=== PATIENT | female | born 1960 | race Caucasian/White ===

== ENCOUNTER 2018-04-06 17:56 | Inpatient (IN) | payer OTHER ==
[~2018-04-06] VITALS: Ht 149.9 cm; Wt 43.1 kg
--- NOTE | 2018-04-06 18:21 | ED AMS/SEIZURE/WEAK/DIZZY ---
History of Present Illness General Chief Complaint: General Adult Stated Complaint: LOW WBC Source: patient Exam Limitations: no limitations Vital Signs & Intake/Output Vital Signs & Intake/Output Vital Signs Date Time Temp Pulse Resp B/P B/P Pulse O2 O2 Flow FiO2 Mean Ox Delivery Rate 04/07 0159 98.7 61 12 110/62 04/07 0147 98.5 67 14 118/60 04/07 0003 97.6 67 20 133/82 99 Room Air 04/06 2214 98.5 74 17 114/69 98 Room Air 04/06 2153 98.5 84 17 121/66 100 Room Air 04/06 2055 98.5 75 17 117/56 99 Room Air 04/06 1805 97.0 108 18 122/72 98 Room Air ED Intake and Output 04/07 0000 04/06 1200 Intake Total Output Total Balance Patient 96 lb 15.98 oz Weight Weight Reported by Patient Measurement Method Allergies Coded Allergies: latex (Mild, RASH 04/06/18) erythromycin base (GI UPSET 04/06/18) Triage Note: 57 YO FEMALE SENT TO ER BY DR FOR LOW WBC (0.6). STATES HAD OUTPATIENT BLOOD WORK AND RECICVED A CALL TODAY TO COME TO THE ER. PT C/O WEAKNESS/SHAKEY. Triage Nurses Notes Reviewed? 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 BAPTISTE history also includes hypertension and iron deficiency anemia Patient presents emergency room stating that 6 months ago she began having generalized weakness fatigue diarrhea intermittent bloody stools in which they' re working diagnosis currently is ulcerative colitis patient has had 35 pound weight loss patient this past week has been doing well with her bowel movements however in the past 24 hours she is complaining of loose watery diarrhea production and intermittent cramping abdominal pain earlier today however this has resolved. Patient can tolerate by mouth however has decreased by mouth intake Denies any fever chills but does have chronic weakness and fatigue (Pita JACKSON,Claudio) Reconcile Medications Cyanocobalamin (Vitamin B-12) 1,000 MCG TABLET 1 TAB PO DAILY SUPPLEMENT ( Reported) Diphenoxylate HCl/Atropine (Lomotil 2.5-0.025 MG Tablet) 2.5 MG-0.025 MG TABLET 1 TAB PO TID PRN DIARRHEA (Reported) Hyoscyamine Sulfate (Levsin-Sl) 0.125 MG TAB.SUBL 1 TAB SL TID PRN ABD CRAMPING (Reported) Mercaptopurine 50 MG TABLET 1.5 TAB PO DAILY GI RELATED (Reported) Mesalamine (Apriso) 0.375 GRAM CAP.ER.24H 4 CAP PO DAILY GI (Reported) Metoprolol Succ XL (Toprol XL) 25 MG TAB 1 TAB PO DAILY HEART/BP (Reported) Prednisone 10 MG TABLET 20 MG PO DAILY STEROID (Reported) (Ivan MARTINEZ,Jairo) Past History Travel History Traveled to [place] past 21 day No Medical History Any Pertinent Medical History? 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 No (Claudio Sena) Review of Systems Review of Systems Constitutional: Reports: see HPI. EENTM: Reports: no symptoms. Respiratory: Reports: no symptoms. Cardiovascular: Reports: no symptoms. GI: Reports: see HPI. Genitourinary: Reports: no symptoms. Musculoskeletal: Reports: no symptoms. Skin: Reports: no symptoms. Neurological/Psychological: Reports: no symptoms. Hematologic/Endocrine: Reports: no symptoms. Immunologic/Allergic: Reports: no symptoms. All Other Systems: Reviewed and Negative (Claudio Sena) Physical Exam Physical Exam General Appearance: no apparent distress, thin Head: atraumatic Eyes: Bilateral: normal appearance, PERRL. Ears, Nose, Throat: hearing grossly normal Neck: normal inspection Respiratory: normal breath sounds, no respiratory distress Cardiovascular: tachycardia Gastrointestinal: normal bowel sounds, soft, MILD RUQ PAIN NO REBOUND TENDERNESS Rectal: normal rectal tone, heme negative stool Extremities: normal range of motion Skin: intact, normal color, warm/dry Lymphatic: no anterior cervical cata Core Measures ACS in differential dx? No CVA/TIA Diagnosis No Sepsis Present: No Sepsis Focused Exam Completed? No (Claudio Sena) Progress Differential Diagnosis: anemia, CVA/stroke, dehydration, GI bleed, hypoglycemia, sepsis Plan of Care: Orders Procedure Date/time Status Regular Diet 04/07 B Active BLOOD PRODUCT PICKUP 04/07 0045 Active Vital Signs 04/079 Active Teach/Educate 04/07 29 Active Pain Treatment and Response 04/07 29 Active Nutritional Intake, Monitor 04/07 29 Active Isolation 04/07 29 Active Intake & Output 04/07 29 Active Patient Care Conference 04/07 29 Active Activity/Ambulation 04/[address] in observation 04/07 UNK Active OXYGEN SETUP (GEN) 04/06 2154 Active Saline Lock 04/06 2154 Active Vital Signs 04/06 2154 Active Activity/Ambulation 04/06 2154 Active Code Status 04/06 2154 Active BLOOD PRODUCT PICKUP 04/06 2133 Active EKG 04/06 2112 Active LEUKOCYTE POOR (PACKED CELLS) 04/06 2112 Active Add-on Test (ER Only) 04/06 1947 Active DIRECT BILIRUBIN 04/06 190 Complete PARTIAL THROMBOPLASTIN TIME 04/06 1840 Complete PROTHROMBIN TIME 04/06 1840 Complete COMPREHENSIVE METABOLIC PANEL 04/06 1840 Complete CBC WITHOUT DIFFERENTIAL 04/06 1840 Complete TYPE & SCREEN (NOT X-MATCH) 04/06 1840 Active Intake & Output 04/06 1820 Active Laboratory Tests 04/06/ 1900: Anion Gap 7, Estimated GFR > 60, BUN/Creatinine Ratio 15.0, Glucose 133 H, Calcium 9.2, Total Bilirubin 3.1 H, Direct Bilirubin 0.3, AST 28, ALT 49, Alkaline Phosphatase 62, Total Protein 5.9 L, Albumin 3.7, Globulin 2.2, Albumin/Globulin Ratio 1.7, PT 11.5, INR 1.05, APTT 30, CBC w Diff NO MAN DIFF REQ, RBC 2.43 L, MCV 91.9, MCH 31.8 H, MCHC 34.6, RDW 13.4, MPV 6.3 L, Gran % 53.1, Lymphocytes % 44.1, Monocytes % 0.9 L, Eosinophils % 1.8, Basophils % 0.1 , Absolute Granulocytes 0.5 L, Absolute Lymphocytes 0.4 L, Absolute Monocytes 0 L, Absolute Eosinophils 0, Absolute Basophils 0 Differential diagnoses include lymphoma leukemia cancer IBD Patient upon initial presentation is resting comply bedside denies any pain patient had fecal occult blood test that was negative ultrasound was ordered for mild elevation of bilirubin ultrasound was negative patient has no fever. Discussed patient with hematology who is aware patient's leukopenia Patient is symptomatically anemic, hematology advised patient to hold the 6 -MP Discussed admission with patient and family members were aware and had no questions. Diagnostic Imaging: Viewed by Me: Ultrasound. 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 COMPARISON: None TECHNIQUE: Real-time imaging of the right upper quadrant abdominal viscera. Color Doppler exam used. FINDINGS: PANCREAS: Normal. LIVER: Normal. The liver demonstrates normal size, contour and echogenicity. No focal lesion or intrahepatic biliary duct dilatation. GALLBLADDER: The gallbladder is contracted. Patient was not fasting for this exam. No gallstone seen. No pericholecystic fluid. No gallbladder wall thickening COMMON BILE DUCT: Normal in caliber measuring 0.3 cm in diameter. RIGHT KIDNEY: Normal. No hydronephrosis. No renal calculi or focal parenchymal lesions. The kidney measures 11.2 cm in maximum dimension. FREE FLUID: None. IMPRESSION: Nonfasting ultrasound. Gallbladder is contracted. There is no acute change of the gallbladder. No gallstone. No bile duct dilatation. DICTATED BY: Franklyn Lubin MD DATE/TIME DICTATED:04/06/182046 SWITCHBOARD WIRER:SHADE DATE/TIME TRANSCRIBED:04/06/182046 CONFIDENTIAL, DO NOT COPY WITHOUT APPROPRIATE AUTHORIZATION. <Electronically signed in Other Vendor System> SIGNED BY: Franklyn Lubin MD 04/06/18 [id number] (Pita JACKSON,Claudio) Departure Departure Disposition: STILL A PATIENT Condition: Stable Clinical Impression Primary Impression: Symptomatic anemia Secondary Impressions: Leukopenia Referrals: Domenico Loya MD, V. (PCP/Family) Departure Forms: Customer Survey General Discharge Information Admission Note Spoke With: Sandra Umanzor MD Documentation of Exam: Documentation of any treatments & extenuating circumstances including Concerns Regarding Discharge (functional status, medication knowledge or non-compliance, living conditions, etc.) that warrant an admission rather than observation: [ Patient requires hematology consultation gastroenterology consultation IV blood transfusions repeat labs] (Claudio Sena) PA/GROUND WIRER Co-Sign Statement Statement: ED Attending supervision documentation- x I saw and evaluated the patient. I have also reviewed all the pertinent lab results and diagnostic results. I agree with the findings and the plan of care as documented in the PA's/GROUND WIRER's documentation. Generalized weakness, worsening anemia/pancytopenia secondary to 6-MP [] I have reviewed the ED Record and agree with the PA's/GROUND WIRER's documentation. [] Additions or exceptions (if any) to the PAs/GROUND WIRER's note and plan are summarized below: [] (Ivan MARTINEZ,Jairo) Critical Care Note Critical Care Note Critical Care Time: 30-74 min (Claudio Sena)
[2018-04-06 19:14] LABS: ABSOLUTE BASOPHIL COUNT 0 /CUMM (0.0-0.2); ABSOLUTE EOSINOPHIL COUNT 0 /CUMM (0.0-0.7); ABSOLUTE GRANULOCYTE CT 0.5 /CUMM (1.4-6.5); ABSOLUTE LYMPH COUNT 0.4 /CUMM (1.2-3.4); ABSOLUTE MONOCYTE COUNT 0 /CUMM (0.10-0.60); BASOPHIL % 0.1 % (0.0-2.0); EOSINOPHIL % 1.8 % (0-5); HEMATOCRIT 22.4 % (37-47); MEAN CORPUSCULAR HGB 31.8 PG (27.0-31.0); MEAN CORPUSCULAR HGB CONC 34.6 G/DL (33.0-37.0); MEAN CORPUSCULAR VOLUME 91.9 FL (81.0-99.0); MEAN PLATELET VOLUME 6.3 FL (7.4-10.4); PLATELET COUNT 168 /CUMM (130-400); RBC DISTRIBUTION WIDTH 13.4 % (11.5-14.5); RED BLOOD CELL CT 2.43 /CUMM (4.20-5.40)
[2018-04-06 19:20] LABS: WHITE BLOOD CELL COUNT 0.9 /CUMM (4.8-10.8)
[2018-04-06 19:23] LABS: PT 11.5 SEC (9.4-12.5); PTT 30 SEC (25-37)
[2018-04-06 19:47] LABS: GRANULOCYTE % 53.1 % (42.2-75.2)
--- NOTE | 2018-04-06 21:03 | ULTRASOUND REPORT ---
EXAMINATION: US ABDOMEN LIMITED CLINICAL INFORMATION: Right upper quadrant pain.. COMPARISON: None TECHNIQUE: Real-time imaging of the right upper quadrant abdominal viscera. Color Doppler exam used. FINDINGS: PANCREAS: Normal. LIVER: Normal. The liver demonstrates normal size, contour and echogenicity. No focal lesion or intrahepatic biliary duct dilatation. GALLBLADDER: The gallbladder is contracted. Patient was not fasting for this exam. No gallstone seen. No pericholecystic fluid. No gallbladder wall thickening COMMON BILE DUCT: Normal in caliber measuring 0.3 cm in diameter. RIGHT KIDNEY: Normal. No hydronephrosis. No renal calculi or focal parenchymal lesions. The kidney measures 11.2 cm in maximum dimension. FREE FLUID: None. IMPRESSION: Nonfasting ultrasound. Gallbladder is contracted. There is no acute change of the gallbladder. No gallstone. No bile duct dilatation.
[2018-04-06] MEDS ORDERED: MERCAPTOPURINE50 M1 PO (21:25)
[2018-04-06] MEDS ORDERED: PREDNISONE10 M2 PO (21:26)
[2018-04-06] MEDS ORDERED: TOPROL XL25 M1 PO (21:27)
[2018-04-06] MEDS ORDERED: LEVSIN-SL0.125 MG SL (21:27)
[2018-04-06] MEDS ORDERED: APRISO0.375 G1 PO (21:30)
[2018-04-06] MEDS ORDERED: LOMOTIL 2.5-0.1 EACH PO (21:31)
--- NOTE | 2018-04-06 21:40 | History & Physical ---
General Information and HPI Allergies/Medications Allergies: Coded Allergies: latex (Mild, RASH 04/06/18) erythromycin base (GI UPSET 04/06/18) Home Med list Cyanocobalamin (Vitamin B-12) 1,000 MCG TABLET 1 TAB PO DAILY SUPPLEMENT ( Reported) Diphenoxylate HCl/Atropine (Lomotil 2.5-0.025 MG Tablet) 2.5 MG-0.025 MG TABLET 1 TAB PO TID PRN DIARRHEA (Reported) Hyoscyamine Sulfate (Levsin-Sl) 0.125 MG TAB.SUBL 1 TAB SL TID PRN ABD CRAMPING (Reported) Mercaptopurine 50 MG TABLET 1.5 TAB PO DAILY GI RELATED (Reported) Mesalamine (Apriso) 0.375 GRAM CAP.ER.24H 4 CAP PO DAILY GI (Reported) Metoprolol Succ XL (Toprol XL) 25 MG TAB 1 TAB PO DAILY HEART/BP (Reported) Prednisone 10 MG TABLET 20 MG PO DAILY STEROID (Reported) Past History Travel History Traveled to [place] past 21 day No Medical History Neurological: NONE EENT: NONE Cardiovascular: hypertension Respiratory: NONE Gastrointestinal: ulcerative colitis Hepatic: NONE Renal: NONE Musculoskeletal: NONE Psychiatric: NONE Endocrine: NONE Blood Disorders: NONE Cancer(s): 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
[2018-04-06] MEDS ORDERED: VITAMIN B-121000 MC3 PO (21:48)
[2018-04-07 01:47] VITALS: BP 118/60
[2018-04-07 01:59] VITALS: BP 110/62
[2018-04-07 02:18] VITALS: BP 146/80
--- NOTE | 2018-04-07 03:51 | History & Physical ---
Marli Saavedra MD 04/07/18 0350: General Information and HPI MD Statement: I have seen and personally examined MANINDER WAGONER and documented this H&P. The patient is a 57 year old F who presented with a patient stated chief complaint of abdominal pain, diarrhea, pancytopenia Source of Information: patient, family Exam Limitations: no limitations History of Present Illness: This is a 57-year-old female with a past medical history significant for hypertension, ulcerative colitis, right hip replacement secondary to osteoarthritis, hysterectomy, for complaints of right upper quadrant pain, diarrhea secondary to her ulcerative colitis, and recent pancytopenia found on recent labs. Today, the patient saw her alarm mechanic Dr. Irizarry and after doing her work and finding pancytopenia, he recommended that she come to the ED. The patient was formally diagnosed with ulcerative colitis in November after a colonoscopy. She was inpatient at [facility] in September for mild colitis seen on the scan. The patient states that she had antibiotics for bronchitis several times over the years and after one specific bout, in the fall , is when her problems started with diarrhea. She has been worked up several times for C. difficile which has always been negative. The patient has lost about a total of 30 pounds her diagnosis and can vary to low appetite, experiences diarrhea regularly, sometimes 10-12 times per day. He should states that she has had continuous diarrhea since about 2 PM today. She notes right upper quadrant pain that gets better on defecation. She rates it at the worst an 8 out of 10. The patient notes that the stool is dark brown currently a darker brown than previous. Yesterday the patient's diarrhea was mostly watery. The last time that she noted ean blood in the stool was in October. The patient notes severe tiredness that she attributes to waking up to use the bathroom several times nightly. She states that she's had to quit her job because of near accidents at work. The patient denies any nausea, vomiting, fever, chills, headache, dizziness, cough, dysuria, lower extremity edema. The patient does admit to chest pain a few times over the past last week. The chest pain is not on exertion and not worse with deep breathing. She does not have any cardiac issues except for hypertension. She has a family history of her mother had bypass surgery in her 60s. Dr[address] Irizarry recently increased the patient's dose of 6-mercaptopurine on March 22 from 50 mg to 75 mg in addition to mesalamine and chronic steroids 10 mg daily. The patient was supposed to start 20 mg of prednisone today. The patient states that she is aware that when her prednisone is less then 15, she began to have worsening symptoms. The patient is also on Lomotil and hyoscyamine for cramps when necessary. Of note patient has left arm rash that she attributes to poison donna that she got when pulling weeds out of her garden. She states that the rash is itchy. She also states that when she touched her arm to her leg, her leg broke out in rash as well. Dr. Irizarry has seen the rash and also thinks that it is poison donna. She has been using calamine lotion on the rash. Her [id number] has the same rash currently and was also pulling weeds from the garden. The patient has no family history of abdominal problems. History of cancer in father and sister. The patient smoked for about 15 years ago when she was in college and asked her, 1.5 packs per day, rare alcohol use or drug use. Allergies/Medications Allergies: Coded Allergies: latex (Mild, RASH 04/06/18) erythromycin base (GI UPSET 04/06/18) Home Med list Cyanocobalamin (Vitamin B-12) 1,000 MCG TABLET 1 TAB PO DAILY SUPPLEMENT ( Reported) Diphenoxylate HCl/Atropine (Lomotil 2.5-0.025 MG Tablet) 2.5 MG-0.025 MG TABLET 1 TAB PO TID PRN DIARRHEA (Reported) Hyoscyamine Sulfate (Levsin-Sl) 0.125 MG TAB.SUBL 1 TAB SL TID PRN ABD CRAMPING (Reported) Mercaptopurine 50 MG TABLET 1.5 TAB PO DAILY GI RELATED (Reported) Mesalamine (Apriso) 0.375 GRAM CAP.ER.24H 4 CAP PO DAILY GI (Reported) Metoprolol Succ XL (Toprol XL) 25 MG TAB 1 TAB PO DAILY HEART/BP (Reported) Prednisone 10 MG TABLET 20 MG PO DAILY STEROID (Reported) Compliance With Home Meds: GOOD Past History Travel History Traveled to [place] past 21 day No Medical History Blood Transfusion Hx: No Neurological: NONE EENT: NONE Cardiovascular: hypertension Respiratory: bronchitis Gastrointestinal: ulcerative colitis Hepatic: NONE Renal: NONE Musculoskeletal: osteoarthritis Psychiatric: NONE Endocrine: NONE Blood Disorders: NONE Cancer(s): NONE DIVERSITY MANAGER/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: endometriosis History of MRSA: No History of VRE: No History of CDIFF: No Isolation History: Neutropenic precautions Surgical History Surgical History: non-contributory Past Family/Social History Family History Relations & Conditions if any Family history was reviewed; no changes noted. Psychosocial History Smoking Status: Former Smoker Review of Systems Review of Systems Constitutional: Reports: no symptoms. EENTM: Reports: no symptoms. Cardiovascular: Reports: chest pain. Respiratory: Reports: no symptoms. GI: Reports: abdominal pain, bloating, diarrhea. Genitourinary: Reports: no symptoms. Musculoskeletal: Reports: no symptoms. Skin: Reports: rash. Neurological/Psychological: Reports: no symptoms. Hematologic/Endocrine: Reports: no symptoms. Immunologic/Allergic: Reports: no symptoms. All Other Systems: Reviewed and Negative Exam & Diagnostic Data Last 24 Hrs of Vital Signs/I&O Vital Signs Date Time Temp Pulse Resp B/P B/P Pulse O2 O2 Flow FiO2 Mean Ox Delivery Rate 04/07 0218 98.5 72 20 146/80 100 Room Air 04/07 0159 98.7 61 12 110/62 04/07 0147 98.5 67 14 118/60 04/07 0003 97.6 67 20 133/82 99 Room Air 04/06 2214 98.5 74 17 114/69 98 Room Air 04/06 2153 98.5 84 17 121/66 100 Room Air 04/06 2055 98.5 75 17 117/56 99 Room Air 04/06 1805 97.0 108 18 122/72 98 Room Air Intake & Output 04/07 0800 04/07 0000 04/06 1600 Intake Total 710 Output Total Balance 710 Intake, Blood 350 Product Intake, Oral 360 Number 2 Bowel Movements Patient 95 lb 96 lb 15.98 oz Weight Weight Reported by Patient Measurement Method Physical Exam General Appearance Alert, Oriented X3, Cooperative, No Acute Distress Skin No Breakdown, patient has left arm rash, pruritic, no other skin lesions Skin Temp/Moisture Exam: Warm/Dry Sepsis Skin Exam (color): Normal for Ethnicity HEENT Atraumatic, PERRLA, EOMI, Mucous Membr. moist/pink Neck Supple, No JVD Cardiovascular Regular Rate, Normal S1, Normal S2, No Murmurs Lungs Clear to Auscultation, Normal Air Movement Abdomen Normal Bowel Sounds, Soft, No Hepatospenomegaly, No Masses, epigastric pain on palpation, positive bowel sounds, no masses Neurological Normal Speech Extremities No Clubbing, No Cyanosis, No Edema, Normal Pulses, No Tenderness/ Swelling Vascular Normal Pulses, Pulses Symmetrical Sepsis Peripheral Pulse Location: Radial Last 24 Hrs of Labs/Sumanth: Laboratory Tests 04/06/18 1900: Anion Gap 7, Estimated GFR > 60, BUN/Creatinine Ratio 15.0, Glucose 133 H, Calcium 9.2, Total Bilirubin 3.1 H, Direct Bilirubin 0.3, AST 28, ALT 49, Alkaline Phosphatase 62, Total Protein 5.9 L, Albumin 3.7, Globulin 2.2, Albumin/Globulin Ratio 1.7, PT 11.5, INR 1.05, APTT 30, CBC w Diff NO MAN DIFF REQ, RBC 2.43 L, MCV 91.9, MCH 31.8 H, MCHC 34.6, RDW 13.4, MPV 6.3 L, Gran % 53.1, Lymphocytes % 44.1, Monocytes % 0.9 L, Eosinophils % 1.8, Basophils % 0.1 , Absolute Granulocytes 0.5 L, Absolute Lymphocytes 0.4 L, Absolute Monocytes 0 L, Absolute Eosinophils 0, Absolute Basophils 0 Assessment/Plan Assessment: This is a 57-year-old female with a past medical history significant for hypertension, ulcerative colitis, right hip replacement secondary to osteoarthritis, hysterectomy, for complaints of abd pain, diarrhea secondary to her ulcerative colitis, and recent pancytopenia found on recent labs. Today, the patient saw her alarm mechanic Dr. Irizarry and after doing her work and finding pancytopenia, he recommended that she come to the ED. The patient was formally diagnosed with ulcerative colitis in November after a colonoscopy. Her dose of 6 mercaptopurine was recently increased from 50 mg to 75 mg. The patient is also on prednisone 10 mg which was supposed to be increased to 20 mg daily, hyoscyamine when necessary, mesalamine, Lomotil. He has experienced 30 pound weight loss and continuing diarrhea, recently without blood, exhaustion, and has had to quit her job for her illness. Previous colonoscopy showed ulcerative colitis confined to the rectum mostly. In the ED, vitals 98.5, heart rate 108, respiratory rate 20, blood pressure 122/ 72, 90% O2 sat on room air. Labs showed WBC count of 0.9, absolute neutrophil count of 0.5, hemoglobin 7.7, MCV normal, platelet count 168, total bilirubin of 3.1. CT abdomen and pelvis clear In the ED, the patient received IV Tylenol for pain. Assessment -Afebrile pancytopenia secondary to increase in dose of 6 mercaptopurine: Patient has low counts in all cell lines and elevated bilirubin. Patient may have decreased immunity which is caused her to have noise 90 infection. No other evidence of skin lesions. Patient has a hemoglobin of 7.7. We have started 2 units of blood transfusion. Research literature shows that blood counts should rebound about 20 days after stopping mercaptopurine. -Diarrhea and abdominal pain secondary to ulcerative colitis: Patient is currently on mesalamine, Lomotil, prednisone, hyosciamine -Past medical history of hypertension Plan -Check CBC status post transfusion -Neutropenic precautions, watch for fevers -Stop 6-mercaptopurine -Hematology consult -GI consult DVT prophylaxis with just Alps Regular diet as tolerated Full code As Ranked By This Provider Problem List: 1. Leukopenia Core Measures/Misc (06/27) Acute Coronary Syndrome ACS Diagnosis: No Congestive Heart Failure Congestive Heart Failure Diagnosis No Cerebrovascular Accident CVA/TIA Diagnosis: No VTE (View Protocol) VTE Risk Factors Acute Medical Illness No Mechanical VTE Prophylaxis d/t LowRisk-No Interven Req'd No VTE Pharm Prophylaxis d/t Medical Contraindication Sepsis (View protocol) Sepsis Present: No If YES complete Sepsis Event Note If YES complete Sepsis Event Note AbdirashidSugar will 04/07/18 0422: Core Measures/Misc (06/27) Sepsis (View protocol) If YES complete Sepsis Event Note If YES complete Sepsis Event Note Resident Review Statement Resident Statement: discussed with internet designer, agreed with internet designer Other Findings: Patient is 57-year-old female with past medical history of hypertension, recently diagnosed ulcerative colitis in 11/2017, was sent to [facility] for low blood count. Patient was diagnosed by ulcerative colitis by Dr. Irizarry through coloscopy recently, since then patient has been on mesalamine, 6-mercaptopurine and prednisone. Patient states that although her bloody stools improved 2-3 months ago, her diarrhea was never improved. Therefore recently like 2 weeks ago, her 6-mercaptopurine dose was increased. Patient had appointment to follow with Dr. Irizarry in office today for her diarrhea, and routine blood work was drawn. She was called by Dr. Irizarry to come to ER based on her pancytopenia. Labs and vitals as above Assessment and plan We will monitor the patient on general medicine floor, recheck CBC in morning, stop offending agent 6-mercaptopurine. GI and hematology evaluation in a.m. We'll continue the patient on metoprolol, will follow GI recommendation regarding dosing of prednisone in a.m. Can continue mesalamine at though old dose. Patient also takes hyoscyamine for abdominal cramping, will continue. DVT prophylaxis Alps Patient is full code. Sandra Umanzor 04/07/18 0506: Core Measures/Misc (06/27) Sepsis (View protocol) If YES complete Sepsis Event Note If YES complete Sepsis Event Note Attending MD Review Statement Attending Statement Attending MD Statement: examined this patient, discuss w/resident/PA/ELECTRIC MOTOR ASSEMBLER, agreed w/resident/PA/ELECTRIC MOTOR ASSEMBLER, discussed with family, reviewed EMR data (avail), reviewed images, amended to note Attending Assessment/Plan: CC: Low blood counts PMH: HTN, ulcerative colitis Patient was suggested by her alarm mechanic to go to ER for low blood counts. Patient started to have symptoms with her colitis in September 2017, eventually underwent colonoscopy and was found to have ulcerative colitis. She was started on mesalamine and prednisone but her symptoms persisted. She hasn't intermittent diarrhea, abdominal cramping and had 35 pound weight loss. She used to have bloody diarrhea but last bloody diarrhea was few months back. Because of her persistent symptoms she was started on 6-mercaptopurine outpatient, and was followed up as routine blood work today. Her blood counts were extremely low so she was suggested to go to ER. She has mild rash on her left upper extremity, attributes that to poison donna exposure and few spots on left thigh because of the same. She denies any fever or chills. Complete ROS is otherwise unremarkable. Vitals: Temperature 98.5, pulse 75, RR 17, blood pressure 117/56, saturating 99% on room air. On exam: A O 3, cooperative, no acute distress, neck supple, JVD normal, no lymphadenopathy, mucosa moist, no focal neurological deficit, no dependent edema , small maculopapular rash on left forearm, left thigh, without evidence of cellulitis or discharge or abscess collection. CVS: S1-S2, RRR. RS: Clear to auscultate bilaterally. Abdomen: Soft, NT, ND, bowel sounds present. Right upper quadrant ultrasound: Nonfasting ultrasound. Gallbladder is contracted. There is no acute change of the gallbladder. No gallstone. No bile duct dilatation. Assessment and plan 57 year old female with recently diagnosed ulcerative colitis was sent to ER by alarm mechanic for low blood cultures. Her WBC count was 4.2 on April 01 and dropped to 0.8 today with absolute neutrophil being 500. She also has reduced RBC count and her hemoglobin dropped from 8.9-7.9. She was started on 6- mercaptopurine on March 01 and her dose was recently increased on March 22, for which she was undergoing routine blood work. Complete ROS unremarkable except her colitis symptoms at this point. Patient is being placed in Observation for anemia. Rectal examination done by ER provider mentions heme-negative stool. + Pancytopenia secondary to 2-echkewffqakdql-rxpsvti bone marrow depression + Ulcerative colitis + Hypertension - Place in observation on Gen. medicine - Transfuse 1 unit PRBC as it is ordered from ER, otherwise not indicated - Stop 6-mercaptopurine - Inform gastroenterology about patient being here - Consult hematology - Continue by mouth prednisone, mesalamine for ulcerative colitis - Continue patient's antihypertensives. We had detailed discussion with patient's and patient and explained the plan.
[2018-04-07 06:47] VITALS: BP 110/60
[2018-04-07 08:12] LABS: ABSOLUTE BASOPHIL COUNT 0 /CUMM (0.0-0.2); ABSOLUTE EOSINOPHIL COUNT 0.1 /CUMM (0.0-0.7); ABSOLUTE GRANULOCYTE CT 0.3 /CUMM (1.4-6.5); ABSOLUTE LYMPH COUNT 1.9 /CUMM (1.2-3.4); ABSOLUTE MONOCYTE COUNT 0 /CUMM (0.10-0.60); BASOPHIL % 0.2 % (0.0-2.0); EOSINOPHIL % 3.5 % (0-5); HEMATOCRIT 26.6 % (37-47); MEAN CORPUSCULAR HGB 31.3 PG (27.0-31.0); MEAN CORPUSCULAR HGB CONC 34.7 G/DL (33.0-37.0); MEAN CORPUSCULAR VOLUME 90.3 FL (81.0-99.0); MEAN PLATELET VOLUME 6.5 FL (7.4-10.4); PLATELET COUNT 110 /CUMM (130-400); RBC DISTRIBUTION WIDTH 14.3 % (11.5-14.5); RED BLOOD CELL CT 2.94 /CUMM (4.20-5.40)
[2018-04-07 09:02] LABS: WHITE BLOOD CELL COUNT 2.4 /CUMM (4.8-10.8)
[2018-04-07 09:05] LABS: GRANULOCYTE % 14.7 % (42.2-75.2)
--- NOTE | 2018-04-07 12:39 | PN- Att Addend ---
Attending Addendum Attending Brief Note Patient seen and examined, was complaining of some abdominal cramps and diarrhea but that her usual. Blood count this morning improved both RBC and white blood cell count. Vital Signs Date Time Temp Pulse Resp B/P B/P Pulse O2 O2 Flow FiO2 Mean Ox Delivery Rate 04/07 0647 98.8 68 20 110/60 98 Room Air 04/07 0218 98.5 72 20 146/80 100 Room Air 04/07 0159 98.7 61 12 110/62 04/07 0147 98.5 67 14 118/60 04/07 0003 97.6 67 20 133/82 99 Room Air 04/06 2214 98.5 74 17 114/69 98 Room Air 04/06 2153 98.5 84 17 121/66 100 Room Air 04/06 2055 98.5 75 17 117/56 99 Room Air 04/06 1805 97.0 108 18 122/72 98 Room Air on exam; aox3, nad. cv; s1, s2, rrr resp; clear abd; soft, nt, bs+ ext; no edema Laboratory Tests 04/07 04/06 0640 1900 Chemistry Sodium (137 - 145 mmol/L) 141 139 Potassium (3.5 - 5.1 mmol/L) 3.7 4.1 Chloride (98 - 107 mmol/L) 106 99 Carbon Dioxide (22 - 30 mmol/L) 28 32 H Anion Gap (5 - 16) 7 7 BUN (7 - 17 mg/dL) 8 9 Creatinine (0.5 - 1.0 mg/dL) 0.6 0.6 Estimated GFR (>60 ml/min) > 60 > 60 BUN/Creatinine Ratio (7 - 25 %) 13.3 15.0 Glucose (65 - 99 mg/dL) 133 H Calcium (8.4 - 10.2 mg/dL) 9.2 Total Bilirubin (0.2 - 1.3 mg/dL) 3.1 H Direct Bilirubin (< 0.4 mg/dL) 0.2 0.3 AST (14 - 36 U/L) 28 ALT (9 - 52 U/L) 49 Alkaline Phosphatase (<127 U/L) 62 Total Protein (6.3 - 8.2 g/dL) 5.9 L Albumin (3.5 - 5.0 g/dL) 3.7 Globulin (1.9 - 4.2 gm/dL) 2.2 Albumin/Globulin Ratio (1.1 - 2.2 %) 1.7 Vitamin B12 (239 - 931 pg/mL) > 1000 H Folate (2.76 - 20.0 ng/mL) 9.7 Coagulation PT (9.4 - 12.5 SEC) 11.5 INR (0.90 - 1.19) 1.05 APTT (25 - 37 SEC) 30 Hematology CBC w Diff MAN DIFF ORDERED NO MAN DIFF REQ WBC (4.8 - 10.8 /CUMM) 2.4 L 0.9 *L RBC (4.20 - 5.40 /CUMM) 2.94 L 2.43 L Hgb (12.0 - 16.0 G/DL) 9.2 L 7.7 L Hct (37 - 47 %) 26.6 L 22.4 L MCV (81.0 - 99.0 FL) 90.3 91.9 MCH (27.0 - 31.0 PG) 31.3 H 31.8 H MCHC (33.0 - 37.0 G/DL) 34.7 34.6 RDW (11.5 - 14.5 %) 14.3 13.4 Plt Count (130 - 400 /CUMM) 110 L 168 MPV (7.4 - 10.4 FL) 6.5 L 6.3 L Gran % (42.2 - 75.2 %) 14.7 L 53.1 Lymphocytes % (20.5 - 51.1 %) 81.4 H 44.1 Monocytes % (1.7 - 9.3 %) 0.2 L 0.9 L Eosinophils % (0 - 5 %) 3.5 1.8 Basophils % (0.0 - 2.0 %) 0.2 0.1 Absolute Granulocytes (1.4 - 6.5 /CUMM) 0.3 L 0.5 L Segmented Neutrophils (42.2 - 75.2 %) 9 L Band Neutrophils (0.0 - 5.0 %) 2 Absolute Lymphocytes (1.2 - 3.4 /CUMM) 1.9 0.4 L Lymphocytes (20.5 - 51.1 %) 84 H Monocytes (1.7 - 9.3 %) 1 L Absolute Monocytes (0.10 - 0.60 /CUMM) 0 L 0 L Eosinophils (0 - 5.0 %) 3 Absolute Eosinophils (0.0 - 0.7 /CUMM) 0.1 0 Basophils (0.0 - 2.0 %) 1 Absolute Basophils (0.0 - 0.2 /CUMM) 0 0 Platelet Estimate (ADEQUATE) DECREASED Poikilocytosis 1+ Anisocytosis 1+ A/P; 57 y/o F with pmh sig for hypertension, recent diagnosis of ulcerative colitis on 6 MP, right hip replacement secondary to osteoarthritis, hysterectomy , admitted with pancytopenia. Patient had acute blood loss anemia and received RBC transfusion. H&H and upright blood cell count has improved. Still thrombocytopenic. This was all likely secondary to 6-MP. Discussed with Dr. Irizarry. 6-MP has been stopped and will continue to hold. Continue steroids. Counts improved. patient can be discharged home today with outpatient GI and possible heme follow. Will defer that decesion to GI if counts do not continue to improve.
--- NOTE | 2018-04-07 12:48 | Patient Discharge Instructions ---
Discharge Instructions General Discharge Information You were seen/treated for: Pancytopenia Watch for these problems: Please return to the ER in case of any Fever, chills, diarrhea, or blood in stools. Special Instructions: Please follow up with your PCP and Interactive Web Developer within a week after discharge. Follow up blood work with Dr. Irizarry. Diet Continue normal diet: Yes Activity Full Activity/No Limits: Yes Acute Coronary Syndrome Inclusion Criteria At DC or during hospital stay patient has or had the following: ACS DIAGNOSIS No Discharge Core Measures Meds if any: Prescribed or Continued at Discharge Meds if any: NOT Prescribed or Continued at Discharge Congestive Heart Failure Inclusion Criteria At DC or during hospital stay patient has or had the following: CHF DIAGNOSIS No Discharge Core Measures Meds if any: Prescribed or Continued at Discharge Meds if any: NOT Prescribed or Continued at Discharge Cerebrovascular accident Inclusion Criteria At DC or during hospital stay patient has or had the following: CVA/TIA Diagnosis No Discharge Core Measures Meds if any: Prescribed or Continued at Discharge Meds if any: NOT Prescribed or Continued at Discharge Venous thromboembolism Inclusion Criteria VTE Diagnosis No VTE Type NONE VTE Confirmed by (Test) NONE Discharge Core Measures - Per Current guidelines, there needs to be overlap - treatment for the first 5 days of Warfarin therapy. - If discharged on Warfarin prior to 5 days of - overlap therapy, the patient will need to be - assessed for post discharge needs including - *Post discharge parental anticoagulation - *Warfarin and/or parental anticoagulation education - *Follow up date to check INR post discharge At least 5 days overlap therapy as Inpatient No Meds if any: Prescribed or Continued at Discharge Note: Overlap Therapy is Warfarin and Anticoagulant Meds if any: NOT Prescribed or Continued at Discharge
[2018-04-07 13:35] VITALS: BP 110/60
--- NOTE | 2018-04-07 16:45 | Discharge Summary ---
Hospital Course Allergies: Coded Allergies: latex (Mild, RASH 04/06/18) erythromycin base (GI UPSET 04/06/18) Discharge Instructions Medications at Discharge Discharge Medications: Stop taking the following medications: Mercaptopurine (Mercaptopurine) 50 MG TABLET ORAL DAILY Qty = 45 Continue taking these medications: Prednisone (Prednisone) 10 MG TABLET 20 Milligram ORAL DAILY Qty = 90 Comments: Last Taken:04/07/18 Time:0845 Metoprolol Succ XL (Toprol XL) 25 MG TAB 1 Tablet ORAL DAILY Comments: NOT TAKEN IN HOSPITAL Hyoscyamine Sulfate (Levsin-Sl) 0.125 MG TAB.SUBL 1 Tablet SUBLINGUAL THREE TIMES DAILY as needed for ABD CRAMPING Qty = 45 Comments: Last Taken:04/07/18 Time:1300 Mesalamine (Apriso) 0.375 GRAM CAP.ER.24H 4 Capsule ORAL DAILY Qty = 120 Comments: Last Taken:04/07/18 Time:0845 Diphenoxylate HCl/Atropine (Lomotil 2.5-0.025 MG Tablet) 2.5 MG-0.025 MG TABLET 1 Tablet ORAL THREE TIMES DAILY as needed for DIARRHEA Qty = 60 Comments: NOT GIVEN IN HOSPITAL Cyanocobalamin (Vitamin B-12) 1,000 MCG TABLET 1 Tablet ORAL DAILY Comments: NOT GIVEN IN HOSPITAL
== END 2018-04-07 14:41 | DRG 809 ==
LOC: ERH 17:56 → 2NA 21:54 → ERHI 21:54 → ENRESERV 22:50 → 2NA 04-07 00:22
PROVIDERS: Internal Medicine; Physician Assistant
PROC: 30233N1 Transfusion of Nonautologous Red Blood Cells into Peripheral Vein, Percutaneous Approach (ICD-10-PCS; principal; 2018-04-06)
DX: D61.811 Other drug-induced pancytopenia (principal); K51.90 Ulcerative colitis, unspecified, without complications; T45.1X5A Adverse effect of antineoplastic and immunosuppressive drugs, initial encounter; I10 Essential (primary) hypertension; Z96.641 Presence of right artificial hip joint; Z88.1 Allergy status to other antibiotic agents; Z91.040 Latex allergy status; Z79.52 Long term (current) use of systemic steroids; Z90.710 Acquired absence of both cervix and uterus
CPT/HCPCS: ERO; 36592; 82436; 86920; 93005; 93010; 96374; 99291; J0131; J7512; P9016

== ENCOUNTER 2018-06-14 08:54 | Inpatient (IN) | payer OTHER ==
[~2018-06-14] VITALS: Ht 149.9 cm; Wt 40.9 kg
[~2018-06-14 08:54] MED LIST: APRISO0.375 G1 PO; LEVSIN-SL0.125 MG SL; LOMOTIL 2.5-0.1 EACH PO; MERCAPTOPURINE50 M1 PO; PREDNISONE10 M2 PO; TOPROL XL25 M1 PO; VITAMIN B-121000 MC3 PO
[2018-06-14 09:55] LABS: ABSOLUTE BASOPHIL COUNT 0 /CUMM (0.0-0.2); ABSOLUTE EOSINOPHIL COUNT 0 /CUMM (0.0-0.7); ABSOLUTE LYMPH COUNT 0.5 /CUMM (1.2-3.4); ABSOLUTE MONOCYTE COUNT 1.1 /CUMM (0.10-0.60); BASOPHIL % 0.1 % (0.0-2.0); EOSINOPHIL % 0.1 % (0-5); HEMATOCRIT 35.7 % (37-47); MEAN CORPUSCULAR HGB CONC 34.9 G/DL (33.0-37.0); MEAN CORPUSCULAR VOLUME 97.3 FL (81.0-99.0); MEAN PLATELET VOLUME 7.3 FL (7.4-10.4); PLATELET COUNT 171 /CUMM (130-400); RBC DISTRIBUTION WIDTH 13.7 % (11.5-14.5); RED BLOOD CELL CT 3.67 /CUMM (4.20-5.40)
[2018-06-14 10:30] LABS: WHITE BLOOD CELL COUNT 4.6 /CUMM (4.8-10.8)
[2018-06-14 10:31] LABS: GRANULOCYTE % 66.2 % (42.2-75.2)
--- NOTE | 2018-06-14 10:37 | Proc Note Colonoscopy ---
Colonoscopy Procedure Medical History: unchanged (see jesús ov note 06/09/18) Mental Status: alert/oriented Heart/Lung Eval Prior to Sedation: within normal limits Candidate for Sedation? Yes Date of Last Colonoscopy: 12/03/17 Procedure Date: 06/14/18 Procedure Type: flexible sigmoidoscopy with biopsies Self Propelled Dredge Operator: Sandro Irizarry MD ASA Classification: III Indications: Pt diagnosed with ulcerative proctosigmoiditis in 11/28 that has failed to achieve a clinical remission with high dose 5-ASA medications, prednisone and humira. A flexible sigmoidosocopy is now being done to rule out CMV and assess for a mucosal response to humira. Instrument (Colonoscope): single channel Meds Received: MAC Patient's Tolerance: good Complications: none Extent Reached: splenic flexure Prep: good Procedure: The risks of a flexible sigmoidoscopy was explained to the patient including, but not limited to, the risks of perforation, bleeding and/or a missed lesion and then written informed consent was obtained. After getting written informed consent the patient was placed in the left lateral decubitus position with pulse oximetry, cardiac monitoring, and supplemental oxygen was given. IV sedation was given until the desired effect was achieved. A rectal exam was performed which was normal. A high definition variable stiffness Olympus colonoscope was then inserted into the anus and advanced to the splenic flexure at 60 cm from the anus with little difficulty. Retroflexed views were not obtained due to the friability of the mucosa, but photodocumentation was obtained. Close inspection of the colonic mucosa was performed on insertion and withdrawal of the colonoscope with a withdrawal time that was adequate in length to closely inspect all folds and connolly of the colon. Findings: Starting in the rectum and extending to the splenic flexure at 60 cm from the anus the colonic mucosa was diffusely friable with a cobblestone appearance and some superficial ulcerations, but there were no deep ulcers appreciated. There was no normal colonic mucosa appreciated to the splenic flexure. There were no masses or polyps appreciated. Random biopsies were obtained from the colon at 60 cm, 50 cm, in the rectosigmoid colon at 20-30 cm, and from the rectum with cold biopsy forceps and were sent to pathology for further evaluation. Impression: 1. Moderately active ulcerative colitis to the splenic flexure post biopsies. Recommendations: 1. Considering the persistent disease in spite of recently being loaded with Humira the patient will be admitted to the medical service for high-dose IV steroids (hydrocortisone 100mg IV q8hrs or solumederol equivalent as per pharmacy). 2. Would start IV broad spectrum Abx secondary to a fever post procedure which I suspect is from bacterial translocation. 2. If she responsds to high-dose IV steroids will then give consideration to changing the Humira to Remicade, Entyvio, or Xeljanz hopefully as an outpatient. 3. Follow up pathology results and requests will be made to expedite the pathololgy to rule out CMV colitis. 4. Would recommend continuing high dose mesalamine at 1600mg po tid and rowasa enemas at night for now. 5. Low residue diet as tolerated. 6. If she remains refractory to medical management will then ultimately give consideration for surgical intervention. CC: Shalini MARTINEZ,Domenico Roy
--- NOTE | 2018-06-14 11:52 | History & Physical ---
Rudy MARTINEZJack 06/14/18 1152: General Information and HPI History of Present Illness: 57-year-old woman with past medical history of hypertension and ulcerative colitis seen seen for evaluation post colonoscopy for concern of a ulcerative colitis flare. Patient reports that she was diagnosed with ulcerative colitis proximally 2 years ago and has used Humira and prednisone an attempt to treated during this time. She was taking oral prednisone for approximately one year and was taken off approximately 1 week ago. Over the past month she has had crampy abdominal pain and has been passing bright red blood per rectum over the past week. Patient reportedly became febrile to 102.3 and tachycardic during the procedure with borderline low blood pressures. In the GI suite the patient received intravenous fluid bolus, intravenous Rocephin/Flagyl. Postprocedure patient states that she feels weak out abdominal pain. Review systems She otherwise denies any fever, chills, vision changes, lightheadedness, chest pain, palpitations, shortness breath, cough, nausea, vomiting. Objective Vitals-temperature 99.2, HR 81, RR 18, BP 100/60, SPO2 97% on room air Physical exam -Gen.: Well-developed, thin LH woman in no acute distress -HEENT: NCAT, PERRL, EOMI, anicteric sclera, moist mucous membranes -Neck: Supple, no JVD, trachea midline -Cardio: Normal S1/S2 without any murmurs/gallops/rubs; tachycardic -Pulmonary: Clear to auscultation bilaterally -Abdomen: Soft, mild lower abdominal tenderness without guarding or rigidity, nondistended, bowel sounds intact -Neuro: Awake and alert, cranial nerves II through XII grossly intact -Extremities: Pulses, no edema Diagnostic -CBC: WBC 4.6/bands 21, hemoglobin 12.5, hematocrit 35.7, platelet 171 -BMP: Sodium 129, potassium 4.5, chloride 92, CO2 27, BUN 6, creatinine 0.9, anion gap 10, glucose 113 -Miscellaneous: Lactic acid pending -Urinalysis: Pending Assessment 57-year-old woman with a significant history of ulcerative colitis previously on Humira/prednisone seen postprocedure for evaluation of an acute ulcerative colitis flare. Presently patient admits to lower abdominal pain. Vital signs are significant for a temperature of 102.3 and tachycardia to the 110's. Physical examination demonstrates a pleasant middle-aged woman in no acute distress. Labs are significant for WBC/bands 4.6/21. Colonoscopy demonstrated a diffusely friable: With cobblestone appearance and some superficial ulcerations. Clinically patient appears to have an acute ulcerative colitis flare. She will be admitted to the general medicine floor for intravenous antibiotics/fluids, mesalamine, and GI consultation. Problem list -Acute ulcerative colitis flare -Previous immunosuppression/steroid dependence -Sepsis -BRBPR -History of ulcerative colitis -Hypertension -Anxiety Plan -Admit to general medicine -Ceftriaxone 1 g IV daily -Metronidazole 500 mg IV every 8 hours -Hydrocortisone 100 mg IV every 8 hours -Mesalamine 1500 g by mouth every 8 hours -Mesalamine enema every daily at bedtime -Alprazolam 0.25 mg by mouth 3 times a day when necessary for anxiety -Consult with GI for UC flare -Check lactic acid 2 -Obtain blood cultures 2 -Obtain urinalysis and urine culture -Pain control with acetaminophen -Low fiber diet -DVT prophylaxis with subcutaneous heparin -Full code Allergies/Medications Allergies: Coded Allergies: latex (Mild, RASH 04/29/18) erythromycin base (GI UPSET 04/29/18) Home Med list Cyanocobalamin (Vitamin B-12) 1,000 MCG TABLET 1 TAB PO DAILY SUPPLEMENT ( Reported) Diphenoxylate HCl/Atropine (Lomotil 2.5-0.025 MG Tablet) 2.5 MG-0.025 MG TABLET 1 TAB PO TID PRN DIARRHEA (Reported) Hyoscyamine Sulfate (Levsin-Sl) 0.125 MG TAB.SUBL 1 TAB SL TID PRN ABD CRAMPING (Reported) Mesalamine (Apriso) 0.375 GRAM CAP.ER.24H 4 CAP PO DAILY GI (Reported) Metoprolol Succ XL (Toprol XL) 25 MG TAB 1 TAB PO DAILY HEART/BP (Reported) Past History Medical History Neurological: NONE EENT: NONE Cardiovascular: hypertension Respiratory: bronchitis Gastrointestinal: ulcerative colitis Hepatic: NONE Renal: NONE Musculoskeletal: osteoarthritis Psychiatric: NONE Endocrine: NONE Blood Disorders: NONE Cancer(s): 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 Exam & Diagnostic Data Last 24 Hrs of Vital Signs/I&O Vital Signs Date Time Temp Pulse Resp B/P B/P Pulse O2 O2 Flow FiO2 Mean Ox Delivery Rate 06/14 1527 99.2 81 18 100/60 97 Room Air Intake & Output 06/14 1600 06/14 0800 06/14 0000 Intake Total Output Total 350 Balance -350 Output, Urine 350 Patient 38.102 kg Weight Assessment/Plan As Ranked By This Provider Problem List: 1. Ulcerative colitis Core Measures/Misc (06/27) Acute Coronary Syndrome ACS Diagnosis: No Congestive Heart Failure Congestive Heart Failure Diagnosis No Cerebrovascular Accident CVA/TIA Diagnosis: No VTE (View Protocol) VTE Risk Factors Age>40 No Mechanical VTE Prophylaxis d/t N/A MechProphylax Ordered No VTE Pharm Prophylaxis d/t NA PharmProphylax ordered Sepsis (View protocol) Sepsis Present: Yes If YES complete Sepsis Event Note If YES complete Sepsis Event Note José Miguel Ribeiro MD 06/14/18 2307: Core Measures/Misc (06/27) Sepsis (View protocol) If YES complete Sepsis Event Note If YES complete Sepsis Event Note Attending MD Review Statement Attending Statement Attending MD Statement: examined this patient, discuss w/resident/PA/COPY CENTER OPERATOR, agreed w/resident/PA/COPY CENTER OPERATOR, discussed with family, reviewed EMR data (avail), discussed with nursing, reviewed images, amended to note Attending Assessment/Plan: The patient is a 57 yo female with h/o HTN and ulcerative colitis who was directly admitted to general medicine from the GI unit after undergoing a colonoscopy and having fever 102.3, tachycardia and decreased BP. In the GI suite she received IV antibiotics (Ceftriaxone/Flagyl) and IV hydration with Dr. Irizarry. Plan was to admit for further treatment for sepsis with IV antibiotics/ fluids and also IV steroids for UC flare. She has been on Humira and not clear if this treatment has been effective. She had been passing blood per rectum. Biopsies were done during the colonoscopy. The patient had been treated with Mesalamine (Lialda switched to Apriso) and Canasa suppositories. She had a history of pancytopenia due to 6-MP. In the GI suite BP was 138 sys and upon arrival on floor BP was 90 sys. Fluids being given as per sepsis protocol. Physical Exam: VS: T 102.3-99.2, BP 85/55- 102/50, P 81-67, R 18, PO 98% RA HEENT: eyes- PERRLA, EOMI yessica- dry Neck: no bruits/JVD Chest: clear Cor: RRR nl S1, S2 w/o murm Abd: BS+, soft, mild diffuse tenderness w/o guarding/rebound Ext: no edema Neuro: alert & oriented x 3, non-focal Labs/Tests- as above, lactate normal Impression/Plan: #Ulcerative Colitis Flare- as per Dr. Irizarry. Blood per rectum and abdominal cramps. Plan: Admit to general medicine. IV Hydrocortisone Mesalamine po and VT GI follow-up/consult (Dr. Hamilton) GI considering alternative biologic other than Humira (may consider Remicade). #Fever/Sepsis- lactate was delayed, however normal. Does have fever, leukocytosis and tachycardia (in GI suite), hypotension. Fever after colonoscopy - no evidence of perforation. ? micro leak, ? transient post procedure bacteremia, + diffuse abdominal tenderness. Plan: Agree with gonzalez culture. IV antibiotics (Ceftriaxone/Flagyl). Fluids as per sepsis protocol. #Hyponatremia- mild 129. ? secondary to volume depletion. Plan: Follow closely after NS boluses. #HTN- BP low at present. Normally on Metoprolol. Plan: Hold Metoprolol while hypotensive. #Volume Depletion- appears dehydrated. Plan: Volume repletion as per sepsis protocol. #Anxiety- does have Xanax at home, however has not taken yet. She is requesting something for anxiety while on steroids. Plan: Agree with Xanax. 0.25 mg tid prn.
[2018-06-14 15:27] VITALS: BP 100/60
--- NOTE | 2018-06-14 15:59 | Cons- Gastroenterology ---
General Information and HPI Consulting Request Date of Consult: 06/14/18 Requested By: José Miguel Ribeiro MD Reason for Consult: I was called by the hospitalist service to assess a flare of UC in a patient admitted from the GI suite. The patient is being seen in GI coverage for Dr. Irizarry. Source of Information: patient, family (pt's son, Vick), old records Exam Limitations: no limitations History of Present Illness: 57 y/o female, HTN, non-DM, R THR for DJD, GILBERT-unilat oophrectomy (endometriosis ), low vit D, ex-25 pk yr smoker (D/C 1997), followed by Dr. Irizarry for UC. The patient's ulcerative colitis was formally diagnosed within the past year, as 2016: CT at [facility] in [place], [place] showed colitis. The patient had diarrhea with rectal bleeding then. Subsequent 12/03/17: *Colonoscopy with biopsies to the terminal ileum per Dr. 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 There were no granulomas. There was no evidence of dysplasia or CA. Biopsies of the right colon and terminal ileum then were unremarkable. There was mild pandiverticulosis coli, and small internal hemorrhoids. The patient had since been treated with Mesalamine (Lialda switched to Apriso 1.5g daily), along with topical Canasa suppositories. Additionally, she was on a variety of antispasmodics (Bentyl changed to Levsin), & Lomotil prn. Ultimately, she was rxd Prednisone, while her 6MP levels were building up. Her dose of 6-MP was increased to 75 mg daily. She was admitted to [facility] 04/06/18 for pancytopenia secondary to 6-MP, which was subsequently stopped. She did require 2u PRBC then. 02/07/18: C. diff- neg; + fecal calprotectin 719.6. 02/07/18: C. diff toxin B PCR- neg. 02/21/18: QuantiFERON-TB- neg. 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 CRP 0.6, ESR 16, Hep Bs Ag- neg, Hep Bs Ab- neg. 04/08/18: nl fecal calprotectin 100.1 08/28/18: C. diff toxin A & B- neg Humira was rxd 05/13/18 and the patient was loaded. She last saw Dr. Irizarry in the office 06/09/18. Her UC symptoms flared after Prednisone was tapered. She had been off Prednisone for approximately 1 week prior to her 06/14/18: flex sig. She was maintained on Humira & Apriso 1.5g daily. Plans were to repeat a flex sig to check disease activity and rule out CMV. Additionally, if she flared, consideration would be made to switch her Humira to another biologic in the same class, such as Remicade, vs. switching to a completely different class of biologic agents, such as Entyvio. Another option was Xeljanz. 06/14/18: *Flex sig to 60 cm with bxs per Dr. Irizarry- diffuse friability with cobblestone appearance and superficial erosions, without deep ulcerations, in a continuous, circumferential fashion. No normal colonic mucosa was appreciated to the splenic flexure. (*Moderately active UC to the splenic flexure). * Biopsies were obtained and special stains were requested, to rule out CMV. A decision was made by Dr. Irizarry to admit the patient to the medical service for IV steroids, post flex sig. The patient reportedly spiked a fever to 102.3, post flex sig, probably representing bacterial translocation. She also looked a little dehydrated. In any event, IV steroids (currently IV SoluCortef 100 mg Q8h), and broad-spectrum IV antibiotics (Ceftriaxone 1g daily/Flagyl 500 mg Q8h) were advised, along with high dose Mesalamine po & Rowasa enemas. The patient was cultured. The hospitalist service was called, and the patient was directly admitted to General Medicine. *The pt's next dose of Humira was due Wed06/17/18. The patient stated her diarrhea was too numerous to count, and by history was secretory in nature. Her stools were mixed with bright red blood. She had diffuse abdominal cramping, and perhaps, somemild tenesmus. She denied any rashes or arthralgias. She denied any upper GI symptoms, and specifically denied any nausea, vomiting, reflux, odynophagia, dysphagia, or early satiety. Her appetite was fair. She noted low-grade fevers at home, with some mild chills. She denied any jaundice, dark urine, light stools, or pruritus. She had mild dysuria, without any frequency or gross hematuria. There was no pneumaturia, or feces in the urine. She had no symptoms of URI. She thought she might have had some oral thrush, with a "dry" tongue. She claimed that since she was diagnosed with UC, she had lost 46 pounds, since Xmas of 09/2017. There was no FHx of IBD or colon CA. The patient's father 80- liver CA , but she denied any history of him having cirrhosis. He did have RA. She claimed her father's tumor originated in the liver. Aside from the remote smoking, she denied any EtOH or illicit drug use. She denied using any NSAIDs or recent antibiotics. She denied any point source, recent travel, or raw food ingestion. 06/09/18: alb 3.4, glob 2.9, TBil 1.6 (w/o fracs), alk phos 41, AST 16, ALT 18. 06/14/18: *Flow cytometry- pending. 06/14/18: 900- Admission labs- WBC 4.6 (42S/21B/18L/19M), H/H 12.5/35.7. MCV 97.3, RDW 13.7, PLT 171, glu 113, BUN/Cr 6/0.9, GFR > 60, Na 129, K 4.5, HCO3 27 , AG 10, Ca 9.0 06/14/18: 1450- lactate 1.2. 06/14/18: U/A- clear, yellow, < 1.005, 7.0, 10-15 WBC, tr ket, pos nitrite, neg esterase 06/14/18: BC x 2; UC- pending. Allergies/Medications Allergies: Coded Allergies: latex (Mild, RASH 04/29/18) erythromycin base (GI UPSET 04/29/18) Home Med List: Cyanocobalamin (Vitamin B-12) 1,000 MCG TABLET 1 TAB PO DAILY SUPPLEMENT ( Reported) Diphenoxylate HCl/Atropine (Lomotil 2.5-0.025 MG Tablet) 2.5 MG-0.025 MG TABLET 1 TAB PO TID PRN DIARRHEA (Reported) Hyoscyamine Sulfate (Levsin-Sl) 0.125 MG TAB.SUBL 1 TAB SL TID PRN ABD CRAMPING (Reported) Mesalamine (Apriso) 0.375 GRAM CAP.ER.24H 4 CAP PO DAILY GI (Reported) Metoprolol Succ XL (Toprol XL) 25 MG TAB 1 TAB PO DAILY HEART/BP (Reported) Current Medications: Current Medications Sig/Jayde Start time Last Medication Dose Route Stop Time Status Admin Acetaminophen 650 MG Q6P PRN 06/14 1200 AC PO Acetaminophen 1,000 MG ONCE 06/14 0000 NR PO 06/14 2359 Alprazolam 0.25 MG TID PRN 06/14 1345 AC 06/14 PO 06/21 1344 1518 Ceftriaxone Sodium 1,000 MG DAILY 06/15 0900 AC IV Ceftriaxone Sodium 1,000 MG ONCE 06/14 0000 NR IV 06/14 2359 Chlorhexidine 1 GM .STK-MED ONE 06/14 1049 DC Gluconate TOP 06/14 1050 Heparin Sodium 5,000 UNIT Q8 06/14 1400 AC (Porcine) SC Hydrocortisone 100 MG Q8 06/14 1400 AC 06/14 Sodium Succinate IV 1518 Mesalamine 4 GM AT BEDTIME 06/14 2100 AC DC Mesalamine 1,500 MG TID 06/14 1400 DC PO Mesalamine 1,600 MG TID 06/14 1400 AC 06/14 PO 1521 Metronidazole 500 MG IQ8 06/14 1600 AC 06/14 N/A 1 UNIT IV 1643 Metronidazole 500 MG ONCE 06/14 0000 NR Sodium Chloride 100 ML IV 06/14 2359 Sodium Chloride 1,000 ML BOLUS ONE 06/14 1745 AC IV 06/14 1844 Sodium Chloride 1,000 ML BOLUS ONE 06/14 1230 DC 06/14 IV 06/14 1329 1305 Sodium Chloride See Dose ONCE ONE 06/14 1215 CAN Insts (1) IV 06/14 1216 Dose Instructions: (1)Sodium Chloride: FOR USE IN SEPSIS PROTOCOL INFUSE TOTAL AMOUNT OVER 2.5 HOURS Past History Travel History Traveled to [place] past 21 day No Medical History Blood Transfusion Hx: Yes (2u in 03/2018) Neurological: NONE EENT: NONE Cardiovascular: hypertension Respiratory: bronchitis Gastrointestinal: ulcerative colitis Hepatic: NONE Renal: NONE Musculoskeletal: degen joint disease, osteoarthritis Psychiatric: NONE Endocrine: vitamin D deficiency Blood Disorders: resolved pancyopenia, post 6MP Cancer(s): NONE PASTRY CHEF/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: NONE (GILBERT-unilat oophrectomy), endometriosis Surgical History Surgical History: hysterectomy (GILBERT-unilat ooph for endomet), T&A Family History Relations & Conditions If Any: MOTHER (post CABG x 5). , Age 79; Cause: ASHD (arteriosclerotic heart disease). FATHER ("Primary" Liver Ca (*no hx cirrhosis); +RA). , Age 80; Cause: Liver cancer. Psychosocial History Where Do You Live? Home Who Do You Live With? spouse (Philip) Services at Home: None Primary Language: Micronesian Smoking Status: Former Smoker ETOH Use: denies use Illicit Drug Use: denies illicit drug use Living Will? no Power of Die Cleaner/HCP? no Other Social History: to Philip. 2 sons- [employer]. Ex-25 pk yr cigarette smoker, D/C 1997. No EtOH. No illicit drugs. 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 Functional Ability ADLs Independent: dressing, eating, toileting, bathing. Ambulation: independent IADLs Independent: shopping, housework, finances, food prep, telephone, transportation , medication admin. 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 Review of Systems Constitutional: Reports: chills, fever, malaise, weakness, unexplained weight loss. Denies: diaphoresis. EENTM: Denies: blurred vision, double vision, visual changes, eye pain, eye drainage, eye tearing, icterus, ear discharge, ear pain, ear redness, hearing changes, nasal congestion, epistaxis, nasal pain, throat pain, throat swelling, mouth pain, tooth pain. Cardiovascular: Denies: chest pain, edema, orthopena, palpitations, peripheral edema, syncope. Respiratory: Denies: cough, hemoptysis, orthopnea, short of breath, sputum production, stridor, wheezing. GI: Reports: abdominal pain (cramps), diarrhea, bloody stool. Denies: bloating, constipation, distention, bowel incontinence, melena, nausea, changes in stool, vomiting, steatorrhea. Genitourinary: Reports: dysuria. Denies: discharge, frequency, hematuria, hesitation, nocturia , pain, urgency. Musculoskeletal: Denies: back pain, gout, joint pain, joint swelling, muscle pain, muscle stiffness, neck pain. Skin: Denies: cysts, change in skin color, change in hair/nails, dryness, erythema, jaundice, lesions, lymphangitis, lumps, moles, rash. Neurological/Psychological: Denies: anxiety, ataxia, cognitive dysfunction, confusion, depressed, dementia, emotional problems, headache, numbness, paresthesia, pre-existing deficit, petit mal seizures, tingling, tremors, tonic-clonic seizures, unable to move lower ext , unable to move upper ext, weakness. Hematologic/Endocrine: Denies: bruising, bleeding, polyuria, polydipsia. Immunologic/Allergic: Denies: splenectomy, HIV/AIDS, lymphadenopathy. All Other Systems: Reviewed and Negative Exam & Diagnostic Data Vital Signs and I&O Vital Signs Date Time Temp Pulse Resp B/P B/P Pulse O2 O2 Flow FiO2 Mean Ox Delivery Rate 06/14 1527 99.2 81 18 100/60 97 Room Air Intake & Output 06/14 1600 06/14 0400 06/13 1600 06/13 0400 06/12 1600 06/12 0400 Intake Total Output Total 350 Balance -350 Output, Urine 350 Patient 84 lb 0.01 oz Weight Physical Exam: Well-developed, slightly malnourished thin female, dehydrated, in no apparent distress. Non-toxic appearing. Sclera anicteric. Conjunctiva pink. Oropharynx clear. Dry mucus membranes. No definite oral thrush. No aphthous ulcers. No stridor. There is no adenopathy, thyromegaly, or JVD. No peripheral stigmata of chronic liver disease on exam. No CVA tenderness. No spine tenderness. Breast & pelvic exams: API. Lungs: clear to A&P. No wheezing, rales, or rhonchi. Heart exam: regular rate rhythm, S1 and S2, without any murmur. Abdominal exam: normal bowel sounds, soft belly, minimal B/L lower quadrant tenderness, without guarding or rebound. No mass. No organomegaly. No fluid shift. No pulsatile mass. No epigastric bruit. Clinically, without megacolon. Digital rectal exam: deferred, as just done by Dr. Irizarry, at the 06/14/18: flex sig. Extremities without C, C, or E. No acute arthropathy. No rash. No palpable cords.No palmar eryrthema. No Dupuytren's contractures. Distal pulses 2+ bilaterally. DTRs 2+ bilaterally. Alert and oriented x 3. Motor 5/5 B/L. No tremor. No asterixis. Results Pertinent Lab Results: Laboratory Tests 06/14 06/14 06/14 1815 1500 1450 Chemistry Lactic Acid (0.7 - 2.1 mmol/L) Pending Cancelled 1.2 06/14 06/14 1440 UNK Miscellaneous Flow Cytometry Specimen Pending Urines Urine Color (YEL,AMB,STR) YEL Urine Clarity (CLEAR) CLEAR Urine pH (5.0 - 8.0) 7.0 Ur Specific Gilby (1.001 - 1.035) <= 1.005 Urine Protein (NEG,<30 MG/DL) NEG Urine Ketones (NEG) TRACE H Urine Nitrite (NEG) POS H Urine Bilirubin (NEG) NEG Urine Urobilinogen (0.1 - 1.0 EU/dl) 0.2 Ur Leukocyte Esterase (NEG) MOD H Ur Microscopic SEDIMENT EXAMINED Urine RBC (0 - 5 /HPF) RARE Urine WBC (0 - 2 /HPF) 10-15 H Ur Epithelial Cells (NONE,FEW) RARE Urine Bacteria (NEG/NONE) FEW H Urine Mucus (FEW,NONE) RARE Urine Hemoglobin (NEG) TRACE-INTACT Urine Glucose (N MG/DL) NEG 06/14 09 Chemistry Sodium (137 - 145 mmol/L) 129 L Potassium (3.5 - 5.1 mmol/L) 4.5 Chloride (98 - 107 mmol/L) 92 L Carbon Dioxide (22 - 30 mmol/L) 27 Anion Gap (5 - 16) 10 BUN (7 - 17 mg/dL) 6 L Creatinine (0.5 - 1.0 mg/dL) 0.9 Estimated GFR (>60 ml/min) > 60 BUN/Creatinine Ratio (7 - 25 %) 6.7 L Glucose (65 - 99 mg/dL) 113 H Calcium (8.4 - 10.2 mg/dL) 9.0 Hematology CBC w Diff MAN DIFF ORDERED WBC (4.8 - 10.8 /CUMM) 4.6 L RBC (4.20 - 5.40 /CUMM) 3.67 L Hgb (12.0 - 16.0 G/DL) 12.5 Hct (37 - 47 %) 35.7 L MCV (81.0 - 99.0 FL) 97.3 MCH (27.0 - 31.0 PG) 34.0 H MCHC (33.0 - 37.0 G/DL) 34.9 RDW (11.5 - 14.5 %) 13.7 Plt Count (130 - 400 /CUMM) 171 MPV (7.4 - 10.4 FL) 7.3 L Gran % (42.2 - 75.2 %) 66.2 Lymphocytes % (20.5 - 51.1 %) 10.3 L Monocytes % (1.7 - 9.3 %) 23.3 H Eosinophils % (0 - 5 %) 0.1 Basophils % (0.0 - 2.0 %) 0.1 Absolute Granulocytes (1.4 - 6.5 /CUMM) 3.0 Segmented Neutrophils (42.2 - 75.2 %) 42 L Band Neutrophils (0.0 - 5.0 %) 21 H Absolute Lymphocytes (1.2 - 3.4 /CUMM) 0.5 L Lymphocytes (20.5 - 51.1 %) 18 L Monocytes (1.7 - 9.3 %) 19 H Absolute Monocytes (0.10 - 0.60 /CUMM) 1.1 H Absolute Eosinophils (0.0 - 0.7 /CUMM) 0 Absolute Basophils (0.0 - 0.2 /CUMM) 0 Platelet Estimate (ADEQUATE) VERIFIED BY SMEAR Normocytic RBCs VERIFIED Normochromic RBCs VERIFIED Miscellaneous Flow Cytometry Specimen Cancelled Imaging/Other Studies: 06/14/18: *Flex sig to 60 cm with bxs per Dr. Irizarry- diffuse friability with cobblestone appearance and superficial erosions, without deep ulcerations, in a continuous, circumferential fashion. No normal colonic mucosa was appreciated to the splenic flexure. (*Moderately active UC to the splenic flexure). * Biopsies were obtained and special stains were requested, to rule out CMV. Assessment/Plan Assessment/Recommendations: 57 y/o female, HTN, non-DM, R THR for DJD, GILBERT-unilat oophrectomy (endometriosis ), low vit D, ex-25 pk yr smoker (D/C 1997), followed by Dr. Irizarry for UC. The patient's ulcerative colitis was formally diagnosed within the past year, as 2016: CT at [facility] in [place], [place] showed colitis. The patient had diarrhea with rectal bleeding then. Subsequent 12/03/17: *Colonoscopy with biopsies to the terminal ileum per Dr. 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 There were no granulomas. There was no evidence of dysplasia or CA. Biopsies of the right colon and terminal ileum then were unremarkable. There was mild pandiverticulosis coli, and small internal hemorrhoids. The patient had since been treated with Mesalamine (Lialda switched to Apriso 1.5g daily), along with topical Canasa suppositories. Additionally, she was on a variety of antispasmodics (Bentyl changed to Levsin), & Lomotil prn. Ultimately, she was rxd Prednisone, while her 6MP levels were building up. Her dose of 6-MP was increased to 75 mg daily. She was admitted to [facility] 04/06/18 for pancytopenia secondary to 6-MP, which was subsequently stopped. She did require 2u PRBC then. 02/07/18: C. diff- neg; + fecal calprotectin 719.6. 02/07/18: C. diff toxin B PCR- neg. 02/21/18: QuantiFERON-TB- neg. 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 CRP 0.6, ESR 16, Hep Bs Ag- neg, Hep Bs Ab- neg. 04/08/18: nl fecal calprotectin 100.1 06/07/18: C. diff toxin A & B- neg Humira was rxd 05/13/18 and the patient was loaded. She last saw Dr. Irizarry in the office 06/09/18. Her UC symptoms flared after Prednisone was tapered. She had been off Prednisone for approximately 1 week prior to her 06/14/18: flex sig. She was maintained on Humira & Apriso 1.5g daily. Plans were to repeat a flex sig to check disease activity and rule out CMV. Additionally, if she flared, consideration would be made to switch her Humira to another biologic in the same class, such as Remicade, vs. switching to a completely different class of biologic agents, such as Entyvio. Another option was Xeljanz. 06/14/18: *Flex sig to 60 cm with bxs per Dr. Irizarry- diffuse friability with cobblestone appearance and superficial erosions, without deep ulcerations, in a continuous, circumferential fashion. No normal colonic mucosa was appreciated to the splenic flexure. (*Moderately active UC to the splenic flexure). Biopsies were obtained and special stains were requested, to rule out CMV. A decision was made by Dr. Irizarry to admit the patient to the medical service for IV steroids, post flex sig. The patient reportedly spiked a fever to 102.3, post flex sig, probably representing bacterial translocation. She also looked a little dehydrated. In any event, IV steroids (currently IV SoluCortef 100 mg Q8h), and broad-spectrum IV antibiotics (Ceftriaxone 1g daily/Flagyl 500 mg Q8h) were advised, along with high dose Mesalamine po & Rowasa enemas. The patient was cultured. The hospitalist service was called, and the patient was directly admitted to General Medicine. *The pt's next dose of Humira was due Wed06/17/18. The patient stated her diarrhea was too numerous to count, and by history was secretory in nature. Her stools were mixed with bright red blood. She had diffuse abdominal cramping, and perhaps, somemild tenesmus. She denied any rashes or arthralgias. She denied any upper GI symptoms, and specifically denied any nausea, vomiting, reflux, odynophagia, dysphagia, or early satiety. Her appetite was fair. She noted low-grade fevers at home, with some mild chills. She denied any jaundice, dark urine, light stools, or pruritus. She had mild dysuria, without any frequency or gross hematuria. There was no pneumaturia, or feces in the urine. She had no symptoms of URI. She thought she might have had some oral thrush, with a "dry" tongue. She claimed that since she was diagnosed with UC, she had lost 46 pounds, since Xmas of 09/2017. There was no FHx of IBD or colon CA. The patient's father 80- liver CA , but she denied any history of him having cirrhosis. He did have RA. She claimed her father's tumor originated in the liver. Aside from the remote smoking, she denied any EtOH or illicit drug use. She denied using any NSAIDs or recent antibiotics. She denied any point source, recent travel, or raw food ingestion. 06/09/18: alb 3.4, glob 2.9, TBil 1.6 (w/o fracs), alk phos 41, AST 16, ALT 18. 06/14/18: *Flow cytometry- pending. 06/14/18: 900- Admission labs- WBC 4.6 (42S/21B/18L/19M), H/H 12.5/35.7. MCV 97.3, RDW 13.7, PLT 171, glu 113, BUN/Cr 6/0.9, GFR > 60, Na 129, K 4.5, HCO3 27 , AG 10, Ca 9.0 06/14/18: 1450- lactate 1.2 06/14/18: U/A- clear, yellow, < 1.005, 7.0, 10-15 WBC, tr ket, pos nitrite, neg esterase 06/14/18: BC x 2; UC- pending. The patient was admitted directly from the GI Suite 06/14/18, post flex sig to 60 cm with bxs, with flare of UC, and progression to at least left-sided colitis. She had been on high-dose Mesalamine as an outpatient. She was intolerant of 6-MP, as she was a heterozygous/low metabolizer, by levels. She had been tapered off Prednisone 1 week [employer]. She had been started on Humira 1 month prior, and had been loaded. She did not have clinical benefit from Humira. Her fever was probably from transient bacterial translocation, after biopsies were done at flex sig. Having stated that, she did have pyuria and some dysuria. She was dehydrated, and mildly hypo-Na+. 06/07/18: C. diff- neg. Doubt infectious colitis, rule out CMV. *Uncertain if too soon to have developed antibodies against Humira. A/P- 57 F flare UC, diarrhea, BRBPR, abd pain, wt loss, fever, pyuria, dehydration, hypoNa+ SUGGEST- *IV SoluCortef 100 mg Q8h. *IV Ceftriaxone 1g daily. *IV Flagyl 500 mg Q8h. * Check ESR & CRP. *Mesalamine 1600 mg po TID. *Rowasa enemas 4g pr Qhs. *IV NS bolus, f/b IV NS @ 150 cc/hr. Follow-up CBC, lytes, GFR, LFTs, prealbumin. Clears po as tolerated, with goals for eventual low residue po. *BOOST 1 can po TID. *Recheck stool C. difficile, & stool for C&S, Shiga toxin. *Check fecal calprotectin. *Panculture. *Follow-up BC/UC. Tylenol prn. No NSAIDs. Serial abdominal exams on steroids. Advise Accu -Cheks while on steroids, as per medical team.*Await 06/14/18: flow cytometry regarding intermittent cytopenias, most likely from 6MP. DVT prophylaxis with sc heparin 5Ku Q8h (IBD is hypercoaguable state). Mobilize pt as tolerated. *Await 06/14/18: flex sig with bx pathology results, as well as CMV stains. Consider checking random Humira/Adalimumab drug levels (would be almost a trough level, as her next dose of Humira would have been Wednesday06/17/18), as well as Humira (Adalimumab) Ab = *[facility] Unless sepsis is excluded, I would hold off on biologic agents, anyway for now. If the patient continues to improve on the above regimen, she can follow up with Dr. Irizarry as an outpt to consider switching Humira to another "in class" biologic (i.e.- Remicade) vs. switching to another biologic class ( i.e.- Entyvio vs. the newly released Xeljanz). If the patient's condition worsens, we may have to get the patient's insurance company and/or [place] to approve inpatient Remicade infusion. If the patient continues to not respond to medical therapy, another consideration for her UC could be colectomy. The above was discussed with the patient and her son, Vick, at the bedside at the time of GI consultation, as per pt request. The case was also discussed with Dr. Ribeiro, of the hospitalist service. Further GI recommendations to follow, depending on clinical course. Problem List: 1. Ulcerative colitis 2. Diarrhea 3. Rectal bleeding 4. Abdominal pain 5. Weight loss 6. Fever 7. Pyuria 8. Dehydration 9. Hyponatremia Copies To: Quintin MARTINEZ,José Miguel; Sandro Irizarry MD; Shalini MARTINEZ,Domenico Ramsey. Consult Acknowledgment - Thank you for your consult request.
--- NOTE | 2018-06-14 16:06 | Sepsis Event Note ---
Sepsis Event Note Severe Sepsis Severe Sepsis Present: No Septic Shock Septic Shock Present: No Event Note Event Note: Patient met sepsis criteria with elevated temperature, tachycardia, and bandemia for which intravenous fluids, broad-spectrum antibiotics, blood cultures, and lactic acid 2 were ordered. Sepsis Focused Exam Sepsis Cardiac Exam: Tachycardia Sepsis Resp Exam: CTA Sepsis Cap Refill Exam: <2 Sec Sepsis Peripheral Pulse Exam: Normal Sepsis Peripheral Pulse Location: Radial Sepsis Skin Exam (color): Normal for Ethnicity Skin Temp/Moisture Exam: Warm/Dry
[2018-06-14 17:00] VITALS: BP 85/55
[2018-06-14 20:15] VITALS: BP 90/58
[2018-06-14 23:03] VITALS: BP 102/50
--- NOTE | 2018-06-14 23:28 | Admission Certification ---
Admission Certification Certification Statement - As attending physician, I certify that at the time of - admission, based on clinical presentation, severity of - symptoms, need for further diagnostic testing and - therapeutic interventions, and risk of adverse outcomes - without in-hospital treatment, in my clinical assessment, - this patient requires an acute hospital stay for a minimum - of two nights or longer. I have also considered psychsocial - factors such as support system, advanced age, financial - issues, cognitive issues, and failed out-patient treatments, - past re-admission history, safety of patient, and lack of - compliance as applicable. Specific rationale supporting this admission is: The patient presents post colonsocopy with T 102.6, leucocytosis, hypotension- c /w early sepsis along with ulcerative colitis flare. Needs admission for gonzalez culture, IV fluids (sepsis protocol), IV antibiotics (Ceftriaxone/Flagyl), Close monitor BP/VS. GI consult.
--- NOTE | 2018-06-15 06:40 | PN- Housestaff ---
Dc Cardozo 06/15/18 0640: Subjective Follow-up For: UC flare Subjective: Pt seen and examined this AM. She is afebrile. She reports feeling the same pain as yesterday in her abdomen, though did not note diarrhea. An episode of bloody stool was reported by the nurse in the morning. She was breathing comfortably on room air, family at bedside. AAOx3. Review of Systems Constitutional: Reports: see HPI. Objective Last 24 Hrs of Vital Signs/I&O Vital Signs Date Time Temp Pulse Resp B/P B/P Pulse O2 O2 Flow FiO2 Mean Ox Delivery Rate 06/15 1410 97.9 64 20 100/62 98 Room Air 06/15 0652 97.6 58 20 90/58 100 Room Air 06/15 0000 97 Room Air 06/14 2303 98.0 67 18 102/50 98 Room Air 06/14 2015 90/58 06/14 1700 98.6 64 85/55 Intake & Output 06/15 1600 06/15 0800 06/15 0000 Intake Total 980 600 360 Output Total 2 Balance 980 598 360 Intake, IV 500 Intake, Oral 480 600 360 Number 2 3 Bowel Movements Output, Stool 2 Patient 84 lb 84 lb Weight Physical Exam General Appearance: Alert, Oriented X3, Cooperative, Thin HEENT: Atraumatic Cardiovascular: Regular Rate, Normal S1, Normal S2, No Murmurs Lungs: Clear to Auscultation Abdomen: Normal Bowel Sounds, Soft, Diffuse tenderness on palpation across all abdominal quadrants Extremities: No Cyanosis, No Edema Current Medications: Current Medications Sig/Jayde Start time Last Medication Dose Route Stop Time Status Admin Acetaminophen 650 MG Q6P PRN 06/14 1200 AC 06/15 PO 0603 Acetaminophen 1,000 MG ONCE 06/14 0000 DC PO 06/14 2359 Alprazolam 0.25 MG TID PRN 06/14 1345 AC 06/15 PO 06/21 1344 1319 Ceftriaxone Sodium 1,000 MG DAILY 06/15 0900 AC 06/15 IV 0845 Ceftriaxone Sodium 1,000 MG ONCE 06/14 0000 DC IV 06/14 2359 Heparin Sodium 5,000 UNIT Q8 06/14 1400 DC (Porcine) SC Hydrocortisone 100 MG Q8 06/14 1400 AC 06/15 Sodium Succinate IV 1319 Lidocaine/Diphenhydr/ 5 ML TID 06/15 1400 CAN Alum/Mg/Simeth PO Mesalamine 4 GM AT BEDTIME 06/14 2100 AC IN Mesalamine 1,600 MG TID 06/14 1400 AC 06/15 PO 1319 Metronidazole 500 MG IQ8 06/14 1600 AC 06/15 N/A 1 UNIT IV 0845 Metronidazole 500 MG ONCE 06/14 0000 DC Sodium Chloride 100 ML IV 06/14 2359 Non-Formulary 0 SEE ADMIN CRITERIA 06/15 1015 CAN Medication ANY Nystatin 5 ML 4 TIMES/DAY 06/15 1040 AC 06/15 PO 1319 Patient Medication 1 ED ONE ONE 06/14 2000 DC Teaching ED 06/14 2001 Potassium Chloride 20 MEQ Q8H 06/15 09 AC 06/15 Dextrose/Sodium 1,000 ML IV 1021 Chloride Sodium Chloride 1,000 ML BOLUS ONE 06/14 1745 DC 06/14 IV 06/14 1844 1830 Last 24 Hrs of Lab/Sumanth Results Last 24 Hrs of Labs/Mics: Laboratory Tests 06/15/18 0655: Anion Gap 5, Estimated GFR > 60, BUN/Creatinine Ratio 10.0, CBC w Diff NO MAN DIFF REQ, RBC 2.83 L, MCV 97.3, MCH 34.5 H, MCHC 35.5, RDW 14.0, MPV 7.4, Gran % 74.1, Lymphocytes % 15.0 L, Monocytes % 10.4 H, Eosinophils % 0, Basophils % 0.5, Absolute Granulocytes 2.4, Absolute Lymphocytes 0.5 L, Absolute Monocytes 0.3, Absolute Eosinophils 0, Absolute Basophils 0 06/14/18 1815: Lactic Acid 0.8 Assessment/Plan Assessment: Ms. Aguirre is a 57 y/o F with with PMH of HTN and ulcerative colitis who is seen post colonoscopy for concern of a ulcerative colitis flare. During her colonoscopy, patient reportedly spiked a 102.3 fever, tachycardic with borderline hypotension. She received IVF bolus and ceftriaxone. She was currently on Humira and prednisone which was discontinued one week ago. She does endorse crampy abdominal pain for about one month and has been passing bright red blood per rectum over the past week. She was admitted to the general medicine floor for further management of: BP remains hovering around low 100s-90s SBP, 50-60s DBP. She is however afebrile , in NSR. Previous febrile episode likely 2/2 bacterial translocation causing transient bacteremia. She has gotten 2L of NS and was started on D5NS @ 125 mL/ h. Not on anticoagulation due to her continued bleeding. Normal lactic acid. Not trending anymore. Monitor VSS #PROBLEM LIST #UC Flare #H/o HTN #UC Flare * Following GI's recommendation * Patient is currently receiving IV hydrocortisone 100 mg q8 * On Rowasa + Pentasa * Currently on IV Metronidazole and ceftriaxone empirically. * GI to follow. #H/o HTN Home dose of metoprolol has been held due to her hypotensive episodes. FULL CODE Low fiber diet DVT PPX - mechanical, ambulation Problem List: 1. Ulcerative colitis 2. Abdominal pain Pain Ratin Pain Location: Diffusely across abdomen Pain Goal: Remain pain free Pain Plan: as indicated Tomorrow's Labs & Rationales: cbc José Miguel Ribeiro MD 06/15/18 1335: Attending MD Review Statement Attending Statement Attending MD Statement: examined this patient, discuss w/resident/PA/SKIRT TRIMMER, agreed w/resident/PA/SKIRT TRIMMER, discussed with family, reviewed EMR data (avail), discussed with nursing, discussed with case mgmt, amended to note Attending Assessment/Plan: The patient was seen and discussed with house staff, nursing, family, and case management. The patient's GI symptoms are improving. H/H decreased significantly c/w acute blood loss anemia as well as some dilution due to IV hydration. Remains afebrile. Will continue IV antibiotics today. Appreciate GI follow-up. As per Dr. Hamilton they are considering alternative biological agent (? Xeljanz ). Dr. Hamilton's note mentioned if not improved consider TPN/surgery. As patient appears to be responding to steroids will follow. Await final blood cultures. Follow up CBC.
[2018-06-15 06:52] VITALS: BP 90/58
[2018-06-15 08:46] LABS: ABSOLUTE BASOPHIL COUNT 0 /CUMM (0.0-0.2); ABSOLUTE EOSINOPHIL COUNT 0 /CUMM (0.0-0.7); ABSOLUTE LYMPH COUNT 0.5 /CUMM (1.2-3.4); ABSOLUTE MONOCYTE COUNT 0.3 /CUMM (0.10-0.60); MEAN PLATELET VOLUME 7.4 FL (7.4-10.4)
[2018-06-15 09:00] LABS: ABSOLUTE GRANULOCYTE CT 2.4 /CUMM (1.4-6.5); BASOPHIL % 0.5 % (0.0-2.0); EOSINOPHIL % 0 % (0-5); GRANULOCYTE % 74.1 % (42.2-75.2); MEAN CORPUSCULAR HGB 34.5 PG (27.0-31.0); MEAN CORPUSCULAR HGB CONC 35.5 G/DL (33.0-37.0); MEAN CORPUSCULAR VOLUME 97.3 FL (81.0-99.0); PLATELET COUNT 123 /CUMM (130-400); RED BLOOD CELL CT 2.83 /CUMM (4.20-5.40); WHITE BLOOD CELL COUNT 3.2 /CUMM (4.8-10.8)
[2018-06-15 09:04] LABS: HEMATOCRIT 27.5 % (37-47)
[2018-06-15 14:10] VITALS: BP 100/62
--- NOTE | 2018-06-15 19:23 | PN- Gastroenterology ---
Assessment/Plan GI Assessment/Recommendations: 57 y/o female, HTN, non-DM, R THR for DJD, GILBERT-unilat oophrectomy (endometriosis ), low vit D, ex-25 pk yr smoker (D/C 1997), followed by Dr. Irizarry for UC. The patient's ulcerative colitis was formally diagnosed within the past year, as 2016: CT at [facility] in [place], CT showed colitis. The patient had diarrhea with rectal bleeding then. Subsequent 12/03/17: *Colonoscopy with biopsies to the terminal ileum per Dr. 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 There were no granulomas. There was no evidence of dysplasia or CA. Biopsies of the right colon and terminal ileum then were unremarkable. There was mild pandiverticulosis coli, and small internal hemorrhoids. The patient had since been treated with Mesalamine (Lialda switched to Apriso 1.5g daily), along with topical Canasa suppositories. Additionally, she was on a variety of antispasmodics (Bentyl changed to Levsin), & Lomotil prn. Ultimately, she was rxd Prednisone, while her 6MP levels were building up. Her dose of 6-MP was increased to 75 mg daily. She was admitted to [facility] 04/06/18 for pancytopenia secondary to 6-MP, which was subsequently stopped. She did require 2u PRBC then. 02/07/18: C. diff- neg; + fecal calprotectin 719.6. 02/07/18: C. diff toxin B PCR- neg. 02/21/18: QuantiFERON-TB- neg. 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 CRP 0.6, ESR 16, Hep Bs Ag- neg, Hep Bs Ab- neg. 04/08/18: nl fecal calprotectin 100.1 06/07/18: C. diff toxin A & B- neg Humira was rxd 05/13/18 and the patient was loaded. She last saw Dr. Irizarry in the office 06/09/18. Her UC symptoms flared after Prednisone was tapered. She had been off Prednisone for approximately 1 week prior to her 06/14/18: flex sig. She was maintained on Humira & Apriso 1.5g daily. Plans were to repeat a flex sig to check disease activity and rule out CMV. Additionally, if she flared, consideration would be made to switch her Humira to another biologic in the same class, such as Remicade, vs. switching to a completely different class of biologic agents, such as Entyvio. Another option was Xeljanz. 06/14/18: *Flex sig to 60 cm with bxs per Dr. Irizarry- diffuse friability with cobblestone appearance and superficial erosions, without deep ulcerations, in a continuous, circumferential fashion. No normal colonic mucosa was appreciated to the splenic flexure. (*Moderately active UC to the splenic flexure). Biopsies were obtained and special stains were requested, to rule out CMV. A decision was made by Dr. Irizarry to admit the patient to the medical service for IV steroids, post flex sig. The patient reportedly spiked a fever to 102.3, post flex sig, probably representing bacterial translocation. She also looked a little dehydrated. In any event, IV steroids (currently IV SoluCortef 100 mg Q8h), and broad-spectrum IV antibiotics (Ceftriaxone 1g daily/Flagyl 500 mg Q8h) were advised, along with high dose Mesalamine po & Rowasa enemas. The patient was cultured. The hospitalist service was called, and the patient was directly admitted to General Medicine. *The pt's next dose of Humira was due Wed06/17/18. The patient stated her diarrhea was too numerous to count, and by history was secretory in nature. Her stools were mixed with bright red blood. She had diffuse abdominal cramping, and perhaps, somemild tenesmus. She denied any rashes or arthralgias. She denied any upper GI symptoms, and specifically denied any nausea, vomiting, reflux, odynophagia, dysphagia, or early satiety. Her appetite was fair. She noted low-grade fevers at home, with some mild chills. She denied any jaundice, dark urine, light stools, or pruritus. She had mild dysuria, without any frequency or gross hematuria. There was no pneumaturia, or feces in the urine. She had no symptoms of URI. She thought she might have had some oral thrush, with a "dry" tongue. She claimed that since she was diagnosed with UC, she had lost 46 pounds, since Xmas of 09/2017. There was no FHx of IBD or colon CA. The patient's father 80- liver CA , but she denied any history of him having cirrhosis. He did have RA. She claimed her father's tumor originated in the liver. Aside from the remote smoking, she denied any EtOH or illicit drug use. She denied using any NSAIDs or recent antibiotics. She denied any point source, recent travel, or raw food ingestion. 06/09/18: alb 3.4, glob 2.9, TBil 1.6 (w/o fracs), alk phos 41, AST 16, ALT 18. 06/14/18: *Flow cytometry- pending. 06/14/18: 900- Admission labs- WBC 4.6 (42S/21B/18L/19M), H/H 12.5/35.7. MCV 97.3, RDW 13.7, PLT 171, glu 113, BUN/Cr 6/0.9, GFR > 60, Na 129, K 4.5, HCO3 27 , AG 10, Ca 9.0 06/14/18: 1450- lactate 1.2 06/14/18: U/A- clear, yellow, < 1.005, 7.0, 10-15 WBC, tr ket, pos nitrite, neg esterase 06/14/18: BC x 2; UC- pending. The patient was admitted directly from the GI Suite 06/14/18, post flex sig to 60 cm with bxs, with flare of UC, and progression to at least left-sided colitis. She had been on high-dose Mesalamine as an outpatient. She was intolerant of 6-MP, as she was a heterozygous/low metabolizer, by levels. She had been tapered off Prednisone 1 week [employer]. She had been started on Humira 1 month prior, and had been loaded. She did not have clinical benefit from Humira. Her fever was probably from transient bacterial translocation, after biopsies were done at flex sig. Having stated that, she did have pyuria and some dysuria. She was dehydrated, and mildly hypo-Na+. 06/07/18: C. diff- neg. Doubt infectious colitis, rule out CMV. *Uncertain if too soon to have developed antibodies against Humira. 06/15/18: WBC 3.2, H/H 9.8/27.5, nl MCV, nl RDW, PLT 123, BUN/Cr 5/0.5, GFR > 60 , Na 136, K 4.1, HCO3 23, AG 5. 06/14/18: BC x 2- ? never sent! 06/14/18: UC- neg x 1 day. *stool workup not sent! *As of 06/15/18, the pt had low normal BP (currently 100/62), & was otherwise hemodynamically stable, & afebrile, with O2 sat RA 98%. *BC x 2 never sent on admission-> now afebrile. Adm urine culture- neg. *Her pancytopenia returned (* off 6MP). 06/14/18: Flex sig bxs/CMV stains- pending. *The pt remained on IV Ceftriaxone/Flagyl/SoluCortef 100 mg Q8h, Rowasa enemas 4g Qhs, with IV: ( finished NS bolus). Nystatin was rxd for oral thrush. She denied any odynophagia. *She started a low residue diet. Her diarrhea was perhaps slightly better on IV steroids, still with occasionally bloody stools, as expected, from mucosal shedding. There were some abdominal cramps. She had fatigue. She no longer had fever or chills. A/P- 57 F flare UC, diarrhea, BRBPR, abd pain, wt loss, fever, pyuria, dehydration, hypoNa+ SUGGEST- *IV SoluCortef 100 mg Q8h. *IV Ceftriaxone 1g daily. *IV Flagyl 500 mg Q8h. * Check ESR & CRP. *Mesalamine 1600 mg po TID. *Rowasa enemas 4g pr Qhs. *IV NS bolus, f/b D5NS with KCl 20 meq/L @ 125cc/hr. *Follow-up CBC, lytes, GFR, LFTs, prealbumin. *Pt advanced to low residue po. BOOST 1 can po TID. Recheck stool C. difficile, & stool for C&S, Shiga toxin. *Check fecal calprotectin. *Panculture. *Follow-up BC/UC ( ? BC never sent). Tylenol prn. No NSAIDs. Serial abdominal exams on steroids. *Add Bentyl 20 mg po TID. Advise Accu-Cheks while on steroids, as per medical team.*Await 06/14/18: flow cytometry regarding intermittent cytopenias, most likely from 6MP. Consider hematology consult re: pancytopenia. *Check HIV, SHERIN , SPEP/IPEP. DVT prophylaxis with sc heparin 5Ku Q8h (IBD is hypercoaguable state). Mobilize pt as tolerated. *Await 06/14/18: flex sig with bx pathology results, as well as CMV stains. Consider checking random Humira/Adalimumab drug levels (would be almost a trough level, as her next dose of Humira would have been Wednesday06/17/18), as well as Humira (Adalimumab) Ab = *JONO ADA (send out to [employer]). Unless sepsis is excluded, I would hold off on biologic agents, anyway for now. *The point of the IV steroids is to help induce remission, not to maintain remission- If the patient continues to improve on the above regimen, she can follow up with Dr. Irizarry as an outpt to consider switching Humira to another "in class" biologic (i.e.- Remicade) vs. switching to another biologic class (i.e.- Entyvio vs. the newly released Xeljanz: I spoke with Dr. Irizarry, & the office is in the process of trying to get approval for outpt Xeljanz). If the patient's condition worsens, we may have to get the patient's insurance company and/or [place] to approve inpatient IV Remicade infusion. *If the patient continues to not respond to medical therapy, another consideration for her UC could be colectomy. *Again, should check prealbumin to asess nutritional status- TPN is an option, but would prefer not to have indwelling PICC/central line if biologics are to be resumed. The above was discussed with the patient and her son, Vick, at the bedside at the time of GI consultation, as per pt request. I also spoke with the pt's sister, Venessa, at the bedside, on 06/15/18, as per pt request. The case was also previously discussed with Dr. Ribeiro, of the hospitalist service. I spoke with the pt's RN, who will convey the above to the medical house staff. Further GI recommendations to follow, depending on clinical course. Problem List: 1. Ulcerative colitis 2. Diarrhea 3. Rectal bleeding 4. Abdominal pain 5. Weight loss 6. Fever 7. Pyuria 8. Dehydration 9. Hyponatremia Subjective Subjective: 06/15/18: WBC 3.2, H/H 9.8/27.5, nl MCV, nl RDW, PLT 123, BUN/Cr 5/0.5, GFR > 60 , Na 136, K 4.1, HCO3 23, AG 5. 06/14/18: BC x 2- ? never sent! 06/14/18: UC- neg x 1 day. *stool workup not sent! *As of 06/15/18, the pt had low normal BP (currently 100/62), & was otherwise hemodynamically stable, & afebrile, with O2 sat RA 98%. *BC x 2 never sent on admission-> now afebrile. Adm urine culture- neg. *Her pancytopenia returned (* off 6MP). 06/14/18: Flex sig bxs/CMV stains- pending. *The pt remained on IV Ceftriaxone/Flagyl/SoluCortef 100 mg Q8h, Rowasa enemas 4g Qhs, with IV: D5NS with KCl 20 meq/L @ 125cc/hr (finished NS bolus). Nystatin was rxd for oral thrush. She denied any odynophagia. *She started a low residue diet. Her diarrhea was perhaps slightly better on IV steroids, still with occasionally bloody stools, as expected, from mucosal shedding. There were some abdominal cramps. She had fatigue. She no longer had fever or chills. Review of Systems: Full 14 point ROS otherwise noncontributory, and as above. Review of Systems Constitutional: Reports: malaise, weakness, unexplained weight loss. Denies: fevers, chills, diaphoresis. EENTM: Denies: blurred vision, double vision, visual changes, eye pain, eye drainage, eye tearing, icterus, ear discharge, ear pain, ear redness, hearing changes, nasal congestion, epistaxis, nasal pain, throat pain, throat swelling, mouth pain, tooth pain. Cardiovascular: Denies: chest pain, edema, orthopena, palpitations, peripheral edema, syncope. Respiratory: Denies: cough, hemoptysis, orthopnea, short of breath, sputum production, stridor, wheezing. GI: Reports: abdominal pain (cramps), diarrhea, bloody stool. Denies: bloating, constipation, distention, bowel incontinence, melena, nausea, changes in stool, vomiting, steatorrhea. Genitourinary: Reports: dysuria. Denies: discharge, frequency, hematuria, hesitation, nocturia, pain, urgency. Musculoskeletal: Denies: back pain, gout, joint pain, joint swelling, muscle pain, muscle stiffness, neck pain. Skin: Denies: cysts, change in skin color, change in hair/nails, dryness, erythema, jaundice, lesions, lymphangitis, lumps, moles, rash. Neurological/Psychological: Denies: anxiety, ataxia, cognitive dysfunction, confusion, depressed, dementia, emotional problems, headache, numbness, paresthesia, pre-existing deficit, petit mal seizures, tingling, tremors, tonic-clonic seizures, unable to move lower ext , unable to move upper ext, weakness. Hematologic/Endocrine: Denies: bruising, bleeding, polyuria, polydipsia. Immunologic/Allergic: Denies: splenectomy, HIV/AIDS, lymphadenopathy. All Other Systems: Reviewed and Negative Objective Vital Signs and I&Os Vital Signs Date Time Temp Pulse Resp B/P B/P Pulse O2 O2 Flow FiO2 Mean Ox Delivery Rate 06/15 1410 97.9 64 20 100/62 98 Room Air 06/15 0652 97.6 58 20 90 100 Room Air 06/15 0000 97 Room Air 06/14 2303 98.0 67 18 102/50 98 Room Air 06/1458 Intake & Output 06/15 1600 06/15 0400 06/14 1600 06/14 0400 06/13 1600 06/13 0400 Intake Total 1580 360 Output Total 2 350 Balance 1578 360 -350 Intake, IV 500 Intake, Oral 1080 360 Number 2 3 Bowel Movements Output, Stool 2 Output, Urine 350 Patient 84 lb 84 lb Weight Physical Exam: Well-developed, slightly malnourished thin female, dehydrated, fatigued, in no apparent distress. Non-toxic appearing. Sclera anicteric. Conjunctiva pink. Oropharynx clear. Dry mucus membranes. ? Scant oral thrush. No aphthous ulcers. No stridor. There is no adenopathy, thyromegaly, or JVD. No peripheral stigmata of chronic liver disease on exam. No CVA tenderness. No spine tenderness. Breast & pelvic exams: API. Lungs: clear to A&P. No wheezing, rales, or rhonchi. Heart exam: regular rate rhythm, S1 and S2, without any murmur. Abdominal exam: normal bowel sounds, soft belly, minimal B/L lower quadrant tenderness, without guarding or rebound. No mass. No organomegaly. No fluid shift. No pulsatile mass. No epigastric bruit. Clinically, without megacolon. Digital rectal exam: deferred, as just done by Dr. Irizarry, at the 06/14/18: flex sig. Extremities without C, C, or E. No acute arthropathy. No rash. No palpable cords. No palmar eryrthema. No Dupuytren's contractures. Distal pulses 2+ bilaterally. DTRs 2+ bilaterally. Alert and oriented x 3. Motor 5/5 B/L. No tremor. No asterixis. Current Medications: Current Medications Sig/Jayde Start time Last Medication Dose Route Stop Time Status Admin Acetaminophen 650 MG Q6P PRN 06/14 1200 AC 06/15 PO 1848 Acetaminophen 1,000 MG ONCE 06/14 0000 DC PO 06/14 2359 Alprazolam 0.25 MG TID PRN 06/14 1345 AC 06/15 PO 06/21 1344 1319 Ceftriaxone Sodium 1,000 MG DAILY 06/15 0900 AC 06/15 IV 0845 Ceftriaxone Sodium 1,000 MG ONCE 06/14 0000 DC IV 06/14 2359 Heparin Sodium 5,000 UNIT Q8 06/14 1400 DC (Porcine) SC Hydrocortisone 100 MG Q8 06/14 1400 AC 06/15 Sodium Succinate IV 1319 Lidocaine/Diphenhydr/ 5 ML TID 06/15 1400 CAN Alum/Mg/Simeth PO Mesalamine 4 GM AT BEDTIME 06/14 2100 AC KS Mesalamine 1,600 MG TID 06/14 1400 AC 06/15 PO 1319 Metronidazole 500 MG IQ8 06/14 1600 AC 06/15 N/A 1 UNIT IV 1644 Metronidazole 500 MG ONCE 06/14 0000 DC Sodium Chloride 100 ML IV 06/14 2359 Non-Formulary 0 SEE ADMIN CRITERIA 06/15 1015 CAN Medication ANY Nystatin 5 ML 4 TIMES/DAY 06/15 1040 AC 06/15 PO 1319 Potassium Chloride 20 MEQ Q8H 06/15 0902 AC 06/15 Dextrose/Sodium 1,000 ML IV 1021 Chloride Results Pertinent Lab Results: Laboratory Tests 06/15 06/14 06/14 0655 1815 1500 Chemistry Sodium (137 - 145 mmol/L) 136 L Potassium (3.5 - 5.1 mmol/L) 4.1 Chloride (98 - 107 mmol/L) 108 H Carbon Dioxide (22 - 30 mmol/L) 23 Anion Gap (5 - 16) 5 BUN (7 - 17 mg/dL) 5 L Creatinine (0.5 - 1.0 mg/dL) 0.5 Estimated GFR (>60 ml/min) > 60 BUN/Creatinine Ratio (7 - 25 %) 10.0 Lactic Acid (0.7 - 2.1 mmol/L) 0.8 Cancelled Hematology CBC w Diff NO MAN DIFF REQ WBC (4.8 - 10.8 /CUMM) 3.2 L RBC (4.20 - 5.40 /CUMM) 2.83 L Hgb (12.0 - 16.0 G/DL) 9.8 L Hct (37 - 47 %) 27.5 L MCV (81.0 - 99.0 FL) 97.3 MCH (27.0 - 31.0 PG) 34.5 H MCHC (33.0 - 37.0 G/DL) 35.5 RDW (11.5 - 14.5 %) 14.0 Plt Count (130 - 400 /CUMM) 123 L MPV (7.4 - 10.4 FL) 7.4 Gran % (42.2 - 75.2 %) 74.1 Lymphocytes % (20.5 - 51.1 %) 15.0 L Monocytes % (1.7 - 9.3 %) 10.4 H Eosinophils % (0 - 5 %) 0 Basophils % (0.0 - 2.0 %) 0.5 Absolute Granulocytes (1.4 - 6.5 /CUMM) 2.4 Absolute Lymphocytes (1.2 - 3.4 /CUMM) 0.5 L Absolute Monocytes (0.10 - 0.60 /CUMM) 0.3 Absolute Eosinophils (0.0 - 0.7 /CUMM) 0 Absolute Basophils (0.0 - 0.2 /CUMM) 0 06/14 06/14 06/14 1450 1440 UNK Chemistry Lactic Acid (0.7 - 2.1 mmol/L) 1.2 Miscellaneous Flow Cytometry Specimen Pending Urines Urine Color (YEL,AMB,STR) YEL Urine Clarity (CLEAR) CLEAR Urine pH (5.0 - 8.0) 7.0 Ur Specific Calhoun (1.001 - 1.035) <= 1.005 Urine Protein (NEG,<30 MG/DL) NEG Urine Ketones (NEG) TRACE H Urine Nitrite (NEG) POS H Urine Bilirubin (NEG) NEG Urine Urobilinogen (0.1 - 1.0 EU/dl) 0.2 Ur Leukocyte Esterase (NEG) MOD H Ur Microscopic SEDIMENT EXAMINED Urine RBC (0 - 5 /HPF) RARE Urine WBC (0 - 2 /HPF) 10-15 H Ur Epithelial Cells (NONE,FEW) RARE Urine Bacteria (NEG/NONE) FEW H Urine Mucus (FEW,NONE) RARE Urine Hemoglobin (NEG) TRACE-INTACT Urine Glucose (N MG/DL) NEG 06/14 0901 Chemistry Sodium (137 - 145 mmol/L) 129 L Potassium (3.5 - 5.1 mmol/L) 4.5 Chloride (98 - 107 mmol/L) 92 L Carbon Dioxide (22 - 30 mmol/L) 27 Anion Gap (5 - 16) 10 BUN (7 - 17 mg/dL) 6 L Creatinine (0.5 - 1.0 mg/dL) 0.9 Estimated GFR (>60 ml/min) > 60 BUN/Creatinine Ratio (7 - 25 %) 6.7 L Glucose (65 - 99 mg/dL) 113 H Calcium (8.4 - 10.2 mg/dL) 9.0 Hematology CBC w Diff MAN DIFF ORDERED WBC (4.8 - 10.8 /CUMM) 4.6 L RBC (4.20 - 5.40 /CUMM) 3.67 L Hgb (12.0 - 16.0 G/DL) 12.5 Hct (37 - 47 %) 35.7 L MCV (81.0 - 99.0 FL) 97.3 MCH (27.0 - 31.0 PG) 34.0 H MCHC (33.0 - 37.0 G/DL) 34.9 RDW (11.5 - 14.5 %) 13.7 Plt Count (130 - 400 /CUMM) 171 MPV (7.4 - 10.4 FL) 7.3 L Gran % (42.2 - 75.2 %) 66.2 Lymphocytes % (20.5 - 51.1 %) 10.3 L Monocytes % (1.7 - 9.3 %) 23.3 H Eosinophils % (0 - 5 %) 0.1 Basophils % (0.0 - 2.0 %) 0.1 Absolute Granulocytes (1.4 - 6.5 /CUMM) 3.0 Segmented Neutrophils (42.2 - 75.2 %) 42 L Band Neutrophils (0.0 - 5.0 %) 21 H Absolute Lymphocytes (1.2 - 3.4 /CUMM) 0.5 L Lymphocytes (20.5 - 51.1 %) 18 L Monocytes (1.7 - 9.3 %) 19 H Absolute Monocytes (0.10 - 0.60 /CUMM) 1.1 H Absolute Eosinophils (0.0 - 0.7 /CUMM) 0 Absolute Basophils (0.0 - 0.2 /CUMM) 0 Platelet Estimate (ADEQUATE) VERIFIED BY SMEAR Normocytic RBCs VERIFIED Normochromic RBCs VERIFIED Miscellaneous Flow Cytometry Specimen Cancelled Imaging/Other Studies: 06/14/18: *Flex sig to 60 cm with bxs per Dr. Irizarry- diffuse friability with cobblestone appearance and superficial erosions, without deep ulcerations, in a continuous, circumferential fashion. No normal colonic mucosa was appreciated to the splenic flexure. (*Moderately active UC to the splenic flexure). * Biopsies were obtained and special stains were requested, to rule out CMV.
[2018-06-15 22:33] VITALS: BP 108/60
[2018-06-16 06:10] VITALS: BP 108/68
--- NOTE | 2018-06-16 07:19 | PN- Housestaff ---
Subjective Follow-up For: UC flare Subjective: Patient seen and examined in the AM. There has been improvement on her abdominal pain. Noted 3 episodes of loose stools overnight. She is afebrile. No leukocytosis. BP range in the low 100s/60s. On iv hydrocortisone 100 mg q8. Rest of the labs are unremarkable. Starting to tolerate PO better. Review of Systems Constitutional: Reports: see HPI. Objective Last 24 Hrs of Vital Signs/I&O Vital Signs Date Time Temp Pulse Resp B/P B/P Pulse O2 O2 Flow FiO2 Mean Ox Delivery Rate 06/16 0610 97.6 68 20 108/68 98 06/16 0000 Room Air 06/15 2233 97.6 66 20 108/60 99 Room Air 06/15 1410 97.9 64 20 100/62 98 Room Air Intake & Output 06/16 0800 06/16 0000 06/15 1600 Intake Total 980 980 Output Total 100 Balance 880 980 Intake, IV 500 500 Intake, Oral 480 480 Number 2 Bowel Movements Output, Stool 100 Patient 86 lb Weight Physical Exam General Appearance: Alert, Oriented X3, Cooperative, No Acute Distress Lungs: Clear to Auscultation Abdomen: Normal Bowel Sounds, Soft, Diffuse tenderness across the abdomen, more prominent on the R side Neurological: Normal Speech Current Medications: Current Medications Sig/Jayde Start time Last Medication Dose Route Stop Time Status Admin Acetaminophen 650 MG Q6P PRN 06/14 1200 AC 06/16 PO 0300 Alprazolam 0.25 MG TID PRN 06/14 1345 AC 06/15 PO 06/21 1344 1319 Ceftriaxone Sodium 1,000 MG DAILY 06/15 0900 AC 06/16 IV 0836 Dicyclomine HCl 20 MG TID PRN 06/15 2130 AC 06/16 PO 1216 Hydrocortisone 100 MG Q8 06/14 1400 AC 06/16 Sodium Succinate IV 1419 Mesalamine 4 GM AT BEDTIME 06/14 2100 AC MS Mesalamine 1,600 MG TID 06/14 1400 AC 06/16 PO 1419 Metronidazole 500 MG IQ8 06/14 1600 AC 06/16 N/A 1 UNIT IV 0836 Nystatin 5 ML 4 TIMES/DAY 06/15 1040 AC 06/16 PO 1215 Potassium Chloride 20 MEQ Q8H 06/15 0902 AC 06/16 Dextrose/Sodium 1,000 ML IV 0645 Chloride Last 24 Hrs of Lab/Sumanth Results Last 24 Hrs of Labs/Mics: Laboratory Tests 06/16/18 0800: Anion Gap 4 L, Estimated GFR > 60, BUN/Creatinine Ratio 6.0 L, Total Bilirubin 0.1 L, Direct Bilirubin 0.1, AST 18, ALT 27, Alkaline Phosphatase 79, C- Reactive Prot, Quant 4.9 H, C-React Prot High Sens > 15.0 H, Total Protein 5.0 L, Albumin 2.4 L, Prealbumin 10.2 L, CBC w Diff NO MAN DIFF REQ, RBC 2.82 L, MCV 96.8, MCH 34.3 H, MCHC 35.5, RDW 13.9, MPV 7.2 L, Gran % 80.1 H, Lymphocytes % 10.1 L, Monocytes % 9.7 H, Eosinophils % 0, Basophils % 0.1, Absolute Granulocytes 4.7, Absolute Lymphocytes 0.6 L, Absolute Monocytes 0.6, Absolute Eosinophils 0, Absolute Basophils 0 06/16/18 07: Total Bilirubin Cancelled, Direct Bilirubin Cancelled, AST Cancelled, ALT Cancelled, Alkaline Phosphatase Cancelled, C-React Prot High Sens Cancelled, Total Protein Cancelled, Albumin Cancelled, Prealbumin Cancelled Microbiology 06/16 728 BLOOD: Blood Culture - ORD 06/16 728 BLOOD: Blood Culture - ORD 06/16 711 STOOL: Clostridium difficile Toxin A & B - ORD 06/16 711 STOOL: Stool Culture - ORD Assessment/Plan Assessment: Ms. Aguirre is a 57 y/o F with with PMH of HTN and ulcerative colitis who is seen post colonoscopy for concern of a ulcerative colitis flare. During her colonoscopy, patient reportedly spiked a 102.3 fever, tachycardic with borderline hypotension. She received IVF bolus and ceftriaxone. She was currently on Humira and prednisone which was discontinued one week ago. She does endorse crampy abdominal pain for about one month and has been passing bright red blood per rectum over the past week. She was admitted to the general medicine floor for further management of: BP remains around low 100s SBP, 60s DBP. Remains afebrile afebrile, not tachycardic. Previous febrile episode likely 2/2 bacterial translocation causing transient bacteremia. She has gotten 2L of NS and was started on D5NS @ 125 mL/ h. Not on anticoagulation due to her continued bleeding. Normal lactic acid. Not trending anymore. Monitor VSS. BC not received and were reordered. #PROBLEM LIST #UC Flare #H/o HTN #UC Flare Following GI's recommendation Patient is currently receiving IV hydrocortisone 100 mg q8 On Rowasa + Pentasa Currently on IV Metronidazole and ceftriaxone empirically. GI to follow. Ordered ESR, CRP, LFTs, BC and prealbumin as per GI's recommendation. Patient improving clinically. #H/o HTN Home dose of metoprolol has been held due to her hypotensive episodes. FULL CODE Low fiber diet DVT PPX - mechanical, ambulation Problem List: 1. Ulcerative colitis Pain Ratin Pain Location: diffuse abdomen Pain Goal: Pain 4 or less Pain Plan: as indicated Tomorrow's Labs & Rationales: cbc
--- NOTE | 2018-06-16 07:38 | PN- Student ---
Subjective Subjective: Patient was seen and examined this am. She was afebrile and normotensive. She reports feeling abdominal pain only with bowel movements and rates the pain as 5 /10, previously 7/10. Pt reports diarrhea. She was breathing comfortably on room air. Nursing reports 4 bloody bowel movements over night. ROS: Constitutional: AOX3, denies fever and fatigue reports night sweats, reports good appetite Cardiovascular: denies chest pain, shortness of breath Respiratory: denies cough, wheezing Abdominal: reports abdominal pain with bowel movements, bloody diarrhea Genitourinary: denies dysuria, change in frequency, hesitancy MSK: denies joint pain, skin rash Objective Objective: Vital Signs Date Time Temp Pulse Resp B/P B/P Pulse O2 O2 Flow FiO2 Mean Ox Delivery Rate 06/16 0610 97.6 68 20 108/68 98 06/16 0000 Room Air 06/15 2233 97.6 66 20 108/60 99 Room Air 06/15 1410 97.9 64 20 100/62 98 Room Air Intake & Output 06/16 0800 06/16 0000 06/15 1600 Intake Total 980 980 Output Total 100 Balance 880 980 Intake, IV 500 500 Intake, Oral 480 480 Number 2 Bowel Movements Output, Stool 100 Patient 86 lb Weight Current Medications Sig/Jayde Start time Last Medication Dose Stop Time Status Admin Acetaminophen 650 MG Q6P PRN 06/14 1200 AC 06/16 (Tylenol) 0300 Alprazolam 0.25 MG TID PRN 06/14 1345 AC 06/15 (Xanax) 06/21 1344 1319 Ceftriaxone Sodium 1,000 MG DAILY 06/15 0900 AC 06/15 (Rocephin) 0845 Dicyclomine HCl 20 MG TID PRN 06/15 2130 AC 06/15 (Bentyl) 2129 Hydrocortisone 100 MG Q8 06/14 1400 AC 06/16 Sodium Succinate 0646 (Solucortef) Lidocaine/Diphenhydr/ 5 ML TID 06/15 1400 CAN Alum/Mg/Simeth (BLM) Mesalamine 4 GM AT BEDTIME 06/14 2100 AC (Rowasa Rectal Suspension) Mesalamine 1,600 MG TID 06/14 1400 AC 06/15 (Delzicol) 2116 Metronidazole 500 MG IQ8 06/14 1600 AC 06/16 (Flagyl) 0009 N/A 1 UNIT (No Carrier) Non-Formulary 0 SEE ADMIN CRITERIA 06/15 1015 CAN Medication (NON FORMULARY) Nystatin 5 ML 4 TIMES/DAY 06/15 1040 AC 06/15 (Mycostatin Susp) 211 Potassium Chloride 20 MEQ Q8H 06/15 09 AC 06/16 (KCl 20MEQ in D5W NS 0645 1000ML) Dextrose/Sodium 1,000 ML Chloride (D5-Normal Saline) Results Results: Laboratory Tests 06/15/18 0655: Anion Gap 5, Estimated GFR > 60, BUN/Creatinine Ratio 10.0, CBC w Diff NO MAN DIFF REQ, RBC 2.83 L, MCV 97.3, MCH 34.5 H, MCHC 35.5, RDW 14.0, MPV 7.4, Gran % 74.1, Lymphocytes % 15.0 L, Monocytes % 10.4 H, Eosinophils % 0, Basophils % 0.5, Absolute Granulocytes 2.4, Absolute Lymphocytes 0.5 L, Absolute Monocytes 0.3, Absolute Eosinophils 0, Absolute Basophils 0 06/14/18 1815: Lactic Acid 0.8 06/14/18 1500: Lactic Acid Cancelled 06/14/18 1450: Lactic Acid 1.2 06/14/18 1440: Urine Color YEL, Urine Clarity CLEAR, Urine pH 7.0, Ur Specific [place] <= 1.005 , Urine Protein NEG, Urine Ketones TRACE H, Urine Nitrite POS H, Urine Bilirubin NEG, Urine Urobilinogen 0.2, Ur Leukocyte Esterase MOD H, Ur Microscopic SEDIMENT EXAMINED, Urine RBC RARE, Urine WBC 10-15 H, Ur Epithelial Cells RARE, Urine Bacteria FEW H, Urine Mucus RARE, Urine Hemoglobin TRACE- INTACT, Urine Glucose NEG 06/14/18 1000: Flow Cytometry Specimen 06/14/18 09: Anion Gap 10, Estimated GFR > 60, BUN/Creatinine Ratio 6.7 L, Glucose 113 H, Calcium 9.0, CBC w Diff MAN DIFF ORDERED, RBC 3.67 L, MCV 97.3, MCH 34.0 H, MCHC 34.9, RDW 13.7, MPV 7.3 L, Gran % 66.2, Lymphocytes % 10.3 L, Monocytes % 23.3 H, Eosinophils % 0.1, Basophils % 0.1, Absolute Granulocytes 3.0, Segmented Neutrophils 42 L, Band Neutrophils 21 H, Absolute Lymphocytes 0.5 L , Lymphocytes 18 L, Monocytes 19 H, Absolute Monocytes 1.1 H, Absolute Eosinophils 0, Absolute Basophils 0, Platelet Estimate VERIFIED BY SMEAR, Normocytic RBCs VERIFIED, Normochromic RBCs VERIFIED, Flow Cytometry Specimen Cancelled Microbiology 06/16 728 BLOOD: Blood Culture - ORD 06/16 728 BLOOD: Blood Culture - ORD 06/16 711 STOOL: Clostridium difficile Toxin A & B - ORD 06/16 711 STOOL: Stool Culture - ORD 06/14 1440 URINE ROUT: Urine Culture - RES 06/14 120 BLOOD: Blood Culture - CAN Cancelled: SPECIMEN NOT RECEIVED IN LABORATORY 06/14 1202 BLOOD: Blood Culture - CAN Cancelled: SPECIMEN NOT RECEIVED IN LABORATORY PHYSICAL EXAM Last 24hrs of Vital Signs Vital Signs Date Time Temp Pulse Resp B/P B/P Pulse O2 O2 Flow FiO2 Mean Ox Delivery Rate 06/16 610 97.6 68 20 108/68 98 06/16 0000 Room Air 06/15 2233 97.6 66 20 108/60 99 Room Air 06/15 1410 97.9 64 20 100/62 98 Room Air Physical Exam General Appearance Alert, Oriented X3, Cooperative, No Acute Distress Skin No Rashes HEENT Atraumatic Cardiovascular Regular Rate, Normal S1, Normal S2, No Murmurs Lungs Clear to Auscultation Abdomen Normal Bowel Sounds, Soft, No Tenderness Extremities No Edema Vascular Normal Pulses Assessment/Plan Assessment: Ms. Aguirre is a 57yo F with PMH of HTN and ulcerative colitis, who is seen post sigmoidoscopy. During sigmoidoscopy, patient was reported to have a fever of 102.3, tachycardic, with borderline hypotension. Her BP continues to be in the low 100s SBP, and 60s DBP. She remains afebrile. Previous febrile episode was likely due to bacterial translocation causing transient bacteremia. She previously received 2L of NS and is currently on D5NS @ 125mL/h. Pt is not on anticoagulation due to continued bleeding. Monitor vitals. #Problem list #UC flare #H/O HTN #UC flare - following GI recommendations - Patient is currently receiving IV hydrocortisone 100mg q8 - On mesalamine - currently on IV metronidazole and ceftriaxone empirically - GI to follow #H/O HTN Home dose of metoprolol has been held due to hypotensive episodes Plan: #UC flare - Continue on medications - GI to follow up - monitor vitals #abdominal pain - continue to monitor
[2018-06-16 08:44] LABS: ABSOLUTE BASOPHIL COUNT 0 /CUMM (0.0-0.2); ABSOLUTE EOSINOPHIL COUNT 0 /CUMM (0.0-0.7); ABSOLUTE LYMPH COUNT 0.6 /CUMM (1.2-3.4); BASOPHIL % 0.1 % (0.0-2.0); EOSINOPHIL % 0 % (0-5); MEAN PLATELET VOLUME 7.2 FL (7.4-10.4)
[2018-06-16 08:50] LABS: ABSOLUTE GRANULOCYTE CT 4.7 /CUMM (1.4-6.5); ABSOLUTE MONOCYTE COUNT 0.6 /CUMM (0.10-0.60); GRANULOCYTE % 80.1 % (42.2-75.2); HEMATOCRIT 27.3 % (37-47); MEAN CORPUSCULAR HGB 34.3 PG (27.0-31.0); MEAN CORPUSCULAR HGB CONC 35.5 G/DL (33.0-37.0); MEAN CORPUSCULAR VOLUME 96.8 FL (81.0-99.0); PLATELET COUNT 133 /CUMM (130-400); RBC DISTRIBUTION WIDTH 13.9 % (11.5-14.5); RED BLOOD CELL CT 2.82 /CUMM (4.20-5.40)
[2018-06-16 08:52] LABS: WHITE BLOOD CELL COUNT 5.9 /CUMM (4.8-10.8)
[2018-06-16 16:01] VITALS: BP 112/66
--- NOTE | 2018-06-16 21:24 | PN- Gastroenterology ---
Assessment/Plan GI Assessment/Recommendations: 57 y/o female, HTN, non-DM, R THR for DJD, GILBERT-unilat oophrectomy (endometriosis ), low vit D, ex-25 pk yr smoker (D/C 1997), followed by Dr. Irizarry for UC. The patient's ulcerative colitis was formally diagnosed within the past year, as 2016: CT at [facility] in [place], CT showed colitis. The patient had diarrhea with rectal bleeding then. Subsequent 12/03/17: *Colonoscopy with biopsies to the terminal ileum per Dr. 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 There were no granulomas. There was no evidence of dysplasia or CA. Biopsies of the right colon and terminal ileum then were unremarkable. There was mild pandiverticulosis coli, and small internal hemorrhoids. The patient had since been treated with Mesalamine (Lialda switched to Apriso 1.5g daily), along with topical Canasa suppositories. Additionally, she was on a variety of antispasmodics (Bentyl changed to Levsin), & Lomotil prn. Ultimately, she was rxd Prednisone, while her 6MP levels were building up. Her dose of 6-MP was increased to 75 mg daily. She was admitted to [facility] 04/06/18 for pancytopenia secondary to 6-MP, which was subsequently stopped. She did require 2u PRBC then. 02/07/18: C. diff- neg; + fecal calprotectin 719.6. 02/07/18: C. diff toxin B PCR- neg. 02/21/18: QuantiFERON-TB- neg. 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 CRP 0.6, ESR 16, Hep Bs Ag- neg, Hep Bs Ab- neg. 04/08/18: nl fecal calprotectin 100.1 06/07/18: C. diff toxin A & B- neg Humira was rxd 05/13/18 and the patient was loaded. She last saw Dr. Irizarry in the office 06/09/18. Her UC symptoms flared after Prednisone was tapered. She had been off Prednisone for approximately 1 week prior to her 06/14/18: flex sig. She was maintained on Humira & Apriso 1.5g daily. Plans were to repeat a flex sig to check disease activity and rule out CMV. Additionally, if she flared, consideration would be made to switch her Humira to another biologic in the same class, such as Remicade, vs. switching to a completely different class of biologic agents, such as Entyvio. Another option was Xeljanz. 06/14/18: *Flex sig to 60 cm with bxs per Dr. Irizarry- diffuse friability with cobblestone appearance and superficial erosions, without deep ulcerations, in a continuous, circumferential fashion. No normal colonic mucosa was appreciated to the splenic flexure. (*Moderately active UC to the splenic flexure). Biopsies were obtained and special stains were requested, to rule out CMV. A decision was made by Dr. Irizarry to admit the patient to the medical service for IV steroids, post flex sig. The patient reportedly spiked a fever to 102.3, post flex sig, probably representing bacterial translocation. She also looked a little dehydrated. In any event, IV steroids (currently IV SoluCortef 100 mg Q8h), and broad-spectrum IV antibiotics (Ceftriaxone 1g daily/Flagyl 500 mg Q8h) were advised, along with high dose Mesalamine po & Rowasa enemas. The patient was cultured. The hospitalist service was called, and the patient was directly admitted to General Medicine. *The pt's next dose of Humira was due Wed06/17/18. The patient stated her diarrhea was too numerous to count, and by history was secretory in nature. Her stools were mixed with bright red blood. She had diffuse abdominal cramping, and perhaps, somemild tenesmus. She denied any rashes or arthralgias. She denied any upper GI symptoms, and specifically denied any nausea, vomiting, reflux, odynophagia, dysphagia, or early satiety. Her appetite was fair. She noted low-grade fevers at home, with some mild chills. She denied any jaundice, dark urine, light stools, or pruritus. She had mild dysuria, without any frequency or gross hematuria. There was no pneumaturia, or feces in the urine. She had no symptoms of URI. She thought she might have had some oral thrush, with a "dry" tongue. She claimed that since she was diagnosed with UC, she had lost 46 pounds, since Xmas of 09/2017. There was no FHx of IBD or colon CA. The patient's father 80- liver CA , but she denied any history of him having cirrhosis. He did have RA. She claimed her father's tumor originated in the liver. Aside from the remote smoking, she denied any EtOH or illicit drug use. She denied using any NSAIDs or recent antibiotics. She denied any point source, recent travel, or raw food ingestion. 06/09/18: alb 3.4, glob 2.9, TBil 1.6 (w/o fracs), alk phos 41, AST 16, ALT 18. 06/14/18: *Flow cytometry- pending. 06/14/18: 900- Admission labs- WBC 4.6 (42S/21B/18L/19M), H/H 12.5/35.7. MCV 97.3, RDW 13.7, PLT 171, glu 113, BUN/Cr 6/0.9, GFR > 60, Na 129, K 4.5, HCO3 27 , AG 10, Ca 9.0 06/14/18: 1450- lactate 1.2 06/14/18: U/A- clear, yellow, < 1.005, 7.0, 10-15 WBC, tr ket, pos nitrite, neg esterase 06/14/18: BC x 2; UC- pending. The patient was admitted directly from the GI Suite 06/14/18, post flex sig to 60 cm with bxs, with flare of UC, and progression to at least left-sided colitis. She had been on high-dose Mesalamine as an outpatient. She was intolerant of 6-MP, as she was a heterozygous/low metabolizer, by levels. She had been tapered off Prednisone 1 week [employer]. She had been started on Humira 1 month prior, and had been loaded. She did not have clinical benefit from Humira. Her fever was probably from transient bacterial translocation, after biopsies were done at flex sig. Having stated that, she did have pyuria and some dysuria. She was dehydrated, and mildly hypo-Na+. 06/07/18: C. diff- neg. Doubt infectious colitis, rule out CMV. *Uncertain if too soon to have developed antibodies against Humira. 06/15/18: WBC 3.2, H/H 9.8/27.5, nl MCV, nl RDW, PLT 123, BUN/Cr 5/0.5, GFR > 60 , Na 136, K 4.1, HCO3 23, AG 5. 06/14/18: BC x 2- ? never sent! 06/14/18: UC- neg x 1 day. *stool workup not sent! *As of 06/15/18, the pt had low normal BP (currently 100/62), & was otherwise hemodynamically stable, & afebrile, with O2 sat RA 98%. *BC x 2 never sent on admission-> now afebrile. Adm urine culture- neg. *Her pancytopenia returned (* off 6MP). 06/14/18: Flex sig bxs/CMV stains- pending. *The pt remained on IV Ceftriaxone/Flagyl/SoluCortef 100 mg Q8h, Rowasa enemas 4g Qhs, with IV: ( finished NS bolus). Nystatin was rxd for oral thrush. She denied any odynophagia. *She started a low residue diet. Her diarrhea was perhaps slightly better on IV steroids, still with occasionally bloody stools, as expected, from mucosal shedding. There were some abdominal cramps. She had fatigue. She no longer had fever or chills. 06/14/18: *Flow cytometry- negative 06/16/18: WBC 5.9, H/H 9.7/27.3, nl MCV, nl RDW, PLT 133, BUN/Cr 3/0.5, GFR > 60 , Na 138, K 4.1, HCO3 21,AG 4, *PAB 10.2, alb 2.4, glob 2.6, TBil 0.1, DBil 0.1, alk phos 79, AST 18, ALT 27 06/16/18: ESR 50, CRP 4.9 *As of 06/16/18, the pt was slowly improving. Her frequency of diarrhea was less , as was her urgency. Her abdominal cramps persisted, but weren't as bad. She still had some rectal bleeding. She was tolerating a low residue diet. She was no longer hypotensive & remained afebrile, with O2 sat RA 100%. A/P- 57 F flare UC, diarrhea, BRBPR, abd pain, wt loss, fever, pyuria, dehydration, hypoNa+, malnutrition. SUGGEST- *IV SoluCortef 100 mg Q8h (hopefully, mild steroid taper after Humira given 04/27). *IV Ceftriaxone 1g daily. *IV Flagyl 500 mg Q8h. *Mesalamine 1600 mg po TID. *Rowasa enemas 4g pr Qhs. *IV NS bolus, f/b D5NS with KCl 20 meq/L @ 125cc/ hr. *Follow-up CBC, lytes, GFR, LFTs, (*low prealbumin). *Pt advanced to low residue po. BOOST 1 can po TID. Recheck stool C. difficile, & stool for C&S, Shiga toxin. *Check fecal calprotectin. *Panculture. *Follow-up BC/UC (? BC never sent). Tylenol prn. No NSAIDs. Serial abdominal exams on steroids. * Bentyl 20 mg po TID. Advise Accu-Cheks while on steroids, as per medical team. Consider hematology consult re: pancytopenia (06/14/18: *flow cytometry- negative). *Check HIV, SHERIN, SPEP/IPEP (*previous cytopenias were felt to be from 6MP, but recurred off this). DVT prophylaxis with sc heparin 5Ku Q8h (IBD is hypercoaguable state). Mobilize pt as tolerated. *Await 06/14/18: flex sig with bx pathology results, as well as CMV stains. Consider checking random Humira/ Adalimumab drug levels (would be almost a trough level, as her next dose of Humira is due Wednesday06/17/18), as well as Humira (Adalimumab) Ab = *JONO ADA ( send out to [facility]). As sepsis was excluded, per my discussion with Dr. Irizarry, the pt is to take her own dose of Humira, due 06/17/18. *The point of the IV steroids is to help induce remission, not to maintain remission- If the patient continues to improve on the above regimen, she can follow up with Dr. Irizarry as an outpt to consider either continuing Humira, or switching it another "in class" biologic (i.e.- Remicade) vs. switching to another biologic class ( i.e.- Entyvio vs. the newly released Xeljanz): If the patient's condition worsens, we may have to get the patient's insurance company and/or [place] to approve inpatient IV Remicade infusion. *If the patient continues to not respond to medical therapy, another consideration for her UC could be colectomy. *TPN is an option, but would prefer not to have indwelling PICC/central line if biologics are to be resumed. The above was discussed with the patient and her son, Vick, at the bedside at the time of GI consultation, as per pt request. I also spoke with the pt's sister, Venessa, at the bedside, on 06/15/18, as per pt request. The case was also previously discussed with Dr. Ribeiro, of the hospitalist service. *I again spoke with the pt's RN, who will convey the above to the medical house staff. Further GI recommendations to follow, depending on clinical course. *Dr. Fisher will assume the inpt weekly GI coverage this p.m. Problem List: 1. Ulcerative colitis 2. Diarrhea 3. Rectal bleeding 4. Abdominal pain 5. Weight loss 6. Fever 7. Pyuria 8. Dehydration 9. Hyponatremia 10. Malnutrition Subjective Subjective: 06/14/18: *Flow cytometry- negative 06/16/18: WBC 5.9, H/H 9.7/27.3, nl MCV, nl RDW, PLT 133, BUN/Cr 3/0.5, GFR > 60 , Na 138, K 4.1, HCO3 21,AG 4, *PAB 10.2, alb 2.4, glob 2.6, TBil 0.1, DBil 0.1, alk phos 79, AST 18, ALT 27 06/16/18: ESR 50, CRP 4.9 *As of 06/16/18, the pt was slowly improving. Her frequency of diarrhea was less , as was her urgency. Her abdominal cramps persisted, but weren't as bad. She still had some rectal bleeding. She was tolerating a low residue diet. She was no longer hypotensive & remained afebrile, with O2 sat RA 100%. Review of Systems: Full 14 point ROS otherwise noncontributory, and as above. Review of Systems Constitutional: Reports: malaise, weakness, unexplained weight loss. Denies: fevers, chills, diaphoresis. EENTM: Denies: blurred vision, double vision, visual changes, eye pain, eye drainage, eye tearing, icterus, ear discharge, ear pain, ear redness, hearing changes, nasal congestion, epistaxis, nasal pain, throat pain, throat swelling, mouth pain, tooth pain. Cardiovascular: Denies: chest pain, edema, orthopena, palpitations, peripheral edema, syncope. Respiratory: Denies: cough, hemoptysis, orthopnea, short of breath, sputum production, stridor, wheezing. GI: Reports: abdominal pain (cramps)- slightly better, diarrhea- slightly better, bloody stool. Denies: bloating, constipation, distention, bowel incontinence, melena, nausea, changes in stool, vomiting, steatorrhea. Genitourinary: Reports: dysuria. Denies: discharge, frequency, hematuria, hesitation, nocturia, pain, urgency. Musculoskeletal: Denies: back pain, gout, joint pain, joint swelling, muscle pain, muscle stiffness, neck pain. Skin: Denies: cysts, change in skin color, change in hair/nails, dryness, erythema, jaundice, lesions, lymphangitis, lumps, moles, rash. Neurological/Psychological: Denies: anxiety, ataxia, cognitive dysfunction, confusion, depressed, dementia, emotional problems, headache, numbness, paresthesia, pre-existing deficit, petit mal seizures, tingling, tremors, tonic-clonic seizures, unable to move lower ext , unable to move upper ext, weakness. Hematologic/Endocrine: Denies: bruising, bleeding, polyuria, polydipsia. Immunologic/Allergic: Denies: splenectomy, HIV/AIDS, lymphadenopathy. All Other Systems: Reviewed and Negative Objective Vital Signs and I&Os Vital Signs Date Time Temp Pulse Resp B/P B/P Pulse O2 O2 Flow FiO2 Mean Ox Delivery Rate 06/16 1601 98.1 73 18 112/66 100 06/16 0610 97.6 68 20 108/68 98 06/16 0000 Room Air 06/15 2233 97.6 66 20 108/60 99 Room Air Intake & Output 06/16 1600 06/16 0400 06/15 1600 06/15 0400 06/14 1600 06/14 0400 Intake Total 3160 980 1580 360 Output Total 304 100 2 350 Balance 2856 880 1578 360 -350 Intake, IV 2200 500 500 Intake, Oral 581 231 9769 360 Number 2 2 3 Bowel Movements Output, Stool 4 100 2 Output, Urine 300 350 Patient 84 lb 84 lb 84 lb Weight Physical Exam: Well-developed, slightly malnourished, thin female, dehydrated, less fatigued, in no apparent distress. Non-toxic appearing. Sclera anicteric. Conjunctiva pink. Oropharynx clear. Dry mucus membranes. ? Scant oral thrush. No aphthous ulcers. No stridor. There is no adenopathy, thyromegaly, or JVD. No peripheral stigmata of chronic liver disease on exam. No CVA tenderness. No spine tenderness. Breast & pelvic exams: API. Lungs: clear to A&P. No wheezing, rales, or rhonchi. Heart exam: regular rate rhythm, S1 and S2, without any murmur. Abdominal exam: normal bowel sounds, soft belly, scant B/L lower quadrant tenderness, without guarding or rebound. No mass. No organomegaly. No fluid shift. No pulsatile mass. No epigastric bruit. Clinically, without megacolon. Digital rectal exam: deferred, as just done by Dr. Irizarry, at the 06/14/18: flex sig. Extremities without C, C, or E. No acute arthropathy. No rash. No palpable cords. No palmar eryrthema. No Dupuytren's contractures. Distal pulses 2+ bilaterally. DTRs 2+ bilaterally. Alert and oriented x 3. Motor 5/5 B/L. No tremor. No asterixis. Current Medications: Current Medications Sig/Jayde Start time Last Medication Dose Route Stop Time Status Admin Acetaminophen 650 MG Q6P PRN 06/14 1200 AC 06/16 PO 0300 Alprazolam 0.25 MG TID PRN 06/14 1345 AC 06/16 PO 06/21 1344 1644 Ceftriaxone Sodium 1,000 MG DAILY 06/15 09 AC 06/16 IV 0836 Dicyclomine HCl 20 MG TID PRN 06/15 2130 AC 06/16 PO 2136 Hydrocortisone 100 MG Q8 06/14 1400 AC 06/16 Sodium Succinate IV 2134 Mesalamine 4 GM AT BEDTIME 06/14 2100 AC DE Mesalamine 1,600 MG TID 06/14 1400 AC 06/16 PO 2135 Metronidazole 500 MG IQ8 06/14 1600 AC 06/16 N/A 1 UNIT IV 1633 Nystatin 5 ML 4 TIMES/DAY 06/15 1040 AC 06/16 PO 2134 Potassium Chloride 20 MEQ Q8H 06/15 0902 AC 06/16 Dextrose/Sodium 1,000 ML IV 1634 Chloride Results Pertinent Lab Results: Laboratory Tests 06/16 06/16 06/16 1630 0800 0711 Chemistry Sodium (137 - 145 mmol/L) 138 Potassium (3.5 - 5.1 mmol/L) 4.1 Chloride (98 - 107 mmol/L) 114 H Carbon Dioxide (22 - 30 mmol/L) 21 L Anion Gap (5 - 16) 4 L BUN (7 - 17 mg/dL) 3 L Creatinine (0.5 - 1.0 mg/dL) 0.5 Estimated GFR (>60 ml/min) > 60 BUN/Creatinine Ratio (7 - 25 %) 6.0 L Total Bilirubin (0.2 - 1.3 mg/dL) 0.1 L Cancelled Direct Bilirubin (< 0.4 mg/dL) 0.1 Cancelled AST (14 - 36 U/L) 18 Cancelled ALT (9 - 52 U/L) 27 Cancelled Alkaline Phosphatase (<127 U/L) 79 Cancelled C-Reactive Prot, Quant (<1.0 mg/dL) 4.9 H C-React Prot High Sens (1.0 - 3.0 mg/L) > 15.0 H Cancelled Total Protein (6.3 - 8.2 g/dL) 5.0 L Cancelled Albumin (3.5 - 5.0 g/dL) 2.4 L Cancelled Prealbumin (17.6 - 36.0 mg/dL) 10.2 L Cancelled Hematology CBC w Diff NO MAN DIFF REQ WBC (4.8 - 10.8 /CUMM) 5.9 RBC (4.20 - 5.40 /CUMM) 2.82 L Hgb (12.0 - 16.0 G/DL) 9.7 L Hct (37 - 47 %) 27.3 L MCV (81.0 - 99.0 FL) 96.8 MCH (27.0 - 31.0 PG) 34.3 H MCHC (33.0 - 37.0 G/DL) 35.5 RDW (11.5 - 14.5 %) 13.9 Plt Count (130 - 400 /CUMM) 133 MPV (7.4 - 10.4 FL) 7.2 L Gran % (42.2 - 75.2 %) 80.1 H Lymphocytes % (20.5 - 51.1 %) 10.1 L Monocytes % (1.7 - 9.3 %) 9.7 H Eosinophils % (0 - 5 %) 0 Basophils % (0.0 - 2.0 %) 0.1 Absolute Granulocytes (1.4 - 6.5 /CUMM) 4.7 Absolute Lymphocytes (1.2 - 3.4 /CUMM) 0.6 L Absolute Monocytes (0.10 - 0.60 /CUMM) 0.6 Absolute Eosinophils (0.0 - 0.7 /CUMM) 0 Absolute Basophils (0.0 - 0.2 /CUMM) 0 ESR Westergren (0 - 20 MM) 50 H 05 09/04 09/04 0655 1815 1500 Chemistry Sodium (137 - 145 mmol/L) 136 L Potassium (3.5 - 5.1 mmol/L) 4.1 Chloride (98 - 107 mmol/L) 108 H Carbon Dioxide (22 - 30 mmol/L) 23 Anion Gap (5 - 16) 5 BUN (7 - 17 mg/dL) 5 L Creatinine (0.5 - 1.0 mg/dL) 0.5 Estimated GFR (>60 ml/min) > 60 BUN/Creatinine Ratio (7 - 25 %) 10.0 Lactic Acid (0.7 - 2.1 mmol/L) 0.8 Cancelled Hematology CBC w Diff NO MAN DIFF REQ WBC (4.8 - 10.8 /CUMM) 3.2 L RBC (4.20 - 5.40 /CUMM) 2.83 L Hgb (12.0 - 16.0 G/DL) 9.8 L Hct (37 - 47 %) 27.5 L MCV (81.0 - 99.0 FL) 97.3 MCH (27.0 - 31.0 PG) 34.5 H MCHC (33.0 - 37.0 G/DL) 35.5 RDW (11.5 - 14.5 %) 14.0 Plt Count (130 - 400 /CUMM) 123 L MPV (7.4 - 10.4 FL) 7.4 Gran % (42.2 - 75.2 %) 74.1 Lymphocytes % (20.5 - 51.1 %) 15.0 L Monocytes % (1.7 - 9.3 %) 10.4 H Eosinophils % (0 - 5 %) 0 Basophils % (0.0 - 2.0 %) 0.5 Absolute Granulocytes (1.4 - 6.5 /CUMM) 2.4 Absolute Lymphocytes (1.2 - 3.4 /CUMM) 0.5 L Absolute Monocytes (0.10 - 0.60 /CUMM) 0.3 Absolute Eosinophils (0.0 - 0.7 /CUMM) 0 Absolute Basophils (0.0 - 0.2 /CUMM) 0 06/14 06/14 06/14 1450 1440 UNK Chemistry Lactic Acid (0.7 - 2.1 mmol/L) 1.2 Miscellaneous Flow Cytometry Specimen Urines Urine Color (YEL,AMB,STR) YEL Urine Clarity (CLEAR) CLEAR Urine pH (5.0 - 8.0) 7.0 Ur Specific [place] (1.001 - 1.035) <= 1.005 Urine Protein (NEG,<30 MG/DL) NEG Urine Ketones (NEG) TRACE H Urine Nitrite (NEG) POS H Urine Bilirubin (NEG) NEG Urine Urobilinogen (0.1 - 1.0 EU/dl) 0.2 Ur Leukocyte Esterase (NEG) MOD H Ur Microscopic SEDIMENT EXAMINED Urine RBC (0 - 5 /HPF) RARE Urine WBC (0 - 2 /HPF) 10-15 H Ur Epithelial Cells (NONE,FEW) RARE Urine Bacteria (NEG/NONE) FEW H Urine Mucus (FEW,NONE) RARE Urine Hemoglobin (NEG) TRACE-INTACT Urine Glucose (N MG/DL) NEG 06/14 0901 Chemistry Sodium (137 - 145 mmol/L) 129 L Potassium (3.5 - 5.1 mmol/L) 4.5 Chloride (98 - 107 mmol/L) 92 L Carbon Dioxide (22 - 30 mmol/L) 27 Anion Gap (5 - 16) 10 BUN (7 - 17 mg/dL) 6 L Creatinine (0.5 - 1.0 mg/dL) 0.9 Estimated GFR (>60 ml/min) > 60 BUN/Creatinine Ratio (7 - 25 %) 6.7 L Glucose (65 - 99 mg/dL) 113 H Calcium (8.4 - 10.2 mg/dL) 9.0 Hematology CBC w Diff MAN DIFF ORDERED WBC (4.8 - 10.8 /CUMM) 4.6 L RBC (4.20 - 5.40 /CUMM) 3.67 L Hgb (12.0 - 16.0 G/DL) 12.5 Hct (37 - 47 %) 35.7 L MCV (81.0 - 99.0 FL) 97.3 MCH (27.0 - 31.0 PG) 34.0 H MCHC (33.0 - 37.0 G/DL) 34.9 RDW (11.5 - 14.5 %) 13.7 Plt Count (130 - 400 /CUMM) 171 MPV (7.4 - 10.4 FL) 7.3 L Gran % (42.2 - 75.2 %) 66.2 Lymphocytes % (20.5 - 51.1 %) 10.3 L Monocytes % (1.7 - 9.3 %) 23.3 H Eosinophils % (0 - 5 %) 0.1 Basophils % (0.0 - 2.0 %) 0.1 Absolute Granulocytes (1.4 - 6.5 /CUMM) 3.0 Segmented Neutrophils (42.2 - 75.2 %) 42 L Band Neutrophils (0.0 - 5.0 %) 21 H Absolute Lymphocytes (1.2 - 3.4 /CUMM) 0.5 L Lymphocytes (20.5 - 51.1 %) 18 L Monocytes (1.7 - 9.3 %) 19 H Absolute Monocytes (0.10 - 0.60 /CUMM) 1.1 H Absolute Eosinophils (0.0 - 0.7 /CUMM) 0 Absolute Basophils (0.0 - 0.2 /CUMM) 0 Platelet Estimate (ADEQUATE) VERIFIED BY SMEAR Normocytic RBCs VERIFIED Normochromic RBCs VERIFIED Miscellaneous Flow Cytometry Specimen Cancelled Imaging/Other Studies: 06/14/18: *Flex sig to 60 cm with bxs per Dr. Irizarry- diffuse friability with cobblestone appearance and superficial erosions, without deep ulcerations, in a continuous, circumferential fashion. No normal colonic mucosa was appreciated to the splenic flexure. (*Moderately active UC to the splenic flexure). * Biopsies were obtained and special stains were requested, to rule out CMV.
[2018-06-16 22:02] VITALS: BP 112/62
[2018-06-17 06:29] VITALS: BP 100/60
--- NOTE | 2018-06-17 07:12 | PN- Housestaff ---
See Addendum Dc Cardozo 06/17/18 0712: Subjective Follow-up For: UC flare Subjective: Patient seen and examined in the AM. Bloody stools, diarrhea and abdominal cramping continues, though improved subjectively as per patient. She did have two BM overnight, one in the AM. She remains afebrile with stable VS. On room air. Review of Systems Constitutional: Reports: see HPI. Objective Last 24 Hrs of Vital Signs/I&O Vital Signs Date Time Temp Pulse Resp B/P B/P Pulse O2 O2 Flow FiO2 Mean Ox Delivery Rate 06/17 629 97.5 76 20 100/60 92 Room Air 06/16 2202 97.7 74 18 112/62 99 Room Air 06/16 1601 98.1 73 18 112/66 100 Intake & Output 06/17 1600 06/17 0800 06/17 0000 Intake Total 1100 1500 Output Total 200 Balance 900 1500 Intake, IV 1100 1000 Intake, Oral 500 Number 1 1 Bowel Movements Output, Urine 200 Patient 90 lb 4.01 oz 91 lb 4 oz Weight Weight Bed scale Measurement Method Physical Exam General Appearance: Alert, Oriented X3, Cooperative, No Acute Distress, Thin Lungs: Clear to Auscultation Abdomen: Normal Bowel Sounds, Soft, Diffuse slight tenderness to palpation across all abdominal quadrants. Neurological: Normal Speech Extremities: No Edema Current Medications: Current Medications Sig/Jayde Start time Last Medication Dose Route Stop Time Status Admin Acetaminophen 650 MG Q6P PRN 06/14 1200 AC 06/16 PO 0300 Alprazolam 0.25 MG TID PRN 06/14 1345 AC 06/16 PO 06/21 1344 1644 Ceftriaxone Sodium 1,000 MG DAILY 06/15 0900 AC 06/17 IV 0835 Dicyclomine HCl 20 MG TID PRN 06/15 2130 AC 06/17 PO 0453 Hydrocortisone 100 MG Q8 06/14 1400 AC 06/17 Sodium Succinate IV 0536 Mesalamine 4 GM AT BEDTIME 06/14 2100 AC SD Mesalamine 1,600 MG TID 06/14 1400 AC 06/17 PO 0835 Metronidazole 500 MG IQ8 06/14 1600 AC 06/17 N/A 1 UNIT IV 0836 Nystatin 5 ML 4 TIMES/DAY 06/15 1040 AC 06/17 PO 0836 Potassium Chloride 20 MEQ Q8H 06/15 0902 AC 06/17 Dextrose/Sodium 1,000 ML IV 0215 Chloride Last 24 Hrs of Lab/Sumanth Results Last 24 Hrs of Labs/Mics: Laboratory Tests 06/17/18 0750: Anion Gap 5, Estimated GFR > 60, BUN/Creatinine Ratio 6.0 L, CBC w Diff NO MAN DIFF REQ, RBC 2.88 L, MCV 98.6, MCH 33.9 H, MCHC 34.4, RDW 13.5, MPV 7.1 L, Gran % 80.2 H, Lymphocytes % 10.4 L, Monocytes % 9.4 H, Eosinophils % 0, Basophils % 0, Absolute Granulocytes 5.4, Absolute Lymphocytes 0.7 L, Absolute Monocytes 0.6, Absolute Eosinophils 0, Absolute Basophils 0 06/16/18 1630: ESR Westergren 50 H Microbiology 06/17 0200 STOOL: Clostridium difficile Toxin A & B - RECD 06/17 0200 STOOL: Stool Culture - RECD 06/16 1640 BLOOD: Blood Culture - WKST 06/16 1630 BLOOD: Blood Culture - WKST Assessment/Plan Assessment: Ms. Aguirre is a 57 y/o F with with PMH of HTN and ulcerative colitis who is seen post colonoscopy for concern of a ulcerative colitis flare. During her colonoscopy, patient reportedly spiked a 102.3 fever, tachycardic with borderline hypotension. She received IVF bolus and ceftriaxone. She was currently on Humira and prednisone which was discontinued one week ago. She does endorse crampy abdominal pain for about one month and has been passing bright red blood per rectum over the past week. She was admitted to the general medicine floor for further management of: BP remains hovering around low 100s-90s SBP, 50-60s DBP. She remains afebrile. Previous febrile episode likely 2/2 bacterial translocation causing transient bacteremia, noted no growth on BC. She has gotten 2L of NS and was started on D5NS @ 125 mL/h. Not on anticoagulation due to her continued bleeding. Normal lactic acid. Not trending anymore. Monitor VSS. #PROBLEM LIST #UC Flare #H/o HTN #UC Flare Following GI's recommendation Patient is currently receiving IV hydrocortisone 100 mg q8 No growth on blood cultures so far. On Rowasa + Pentasa Currently on IV Metronidazole and ceftriaxone empirically. Will administer her Humira dose today as per GI's recommendation. Should patient continue to improve, may be switched to PO antibiotics and PO steroids tomorrow. #H/o HTN Home dose of metoprolol has been held due to her hypotensive episodes. FULL CODE Low fiber diet DVT PPX - mechanical, ambulation Problem List: 1. Ulcerative colitis Pain Ratin Pain Location: abdomen Pain Goal: Pain 4 or less Pain Plan: As indicated Tomorrow's Labs & Rationales: n/a José Miguel Ribeiro MD 06/17/181941: Attending MD Review Statement Attending Statement Attending MD Statement: examined this patient, discuss w/resident/PA/CARTON LINER, agreed w/resident/PA/CARTON LINER, discussed with family, reviewed EMR data (avail), discussed with nursing, discussed with case mgmt, amended to note Attending Assessment/Plan: The patient was seen and discussed with house staff. GI input appreciated. Will continue IV antibiotics and IV steroids today. The patient is taking her home dose of Humira today. As per GI, if doing well tomorrow will consider discontinue IV antibiotics (the patient presented with sepsis) and change to PO antibiotics and steroids. Plan is for slow taper of steroids as per GI.
--- NOTE | 2018-06-17 08:28 | PN- Student ---
Subjective Subjective: Patient was seen and examined this AM. She was afebrile and normotensive. She reports abdominal cramping only with bowel movements and rates the cramping as 7 /10, which is slightly improved from her usual. She was breathing comfortably on room air. Nursing reports 2 bloody bowel movements. ROS: Constitutional: AOx3, denies fever, fatigue, night sweats, reports good appetite HEENT: reports dry mouth, using nystatin mouth rinse Cardiovascular: denies chest pain Respiratory: denies cough, wheezing Abdominal: reports abdominal cramping with bowel movements, frequent and bloody diarrhea, tenesmus Genitourinary: denies dysuria, hesitancy, urgency; reports increased frequency Objective Objective: Current Medications Sig/Jayde Start time Last Medication Dose Stop Time Status Admin Acetaminophen 650 MG Q6P PRN 06/14 1200 AC 06/16 (Tylenol) 0300 Alprazolam 0.25 MG TID PRN 06/14 1345 AC 06/16 (Xanax) 06/21 1344 1644 Ceftriaxone Sodium 1,000 MG DAILY 06/15 0900 AC 06/16 (Rocephin) 0836 Dicyclomine HCl 20 MG TID PRN 06/15 2130 AC 06/17 (Bentyl) 0453 Hydrocortisone 100 MG Q8 06/14 1400 AC 06/17 Sodium Succinate 0536 (Solucortef) Mesalamine 4 GM AT BEDTIME 06/14 2100 AC (Rowasa Rectal Suspension) Mesalamine 1,600 MG TID 06/14 1400 AC 06/16 (Delzicol) 2135 Metronidazole 500 MG IQ8 06/14 1600 AC 06/17 (Flagyl) 0217 N/A 1 UNIT (No Carrier) Nystatin 5 ML 4 TIMES/DAY 06/15 1040 AC 06/16 (Mycostatin Susp) 2134 Potassium Chloride 20 MEQ Q8H 06/15 0902 AC 06/17 (KCl 20MEQ in D5W NS 0215 1000ML) Dextrose/Sodium 1,000 ML Chloride (D5-Normal Saline) Intake & Output 06/17 1600 06/17 0800 06/17 0000 Intake Total 1100 1500 Output Total 200 Balance 900 1500 Intake, IV 1100 1000 Intake, Oral 500 Number 1 1 Bowel Movements Output, Urine 200 Patient 91 lb 4 oz Weight Weight Bed scale Measurement Method Results Results: Laboratory Tests 06/17/18 0750: Sodium Pending, Potassium Pending, Chloride Pending, Carbon Dioxide Pending, Anion Gap Pending, BUN Pending, Creatinine Pending, BUN/Creatinine Ratio Pending , CBC w Diff Pending, WBC Pending, RBC Pending, Hgb Pending, Hct Pending, MCV Pending, MCH Pending, MCHC Pending, RDW Pending, Plt Count Pending, MPV Pending 06/16/18 1630: ESR Westergren 50 H 06/16/18 0800: Anion Gap 4 L, Estimated GFR > 60, BUN/Creatinine Ratio 6.0 L, Total Bilirubin 0.1 L, Direct Bilirubin 0.1, AST 18, ALT 27, Alkaline Phosphatase 79, C- Reactive Prot, Quant 4.9 H, C-React Prot High Sens > 15.0 H, Total Protein 5.0 L, Albumin 2.4 L, Prealbumin 10.2 L, CBC w Diff NO MAN DIFF REQ, RBC 2.82 L, MCV 96.8, MCH 34.3 H, MCHC 35.5, RDW 13.9, MPV 7.2 L, Gran % 80.1 H, Lymphocytes % 10.1 L, Monocytes % 9.7 H, Eosinophils % 0, Basophils % 0.1, Absolute Granulocytes 4.7, Absolute Lymphocytes 0.6 L, Absolute Monocytes 0.6, Absolute Eosinophils 0, Absolute Basophils 0 06/16/18 0711: Total Bilirubin Cancelled, Direct Bilirubin Cancelled, AST Cancelled, ALT Cancelled, Alkaline Phosphatase Cancelled, C-React Prot High Sens Cancelled, Total Protein Cancelled, Albumin Cancelled, Prealbumin Cancelled 06/15/18 0655: Anion Gap 5, Estimated GFR > 60, BUN/Creatinine Ratio 10.0, CBC w Diff NO MAN DIFF REQ, RBC 2.83 L, MCV 97.3, MCH 34.5 H, MCHC 35.5, RDW 14.0, MPV 7.4, Gran % 74.1, Lymphocytes % 15.0 L, Monocytes % 10.4 H, Eosinophils % 0, Basophils % 0.5, Absolute Granulocytes 2.4, Absolute Lymphocytes 0.5 L, Absolute Monocytes 0.3, Absolute Eosinophils 0, Absolute Basophils 0 06/14/18 1815: Lactic Acid 0.8 06/14/18 1500: Lactic Acid Cancelled 06/14/18 1450: Lactic Acid 1.2 06/14/18 1440: Urine Color YEL, Urine Clarity CLEAR, Urine pH 7.0, Ur Specific [place] <= 1.005 , Urine Protein NEG, Urine Ketones TRACE H, Urine Nitrite POS H, Urine Bilirubin NEG, Urine Urobilinogen 0.2, Ur Leukocyte Esterase MOD H, Ur Microscopic SEDIMENT EXAMINED, Urine RBC RARE, Urine WBC 10-15 H, Ur Epithelial Cells RARE, Urine Bacteria FEW H, Urine Mucus RARE, Urine Hemoglobin TRACE- INTACT, Urine Glucose NEG 06/14/18 1000: Flow Cytometry Specimen 06/14/18 0901: Anion Gap 10, Estimated GFR > 60, BUN/Creatinine Ratio 6.7 L, Glucose 113 H, Calcium 9.0, CBC w Diff MAN DIFF ORDERED, RBC 3.67 L, MCV 97.3, MCH 34.0 H, MCHC 34.9, RDW 13.7, MPV 7.3 L, Gran % 66.2, Lymphocytes % 10.3 L, Monocytes % 23.3 H, Eosinophils % 0.1, Basophils % 0.1, Absolute Granulocytes 3.0, Segmented Neutrophils 42 L, Band Neutrophils 21 H, Absolute Lymphocytes 0.5 L , Lymphocytes 18 L, Monocytes 19 H, Absolute Monocytes 1.1 H, Absolute Eosinophils 0, Absolute Basophils 0, Platelet Estimate VERIFIED BY SMEAR, Normocytic RBCs VERIFIED, Normochromic RBCs VERIFIED, Flow Cytometry Specimen Cancelled Microbiology 06/17 0200 STOOL: Clostridium difficile Toxin A & B - RECD 06/17 0200 STOOL: Stool Culture - RECD 06/16 1640 BLOOD: Blood Culture - WKST 06/16 1630 BLOOD: Blood Culture - WKST 06/14 1440 URINE ROUT: Urine Culture - COMP 06/14 120 BLOOD: Blood Culture - CAN Cancelled: SPECIMEN NOT RECEIVED IN LABORATORY 06/14 1202 BLOOD: Blood Culture - CAN Cancelled: SPECIMEN NOT RECEIVED IN LABORATORY PHYSICAL EXAM Last 24hrs of Vital Signs Vital Signs Date Time Temp Pulse Resp B/P B/P Pulse O2 O2 Flow FiO2 Mean Ox Delivery Rate 06/17 06 97.5 76 20 100/60 92 Room Air 06/16 2202 97.7 74 18 112/62 99 Room Air 06/16 1601 98.1 73 18 112/66 100 Physical Exam General Appearance Alert, Oriented X3, Cooperative, No Acute Distress Skin No Rashes HEENT Atraumatic Cardiovascular Regular Rate, Normal S1, Normal S2, No Murmurs Lungs Clear to Auscultation, Normal Air Movement Abdomen Normal Bowel Sounds, Soft Neurological Normal Speech Extremities No Clubbing, No Cyanosis, No Edema, Normal Pulses, No Tenderness/ Swelling Assessment/Plan Assessment: Ms. Aguirre is a 57yo F with PMH of HTN and ulcerative colitis, who is seen post sigmoidoscopy. During sigmoidoscopy, patient was reported to have a fever of 102.3, tachycardic, with borderline hypotension. Her BP continues to be in the low 100s SBP, and 60s DBP. She remains afebrile. Previous febrile episode was likely due to bacterial translocation causing transient bacteremia. She previously received 2L of NS and is currently on D5NS @ 125mL/h. Pt is not on anticoagulation due to continued bleeding. Monitor vitals. Patient is due for her dose of Humira today 06/17/2018. #Problem list #UC flare #H/O HTN #UC flare - following GI recommendations - Patient is currently receiving IV hydrocortisone 100mg q8 - On mesalamine - currently on IV metronidazole and ceftriaxone empirically - GI to continue to follow #H/O HTN Home dose of metoprolol has been held due to hypotensive episodes Plan: #UC flare - Continue on medications - GI to continue to follow up - monitor vitals
[2018-06-17 08:42] LABS: ABSOLUTE BASOPHIL COUNT 0 /CUMM (0.0-0.2); ABSOLUTE EOSINOPHIL COUNT 0 /CUMM (0.0-0.7); ABSOLUTE GRANULOCYTE CT 5.4 /CUMM (1.4-6.5); ABSOLUTE LYMPH COUNT 0.7 /CUMM (1.2-3.4); ABSOLUTE MONOCYTE COUNT 0.6 /CUMM (0.10-0.60); BASOPHIL % 0 % (0.0-2.0); EOSINOPHIL % 0 % (0-5); GRANULOCYTE % 80.2 % (42.2-75.2); HEMATOCRIT 28.4 % (37-47); MEAN CORPUSCULAR HGB 33.9 PG (27.0-31.0); MEAN CORPUSCULAR HGB CONC 34.4 G/DL (33.0-37.0); MEAN CORPUSCULAR VOLUME 98.6 FL (81.0-99.0); MEAN PLATELET VOLUME 7.1 FL (7.4-10.4); PLATELET COUNT 138 /CUMM (130-400); RBC DISTRIBUTION WIDTH 13.5 % (11.5-14.5); RED BLOOD CELL CT 2.88 /CUMM (4.20-5.40); WHITE BLOOD CELL COUNT 6.7 /CUMM (4.8-10.8)
--- NOTE | 2018-06-17 12:50 | PN- Gastroenterology ---
Assessment/Plan GI Assessment/Recommendations: ASSESSMENT: 1. Ulcerative Colitis, Pancolitis 2. Use of High-Risk Medications: Humira. Is completing induction dose, today would be the third of three. 3. Abdominal Pain RECOMMENDATIONS: 1. Patient to take Humira today 2. We will continue IV steroids 3. We will continue IV antibiotics 4. Tomorrow if patient continues to do well we will consider changing IV antibiotics as well as IV steroids to oral. 5. I have discussed at length with the patient and with her son plans regarding further therapy of ulcerative colitis. I have discussed with them that Dr. Irizarry is already looking into possible approval for use of Xeljanz. I have explained to them however that since she has not completed her induction dose and since she appears to be doing better now, that she has the leeway to continue this therapy with options to increase dosing, decrease intervals should she have a response after induction. We have also discussed accelerated induction with Remicade should she have a partial, but incomplete response to Humira. I have also discussed with them that steroid taper will be slow which will hopefully help with transition to a biologic agent. All questions were answered. 35 minutes were spent at the bedside. Subjective Subjective: Patient is doing much better than on admission. Patient has had 1 or 2 bowel movements daily although they are still not formed. She has seen some gross blood but very little. She has had awakening at night due to tenesmus. She has had abdominal cramping which is interfered with p.o. intake, however, taking dicyclomine has helped tremendously and allow her to eat a full meal without difficulty. She has had no further fever or shaking chills. Her son is at the bedside. Review of Systems Constitutional: Denies: chills, diaphoresis, fever, malaise. Cardiovascular: Denies: chest pain, palpitations. Respiratory: Denies: cough, short of breath. Gastrointestinal: Reports: see HPI. Neurological/Psychological: Denies: anxiety, depressed. Objective Vital Signs and I&Os Vital Signs Date Time Temp Pulse Resp B/P B/P Pulse O2 O2 Flow FiO2 Mean Ox Delivery Rate 06/17 629 97.5 76 20 100/60 92 Room Air 06/16 2202 97.7 74 18 112/62 99 Room Air 06/16 1601 98.1 73 18 112/66 100 Intake & Output 06/17 1600 06/17 0400 06/16 1600 06/16 0400 06/15 1600 06/15 0400 Intake Total 1100 1500 3160 980 1580 360 Output Total 200 304 100 2 Balance 1100 1300 2856 880 1578 360 Intake, IV 1100 1000 2200 500 500 Intake, Oral 500 237 212 0213 360 Number 2 2 2 3 Bowel Movements Output, Stool 4 100 2 Output, Urine 200 300 Patient 90 lb 4.01 oz 84 lb 84 lb 84 lb Weight Weight Bed scale Measurement Method Physical Exam General Appearance: no apparent distress, comfortable Head: normal appearance Respiratory: normal breath sounds, lungs clear Cardiovascular: regular rate/rhythm, Normal S1 and S2, without Rub, Murmur or gallop Abdomen: normal bowel sounds, soft, non-tender, no organomegaly, No rebound or guarding Extremities: normal inspection, no edema Neurologic/Psychiatric: awake, alert, oriented x 3, normal mood/affect Current Medications: Current Medications Sig/Jayde Start time Last Medication Dose Route Stop Time Status Admin Acetaminophen 650 MG Q6P PRN 06/14 1200 AC 06/16 PO 0300 Alprazolam 0.25 MG TID PRN 06/14 1345 AC 06/16 PO 06/21 1344 1644 Ceftriaxone Sodium 1,000 MG DAILY 06/15 0900 AC 06/17 IV 0835 Dicyclomine HCl 20 MG TID PRN 06/15 2130 AC 06/17 PO 1214 Hydrocortisone 100 MG Q8 06/14 1400 AC 06/17 Sodium Succinate IV 0536 Mesalamine 4 GM AT BEDTIME 06/14 2100 AC ID Mesalamine 1,600 MG TID 06/14 1400 AC 06/17 PO 0835 Metronidazole 500 MG IQ8 06/14 1600 AC 06/17 N/A 1 UNIT IV 0836 Non-Formulary 0 SEE ADMIN CRITERIA 06/17 1200 UNVr Medication ANY Nystatin 5 ML 4 TIMES/DAY 06/15 1040 AC 06/17 PO 0836 Potassium Chloride 20 MEQ Q8H 06/15 0902 AC 06/17 Dextrose/Sodium 1,000 ML IV 0215 Chloride Results Pertinent Lab Results: Laboratory Tests 06/17 06/16 0750 1630 Chemistry Sodium (137 - 145 mmol/L) 141 Potassium (3.5 - 5.1 mmol/L) 3.5 Chloride (98 - 107 mmol/L) 112 H Carbon Dioxide (22 - 30 mmol/L) 24 Anion Gap (5 - 16) 5 BUN (7 - 17 mg/dL) 3 L Creatinine (0.5 - 1.0 mg/dL) 0.5 Estimated GFR (>60 ml/min) > 60 BUN/Creatinine Ratio (7 - 25 %) 6.0 L Hematology CBC w Diff NO MAN DIFF REQ WBC (4.8 - 10.8 /CUMM) 6.7 RBC (4.20 - 5.40 /CUMM) 2.88 L Hgb (12.0 - 16.0 G/DL) 9.8 L Hct (37 - 47 %) 28.4 L MCV (81.0 - 99.0 FL) 98.6 MCH (27.0 - 31.0 PG) 33.9 H MCHC (33.0 - 37.0 G/DL) 34.4 RDW (11.5 - 14.5 %) 13.5 Plt Count (130 - 400 /CUMM) 138 MPV (7.4 - 10.4 FL) 7.1 L Gran % (42.2 - 75.2 %) 80.2 H Lymphocytes % (20.5 - 51.1 %) 10.4 L Monocytes % (1.7 - 9.3 %) 9.4 H Eosinophils % (0 - 5 %) 0 Basophils % (0.0 - 2.0 %) 0 Absolute Granulocytes (1.4 - 6.5 /CUMM) 5.4 Absolute Lymphocytes (1.2 - 3.4 /CUMM) 0.7 L Absolute Monocytes (0.10 - 0.60 /CUMM) 0.6 Absolute Eosinophils (0.0 - 0.7 /CUMM) 0 Absolute Basophils (0.0 - 0.2 /CUMM) 0 ESR Westergren (0 - 20 MM) 50 H 09/06 09/06 0800 0711 Chemistry Sodium (137 - 145 mmol/L) 138 Potassium (3.5 - 5.1 mmol/L) 4.1 Chloride (98 - 107 mmol/L) 114 H Carbon Dioxide (22 - 30 mmol/L) 21 L Anion Gap (5 - 16) 4 L BUN (7 - 17 mg/dL) 3 L Creatinine (0.5 - 1.0 mg/dL) 0.5 Estimated GFR (>60 ml/min) > 60 BUN/Creatinine Ratio (7 - 25 %) 6.0 L Total Bilirubin (0.2 - 1.3 mg/dL) 0.1 L Cancelled Direct Bilirubin (< 0.4 mg/dL) 0.1 Cancelled AST (14 - 36 U/L) 18 Cancelled ALT (9 - 52 U/L) 27 Cancelled Alkaline Phosphatase (<127 U/L) 79 Cancelled C-Reactive Prot, Quant (<1.0 mg/dL) 4.9 H C-React Prot High Sens (1.0 - 3.0 mg/L) > 15.0 H Cancelled Total Protein (6.3 - 8.2 g/dL) 5.0 L Cancelled Albumin (3.5 - 5.0 g/dL) 2.4 L Cancelled Prealbumin (17.6 - 36.0 mg/dL) 10.2 L Cancelled Hematology CBC w Diff NO MAN DIFF REQ WBC (4.8 - 10.8 /CUMM) 5.9 RBC (4.20 - 5.40 /CUMM) 2.82 L Hgb (12.0 - 16.0 G/DL) 9.7 L Hct (37 - 47 %) 27.3 L MCV (81.0 - 99.0 FL) 96.8 MCH (27.0 - 31.0 PG) 34.3 H MCHC (33.0 - 37.0 G/DL) 35.5 RDW (11.5 - 14.5 %) 13.9 Plt Count (130 - 400 /CUMM) 133 MPV (7.4 - 10.4 FL) 7.2 L Gran % (42.2 - 75.2 %) 80.1 H Lymphocytes % (20.5 - 51.1 %) 10.1 L Monocytes % (1.7 - 9.3 %) 9.7 H Eosinophils % (0 - 5 %) 0 Basophils % (0.0 - 2.0 %) 0.1 Absolute Granulocytes (1.4 - 6.5 /CUMM) 4.7 Absolute Lymphocytes (1.2 - 3.4 /CUMM) 0.6 L Absolute Monocytes (0.10 - 0.60 /CUMM) 0.6 Absolute Eosinophils (0.0 - 0.7 /CUMM) 0 Absolute Basophils (0.0 - 0.2 /CUMM) 0 06/15 06/14 06/14 0655 1815 1500 Chemistry Sodium (137 - 145 mmol/L) 136 L Potassium (3.5 - 5.1 mmol/L) 4.1 Chloride (98 - 107 mmol/L) 108 H Carbon Dioxide (22 - 30 mmol/L) 23 Anion Gap (5 - 16) 5 BUN (7 - 17 mg/dL) 5 L Creatinine (0.5 - 1.0 mg/dL) 0.5 Estimated GFR (>60 ml/min) > 60 BUN/Creatinine Ratio (7 - 25 %) 10.0 Lactic Acid (0.7 - 2.1 mmol/L) 0.8 Cancelled Hematology CBC w Diff NO MAN DIFF REQ WBC (4.8 - 10.8 /CUMM) 3.2 L RBC (4.20 - 5.40 /CUMM) 2.83 L Hgb (12.0 - 16.0 G/DL) 9.8 L Hct (37 - 47 %) 27.5 L MCV (81.0 - 99.0 FL) 97.3 MCH (27.0 - 31.0 PG) 34.5 H MCHC (33.0 - 37.0 G/DL) 35.5 RDW (11.5 - 14.5 %) 14.0 Plt Count (130 - 400 /CUMM) 123 L MPV (7.4 - 10.4 FL) 7.4 Gran % (42.2 - 75.2 %) 74.1 Lymphocytes % (20.5 - 51.1 %) 15.0 L Monocytes % (1.7 - 9.3 %) 10.4 H Eosinophils % (0 - 5 %) 0 Basophils % (0.0 - 2.0 %) 0.5 Absolute Granulocytes (1.4 - 6.5 /CUMM) 2.4 Absolute Lymphocytes (1.2 - 3.4 /CUMM) 0.5 L Absolute Monocytes (0.10 - 0.60 /CUMM) 0.3 Absolute Eosinophils (0.0 - 0.7 /CUMM) 0 Absolute Basophils (0.0 - 0.2 /CUMM) 0 06/14 06/14 1450 1440 Chemistry Lactic Acid (0.7 - 2.1 mmol/L) 1.2 Urines Urine Color (YEL,AMB,STR) YEL Urine Clarity (CLEAR) CLEAR Urine pH (5.0 - 8.0) 7.0 Ur Specific [place] (1.001 - 1.035) <= 1.005 Urine Protein (NEG,<30 MG/DL) NEG Urine Ketones (NEG) TRACE H Urine Nitrite (NEG) POS H Urine Bilirubin (NEG) NEG Urine Urobilinogen (0.1 - 1.0 EU/dl) 0.2 Ur Leukocyte Esterase (NEG) MOD H Ur Microscopic SEDIMENT EXAMINED Urine RBC (0 - 5 /HPF) RARE Urine WBC (0 - 2 /HPF) 10-15 H Ur Epithelial Cells (NONE,FEW) RARE Urine Bacteria (NEG/NONE) FEW H Urine Mucus (FEW,NONE) RARE Urine Hemoglobin (NEG) TRACE-INTACT Urine Glucose (N MG/DL) NEG
[2018-06-17 14:36] VITALS: BP 124/68
--- NOTE | 2018-06-17 15:15 | Patient Discharge Instructions ---
Discharge Instructions General Discharge Information You were seen/treated for: Ulcerative Colitis Flare You had these procedures: Sigmoidoscopy Special Instructions: Please follow up with your PCP within 1 week regarding this hospital admission. 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 Acute Coronary Syndrome Inclusion Criteria At DC or during hospital stay patient has or had the following: ACS DIAGNOSIS No Discharge Core Measures Meds if any: Prescribed or Continued at Discharge Meds if any: NOT Prescribed or Continued at Discharge Congestive Heart Failure Inclusion Criteria At DC or during hospital stay patient has or had the following: CHF DIAGNOSIS No Discharge Core Measures Meds if any: Prescribed or Continued at Discharge Meds if any: NOT Prescribed or Continued at Discharge Cerebrovascular accident Inclusion Criteria At DC or during hospital stay patient has or had the following: CVA/TIA Diagnosis No Discharge Core Measures Meds if any: Prescribed or Continued at Discharge Meds if any: NOT Prescribed or Continued at Discharge Venous thromboembolism Inclusion Criteria VTE Diagnosis No VTE Type NONE VTE Confirmed by (Test) NONE Discharge Core Measures - Per Current guidelines, there needs to be overlap - treatment for the first 5 days of Warfarin therapy. - If discharged on Warfarin prior to 5 days of - overlap therapy, the patient will need to be - assessed for post discharge needs including - *Post discharge parental anticoagulation - *Warfarin and/or parental anticoagulation education - *Follow up date to check INR post discharge At least 5 days overlap therapy as Inpatient No Meds if any: Prescribed or Continued at Discharge Note: Overlap Therapy is Warfarin and Anticoagulant Meds if any: NOT Prescribed or Continued at Discharge
[2018-06-17 22:11] VITALS: BP 110/70
[2018-06-18 06:55] VITALS: BP 136/68
--- NOTE | 2018-06-18 08:36 | PN- Housestaff ---
AnujBecky 06/18/18 0836: Subjective Follow-up For: UC flare Subjective: Patient seen and examined in the AM. Bloody stools, diarrhea and abdominal cramping continues, though improved subjectively as per patient. She did have two BM overnight, one in the AM. She remains afebrile with stable VS. On room air. Review of Systems Constitutional: Reports: see HPI. Objective Last 24 Hrs of Vital Signs/I&O Vital Signs Date Time Temp Pulse Resp B/P B/P Pulse O2 O2 Flow FiO2 Mean Ox Delivery Rate 06/18 0655 98.1 62 20 136/68 99 06/17 2211 97.9 64 20 110/70 99 06/17 1436 97.9 63 20 124/68 99 Room Air Intake & Output 06/18 1600 06/18 0800 06/18 0000 Intake Total 1300 Output Total Balance 1300 Intake, IV 1000 Intake, Oral 300 Number 1 Bowel Movements Physical Exam General Appearance: Alert, Oriented X3, Cooperative, No Acute Distress Cardiovascular: Regular Rate, Normal S1 Lungs: Clear to Auscultation, Normal Air Movement Abdomen: Normal Bowel Sounds, Soft, No Tenderness Neurological: Normal Gait, Normal Speech Extremities: No Clubbing, No Cyanosis, No Edema, Normal Pulses Current Medications: Current Medications Sig/Jayde Start time Last Medication Dose Route Stop Time Status Admin Acetaminophen 650 MG Q6P PRN 06/14 1200 AC 06/17 PO 2143 Adalimumab 40 MG ONCE ONE 06/17 1400 DC 06/17 SC 06/17 1401 1443 Alprazolam 0.25 MG TID PRN 06/14 1345 AC 06/16 PO 06/21 1344 1644 Ceftriaxone Sodium 1,000 MG DAILY 06/15 09 AC 06/18 IV 0853 Dicyclomine HCl 20 MG TID PRN 06/15 2130 AC 06/18 PO 0734 Hydrocortisone 100 MG Q8 06/14 1400 AC 06/18 Sodium Succinate IV 0634 Mesalamine 4 GM AT BEDTIME 06/14 2100 AC 06/17 [place] 2013 Mesalamine 1,600 MG TID 06/14 1400 AC 06/18 PO 0853 Metronidazole 500 MG IQ8 06/14 1600 AC 06/18 N/A 1 UNIT IV 0734 Nystatin 5 ML 4 TIMES/DAY 06/15 1040 AC 06/18 PO 0853 Potassium Chloride 20 MEQ Q8H 06/15 0902 AC 06/18 Dextrose/Sodium 1,000 ML IV 0853 Chloride Assessment/Plan Assessment: Ms. Aguirre is a 57 y/o F with with PMH of HTN and ulcerative colitis who is seen post colonoscopy for concern of a ulcerative colitis flare. During her colonoscopy, patient reportedly spiked a 102.3 fever, tachycardic with borderline hypotension. She received IVF bolus and ceftriaxone. She was currently on Humira and prednisone which was discontinued one week ago. She does endorse crampy abdominal pain for about one month and has been passing bright red blood per rectum over the past week. She was admitted to the general medicine floor for further management of: BP remains hovering around low 100s-90s SBP, 50-60s DBP. She remains afebrile. Previous febrile episode likely 2/2 bacterial translocation causing transient bacteremia, noted no growth on BC. She has gotten 2L of NS and was started on D5NS @ 125 mL/h. Not on anticoagulation due to her continued bleeding. Normal lactic acid. Not trending anymore. Monitor VSS. #PROBLEM LIST #UC Flare #H/o HTN #UC Flare Following GI's recommendation Patient is currently receiving IV hydrocortisone 100 mg q8, pending GI recommendation for tapering after Humira on 06/17. No growth on blood cultures so far. On Rowasa + Pentasa Currently on IV Metronidazole and ceftriaxone empirically. Will continue, and may change to PO per GI Humira given 06/17 as per GI's recommendation. Should patient continue to improve, may be switched to PO antibiotics and PO steroids today per GI #H/o HTN Home dose of metoprolol has been held due to her hypotensive episodes. FULL CODE Low fiber diet DVT PPX - mechanical, ambulation Problem List: 1. Malnutrition Pain Ratin Pain Location: NA Pain Goal: Remain pain free Pain Plan: see AP Tomorrow's Labs & Rationales: Robin Hurd 06/18/18 1530: Attending MD Review Statement Attending Statement Attending MD Statement: examined this patient, discuss w/resident/PA/STATISTICAL METHODS TEACHER, agreed w/resident/PA/STATISTICAL METHODS TEACHER, reviewed EMR data (avail), discussed with nursing Attending Assessment/Plan: 57 y/o F with with PMH of HTN and ulcerative colitis who is seen post colonoscopy for concern of a ulcerative colitis flare. During her colonoscopy, patient reportedly spiked a 102.3 fever, tachycardic with borderline hypotension. She received IVF bolus and ceftriaxone. She was currently on Humira and prednisone which was discontinued one week ago. UC flare- pt currently on iv hydrocortisone 100 q8h. Also on iv ceftriaxone and flagy. her diarrhea is better now and stools are more formed and on bloody. will d/w GI to see if we can switch her to po steroids starting tomorrow or taper steroids. d/w pt and pts family at bedside the care plan.
[2018-06-18 14:42] VITALS: BP 128/72
--- NOTE | 2018-06-18 16:57 | PN- Gastroenterology ---
Assessment/Plan GI Assessment/Recommendations: ASSESSMENT: 1. Ulcerative Colitis, Pancolitis -- on IV steroids, cipro and Flagyl and IV hydrocortisone. 2. Use of High-Risk Medications: Humira. Is completing induction dose, today would be the third of three. 3. Abdominal Pain -- marked improvement, responding well to dicyclomine 4. Chronic Blood Loss Anemia -- H/H stable. No further gross or overt GI blood loss. RECOMMENDATIONS: 1. Patient to transition to oral steroids and oral antibiotics tomorrow morning 2. I spent 35 minutes at the bedside with the patient and then with the patient 's discussing a treatment plan. If patient is able to continue to tolerate p.o. and tolerate transition to oral antibiotics and oral steroids can be discharged home with close follow-up with Dr. Irizarry. I will discuss patient' s progress with Dr. Irizarry. She will remain on Humira for now and may do better with shortening of the maintenance interval from Q2 weeks to every week or may benefit from increasing dose. 3. All ?s were answered. Subjective Subjective: Patient is tolerating diet. Has had fewer bowel movements but still are loose. Has had small formed stools in the morning but afterwards has had diarrheal stools. Is not seeing blood admixed with her stools. Continues to have cramping associated with meals but is having good relief with dicyclomine. She is still on IV steroids. Objective Vital Signs and I&Os Vital Signs Date Time Temp Pulse Resp B/P B/P Pulse O2 O2 Flow FiO2 Mean Ox Delivery Rate 06/18 1442 98.7 72 18 128/72 98 06/18 0655 98.1 62 20 136/68 99 06/17 2211 97.9 64 20 110/70 99 Intake & Output 06/18 1600 08 0400 06/17 1600 06/17 0400 06/16 1600 06/16 0400 Intake Total 1850 1300 2500 1500 3160 980 Output Total 350 200 304 100 Balance 1500 1300 2500 1300 2856 880 Intake, IV 1500 1000 2100 1000 2200 500 Intake, Oral 350 300 400 500 960 480 Number 1 1 2 2 2 Bowel Movements Output, Stool 4 100 Output, Urine 350 200 300 Patient 90 lb 4.01 oz 84 lb Weight Weight Bed scale Measurement Method Physical Exam General Appearance: well developed/nourished, no apparent distress, comfortable Neck: supple, full range of motion Respiratory: normal breath sounds, no respiratory distress, lungs clear Cardiovascular: regular rate/rhythm, Normal S1 and S2 without rub, murmur or gallop Abdomen: normal bowel sounds, soft, non-tender, There is no tympany, there is no rebound or guarding. Extremities: pedal edema Neurologic/Psychiatric: awake, alert, oriented x 3, normal mood/affect Skin: intact, normal color, warm/dry Current Medications: Current Medications Sig/Jayde Start time Last Medication Dose Route Stop Time Status Admin Acetaminophen 650 MG Q6P PRN 06/14 1200 AC 06/17 PO 2143 Alprazolam 0.25 MG TID PRN 06/14 1345 AC 06/16 PO 06/21 1344 1644 Ceftriaxone Sodium 1,000 MG DAILY 06/15 09 AC 06/18 IV 0853 Dicyclomine HCl 20 MG TID PRN 06/15 2130 AC 06/18 PO 0734 Hydrocortisone 100 MG Q8 06/14 1400 AC 06/18 Sodium Succinate IV 1358 Mesalamine 4 GM AT BEDTIME 06/14 2100 AC 06/17 [place] 2013 Mesalamine 1,600 MG TID 06/14 1400 AC 06/18 PO 1357 Metronidazole 500 MG IQ8 06/14 1600 AC 06/18 N/A 1 UNIT IV 0734 Nystatin 5 ML 4 TIMES/DAY 06/15 1040 AC 06/18 PO 1358 Potassium Chloride 20 MEQ Q8H 06/15 0902 DC 06/18 Dextrose/Sodium 1,000 ML IV 0853 Chloride Results Pertinent Lab Results: Laboratory Tests 06/17 06/16 0750 1630 Chemistry Sodium (137 - 145 mmol/L) 141 Potassium (3.5 - 5.1 mmol/L) 3.5 Chloride (98 - 107 mmol/L) 112 H Carbon Dioxide (22 - 30 mmol/L) 24 Anion Gap (5 - 16) 5 BUN (7 - 17 mg/dL) 3 L Creatinine (0.5 - 1.0 mg/dL) 0.5 Estimated GFR (>60 ml/min) > 60 BUN/Creatinine Ratio (7 - 25 %) 6.0 L Hematology CBC w Diff NO MAN DIFF REQ WBC (4.8 - 10.8 /CUMM) 6.7 RBC (4.20 - 5.40 /CUMM) 2.88 L Hgb (12.0 - 16.0 G/DL) 9.8 L Hct (37 - 47 %) 28.4 L MCV (81.0 - 99.0 FL) 98.6 MCH (27.0 - 31.0 PG) 33.9 H MCHC (33.0 - 37.0 G/DL) 34.4 RDW (11.5 - 14.5 %) 13.5 Plt Count (130 - 400 /CUMM) 138 MPV (7.4 - 10.4 FL) 7.1 L Gran % (42.2 - 75.2 %) 80.2 H Lymphocytes % (20.5 - 51.1 %) 10.4 L Monocytes % (1.7 - 9.3 %) 9.4 H Eosinophils % (0 - 5 %) 0 Basophils % (0.0 - 2.0 %) 0 Absolute Granulocytes (1.4 - 6.5 /CUMM) 5.4 Absolute Lymphocytes (1.2 - 3.4 /CUMM) 0.7 L Absolute Monocytes (0.10 - 0.60 /CUMM) 0.6 Absolute Eosinophils (0.0 - 0.7 /CUMM) 0 Absolute Basophils (0.0 - 0.2 /CUMM) 0 ESR Westergren (0 - 20 MM) 50 H 09/06 09/06 0800 0711 Chemistry Sodium (137 - 145 mmol/L) 138 Potassium (3.5 - 5.1 mmol/L) 4.1 Chloride (98 - 107 mmol/L) 114 H Carbon Dioxide (22 - 30 mmol/L) 21 L Anion Gap (5 - 16) 4 L BUN (7 - 17 mg/dL) 3 L Creatinine (0.5 - 1.0 mg/dL) 0.5 Estimated GFR (>60 ml/min) > 60 BUN/Creatinine Ratio (7 - 25 %) 6.0 L Total Bilirubin (0.2 - 1.3 mg/dL) 0.1 L Cancelled Direct Bilirubin (< 0.4 mg/dL) 0.1 Cancelled AST (14 - 36 U/L) 18 Cancelled ALT (9 - 52 U/L) 27 Cancelled Alkaline Phosphatase (<127 U/L) 79 Cancelled C-Reactive Prot, Quant (<1.0 mg/dL) 4.9 H C-React Prot High Sens (1.0 - 3.0 mg/L) > 15.0 H Cancelled Total Protein (6.3 - 8.2 g/dL) 5.0 L Cancelled Albumin (3.5 - 5.0 g/dL) 2.4 L Cancelled Prealbumin (17.6 - 36.0 mg/dL) 10.2 L Cancelled Hematology CBC w Diff NO MAN DIFF REQ WBC (4.8 - 10.8 /CUMM) 5.9 RBC (4.20 - 5.40 /CUMM) 2.82 L Hgb (12.0 - 16.0 G/DL) 9.7 L Hct (37 - 47 %) 27.3 L MCV (81.0 - 99.0 FL) 96.8 MCH (27.0 - 31.0 PG) 34.3 H MCHC (33.0 - 37.0 G/DL) 35.5 RDW (11.5 - 14.5 %) 13.9 Plt Count (130 - 400 /CUMM) 133 MPV (7.4 - 10.4 FL) 7.2 L Gran % (42.2 - 75.2 %) 80.1 H Lymphocytes % (20.5 - 51.1 %) 10.1 L Monocytes % (1.7 - 9.3 %) 9.7 H Eosinophils % (0 - 5 %) 0 Basophils % (0.0 - 2.0 %) 0.1 Absolute Granulocytes (1.4 - 6.5 /CUMM) 4.7 Absolute Lymphocytes (1.2 - 3.4 /CUMM) 0.6 L Absolute Monocytes (0.10 - 0.60 /CUMM) 0.6 Absolute Eosinophils (0.0 - 0.7 /CUMM) 0 Absolute Basophils (0.0 - 0.2 /CUMM) 0
[2018-06-18 22:20] VITALS: BP 124/70
[2018-06-19 06:36] VITALS: BP 130/68
--- NOTE | 2018-06-19 08:17 | PN- Housestaff ---
Qamar Claudio 06/19/18 0816: Subjective Follow-up For: UC flare Subjective: Pt seen and examiend at bedside this AM. Denied significant bloody stools/ diarrhea but continues to have abdominal cramping. Two bowel movements overnight. Remains afebrile with stable VS. On room air. Concerned about her mesalamine oral and suppository at home as she feels the oral mesalamine shows up in her stool and not actually doing its job. Will follow recommendations from GI. Review of Systems Constitutional: Denies: see HPI. Objective Last 24 Hrs of Vital Signs/I&O Vital Signs Date Time Temp Pulse Resp B/P B/P Pulse O2 O2 Flow FiO2 Mean Ox Delivery Rate 06/19 0636 97.6 63 20 130/68 99 06/18 2220 97.8 52 18 124/70 98 06/18 1442 98.7 72 18 128/72 98 Intake & Output 06/19 1600 06/19 0800 06/19 0000 Intake Total 250 100 Output Total 300 Balance -300 250 100 Intake, IV 150 Intake, Oral 100 100 Number 1 2 Bowel Movements Output, Urine 300 Physical Exam General Appearance: Alert, Oriented X3, Cooperative, Mild Distress Skin: No Breakdown, No Significant Lesion HEENT: EOMI, Mucous Membr. moist/pink Cardiovascular: Normal S1, Normal S2 Lungs: Clear to Auscultation, Normal Air Movement Abdomen: Soft, diffuse tenderness to palpation Extremities: No Edema Vascular: Normal Pulses Current Medications: Current Medications Sig/Jayde Start time Last Medication Dose Route Stop Time Status Admin Acetaminophen 650 MG Q6P PRN 06/14 1200 AC 06/17 PO 2143 Alprazolam 0.25 MG TID PRN 06/14 1345 AC 06/16 PO 06/21 1344 1644 Ceftriaxone Sodium 1,000 MG DAILY 06/19 1113 AC 06/19 IV 1115 Ceftriaxone Sodium 1,000 MG DAILY 06/15 0900 DC 06/18 IV 0853 Dicyclomine HCl 20 MG TID PRN 06/15 2130 AC 06/19 PO 0524 Hydrocortisone 100 MG Q8 06/14 1400 AC 06/19 Sodium Succinate IV 0514 Mesalamine 4 GM AT BEDTIME 06/14 2100 AC 06/18 [place] 2006 Mesalamine 1,600 MG TID 06/14 1400 AC 06/19 PO 0854 Metronidazole 500 MG IQ8 06/14 1600 AC 06/19 N/A 1 UNIT IV 1116 Nystatin 5 ML 4 TIMES/DAY 06/15 1040 DC 06/19 PO 0855 Last 24 Hrs of Lab/Sumanth Results Last 24 Hrs of Labs/Mics: Laboratory Tests 06/19/18 0843: CBC w Diff NO MAN DIFF REQ, RBC 3.30 L, MCV 98.6, MCH 34.3 H, MCHC 34.8, RDW 13.6, MPV 7.0 L, Gran % 84.1 H, Lymphocytes % 11.1 L, Monocytes % 4.8, Eosinophils % 0, Basophils % 0, Absolute Granulocytes 7.5 H, Absolute Lymphocytes 1.0 L, Absolute Monocytes 0.4, Absolute Eosinophils 0, Absolute Basophils 0 Assessment/Plan Assessment: Ms. Aguirre is a 57 y/o F with with PMH of HTN and ulcerative colitis who is seen post colonoscopy for concern of a ulcerative colitis flare. During her colonoscopy, patient reportedly spiked a 102.3 fever, tachycardic with borderline hypotension. She received IVF bolus and ceftriaxone. She was currently on Humira and prednisone which was discontinued one week ago. She does endorse crampy abdominal pain for about one month and has been passing bright red blood per rectum over the past week. She was admitted to the general medicine floor for further management of: 06/19: Pending change of IV steroids and antibiotics to PO. Concerned about her mesalamine at home. Will follow GI recommendations appropriately. PROBLEM LIST 1. UC Flare 2. H/o HTN UC Flare * Following GI's recommendation * Patient is currently receiving IV hydrocortisone 100 mg q8, pending GI recommendation for tapering after Humira on 06/17. No growth on blood cultures so far. * On Rowasa + Pentasa * Currently on IV Metronidazole and ceftriaxone empirically. Will continue, and may change to PO per GI * Humira given 06/17 as per GI's recommendation. * Should patient continue to improve, may be switched to PO antibiotics and PO steroids today per GI H/o HTN * Home dose of metoprolol has been held due to her hypotensive episodes. FULL CODE Low fiber diet DVT PPX - mechanical, ambulation Problem List: 1. Ulcerative colitis 2. Abdominal pain Pain Ratin Pain Location: diffuse abdomen Pain Goal: Pain 4 or less Pain Plan: as per pain pathway Tomorrow's Labs & Rationales: cbc Sepulveda,Kanwardeep 06/19/18 1457: Attending MD Review Statement Attending Statement Attending MD Statement: examined this patient, discuss w/resident/PA/COMMERCIAL LOAN REVIEWER, agreed w/resident/PA/COMMERCIAL LOAN REVIEWER, reviewed EMR data (avail), discussed with nursing Attending Assessment/Plan: 57 y/o F with with PMH of HTN and ulcerative colitis who is seen post colonoscopy for concern of a ulcerative colitis flare. During her colonoscopy, patient reportedly spiked a 102.3 fever, tachycardic with borderline hypotension. She received IVF bolus and ceftriaxone. She was currently on Humira and prednisone which was discontinued one week ago. UC flare- pt currently on iv hydrocortisone 100 q8h. Also on iv ceftriaxone and flagy. her diarrhea is same as yesterday and though her stools are formed at the beginning but mostly watery afterwards. will d/w GI to get further plan.
[2018-06-19 09:36] LABS: ABSOLUTE BASOPHIL COUNT 0 /CUMM (0.0-0.2); ABSOLUTE EOSINOPHIL COUNT 0 /CUMM (0.0-0.7); ABSOLUTE GRANULOCYTE CT 7.5 /CUMM (1.4-6.5); ABSOLUTE MONOCYTE COUNT 0.4 /CUMM (0.10-0.60); BASOPHIL % 0 % (0.0-2.0); EOSINOPHIL % 0 % (0-5); HEMATOCRIT 32.6 % (37-47); MEAN CORPUSCULAR HGB 34.3 PG (27.0-31.0); MEAN CORPUSCULAR HGB CONC 34.8 G/DL (33.0-37.0); MEAN CORPUSCULAR VOLUME 98.6 FL (81.0-99.0); PLATELET COUNT 162 /CUMM (130-400); RBC DISTRIBUTION WIDTH 13.6 % (11.5-14.5); WHITE BLOOD CELL COUNT 8.9 /CUMM (4.8-10.8)
[2018-06-19 10:10] LABS: GRANULOCYTE % 84.1 % (42.2-75.2)
[2018-06-19 13:55] VITALS: BP 122/60
--- NOTE | 2018-06-19 19:03 | PN- Gastroenterology ---
Assessment/Plan GI Assessment/Recommendations: Assessment/Recommendations: ASSESSMENT: 1. Ulcerative Colitis, Pancolitis -- on IV steroids, cipro and Flagyl and IV hydrocortisone. 2. Use of High-Risk Medications: Humira. Is completing induction dose, today would be the third of three. 3. Abdominal Pain -- marked improvement, responding well to dicyclomine 4. Chronic Blood Loss Anemia -- H/H stable. No further gross or overt GI blood loss. RECOMMENDATIONS: 1. Patient to remain on IV steroids and transition to oral antibiotics tomorrow morning 2. I spent 35 minutes at the bedside with the patient and with the patient's discussing a treatment plan. 3. Patient was unable to tell me how many stools she was having daily. Number recorded in the chart. I have asked patient to keep track of frequency and stool volume. I will also asked nursing to do the same. 4. Given that patient is telling me that she is still having abdominal discomfort as well as voluminous stools with urgency as well as the fact that she was unable to tolerate mesalamine enemas I will start her on Canasa suppositories twice daily which should help with some of the tenesmus that she has been experiencing. She should have Canasa suppositories 1000 mg twice daily. If available she may also benefit from budesonide rectal foam (2 mg OH BID). I will also speak with Dr. Irizarry regarding the possibility if she is still admitted to the hospital of giving her an additional dose of Humira on Wednesday. 3. All ?s were answered. Subjective Subjective: Patient has had continuing abdominal pain. She reports that she was awakened in the middle of the night for bowel habit. She is having small formed stools but she is also having diarrhea. Patient is unable to quantitate how many stools she is having daily. She has not seen any blood in her stools. She is eager to advance her diet. She is tired of the low residue diet that she is eating. Objective Vital Signs and I&Os Vital Signs Date Time Temp Pulse Resp B/P B/P Pulse O2 O2 Flow FiO2 Mean Ox Delivery Rate 06/19 1355 97.6 63 20 122/60 99 Room Air 06/19 0636 97.6 63 20 130/68 99 06/18 2220 97.8 52 18 124/70 98 Intake & Output 06/19 1600 06/19 0400 09/08 1600 06/18 0400 06/17 1600 06/17 0400 Intake Total 8106 933 3487 1300 2500 1500 Output Total 300 350 200 Balance 232 865 4414 1300 2500 1300 Intake, IV 150 1500 1000 2100 1000 Intake, Oral 900 100 350 300 400 500 Number 3 1 1 2 2 Bowel Movements Output, Urine 300 350 200 Patient 90 lb 4.01 oz Weight Weight Bed scale Measurement Method Physical Exam General Appearance: well developed/nourished, no apparent distress, comfortable Respiratory: normal breath sounds, lungs clear Cardiovascular: regular rate/rhythm, Normal S1 and S2 without rub, murmur or gallop Abdomen: normal bowel sounds, soft, non-tender, no organomegaly Extremities: pedal edema Neurologic/Psychiatric: awake, alert, oriented x 3, normal mood/affect Skin: intact, warm/dry, pallor Current Medications: Current Medications Sig/Jayde Start time Last Medication Dose Route Stop Time Status Admin Acetaminophen 650 MG Q6P PRN 06/14 1200 AC 06/17 PO 2143 Alprazolam 0.25 MG TID PRN 06/14 1345 AC 06/16 PO 06/21 1344 1644 Ceftriaxone Sodium 1,000 MG DAILY 06/19 1113 AC 06/19 IV 1115 Ceftriaxone Sodium 1,000 MG DAILY 06/15 0900 DC 06/18 IV 0853 Dicyclomine HCl 20 MG TID PRN 06/15 2130 AC 06/19 PO 0524 Hydrocortisone 100 MG Q8 06/14 1400 AC 06/19 Sodium Succinate IV 1507 Mesalamine 4 GM AT BEDTIME 06/14 2100 AC 06/18 [place] 2006 Mesalamine 1,600 MG TID 06/14 1400 AC 06/19 PO 1507 Metronidazole 500 MG Q8H 06/19 1900 AC N/A 1 UNIT IV Metronidazole 500 MG IQ8 06/14 1600 DC 06/19 N/A 1 UNIT IV 1116 Nystatin 5 ML 4 TIMES/DAY 06/15 1040 DC 06/19 PO 0855 Results Pertinent Lab Results: Laboratory Tests 06/19 06/17 0843 0750 Chemistry Sodium (137 - 145 mmol/L) 141 Potassium (3.5 - 5.1 mmol/L) 3.5 Chloride (98 - 107 mmol/L) 112 H Carbon Dioxide (22 - 30 mmol/L) 24 Anion Gap (5 - 16) 5 BUN (7 - 17 mg/dL) 3 L Creatinine (0.5 - 1.0 mg/dL) 0.5 Estimated GFR (>60 ml/min) > 60 BUN/Creatinine Ratio (7 - 25 %) 6.0 L Hematology CBC w Diff NO MAN DIFF REQ NO MAN DIFF REQ WBC (4.8 - 10.8 /CUMM) 8.9 6.7 RBC (4.20 - 5.40 /CUMM) 3.30 L 2.88 L Hgb (12.0 - 16.0 G/DL) 11.3 L 9.8 L Hct (37 - 47 %) 32.6 L 28.4 L MCV (81.0 - 99.0 FL) 98.6 98.6 MCH (27.0 - 31.0 PG) 34.3 H 33.9 H MCHC (33.0 - 37.0 G/DL) 34.8 34.4 RDW (11.5 - 14.5 %) 13.6 13.5 Plt Count (130 - 400 /CUMM) 162 138 MPV (7.4 - 10.4 FL) 7.0 L 7.1 L Gran % (42.2 - 75.2 %) 84.1 H 80.2 H Lymphocytes % (20.5 - 51.1 %) 11.1 L 10.4 L Monocytes % (1.7 - 9.3 %) 4.8 9.4 H Eosinophils % (0 - 5 %) 0 0 Basophils % (0.0 - 2.0 %) 0 0 Absolute Granulocytes (1.4 - 6.5 /CUMM) 7.5 H 5.4 Absolute Lymphocytes (1.2 - 3.4 /CUMM) 1.0 L 0.7 L Absolute Monocytes (0.10 - 0.60 /CUMM) 0.4 0.6 Absolute Eosinophils (0.0 - 0.7 /CUMM) 0 0 Absolute Basophils (0.0 - 0.2 /CUMM) 0 0
[2018-06-19 22:05] VITALS: BP 148/70
--- NOTE | 2018-06-20 06:54 | PN- Housestaff ---
Dc Cardozo 06/20/18 0654: Subjective Follow-up For: UC flare Subjective: Patient seen and examined this AM. She was breathing comfortably on room air. She is currently logging her BMs which are still heme positive though not grossly bloody. 3 BMs overnight. She continues to have abdominal cramp related to the BMs, with slight diffuse tenderness. Review of Systems Constitutional: Reports: see HPI. Objective Last 24 Hrs of Vital Signs/I&O Vital Signs Date Time Temp Pulse Resp B/P B/P Pulse O2 O2 Flow FiO2 Mean Ox Delivery Rate 06/20 719 97.9 50 20 140/60 96 06/19 2205 97.8 52 20 148/70 98 Room Air Intake & Output 06/20 1600 06/20 0800 06/20 0000 Intake Total 220 220 Output Total 1 Balance 220 219 Intake, IV 20 20 Intake, Oral 200 200 Number 1 2 Bowel Movements Output, Stool 1 Physical Exam General Appearance: Alert, Oriented X3, Cooperative, No Acute Distress Skin: No Rashes, No Breakdown, No Significant Lesion HEENT: Atraumatic, PERRLA Neck: Supple Cardiovascular: Regular Rate, Normal S1, Normal S2 Lungs: Clear to Auscultation Abdomen: Normal Bowel Sounds, Soft, Slight tenderness on palpation particularly on the right lower quadrant Neurological: Normal Speech Extremities: No Clubbing, No Edema Current Medications: Current Medications Sig/Jayde Start time Last Medication Dose Route Stop Time Status Admin Acetaminophen 650 MG Q6P PRN 06/14 1200 AC 06/17 PO 2143 Alprazolam 0.25 MG TID PRN 06/14 1345 AC 06/16 PO 06/21 1344 1644 Ceftriaxone Sodium 1,000 MG DAILY 06/19 1113 AC 06/20 IV 0804 Dicyclomine HCl 20 MG TID PRN 06/15 2130 AC 06/20 PO 1357 Hydrocortisone 100 MG Q8 06/14 1400 AC 06/20 Sodium Succinate IV 1357 Mesalamine 1,000 MG BID 06/20 0100 AC 06/20 TN 0813 Mesalamine 4 GM AT BEDTIME 06/14 2100 DC 06/18 TN 2006 Mesalamine 1,600 MG TID 06/14 1400 DC 06/19 PO 2157 Metronidazole 500 MG Q8 06/20 0600 AC 06/20 PO 135 Metronidazole 500 MG ONCE ONE 06/20 0500 DC 06/20 PO 06/20 0501 0549 Metronidazole 500 MG Q8H 06/19 1900 DC 06/19 N/A 1 UNIT IV 1900 Metronidazole 500 MG IQ8 06/14 1600 DC 06/19 N/A 1 UNIT IV 1116 Non-Formulary 0 SEE ADMIN CRITERIA 06/20 0115 CAN Medication ANY Last 24 Hrs of Lab/Sumanth Results Last 24 Hrs of Labs/Mics: Laboratory Tests 06/20/18 0720: CBC w Diff NO MAN DIFF REQ, RBC 3.21 L, MCV 97.5, MCH 34.6 H, MCHC 35.5, RDW 13.7, MPV 6.9 L, Gran % 79.8 H, Lymphocytes % 12.9 L, Monocytes % 7.2, Eosinophils % 0, Basophils % 0.1, Absolute Granulocytes 6.2, Absolute Lymphocytes 1.0 L, Absolute Monocytes 0.6, Absolute Eosinophils 0, Absolute Basophils 0 Assessment/Plan Assessment: Ms. Aguirre is a 57 y/o F with with PMH of HTN and ulcerative colitis who is seen post colonoscopy for concern of a ulcerative colitis flare. During her colonoscopy, patient reportedly spiked a 102.3 fever, tachycardic with borderline hypotension. She received IVF bolus and ceftriaxone. She was on Humira and prednisone which was discontinued one week ago. She does endors crampy abdominal pain for about one month and has been passing bright red blood per rectum over the past week. She was admitted to the general medicine floor for further management of: PROBLEM LIST 1. UC Flare 2. H/o HTN PLAN * Following GI's recommendation * Patient is currently receiving IV hydrocortisone 100 mg q8; will continue pending GI recommendations. No growth on blood cultures so far. * On mesalamine suppositories * On Rowasa + Pentasa * IV Metronidazole and ceftriaxone empirically transitioned to PO. * Dose of Humira given 06/17 as per GI's recommendation. H/o HTN * Home dose of metoprolol has been held due to her hypotensive episodes. FULL CODE Low fiber diet DVT PPX - mechanical, ambulation Problem List: 1. Ulcerative colitis Pain Ratin Pain Location: Diffuse in the abdomen, more predominant on the R Pain Goal: Pain 4 or less Pain Plan: as indicated Tomorrow's Labs & Rationales: n/a José Miguel Ribeiro MD 06/20/182050: Attending MD Review Statement Attending Statement Attending MD Statement: examined this patient, discuss w/resident/PA/TRUCK JUMPER, agreed w/resident/PA/TRUCK JUMPER, reviewed EMR data (avail), discussed with nursing, discussed with case mgmt, amended to note Attending Assessment/Plan: The patient was seen and discussed with house staff, nursing, and case management. GI input appreciated. Will transition to po antibiotics today and continue IV Solucortef per GI. Dr. Irizarry to follow-up tomorrow. Still having loss BM's (3 over night, 3 this morning) that are heme +ve (not bloody).
[2018-06-20 07:19] VITALS: BP 140/60
[2018-06-20 08:19] LABS: ABSOLUTE BASOPHIL COUNT 0 /CUMM (0.0-0.2); ABSOLUTE EOSINOPHIL COUNT 0 /CUMM (0.0-0.7); ABSOLUTE GRANULOCYTE CT 6.2 /CUMM (1.4-6.5); ABSOLUTE MONOCYTE COUNT 0.6 /CUMM (0.10-0.60); BASOPHIL % 0.1 % (0.0-2.0); EOSINOPHIL % 0 % (0-5); GRANULOCYTE % 79.8 % (42.2-75.2); HEMATOCRIT 31.3 % (37-47); MEAN CORPUSCULAR HGB 34.6 PG (27.0-31.0); MEAN CORPUSCULAR HGB CONC 35.5 G/DL (33.0-37.0); MEAN CORPUSCULAR VOLUME 97.5 FL (81.0-99.0); MEAN PLATELET VOLUME 6.9 FL (7.4-10.4); PLATELET COUNT 161 /CUMM (130-400); RBC DISTRIBUTION WIDTH 13.7 % (11.5-14.5); RED BLOOD CELL CT 3.21 /CUMM (4.20-5.40); WHITE BLOOD CELL COUNT 7.8 /CUMM (4.8-10.8)
--- NOTE | 2018-06-20 08:29 | PN- Student ---
Subjective Subjective: Patient was seen and examined this am. Patient was afebrile and hypertensive ( 140/60). She continues to report abdominal cramping (04/19) with bowel movements and tenesmus. She is breathing comfortably on room air. She is on a low fiber diet and is expressing concern about the foods she can eat. She reports 3 non- bloody loose stools today. ROS: Constitutional: AOx3, denies fever, fatigue, night sweats HEENT: reports continued dry mouth Cardiovascular: denies chest pain, shortness of breath Respiratory: denies cough, wheezing Abdominal: reports abdominal cramping with bowel movements, frequent diarrhea and urgency, tenesmus Genitourinary: reports increased frequency due to increased fluid consumption Objective Objective: Current Medications Sig/Jayde Start time Last Medication Dose Stop Time Status Admin Acetaminophen 650 MG Q6P PRN 06/14 1200 AC 06/17 (Tylenol) 2143 Alprazolam 0.25 MG TID PRN 06/14 1345 AC 06/16 (Xanax) 06/21 1344 1644 Ceftriaxone Sodium 1,000 MG DAILY 06/19 1113 AC 06/20 (Rocephin) 0804 Dicyclomine HCl 20 MG TID PRN 06/15 2130 AC 06/20 (Bentyl) 0652 Hydrocortisone 100 MG Q8 06/14 1400 AC 06/20 Sodium Succinate 0550 (Solucortef) Mesalamine 1,000 MG BID 06/20 0100 AC 06/20 (Canasa 1000 MG SUP) 0813 Mesalamine 1,600 MG TID 06/14 1400 AC 06/19 (Delzicol) 2157 Metronidazole 500 MG Q8 06/20 0600 AC (Flagyl) Non-Formulary 0 SEE ADMIN CRITERIA 06/20 0115 CAN Medication (NON FORMULARY) Results Results: Laboratory Tests 06/20/18 0720: CBC w Diff Pending, WBC Pending, RBC Pending, Hgb Pending, Hct Pending, MCV Pending, MCH Pending, MCHC Pending, RDW Pending, Plt Count Pending, MPV Pending 06/19/18 0843: CBC w Diff NO MAN DIFF REQ, RBC 3.30 L, MCV 98.6, MCH 34.3 H, MCHC 34.8, RDW 13.6, MPV 7.0 L, Gran % 84.1 H, Lymphocytes % 11.1 L, Monocytes % 4.8, Eosinophils % 0, Basophils % 0, Absolute Granulocytes 7.5 H, Absolute Lymphocytes 1.0 L, Absolute Monocytes 0.4, Absolute Eosinophils 0, Absolute Basophils 0 PHYSICAL EXAM Last 24hrs of Vital Signs Vital Signs Date Time Temp Pulse Resp B/P B/P Pulse O2 O2 Flow FiO2 Mean Ox Delivery Rate 06/20 0719 97.9 50 20 140/60 96 06/19 2205 97.8 52 20 148/70 98 Room Air 06/19 1355 97.6 63 20 122/60 99 Room Air Physical Exam General Appearance Alert, Oriented X3, Cooperative, No Acute Distress Skin No Rashes HEENT Atraumatic Cardiovascular Regular Rate, Normal S1, Normal S2, No Murmurs Lungs Clear to Auscultation, Normal Air Movement Abdomen Normal Bowel Sounds, Soft, tenderness to palpation in RUQ and in umbilical region Extremities No Clubbing, No Cyanosis, Normal Pulses, 1+ pitting edema in both feet Assessment/Plan Assessment: Ms. Aguirre is a 57yo F with PMH of HTN and ulcerative colitis, who is seen post sigmoidoscopy. During sigmoidoscopy, patient was reported to have a fever of 102.3, tachycardic, with borderline hypotension. Her last two blood pressure readings were SBP 140s, DBP 60-70 . She remains afebrile. Previous febrile episode was likely due to bacterial translocation causing transient bacteremia. She previously received 2L of NS and D5NS @ 125mL/h. Pt is not on anticoagulation due to continued bleeding. Monitor vitals. #Problem list #UC flare #H/O HTN #UC flare - following GI recommendations - Patient is currently receiving IV hydrocortisone 100mg q8 - On mesalamine - currently on IV metronidazole and ceftriaxone empirically - GI to follow #H/O HTN Home dose of metoprolol has been held due to hypotensive episodes Plan: #UC flare - Continue on medications - GI to follow up - monitor vitals - ? oral vs IV antibiotics
--- NOTE | 2018-06-20 13:33 | PN- Gastroenterology ---
Assessment/Plan GI Assessment/Recommendations: ASSESSMENT: 1. Ulcerative Colitis, Pancolitis -- on IV steroids, cipro and Flagyl and IV hydrocortisone. 2. Use of High-Risk Medications: Humira. Has completed induction dose, and had first of her maintenance doses. 3. Abdominal Pain -- marked improvement, responding well to dicyclomine 4. Chronic Blood Loss Anemia -- H/H stable. No further gross or overt GI blood loss. 5. Diarrhea -- is having fewer stools. RECOMMENDATIONS: 1. Patient to remain on IV steroids. Patient is on oral metronidazole. Would d/c ceftriaxone and change to cipro 500 mg PO BID. 2. Dr. Irizarry will be covering tomorrow 4. If patient does not make continued progress, she may also benefit from budesonide rectal foam (2 mg MS BID). I will also speak with Dr. Irizarry regarding the possibility, if she is still admitted to the hospital, of giving her an additional dose of Humira on Wednesday. Will also have to consider alternatives to Humira such as Xeljanz, possible bridging with cyclosporine or even colectomy, however, at this point, I believe (and patient has expressed the same belief) that the patient is doing better than on admission. 3. All ?s were answered. Subjective Subjective: Patient is having less abdominal pain. Had 4 bowel movements yesterday and 3 overnight. Has had no stool out today as of this morning. Has not seen any blood. He has had no further fever or shaking chills. Overall she feels that she has made some progress. Objective Vital Signs and I&Os Vital Signs Date Time Temp Pulse Resp B/P B/P Pulse O2 O2 Flow FiO2 Mean Ox Delivery Rate 06/20 0719 97.9 50 20 140/60 96 06/19 2205 97.8 52 20 148/70 98 Room Air 06/19 1355 97.6 63 20 122/60 99 Room Air Intake & Output 06/20 1600 06/20 0400 06/19 0400 06/18 0400 Intake Total 234 328 6552 100 1850 1300 Output Total 1 300 350 Balance 220 219 173 497 6326 1300 Intake, IV 20 20 150 1500 1000 Intake, Oral 200 200 900 100 350 300 Number 3 3 1 1 Bowel Movements Output, Stool 1 Output, Urine 300 350 Physical Exam General Appearance: alert, awake, comfortable Head: normal appearance Respiratory: normal breath sounds, chest non-tender, no respiratory distress, lungs clear Cardiovascular: regular rate/rhythm, Normal S1 and S2 without rub, murmur or gallop Abdomen: normal bowel sounds, soft, non-tender, no organomegaly Extremities: pedal edema Neurologic/Psychiatric: alert, oriented x 3, normal mood/affect Skin: intact, normal color, warm/dry Current Medications: Current Medications Sig/Jayde Start time Last Medication Dose Route Stop Time Status Admin Acetaminophen 650 MG Q6P PRN 06/14 1200 AC 06/17 PO 2143 Alprazolam 0.25 MG TID PRN 06/14 1345 AC 06/16 PO 06/21 1344 1644 Ceftriaxone Sodium 1,000 MG DAILY 06/19 1113 AC 06/20 IV 0804 Dicyclomine HCl 20 MG TID PRN 06/15 2130 AC 06/20 PO 0652 Hydrocortisone 100 MG Q8 06/14 1400 AC 06/20 Sodium Succinate IV 0550 Mesalamine 1,000 MG BID 06/20 0100 AC 06/20 MS 0813 Mesalamine 4 GM AT BEDTIME 06/14 2100 DC 06/18 MS 2006 Mesalamine 1,600 MG TID 06/14 1400 DC 06/19 PO 2157 Metronidazole 500 MG Q8 06/20 0600 AC PO Metronidazole 500 MG ONCE ONE 06/20 0500 DC 06/20 PO 06/20 0501 0549 Metronidazole 500 MG Q8H 06/19 1900 DC 06/19 N/A 1 UNIT IV 1900 Metronidazole 500 MG IQ8 06/14 1600 DC 06/19 N/A 1 UNIT IV 1116 Non-Formulary 0 SEE ADMIN CRITERIA 06/20 0115 CAN Medication ANY Results Pertinent Lab Results: Laboratory Tests 06/20 06/19 0720 0843 Hematology CBC w Diff NO MAN DIFF REQ NO MAN DIFF REQ WBC (4.8 - 10.8 /CUMM) 7.8 8.9 RBC (4.20 - 5.40 /CUMM) 3.21 L 3.30 L Hgb (12.0 - 16.0 G/DL) 11.1 L 11.3 L Hct (37 - 47 %) 31.3 L 32.6 L MCV (81.0 - 99.0 FL) 97.5 98.6 MCH (27.0 - 31.0 PG) 34.6 H 34.3 H MCHC (33.0 - 37.0 G/DL) 35.5 34.8 RDW (11.5 - 14.5 %) 13.7 13.6 Plt Count (130 - 400 /CUMM) 161 162 MPV (7.4 - 10.4 FL) 6.9 L 7.0 L Gran % (42.2 - 75.2 %) 79.8 H 84.1 H Lymphocytes % (20.5 - 51.1 %) 12.9 L 11.1 L Monocytes % (1.7 - 9.3 %) 7.2 4.8 Eosinophils % (0 - 5 %) 0 0 Basophils % (0.0 - 2.0 %) 0.1 0 Absolute Granulocytes (1.4 - 6.5 /CUMM) 6.2 7.5 H Absolute Lymphocytes (1.2 - 3.4 /CUMM) 1.0 L 1.0 L Absolute Monocytes (0.10 - 0.60 /CUMM) 0.6 0.4 Absolute Eosinophils (0.0 - 0.7 /CUMM) 0 0 Absolute Basophils (0.0 - 0.2 /CUMM) 0 0
[2018-06-20 14:56] VITALS: BP 160/70
[2018-06-20 20:20] VITALS: BP 120/60
[2018-06-21 06:08] VITALS: BP 144/62
--- NOTE | 2018-06-21 06:37 | PN- Housestaff ---
Baron Keys 06/21/18 0637: Subjective Follow-up For: UC flare Subjective: Patient was seen and examined today. she was lying in the bed. she said that she continued to have loose bowel movement and cramps if she forgets to take her medications. Patient is also very confused and feels forgetful. she had 9-10 episodes of diarrhea yesterday. And one episode this morning some episodes had blood in it. When talked about discharge plans the patient said that ,she has a two-story building and has difficulty going up and down the stairs while using bathroom. Possibility of physical therapy was discussed with the patient. Review of Systems Constitutional: Reports: see HPI. Objective Last 24 Hrs of Vital Signs/I&O Vital Signs Date Time Temp Pulse Resp B/P B/P Pulse O2 O2 Flow FiO2 Mean Ox Delivery Rate 06/21 06 98.0 60 20 144/62 99 Room Air 06/20 2020 97.9 55 20 120/60 98 06/20 1600 Room Air 06/20 1456 98.2 109 21 160/70 98 Room Air Intake & Output 06/21 1600 06/21 0800 06/21 0000 Intake Total 250 200 Output Total Balance 250 200 Intake, IV 10 Intake, Oral 240 200 Number 3 Bowel Movements Physical Exam General Appearance: Alert, Oriented X3, Cooperative, No Acute Distress HEENT: Atraumatic, PERRLA Cardiovascular: Regular Rate, No Murmurs Lungs: Clear to Auscultation, Normal Air Movement Abdomen: Normal Bowel Sounds, Soft, No Tenderness, No Hepatospenomegaly, No Masses, tenderness more in the epigastric area compared to diffuse abdominal pain Extremities: No Clubbing, No Cyanosis, No Edema, Normal Pulses, No Tenderness/ Swelling Current Medications: Current Medications Sig/Jayde Start time Last Medication Dose Route Stop Time Status Admin Acetaminophen 1,000 MG ONCE ONE 06/20 1430 DC 06/20 N/A 1 UNIT IV 06/20 1444 1423 Acetaminophen 0 .STK-MED ONE 06/20 1425 DC IV Acetaminophen 650 MG Q6P PRN 06/14 1200 AC 06/20 PO 1902 Alprazolam 0.25 MG TID PRN 06/14 1345 DC 06/20 PO 06/21 1344 1425 Ceftriaxone Sodium 1,000 MG DAILY 06/19 1113 DC 06/21 IV 0822 Ciprofloxacin 500 MG BID 06/22 0900 AC PO 06/25 0859 Dicyclomine HCl 20 MG TID PRN 06/15 2130 AC 06/21 PO 1339 Hydrocortisone 100 MG Q8 06/14 1400 AC 06/21 Sodium Succinate IV 1339 Mesalamine 1,000 MG BID 06/20 0100 AC 06/21 MD 0822 Metronidazole 500 MG Q8 06/20 0600 AC 06/21 PO 1339 Assessment/Plan Assessment: Ms. Aguirre is a 57 y/o F with with PMH of HTN and ulcerative colitis who is seen post colonoscopy for concern of a ulcerative colitis flare. During her colonoscopy, patient reportedly spiked a 102.3 fever, tachycardic with borderline hypotension. She received IVF bolus and ceftriaxone. She was on Humira and prednisone which was discontinued one week ago. She does endors crampy abdominal pain for about one month and has been passing bright red blood per rectum over the past week. She was admitted to the general medicine floor for further management of: PROBLEM LIST- 1. UC Flare 2. HTN Plan - GI recommendations- she should be transitioned to oral prednisone 60 mg in the next 24-48 hours, H&H is stable and has completed induction dose of Humira, Dr Irizarry plans on increasing the frequency of humira to weekly dosing or at least give her one extra dose at the end of this week. - restart oral mesalamine 1600 mg po tid and rowasa enemas or canasa suppositories as patient tolerates. Will start on Cipro and Flagyl tomorrow We will convert hydrocortisone to per oral tomorrow Continue Bentyl before meals Articles about ulcerative colitis provided to the patient Try to discuss care of plan with the On mesalamine suppositories Home dose of metoprolol has been held due to her hypotensive episodes. FULL CODE Low fiber diet DVT PPX - mechanical, ambulation Problem List: 1. Dehydration 2. Ulcerative colitis Pain Ratin Pain Location: none Pain Goal: Remain pain free Pain Plan: none Tomorrow's Labs & Rationales: cbc, bep Quintin MARTINEZ,José Miguel 06/21/18 1703: Attending Review Statement Attending Statement Attending Statement: examined this patient, discuss w/resident/PA/ABATTOIR MANAGER, agreed w/resident/PA/ABATTOIR MANAGER, reviewed EMR data (avail), discussed with nursing, discussed with case mgmt, amended to note Attending Assessment/Plan: The patient was seen and discussed with house staff, nursing, and case management. GI input appreciated. Will d/c po Abx (Cipro/Flagyl) as per GI. Will change to po prednisone tomorrow and observe over 24 hours. May use Imodium as per GI.
--- NOTE | 2018-06-21 08:24 | PN- Student ---
Vivi Oates 06/21/18 0806: Subjective Subjective: Patient was seen and examined this AM. She was afebrile and BP was elevated this AM (144/62). She continues to report abdominal cramping only with bowel movements and has some tenderness to palpation, rated as 5/10. She was breathing comfortably on room air. She reports 9 bowel movements, not grossly bloody. Thinks that worsening of episodes from yesterday may be due to "spicy" pasta sauce. Nursing reports one guaiac negative stool yesterday afternoon and one guaiac positive stool this morning. Patient denies having any bowel movements since the middle of the night, reports good sleep. States that having anti- cramping medication prior to eating helps with feelings of urgency. ROS: Constitutional: alert, cooperative, denies fever, fatigue, night sweats, reports good appetite HEENT: reports dry mouth Cardiovascular: denies chest pain, shortness of breath Respiratory: denies cough, wheezing Abdominal: reports abdominal cramping with bowel movements, frequent diarrhea, tenesmus Objective Objective: Current Medications Sig/Jayde Start time Last Medication Dose Stop Time Status Admin Acetaminophen 650 MG Q6P PRN 06/14 1200 AC 06/20 (Tylenol) 1902 Alprazolam 0.25 MG TID PRN 06/14 1345 AC 06/20 (Xanax) 06/21 1344 1425 Ceftriaxone Sodium 1,000 MG DAILY 06/19 1113 AC 06/20 (Rocephin) 0804 Dicyclomine HCl 20 MG TID PRN 06/15 2130 AC 06/21 (Bentyl) 0757 Hydrocortisone 100 MG Q8 06/14 1400 AC 06/21 Sodium Succinate 0559 (Solucortef) Mesalamine 1,000 MG BID 06/20 0100 AC 06/20 (Canasa 1000 MG SUP) 2118 Metronidazole 500 MG Q8 06/20 0600 AC 06/21 (Flagyl) 0559 Results Results: Laboratory Tests 06/20/18 0720: CBC w Diff NO MAN DIFF REQ, RBC 3.21 L, MCV 97.5, MCH 34.6 H, MCHC 35.5, RDW 13.7, MPV 6.9 L, Gran % 79.8 H, Lymphocytes % 12.9 L, Monocytes % 7.2, Eosinophils % 0, Basophils % 0.1, Absolute Granulocytes 6.2, Absolute Lymphocytes 1.0 L, Absolute Monocytes 0.6, Absolute Eosinophils 0, Absolute Basophils 0 06/19/18 0843: CBC w Diff NO MAN DIFF REQ, RBC 3.30 L, MCV 98.6, MCH 34.3 H, MCHC 34.8, RDW 13.6, MPV 7.0 L, Gran % 84.1 H, Lymphocytes % 11.1 L, Monocytes % 4.8, Eosinophils % 0, Basophils % 0, Absolute Granulocytes 7.5 H, Absolute Lymphocytes 1.0 L, Absolute Monocytes 0.4, Absolute Eosinophils 0, Absolute Basophils 0 PHYSICAL EXAM Last 24hrs of Vital Signs Vital Signs Date Time Temp Pulse Resp B/P B/P Pulse O2 O2 Flow FiO2 Mean Ox Delivery Rate 06/21 0608 98.0 60 20 144/62 99 Room Air 06/20 2020 97.9 55 20 120/60 98 06/20 1600 Room Air 06/20 1456 98.2 109 21 160/70 98 Room Air Physical Exam General Appearance Alert, Cooperative HEENT Atraumatic Cardiovascular Regular Rate, Normal S1, Normal S2, No Murmurs Lungs Clear to Auscultation, Normal Air Movement Abdomen Normal Bowel Sounds, Soft, tenderness to palpation at epigastric region Extremities No Clubbing, No Cyanosis, slight edema on right foot and ankle Vascular Normal Pulses Assessment/Plan Assessment: Ms. Aguirre is a 57yo F with PMH of HTN and ulcerative colitis, who is seen post sigmoidoscopy. During sigmoidoscopy, patient was reported to have a fever of 102.3, tachycardic, with borderline hypotension. Her blood pressure readings since yesterday were SBP 120-140s, DBP 60-70 . She remains afebrile. Previous febrile episode was likely due to bacterial translocation causing transient bacteremia. She previously received 2L of NS and D5NS @ 125mL/h. Pt is not on anticoagulation due to continued bleeding. Monitor vitals. #Problem list #UC flare #H/O HTN #UC flare - following GI recommendations - Patient is currently receiving IV hydrocortisone 100mg q8 - On mesalamine, PO and FL - currently on oral metronidazole, IV ceftriaxone - GI to follow #H/O HTN Home dose of metoprolol has been held due to hypotensive episodes Plan: #UC flare - Continue on medications - GI to follow up - GI recommended remaining on IV steroids, continue oral metronidazole, and discontinue ceftriaxone and swtich to cipro 500mg PO BID - monitor vitals
--- NOTE | 2018-06-21 14:12 | PN- Gastroenterology ---
Assessment/Plan GI Assessment/Recommendations: Assessment: Ms. Aguirre is a 57 year old female with ulcerative colitis admitted for failure of outpatient management one week ago after a flex sig showed worsening disease who has had a symptomatic improvement on IV hydrocortisone and continued treatment with humira, albeit she still does have some diarrhea, rectal bleeding and abdominal cramping. As she has been on IV steroids for about a week now and is improving I feel that she should be transitioned to oral prednisone in the next 24-48 hours. Will likely also recommend increasing the frequency of humira to weekly dosing or at least give her one extra dose at the end of this week. Recommendations: 1. Continue IV hydrocortisone through today and would start 60 mg of oral prednisone in the am. 2. Continue dicyclomine as needed. 3. Advance to low residue diet as tolerated 4. Would observe off of antibiotics 5. Ok to use imodium as needed. 6. Will likely given next dose of humira early (ie. at end of week, hopefully as an outpatient). 7. Would restart oral mesalamine 1600 mg po tid and rowasa enemas or canasa suppositories as patient tolerates. Dr. Fisher will resume his GI care again in the am, but if she continues to do well and doesn't have any setbacks with changing to oral medications can hopefully d/c in 1-2 days. Problem List: 1. Diarrhea 2. Rectal bleeding 3. Ulcerative colitis Subjective Subjective: Pt feeling better, but notes a decent amount of diarrhea yesterday with scant amount of blood. So far today has been better with only passing some harder stool, 'pellets'. Abd pain continues to be well controlled with dicyclomine as needed. no vomiting, no fevers. Review of Systems Constitutional: Denies: chills, diaphoresis, fever. Cardiovascular: Denies: chest pain, peripheral edema. Respiratory: Denies: short of breath. Gastrointestinal: Reports: see HPI. Musculoskeletal: Denies: joint pain. Skin: Denies: rash. Objective Vital Signs and I&Os Vital Signs Date Time Temp Pulse Resp B/P B/P Pulse O2 O2 Flow FiO2 Mean Ox Delivery Rate 06/21 0608 98.0 60 20 144/62 99 Room Air 06/20 2020 97.9 55 20 120/60 98 06/20 1600 Room Air 09/10 1456 98.2 109 21 160/70 98 Room Air Intake & Output 06/21 1600 06/21 0400 06/20 1600 06/20 0400 06/19 1600 06/19 0400 Intake Total 250 200 462 696 2117 100 Output Total 1 300 Balance 250 200 620 219 750 100 Intake, IV 10 20 20 150 Intake, Oral 240 200 540 200 900 100 Intake, Other 60 Number 3 7 3 Bowel Movements Output, Stool 1 Output, Urine 300 Physical Exam General Appearance: no apparent distress, comfortable Head: atraumatic, normal appearance Respiratory: normal breath sounds, chest non-tender, no respiratory distress Cardiovascular: regular rate/rhythm Abdomen: normal bowel sounds, soft, non-tender, no organomegaly Back: normal inspection Extremities: normal inspection, no edema Skin: intact, normal color Current Medications: Current Medications Sig/Jayde Start time Last Medication Dose Route Stop Time Status Admin Acetaminophen 1,000 MG ONCE ONE 06/20 1430 DC 06/20 N/A 1 UNIT IV 06/20 1444 1423 Acetaminophen 0 .STK-MED ONE 06/20 1425 DC IV Acetaminophen 650 MG Q6P PRN 06/14 1200 AC 06/20 PO 1902 Alprazolam 0.25 MG TID PRN 06/14 1345 DC 06/20 PO 06/21 1344 1425 Ceftriaxone Sodium 1,000 MG DAILY 06/19 1113 DC 06/21 IV 0822 Ciprofloxacin 500 MG BID 06/22 09 AC PO 06/25 0859 Dicyclomine HCl 20 MG TID PRN 06/15 2130 AC 06/21 PO 1339 Hydrocortisone 100 MG Q8 06/14 1400 AC 06/21 Sodium Succinate IV 1339 Mesalamine 1,000 MG BID 06/20 0100 AC 06/21 [place] 0822 Metronidazole 500 MG Q8 06/20 0600 AC 06/21 PO 1339 Results Pertinent Lab Results: Laboratory Tests 06/20 06/19 0720 0843 Hematology CBC w Diff NO MAN DIFF REQ NO MAN DIFF REQ WBC (4.8 - 10.8 /CUMM) 7.8 8.9 RBC (4.20 - 5.40 /CUMM) 3.21 L 3.30 L Hgb (12.0 - 16.0 G/DL) 11.1 L 11.3 L Hct (37 - 47 %) 31.3 L 32.6 L MCV (81.0 - 99.0 FL) 97.5 98.6 MCH (27.0 - 31.0 PG) 34.6 H 34.3 H MCHC (33.0 - 37.0 G/DL) 35.5 34.8 RDW (11.5 - 14.5 %) 13.7 13.6 Plt Count (130 - 400 /CUMM) 161 162 MPV (7.4 - 10.4 FL) 6.9 L 7.0 L Gran % (42.2 - 75.2 %) 79.8 H 84.1 H Lymphocytes % (20.5 - 51.1 %) 12.9 L 11.1 L Monocytes % (1.7 - 9.3 %) 7.2 4.8 Eosinophils % (0 - 5 %) 0 0 Basophils % (0.0 - 2.0 %) 0.1 0 Absolute Granulocytes (1.4 - 6.5 /CUMM) 6.2 7.5 H Absolute Lymphocytes (1.2 - 3.4 /CUMM) 1.0 L 1.0 L Absolute Monocytes (0.10 - 0.60 /CUMM) 0.6 0.4 Absolute Eosinophils (0.0 - 0.7 /CUMM) 0 0 Absolute Basophils (0.0 - 0.2 /CUMM) 0 0
[2018-06-21 14:34] VITALS: BP 110/65
[2018-06-21 22:15] VITALS: BP 140/68
[2018-06-22 06:39] VITALS: BP 142/78
--- NOTE | 2018-06-22 07:16 | PN- Housestaff ---
See Addendum Baron Keys 06/22/18 0715: Subjective Follow-up For: ulcerative colitis Subjective: Patient was examined today and said she was doing well. Reduced episodes of diarrhoea and no blood in BM. Review of Systems Constitutional: Reports: see HPI. Objective Last 24 Hrs of Vital Signs/I&O Vital Signs Date Time Temp Pulse Resp B/P B/P Pulse O2 O2 Flow FiO2 Mean Ox Delivery Rate 06/22 1438 98.7 76 18 115/70 99 Room Air 06/22 0639 98.7 61 20 142/78 98 06/21 2215 98.0 65 20 140/68 100 Room Air Intake & Output 06/22 1600 06/22 0800 06/22 0000 Intake Total 340 240 360 Output Total Balance 340 240 360 Intake, Oral 340 240 360 Number 4 1 2 Bowel Movements Physical Exam General Appearance: Alert, Oriented X3, Cooperative, No Acute Distress Cardiovascular: Regular Rate, No Murmurs Lungs: Clear to Auscultation, Normal Air Movement Abdomen: Normal Bowel Sounds, Soft, No Tenderness, No Hepatospenomegaly, No Masses Neurological: Normal Speech, Strength at 5/5 X4 Ext, Normal Tone, Sensation Intact Extremities: No Clubbing, No Cyanosis, No Edema, Normal Pulses, No Tenderness/ Swelling Current Medications: Current Medications Sig/Jayde Start time Last Medication Dose Route Stop Time Status Admin Acetaminophen 650 MG Q6P PRN 06/14 1200 AC 06/22 PO 0826 Alprazolam 0.25 MG TID PRN 06/14 1345 DC 06/20 PO 06/21 1344 1425 Ciprofloxacin 500 MG BID 06/22 09 DC 06/22 PO 06/25 0859 0828 Dicyclomine HCl 20 MG TID PRN 06/15 2130 AC 06/22 PO 0535 Hydrocortisone 100 MG Q8 06/14 1400 DC 06/22 Sodium Succinate IV 06/22 900 0537 Loperamide HCl 2 MG BID PRN 06/21 1630 AC 06/21 PO 1642 Loperamide HCl 2 MG ONE PRN 06/21 1600 DC PO Mesalamine 1,600 MG TID 06/21 2100 AC 06/22 PO 0828 Mesalamine 1,000 MG BID 06/20 0100 AC 06/22 [place] 0828 Metronidazole 500 MG Q8 06/20 0600 DC 06/22 PO 0536 Patient Medication 1 ED ONE ONE 06/22 1115 DC Teaching ED 06/22 1116 Prednisone 60 MG ONCE ONE 06/22 0900 DC 06/22 PO 06/22 0901 0829 Assessment/Plan Assessment: Ms. Aguirre is a 57 y/o F with with PMH of HTN and ulcerative colitis who is seen post colonoscopy for concern of a ulcerative colitis flare. During her colonoscopy, patient reportedly spiked a 102.3 fever, tachycardic with borderline hypotension. She received IVF bolus and ceftriaxone. She was on Humira and prednisone which was discontinued one week ago. She does endors crampy abdominal pain for about one month and has been passing bright red blood per rectum over the past week. She was admitted to the general medicine floor for further management of: PROBLEM LIST- 1. UC Flare 2. HTN Plan - -GI recommendations- transitioned to oral prednisone 60 mg which patient did not tolerate well and c/o weird taste, hence changed to prednisolone during discharge. decreased episode of diarrhoea. -H&H is stable and has completed induction dose of Humira, Dr Irizarry plans on increasing the frequency of humira to weekly dosing or at least give her one extra dose at the end of this week. - restart oral mesalamine 1600 mg po tid and rowasa enemas or canasa suppositories as patient tolerates. - stop antibiotics and observe -Continue Bentyl before meals -Articles about ulcerative colitis provided to the patient -Try to discuss care of plan with the -Patient may be discharged on Mesalamine as mentioned above and prednisone. f/u with GI on discharge recommendations FULL CODE Low fiber diet DVT PPX - mechanical, ambulation Problem List: 1. Ulcerative colitis Pain Ratin Pain Location: none Pain Goal: Remain pain free Pain Plan: none Tomorrow's Labs & Rationales: none José Miguel Ribeiro MD 06/22/182032: Attending MD Review Statement Attending Statement Attending MD Statement: examined this patient, discuss w/resident/PA/CRAFT CENTER DIRECTOR, agreed w/resident/PA/[employer]FT C[employer] DIRECTOR, reviewed EMR data (avail), discussed with nursing, discussed with case mgmt, amended to note Attending Assessment/Plan: The patient was seen and discussed with house staff, nursing, and case management. GI input appreciated. The patient felt well and requested going home later in day. OK to discharge to home on po Prednisone. Follow-up with Dr. Irizarry in the office.
[2018-06-22] MEDS ORDERED: CANASA1000 M1 PR ×3 (11:30→15:46)
[2018-06-22] MEDS ORDERED: DELZICOL400 M1 PO (11:30)
[2018-06-22] MEDS ORDERED: [UNRECOGNIZED DRUG - OTHER] PO ×3 (11:30→15:46)
[2018-06-22 14:38] VITALS: BP 115/70
--- NOTE | 2018-06-22 15:47 | PN- Gastroenterology ---
Assessment/Plan GI Assessment/Recommendations: Assessment: Ms. Aguirre is a 57 year old female with ulcerative colitis admitted for failure of outpatient management one week ago after a flex sig showed worsening disease. Ms. Aguirre only had 2 bowel movements yesterday. She is tolerating her diet and has had no blood in her stool and has had almost no abdominal pain. Recommendations: 1. Started on 60 mg of oral prednisone today 2. Continue dicyclomine as needed. 3. Advance to low residue diet as tolerated 4. Off of antibiotics 5. Imodium on an as needed. 6. Will likely given next dose of humira early (ie. at end of week, hopefully as an outpatient). 7. Patient to restart oral mesalamine 1600 mg po tid and rowasa enemas as a retention enema qhs. Patient will also take canasa suppositories in am as patient tolerates. 8. If patient continues to do well and be discharged to home tomorrow. I have spoken with the patient and with her and have discussed the treatment plan including follow-up with Dr. Irizarry next week. Our office has already reached out to . Mrs. Aguirre regarding a follow-up appointment. They have 5 doses of Humira and do not need a refill at this time. Subjective Subjective: Patient only had two bowel movements yesterday. No nausea, vomiting or abdominal pain. No fever or shaking chills. No blood in stool. Is eager to go home. Objective Vital Signs and I&Os Vital Signs Date Time Temp Pulse Resp B/P B/P Pulse O2 O2 Flow FiO2 Mean Ox Delivery Rate 06/22 1438 98.7 76 18 115/70 99 Room Air 06/22 0639 98.7 61 20 142/78 98 06/21 2215 98.0 65 20 140/68 100 Room Air 06/21 1600 Room Air Intake & Output 06/22 1600 06/22 0400 06/21 0400 06/20 0400 Intake Total 120 480 610 200 620 220 Output Total 1 Balance 120 480 610 200 620 219 Intake, IV 10 20 20 Intake, Oral 120 480 600 200 540 200 Intake, Other 60 Number 2 2 5 7 Bowel Movements Output, Stool 1 Physical Exam General Appearance: no apparent distress, awake, comfortable Respiratory: lungs clear Cardiovascular: regular rate/rhythm, Normal S1 and S2 without rub, murmur or gallop Abdomen: normal bowel sounds, soft, non-tender, no organomegaly Neurologic/Psychiatric: alert, oriented x 3, normal gait, normal mood/affect Current Medications: Current Medications Sig/Jayde Start time Last Medication Dose Route Stop Time Status Admin Acetaminophen 650 MG Q6P PRN 06/14 1200 AC 06/22 PO 0826 Ciprofloxacin 500 MG BID 06/22 09 DC 06/22 PO 06/25 0859 0828 Dicyclomine HCl 20 MG TID PRN 06/15 2130 AC 06/22 PO 1425 Hydrocortisone 100 MG Q8 06/14 1400 DC 06/22 Sodium Succinate IV 06/22 900 0537 Loperamide HCl 2 MG BID PRN 06/21 1630 AC 06/21 PO 1642 Loperamide HCl 2 MG ONE PRN 06/21 1600 DC PO Mesalamine 1,600 MG TID 06/21 2100 AC 06/22 PO 1425 Mesalamine 1,000 MG BID 06/20 0100 AC 06/22 [place] 0828 Metronidazole 500 MG Q8 06/20 0600 DC 06/22 PO 0536 Patient Medication 1 ED ONE ONE 06/22 1115 DC Teaching ED 06/22 1116 Prednisone 60 MG ONCE ONE 06/22 900 DC 06/22 PO 06/22 0901 0829 Results Pertinent Lab Results: Laboratory Tests 06/20 720 Hematology CBC w Diff NO MAN DIFF REQ WBC (4.8 - 10.8 /CUMM) 7.8 RBC (4.20 - 5.40 /CUMM) 3.21 L Hgb (12.0 - 16.0 G/DL) 11.1 L Hct (37 - 47 %) 31.3 L MCV (81.0 - 99.0 FL) 97.5 MCH (27.0 - 31.0 PG) 34.6 H MCHC (33.0 - 37.0 G/DL) 35.5 RDW (11.5 - 14.5 %) 13.7 Plt Count (130 - 400 /CUMM) 161 MPV (7.4 - 10.4 FL) 6.9 L Gran % (42.2 - 75.2 %) 79.8 H Lymphocytes % (20.5 - 51.1 %) 12.9 L Monocytes % (1.7 - 9.3 %) 7.2 Eosinophils % (0 - 5 %) 0 Basophils % (0.0 - 2.0 %) 0.1 Absolute Granulocytes (1.4 - 6.5 /CUMM) 6.2 Absolute Lymphocytes (1.2 - 3.4 /CUMM) 1.0 L Absolute Monocytes (0.10 - 0.60 /CUMM) 0.6 Absolute Eosinophils (0.0 - 0.7 /CUMM) 0 Absolute Basophils (0.0 - 0.2 /CUMM) 0
--- NOTE | 2018-06-22 18:04 | Discharge Summary ---
Visit Information Visit Dates Admission Date: 06/14/18 Discharge Date: 06/22/18 Hospital Course Course Attending Physician: José Miguel Ribeiro MD Primary Care Physician: Shalini MARTINEZ,Domenico Roy Hospital Course: Ms. Aguirre is a 57 y/o F with with PMH of HTN and ulcerative colitis who is seen post colonoscopy for concern of a ulcerative colitis flare. During her colonoscopy, patient reportedly spiked a 102.3 fever, tachycardic with borderline hypotension. She received IVF bolus and ceftriaxone. She was on Humira and prednisone which was discontinued one week ago. She does endors crampy abdominal pain for about one month and has been passing bright red blood per rectum over the past week. She was admitted to the general medicine floor for further management of: PROBLEM LIST- 1. UC Flare 2. HTN Plan - -GI recommendations- Patient has been started on oral prednisone 60 mg which patient did not tolerate well and c/o weird taste, hence changed to prednisolone during discharge. decreased episode of diarrhoea. -H&H is stable and has completed induction dose of Humira, Dr Irizarry plans on increasing the frequency of humira to weekly dosing or at least give her one extra dose at the end of this week. - restart oral mesalamine 1600 mg po tid and rowasa enemas or canasa suppositories as patient tolerates. - Patiebnt was on ceftrixone and flagyl then stop antibiotics during discharge and observe -Continue Bentyl before meals -Articles about ulcerative colitis provided to the patient -Try to discuss care of plan with the , The specifically wants to talk with Dr. Irizarry. -Patient may be discharged on Mesalamine as mentioned above and prednisone. f/u with GI on discharge recommendations FULL CODE Low fiber diet DVT PPX - mechanical, ambulation Allergies: Coded Allergies: erythromycin base (GI UPSET 04/29/18) Disposition Summary Disposition Principal Diagnosis: Ulcerative colitis Additional Diagnosis: none Discharge Disposition: hospice - home Discharge Instructions General Discharge Information Code Status: Full Code Patient's Diet: low fibre Patient's Activity: as tolerated Follow-Up Instructions/Appts: Follow up with [facility] within 1 week of discharge for further management of ulcerative colitis Medications at Discharge Discharge Medications: Continue taking these medications: Metoprolol Succ XL (Toprol XL) 25 MG TAB 1 Tablet ORAL DAILY Comments: NOT TAKEN IN HOSPITAL Hyoscyamine Sulfate (Levsin-Sl) 0.125 MG TAB.SUBL 1 Tablet SUBLINGUAL THREE TIMES DAILY as needed for ABD CRAMPING Qty = 45 Comments: NOT GIVEN IN HOSPITAL Mesalamine (Apriso) 0.375 GRAM CAP.ER.24H 4 Capsule ORAL DAILY Qty = 120 Comments: Last Taken: 06/22/18 Time: 9 AM Diphenoxylate HCl/Atropine (Lomotil 2.5-0.025 MG Tablet) 2.5 MG-0.025 MG TABLET 1 Tablet ORAL THREE TIMES DAILY as needed for DIARRHEA Qty = 60 Comments: NOT GIVEN IN HOSPITAL Cyanocobalamin (Vitamin B-12) 1,000 MCG TABLET 1 Tablet ORAL DAILY Comments: NOT GIVEN IN HOSPITAL Start taking the following new medications: Mesalamine (Canasa) 1,000 MG SUPP.RECT 1 Suppository RECTALLY TWICE DAILY Qty = 60 No Refills Instructions: . Comments: LAST TAKEN: 06/22/19 9 AM Prednisolone Sod Phosphate (Veripred 20) 20 MG/5 ML (4 MG/ML) SOLUTION 15 Milliliters ORAL DAILY Qty = 2 No Refills Instructions: . Copies To: Natalia MARTINEZ,[place]; Juan C MARTINEZ,Jason Loya MD,Domenico Roy Attending MD Review Statement Documenting Attending: José Miguel Ribeiro MD Other Findings: Agree with the above summary of care and plan of care. The patient was originally admitted with: #Sepsis- of GI origin (s/p procedure- sigmoidoscopy)- ? transient. Treated with IV antibiotics and transitioned to po antibiotics. #Ulcerative Colitis- Flare- treated with IV steroids and steroid suppositories. #Rectal Bleeding- secondary to ulcerative colitis. Outpatient follow-up will be with Dr. Irizarry. Will consider alternative biologic if Humira is not working. Will check antibodies as outpatient.
== END 2018-06-22 17:25 | DRG 386 ==
LOC: LAB 08:54 → GIS 08:54 → 2NA 11:49
PROVIDERS: Internal Medicine; Internal Medicine Interventional Cardiology; Physical Medicine & Rehabilitation Pain Medicine; Student in an Organized Health Care Education/Training Program
PROC: 0DBN8ZX Excision of Sigmoid Colon, Via Natural or Artificial Opening Endoscopic, Diagnostic (ICD-10-PCS; principal; 2018-06-14)
PROC: 0DBE8ZX Excision of Large Intestine, Via Natural or Artificial Opening Endoscopic, Diagnostic (ICD-10-PCS; principal; 2018-06-14)
PROC: 0DBP8ZX Excision of Rectum, Via Natural or Artificial Opening Endoscopic, Diagnostic (ICD-10-PCS; principal; 2018-06-14)
DX: K51.90 Ulcerative colitis, unspecified, without complications (principal); E87.1 Hypo-osmolality and hyponatremia; N39.0 Urinary tract infection, site not specified; E46 Unspecified protein-calorie malnutrition; I10 Essential (primary) hypertension; F41.9 Anxiety disorder, unspecified; Z88.1 Allergy status to other antibiotic agents; Z91.040 Latex allergy status; Z96.641 Presence of right artificial hip joint; Z87.891 Personal history of nicotine dependence; Z79.899 Other long term (current) drug therapy; E55.9 Vitamin D deficiency, unspecified; Z90.710 Acquired absence of both cervix and uterus; Z90.79 Acquired absence of other genital organ(s); Z90.722 Acquired absence of ovaries, bilateral; E86.0 Dehydration; D50.0 Iron deficiency anemia secondary to blood loss (chronic)
CPT/HCPCS: 2NAP; 36415; 36592; 81001; 82436; 87015; 87040; 87045; 87086; 87899; 87899-59; 88184; 97161-GP; J0131; J0696; J1644; J1720; J7042; S5012

== ENCOUNTER 2018-06-28 14:52 | Inpatient (IN) | payer OTHER ==
[~2018-06-28] VITALS: Ht 149.9 cm; Wt 36.9 kg
[~2018-06-28 14:52] MED LIST changes: +CANASA1000 M1 PR; +DELZICOL400 M1 PO; +[UNRECOGNIZED DRUG - OTHER] PO
[2018-06-28 15:43] LABS: ABSOLUTE BASOPHIL COUNT 0 /CUMM (0.0-0.2); ABSOLUTE EOSINOPHIL COUNT 0 /CUMM (0.0-0.7); ABSOLUTE GRANULOCYTE CT 10.4 /CUMM (1.4-6.5); ABSOLUTE MONOCYTE COUNT 1.4 /CUMM (0.10-0.60); BASOPHIL % 0.1 % (0.0-2.0); EOSINOPHIL % 0.1 % (0-5); GRANULOCYTE % 75.1 % (42.2-75.2); HEMATOCRIT 36.9 % (37-47); MEAN CORPUSCULAR HGB 34.4 PG (27.0-31.0); MEAN CORPUSCULAR VOLUME 98.2 FL (81.0-99.0); MEAN PLATELET VOLUME 6.4 FL (7.4-10.4); PLATELET COUNT 235 /CUMM (130-400); RBC DISTRIBUTION WIDTH 14.9 % (11.5-14.5); RED BLOOD CELL CT 3.75 /CUMM (4.20-5.40); WHITE BLOOD CELL COUNT 13.8 /CUMM (4.8-10.8)
--- NOTE | 2018-06-28 18:41 | ED GI/GU/ABDOMINAL COMPLAINT ---
History of Present Illness General Chief Complaint: Nausea, Vomiting, Diarrhea Stated Complaint: NVD Source: patient, family Exam Limitations: poor historian Vital Signs & Intake/Output Vital Signs & Intake/Output Vital Signs Date Time Temp Pulse Resp B/P B/P Pulse O2 O2 Flow FiO2 Mean Ox Delivery Rate 06/28 2307 98.0 74 16 116/68 96 Room Air 06/28 2012 98.9 86 18 112/70 97 06/28 1826 98.7 75 16 118/68 99 Room Air 06/28 1517 97.3 89 15 121/77 98 Room Air Room Air ED Intake and Output 06/29 0000 06/28 1200 Intake Total 0 Output Total Balance 0 Intake, Oral 0 Patient 79 lb 15.99 oz Weight Weight Reported by Patient Measurement Method Allergies Coded Allergies: erythromycin base (GI UPSET 06/28/18) Reconcile Medications Cyanocobalamin (Vitamin B-12) 1,000 MCG TABLET 1 TAB PO DAILY SUPPLEMENT ( Reported) Diphenoxylate HCl/Atropine (Lomotil 2.5-0.025 MG Tablet) 2.5 MG-0.025 MG TABLET 1 TAB PO TID PRN DIARRHEA (Reported) Hyoscyamine Sulfate (Levsin-Sl) 0.125 MG TAB.SUBL 1 TAB SL TID PRN ABD CRAMPING (Reported) Mesalamine (Apriso) 0.375 GRAM CAP.ER.24H 4 CAP PO DAILY GI (Reported) Mesalamine (Canasa) 1,000 MG SUPP.RECT 1 SUP AR BID ulcerative colitis . Metoprolol Succ XL (Toprol XL) 25 MG TAB 1 TAB PO DAILY HEART/BP (Reported) Prednisolone Sod Phosphate 15 MG/5 ML (5 ML) SOLUTION 20 ML PO DAILY UC Prednisolone Sod Phosphate (Veripred 20) 20 MG/5 ML (4 MG/ML) SOLUTION 15 ML PO DAILY UC . Triage Note: PT TO ED FOR C/C OF GENERALIZED WEAKNESS, DIARRHEA WITH HX OF ULCERATIVE COLITIS. RECENTLY ADMITTED AND DISCHARGED FROM THIS FACILITY ON WEDNESDAY. AFEBRILE IN TRIAGE. Triage Nurses Notes Reviewed? yes ? N Is pt currently ? No HPI: Patient presents for evaluation of tailbone pain, poor pedal intake, multiple episodes of watery diarrhea, cramping abdominal pain, substernal chest pain and shortness of breath. Symptoms have been present for about 2 days. Patient was recently admitted to [facility] with a case of ulcerative colitis but hasn 't seemed to have recovered. Past History Travel History Traveled to [place] past 21 day No Medical History Any Pertinent Medical History? 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 , Age 79; Cause: ASHD (arteriosclerotic heart disease). FATHER ("Primary" Liver Ca (*no hx cirrhosis); +RA). , Age 80; Cause: Liver cancer. Hx Contributory? No Review of Systems Review of Systems Constitutional: Reports: no symptoms. EENTM: Reports: no symptoms. Respiratory: Reports: no symptoms. Cardiovascular: Reports: no symptoms. GI: Reports: see HPI. Genitourinary: Reports: no symptoms. Musculoskeletal: Reports: no symptoms. Skin: Reports: no symptoms. Neurological/Psychological: Reports: no symptoms. Hematologic/Endocrine: Reports: no symptoms. Immunologic/Allergic: Reports: no symptoms. All Other Systems: Reviewed and Negative Physical Exam Physical Exam Gastrointestinal: see below Comments: Gen.: Well-nourished, well-developed, no acute respiratory distress. Thin. Head: Normocephalic, atraumatic. Eyes: Normal inspection bilaterally Ears: Normal inspection bilaterally Nose: Normal inspection Throat/mouth : Tacky mucosa Neck: Supple, full range of motion, no goiter Heart: Regular rate and rhythm, no murmurs rubs or gallops Lungs: Clear to auscultation bilaterally with normal air entry Chest: Nontender Back: Normal range of motion Abdomen: Soft, nontender, nondistended, normal bowel sounds Extremities: Normal range of motion grossly, equal radial pulses, no cyanosis clubbing or edema Neurologic: Cranial nerves grossly intact, speech is clear Skin: warm and dry Psychiatric: Calm, cooperative, no apparent delusions or hallucinations Core Measures ACS in differential dx? No Sepsis Present: No Sepsis Focused Exam Completed? No Progress Differential Diagnosis: ULCERATIVE COLITIS, INFECTIOUS COLITIS, IRRITABLE BOWEL SYNDROME, GASTROENTERITIS, MEDICATION SIDE EFFECT Plan of Care: Orders Procedure Date/time Status Clear Liquid Diet 06/29 B Active Misc Message 06/29 19 Active ED Holding Orders 06/29 19 Active Admit to inpatient 06/29 19 Active Vital Signs 06/29 19 Active Code Status 06/29 19 Active EKG 06/28 1520 Active TROPONIN LEVEL 06/28 1518 Complete MAGNESIUM 06/28 1518 Complete LIPASE 06/28 1518 Complete LACTIC ACID 06/28 151 Complete COMPREHENSIVE METABOLIC PANEL 06/28 151 Complete CBC WITHOUT DIFFERENTIAL 06/28 151 Complete Current Medications Sig/Jayde Start time Last Medication Dose Stop Time Status Admin Dextrose/Sodium 1,000 ML Q6H 06/29 0030 UNVr Chloride (D5-Normal Saline) Laboratory Tests 06/28/18 1818: Lactic Acid Cancelled 06/28/18 1534: Anion Gap 7, Estimated GFR > 60, BUN/Creatinine Ratio 28.0 H, Glucose 88, Lactic Acid 0.8, Calcium 8.9, Magnesium 2.0, Total Bilirubin 0.9, AST 17, ALT 30 , Alkaline Phosphatase 68, Troponin I < 0.01, Total Protein 6.1 L, Albumin 3.6, Globulin 2.5, Albumin/Globulin Ratio 1.4, Lipase 555 H, CBC w Diff MAN DIFF ORDERED, RBC 3.75 L, MCV 98.2, MCH 34.4 H, MCHC 35.0, RDW 14.9 H, MPV 6.4 L, Gran % 75.1, Lymphocytes % 14.7 L, Monocytes % 10.0 H, Eosinophils % 0.1, Basophils % 0.1, Absolute Granulocytes 10.4 H, Segmented Neutrophils 70, Band Neutrophils 3, Absolute Lymphocytes 2.0, Lymphocytes 16 L, Monocytes 11 H, Absolute Monocytes 1.4 H, Absolute Eosinophils 0, Absolute Basophils 0, Platelet Estimate ADEQUATE, Anisocytosis 1+ 06/28/18 1520: Troponin I Cancelled Diagnostic Imaging: Discussed w/RAD: CT Scan. Radiology Impression: PATIENT: NANIE WAGONER PRESENT AGE: 57 PATIENT ACCOUNT NO: [id number] : 60 LOCATION: [facility] ORDERING PHYSICIAN: Misha Olivera MD SERVICE DATE: 06/28/18 EXAM TYPE: CAT - CT ABD & PELVIS W ORAL & IV CO EXAMINATION: CT ABDOMEN AND PELVIS WITH CONTRAST CLINICAL INFORMATION: Diffuse abdominal pain, history of ulcerative colitis COMPARISON: None TECHNIQUE: Multidetector volumetric imaging was performed of the abdomen and pelvis following IV administration of 95 mL of Optiray 320 intravenous contrast. Oral contrast was also administered. Sagittal and coronal reformatted images were obtained on the technologist's workstation. DLP: 217.34 mGy-cm FINDINGS: LUNG BASES: The visualized lung bases are unremarkable. LIVER, GALLBLADDER, AND BILIARY TREE: The liver is normal in size, shape, and attenuation. No focal hepatic lesion or biliary ductal dilatation is present. The gallbladder is unremarkable with no evidence of radiopaque gallstones, gallbladder wall thickening, or obvious pericholecystic inflammatory changes. PANCREAS: Unremarkable. SPLEEN: Unremarkable. ADRENAL GLANDS: Unremarkable. KIDNEYS AND URETERS: The kidneys are normal in size, shape, and attenuation. There are regions of cortical scarring in the left kidney. There is a small focal region of cortical hypoattenuation lower pole of the right kidney (coronal image 39) of uncertain clinical significance. No hydronephrosis, hydroureter, or calculi seen. No perinephric stranding. BLADDER: Unremarkable. GASTROINTESTINAL TRACT: There is wall thickening and hyperenhancement of essentially the entire colon and rectum, consistent with colitis. No evidence of bowel obstruction. The appendix appears nondilated. Small bowel appears unremarkable. No free fluid or free air is seen. ABDOMINAL WALL: No significant hernia is appreciated. LYMPH NODES: Normal. VASCULAR: Scattered atherosclerotic calcifications are present. PELVIC VISCERA: Patient appears to status post hysterectomy. Assessment of the pelvis is partially limited due to streak artifact from right hip arthroplasty hardware. OSSEOUS STRUCTURES: There is intervertebral disc space narrowing in the lower lumbar spine. Patient is status post right total hip arthroplasty. IMPRESSION: 1. Inflammatory change of essentially the entire colon and rectum, in keeping with history of ulcerative colitis. No evidence of bowel obstruction. No free air identified. 2. Focal region of cortical hypoattenuation in the lower pole of the right kidney, of uncertain clinical significance. In the proper clinical setting, this could be seen in pyelonephritis. Underlying mass is considered less likely with this appearance though difficult to entirely exclude. Follow-up with renal protocol CT in 3-6 months may be helpful for reevaluation. DICTATED BY: Ed Espinoza MD DATE/TIME DICTATED:06/28/182315 PARK INTERPRETIVE RANGER:SHADE DATE/TIME TRANSCRIBED:06/28/182315 CONFIDENTIAL, DO NOT COPY WITHOUT APPROPRIATE AUTHORIZATION. <Electronically signed in Other Vendor System> SIGNED BY: Ed Espinoza MD 06/28/182328 Initial ED EKG: NSR, rate (74), LVH (possible) Prior EKG: unchanged Comments: 06/28/2018 11:54:31 PM I have updated Annie and her on test results including the kidney lesions seen in the need for follow-up imaging. She is currently taking Lomotil, Canasa, Bentyl, Humira and prednisone. I offered to increase the patient's dose of prednisone and recommended that she take the maximum dose of Lomotil. However she feels that she cannot go home at this time. She feels too weak. Departure Departure Disposition: HOME OR SELF CARE Condition: Stable Clinical Impression Primary Impression: Ulcerative colitis Qualifiers: Ulcerative colitis location: ulcerative pancolitis Digestive disease complication type: without complication Qualified Code: K51.00 - Ulcerative (chronic) pancolitis without complications Referrals: Shalini MARTINEZ,Domenico Roy (PCP/Family) Additional Instructions: Increase your prednisolone to 20 mL daily. Continue your other medications. Contact Dr. Irizarry's group tomorrow and arrange for follow-up appointment this week. Return if any concerns or sudden worsening. Please note that there might be incidental findings in your evaluation that are unrelated to the current emergency department visit. Please notify your primary care doctor about this emergency department visit in order to obtain and review all of the testing performed so that these incidental findings can be monitored as needed. If you had an x-ray performed, please understand that some fractures or other findings may not be seen on the initial set of x-rays. If your symptoms persist you might need a repeat set of x-rays to check for such a fracture. If you had a laceration evaluated, please understand that foreign bodies such as glass or wood may not be visible to the naked eye or on plain x-rays. If the wound becomes red, swollen, increasingly more painful or if there is any drainage from the wound, please have it reevaluated by a physician for the possibility of a retained foreign body. If you're unable to follow up as outlined in the discharge instructions please return to the emergency department. Thank you for choosing the [facility] Emergency Department for your care. It was a pleasure to serve you today. Misha Olivera M.D. [facility] Departure Forms: Customer Survey General Discharge Information Prescriptions: Current Visit Scripts Prednisolone Sod Phosphate 20 ML PO DAILY #100 ML Admission Note Spoke With: Ruben Blanc MD Documentation of Exam: Documentation of any treatments & extenuating circumstances including Concerns Regarding Discharge (functional status, medication knowledge or non-compliance, living conditions, etc.) that warrant an admission rather than observation: Patient is experiencing an exacerbation of ulcerative colitis resulting in cramping abdominal pain generalized weakness and multiple episodes of watery diarrhea. The patient's states that she hasn't had a formed bowel movement in 10 months. She has virtually no appetite and has been unable to keep up with her fluid intake. She has lost weight over the past few weeks. The patient is failing outpatient management with multiple symptomatic medications along with the disease modifying medication Humira. I feel this patient requires hospitalization for IV fluids, GI consultation and review of her current medications. Her medical management should be optimized. Given the severity of this patient's symptoms I feel she will require a multiple day hospitalization.
--- NOTE | 2018-06-28 23:29 | CT SCAN REPORT ---
EXAMINATION: CT ABDOMEN AND PELVIS WITH CONTRAST CLINICAL INFORMATION: Diffuse abdominal pain, history of ulcerative colitis COMPARISON: None TECHNIQUE: Multidetector volumetric imaging was performed of the abdomen and pelvis following IV administration of 95 mL of Optiray 320 intravenous contrast. Oral contrast was also administered. Sagittal and coronal reformatted images were obtained on the technologist's workstation. DLP: 217.34 mGy-cm FINDINGS: LUNG BASES: The visualized lung bases are unremarkable. LIVER, GALLBLADDER, AND BILIARY TREE: The liver is normal in size, shape, and attenuation. No focal hepatic lesion or biliary ductal dilatation is present. The gallbladder is unremarkable with no evidence of radiopaque gallstones, gallbladder wall thickening, or obvious pericholecystic inflammatory changes. PANCREAS: Unremarkable. SPLEEN: Unremarkable. ADRENAL GLANDS: Unremarkable. KIDNEYS AND URETERS: The kidneys are normal in size, shape, and attenuation. There are regions of cortical scarring in the left kidney. There is a small focal region of cortical hypoattenuation lower pole of the right kidney (coronal image 39) of uncertain clinical significance. No hydronephrosis, hydroureter, or calculi seen. No perinephric stranding. BLADDER: Unremarkable. GASTROINTESTINAL TRACT: There is wall thickening and hyperenhancement of essentially the entire colon and rectum, consistent with colitis. No evidence of bowel obstruction. The appendix appears nondilated. Small bowel appears unremarkable. No free fluid or free air is seen. ABDOMINAL WALL: No significant hernia is appreciated. LYMPH NODES: Normal. VASCULAR: Scattered atherosclerotic calcifications are present. PELVIC VISCERA: Patient appears to status post hysterectomy. Assessment of the pelvis is partially limited due to streak artifact from right hip arthroplasty hardware. OSSEOUS STRUCTURES: There is intervertebral disc space narrowing in the lower lumbar spine. Patient is status post right total hip arthroplasty. IMPRESSION: 1. Inflammatory change of essentially the entire colon and rectum, in keeping with history of ulcerative colitis. No evidence of bowel obstruction. No free air identified. 2. Focal region of cortical hypoattenuation in the lower pole of the right kidney, of uncertain clinical significance. In the proper clinical setting, this could be seen in pyelonephritis. Underlying mass is considered less likely with this appearance though difficult to entirely exclude. Follow-up with renal protocol CT in 3-6 months may be helpful for reevaluation.
[2018-06-29] MEDS ORDERED: PREDNISOLO15 MG/5 M3 PO (00:09)
--- NOTE | 2018-06-29 01:31 | History & Physical ---
Dwain Whyte 06/29/18 0130: General Information and HPI MD Statement: I have seen and personally examined MANINDER WAGONER and documented this H&P. The patient is a 57 year old F who presented with a patient stated chief complaint of [abdominal cramping & watery diarrhea]. Source of Information: patient, family Exam Limitations: no limitations History of Present Illness: 57 year old female recently seen last week at [facility] for ulcerative colitis discharged home on presents with 2 days of worsening watery diarrhea, and abdominal cramping pain. Patient was discharged on June 22, has not followed up with GI (Dr. Irizarry) or PMD since then but felt better all the way through Wednesday until Wednesday when the patient's diarrhea returned as before. Today the patient had 12 bowel movements since arriving in the emergency department. Reports loss of appetite, only managed to eat and ensure shake this morning. She also reports blood in bowel movement this afternoon. She denies nausea or vomiting, but endorses fever, chills, diaphoresis and abdominal bloating with cramps and pain as well as lightheadedness. Patient lives at home with her , independent with ADLs. Patient is a former smoker, smoking one half packs a day for about 10 years over 20 years ago. She denies alcohol use or illicit drug use. 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 , Age 79; Cause: ASHD (arteriosclerotic heart disease). FATHER ("Primary" Liver Ca (*no hx cirrhosis); +RA). , Age 80; Cause: Liver cancer. Psychosocial History Who Do You Live With? spouse (Philip) Services at Home: None Primary Language: South Sudanese Living Will? no Power of Manhole Stripper/HCP? no Functional Ability ADLs Independent: dressing, eating, toileting, bathing. Ambulation: independent IADLs Independent: shopping, housework, finances, food prep, telephone, transportation , medication admin. Review of Systems Review of Systems Constitutional: Reports: chills, diaphoresis, fever. EENTM: Denies: throat pain. Cardiovascular: Denies: chest pain, orthopena. Respiratory: Denies: cough, short of breath. GI: Reports: abdominal pain, bloating, diarrhea, bloody stool. Denies: distention, nausea, vomiting. Neurological/Psychological: Denies: headache. Exam & Diagnostic Data Last 24 Hrs of Vital Signs/I&O Vital Signs Date Time Temp Pulse Resp B/P B/P Pulse O2 O2 Flow FiO2 Mean Ox Delivery Rate 06/287 98.0 74 16 116/68 96 Room Air 06/28 2012 98.9 86 18 112/70 97 06/28 1826 98.7 75 16 118/68 99 Room Air 06/28 1517 97.3 89 15 121/77 98 Room Air Room Air Intake & Output 06/29 0800 06/29 0000 06/28 1600 Intake Total 0 Output Total Balance 0 Intake, Oral 0 Patient 36.287 kg Weight Weight Reported by Patient Measurement Method Physical Exam General Appearance Alert, Oriented X3, Cooperative, No Acute Distress HEENT Atraumatic, PERRLA, EOMI, Mucous Membr. moist/pink Cardiovascular Regular Rate, Normal S1, Normal S2 Lungs Clear to Auscultation, Normal Air Movement Abdomen Normal Bowel Sounds, Tenderness to palpation in LUQ, Pulsatile abdominal aorta Neurological Normal Speech, Strength at 5/5 X4 Ext, Normal Tone Extremities No Clubbing, No Cyanosis, No Edema Last 24 Hrs of Labs/[place]: Laboratory Tests 06/29/18 0251: Stool Lactoferrin Pending 06/28/18 1818: Lactic Acid Cancelled 06/28/18 1534: Anion Gap 7, Estimated GFR > 60, BUN/Creatinine Ratio 28.0 H, Glucose 88, Lactic Acid 0.8, Calcium 8.9, Magnesium 2.0, Total Bilirubin 0.9, AST 17, ALT 30 , Alkaline Phosphatase 68, Troponin I < 0.01, C-Reactive Prot, Quant 0.5, Total Protein 6.1 L, Albumin 3.6, Globulin 2.5, Albumin/Globulin Ratio 1.4, Lipase 555 H, CBC w Diff MAN DIFF ORDERED, RBC 3.75 L, MCV 98.2, MCH 34.4 H, MCHC 35.0, RDW 14.9 H, MPV 6.4 L, Gran % 75.1, Lymphocytes % 14.7 L, Monocytes % 10.0 H, Eosinophils % 0.1, Basophils % 0.1, Absolute Granulocytes 10.4 H, Segmented Neutrophils 70, Band Neutrophils 3, Absolute Lymphocytes 2.0, Lymphocytes 16 L, Monocytes 11 H, Absolute Monocytes 1.4 H, Absolute Eosinophils 0, Absolute Basophils 0, Platelet Estimate ADEQUATE, Anisocytosis 1+ 06/28/18 1520: Troponin I Cancelled Microbiology 06/29 251 STOOL: Yersinia Culture - RECD 06/29 251 STOOL: Clostridium difficile Toxin A & B - RECD 06/29 251 STOOL: Stool Culture - RECD 06/29 141 STOOL: Cryptosporidium Antigen - COLB 06/29 141 STOOL: Giardia Antigen (SUMANTH) - COLB Assessment/Plan Assessment: 87-year-old female with past history of ulcerative colitis, recently seen last week at [facility], presents 2 days of worsening watery diarrhea and abdominal cramping pain. Problems: 1. Ulcerative colitis 2. Elevated lipase 3. Hyponatremia Plan: Full code As Ranked By This Provider Problem List: 1. Ulcerative colitis Qualifiers Ulcerative colitis location: ulcerative pancolitis Digestive disease complication type: without complication Qualified Code: K51.00 - Ulcerative ( chronic) pancolitis without complications 2. Diarrhea 3. Abdominal pain Core Measures/Misc (06/27) Acute Coronary Syndrome ACS Diagnosis: No Congestive Heart Failure Congestive Heart Failure Diagnosis No Cerebrovascular Accident CVA/TIA Diagnosis: No VTE (View Protocol) VTE Risk Factors Age>40 No Mechanical VTE Prophylaxis d/t N/A MechProphylax Ordered No VTE Pharm Prophylaxis d/t Bleeding (Active) Sepsis (View protocol) Sepsis Present: No If YES complete Sepsis Event Note If YES complete Sepsis Event Note Ruben Blanc 06/29/18 0143: Core Measures/Misc (06/27) Sepsis (View protocol) If YES complete Sepsis Event Note If YES complete Sepsis Event Note Attending MD Review Statement Attending Statement Attending MD Statement: examined this patient, discuss w/resident/PA/DISCOVERY MANAGER, agreed w/resident/PA/DISCOVERY MANAGER Attending Assessment/Plan: Addendum by . Patient was seen and examined at bedside today (06/29/18 ) at 1 am. Reviewed the history physical done by the resident. Reviewed the past medical family, family, social history. ROS: 10 point system reviewed and negative except as described above. Additional details: Patient was recently here last week was treated for ulcerative colitis flare. She was discharged on prednisone. Patient is also taking mesalamine, Humira injections. Since Wednesday patient started having abdominal cramping pain, diarrhea. Patient describes as multiple episodes of watery stools a day. Associated with the cramping abdominal pain. No fever, no nausea vomiting. Patient has poor appetite also lost significant weight in the last few months. CT abdomen pelvis, labs reviewed. Examination: Thin built, alert awake, oriented 3. Cardiac and pulmonary examination is normal. Abdomen-mild diffuse tenderness, soft, no rigidity, bowel sounds are present, no organomegaly. See the resident exam for follow-up note for full examination. Assessment and plan: #Ulcerative colitis flare-CT abdomen pelvis reviewed, shows diffuse colitis. Will get stool studies given diarrhea. Hold off on any antibiotics given recent use of antibiotics. Her WBC elevation is likely due to recent use of steroids. Will start her on Solu-Medrol 40 mg every 12 hourly. Consult GI in the morning. Recent scopes reviewed. #Elevated lipase-no signs of pancreatitis on CT scan. Continue with IV fluids. #Prior history of hyponatremia, sodium is 135. #Anxiety, hypertension-no acute issues. Reviewed with the resident. Agree with the rest of the plan as per resident's note. Dr.Ravinder Linda MD. Hospitalist. Pager: [phone], cell: [phone]. Sam Calloway MD 06/29/18 0150: General Information and HPI Allergies/Medications Home Med list Cyanocobalamin (Vitamin B-12) 1,000 MCG TABLET 1 TAB PO DAILY SUPPLEMENT ( Reported) Diphenoxylate HCl/Atropine (Lomotil 2.5-0.025 MG Tablet) 2.5 MG-0.025 MG TABLET 1 TAB PO TID PRN DIARRHEA (Reported) Hyoscyamine Sulfate (Levsin-Sl) 0.125 MG TAB.SUBL 1 TAB SL TID PRN ABD CRAMPING (Reported) Mesalamine (Apriso) 0.375 GRAM CAP.ER.24H 4 CAP PO DAILY GI (Reported) Mesalamine (Canasa) 1,000 MG SUPP.RECT 1 SUP [place] BID ulcerative colitis . Metoprolol Succ XL (Toprol XL) 25 MG TAB 1 TAB PO DAILY HEART/BP (Reported) Core Measures/Misc (06/27) Sepsis (View protocol) If YES complete Sepsis Event Note If YES complete Sepsis Event Note Resident Review Statement Resident Statement: examined this patient, discussed with pharmacy grad intern, agreed with pharmacy grad intern, reviewed EMR data (avail), amended to note Other Findings: Patient is a 57 -year-old female with past medical history significant for ulcerative colitis, hypertension, osteoarthritis, degenerative joint disease recently discharged from [facility] on 06/22 after treatment of an ulcerative colitis flare status post colonoscopy presenting this admission with chief complaint of generalized weakness and diarrhea. Patient's was present at time of interview and provided much of the history. Reports that patient has had 2 day history of watery diarrhea with "ferrari granular" material. Reports she had approximately 12 bowel movements prior to coming into the ED around 2 PM on day of admission. Patient reports occasional blood in stool. Reports associated abdominal cramps and bloating. Patient reports lightheadedness, weakness, denies fever, reports chills and sweating. Denies constipation, dysuria, hematuria. Patient reports poor appetite and states that she has lost approximate 10 pounds her discharge. Patient had Ensure at approximately 2 PM on day of admission and was able to tolerate it. Patient reports that 2 days prior to her symptoms she was doing well. Reports that since her discharge her strength was improving up until 2 days ago. States that on Wednesday she took her Humira and felt great the next day. Reports that Wednesday her symptoms started. Patient has not seen her GI doctor or her PCP since her discharge reports that she has an appointment with her primary care physician in 3 days. Patient reports that she smoked 1.5 packs per day for 10 years and quit 20 years ago. Reports occasional alcohol use. Denies any illicit drug use. Reports that she walks independently without assistance. Patient denies eating anything out of the ordinary. Denies any sick contacts or recent travel. Physical exam and labs as above Patient is a 57-year-old female with past medical history significant for ulcerative colitis presenting with a 2 day history of diarrhea, abdominal cramping and generalized weakness. Patient was not febrile and had a mild leukocytosis likely secondary to steroid use. CT scan showed findings consistent with colitis. We will treat for an ulcerative colitis flare and rule out any infectious etiologies. Of note patient's lipase levels were elevated however patient did not have epigastric pain or tenderness and CT scan was negative for findings consistent with pancreatitis. Plan: Admit to [facility] Send stool for culture, lactoferrin, ova and parasite Monitor ins and outs Nothing by mouth with IV fluid hydration GI consult placed IV Solu-Cortef 100 mg every 8 hours Continue mesalamine tablet and suppository Continue Hyoscyamine TID PRN for abdominal cramping Tylenol PRN for pain Blood pressure remains under control, will hold metoprolol for now DVT PPx: ALPS only in setting of UC flare with possible GI bleed Code: Full code Diet: NPO with IV fluids
--- NOTE | 2018-06-29 13:01 | PN- Att Addend ---
Attending Addendum Attending Brief Note Patient seen and examined. Previous records reviewed and discussed with house staff who cared for the patient during her previous hospitalization. Her home medication regimen was reviewed. Previous recommendation from the gastroenterology service noted. Currently complains of diffuse abdominal pain. Mild nausea. Denies vomiting. Examination abdomen is scaphoid, soft, diffuse tenderness with no rebound or guarding, normal bowel sounds. CT imaging results noted. She is obviously having another flare of her ulcerative colitis. She has been started back on systemic steroid therapy. We will increase the dose of her mesalamine as previously recommended by the gastroenterology service. We will keep her n.p.o. and await further recommendations from the GI service. Patient reports bright red blood per rectum. We will follow-up hemoglobin level today and transfuse to keep hemoglobin greater than 8. We will transfuse earlier if she is hemodynamically stable. Her blood pressure is currently in the low 100s but likely due to volume depletion. We will hold her metoprolol for now and continue aggressive IV hydration. In view of her repeated steroid therapy Recommend addition of PPI therapy to her regimen
[2018-06-29 16:26] LABS: ABSOLUTE BASOPHIL COUNT 0 /CUMM (0.0-0.2); ABSOLUTE EOSINOPHIL COUNT 0 /CUMM (0.0-0.7); ABSOLUTE GRANULOCYTE CT 4.1 /CUMM (1.4-6.5); ABSOLUTE LYMPH COUNT 0.2 /CUMM (1.2-3.4); ABSOLUTE MONOCYTE COUNT 0.4 /CUMM (0.10-0.60); BASOPHIL % 0.1 % (0.0-2.0); EOSINOPHIL % 0 % (0-5); HEMATOCRIT 33.5 % (37-47); MEAN CORPUSCULAR HGB 34.4 PG (27.0-31.0); MEAN CORPUSCULAR HGB CONC 35.3 G/DL (33.0-37.0); MEAN CORPUSCULAR VOLUME 97.3 FL (81.0-99.0); MEAN PLATELET VOLUME 6.3 FL (7.4-10.4); PLATELET COUNT 198 /CUMM (130-400); RBC DISTRIBUTION WIDTH 14.5 % (11.5-14.5); RED BLOOD CELL CT 3.45 /CUMM (4.20-5.40)
[2018-06-29 16:37] LABS: GRANULOCYTE % 86.6 % (42.2-75.2); WHITE BLOOD CELL COUNT 4.8 /CUMM (4.8-10.8)
--- NOTE | 2018-06-29 18:35 | Cons- Gastroenterology ---
General Information and HPI Consulting Request Date of Consult: 06/29/18 Requested By: Yovanny MARTINEZ,Gt Reason for Consult: Ulcerative colitis Source of Information: patient, old records Exam Limitations: no limitations History of Present Illness: 57 year old female with US who was started on Manohar May 20 and is now on a weekly regemin with last injection on WednesdayJun 24. Now presents with 2 days of worsening watery diarrhea, and abdominal cramping pain. Has a had a waxing and waining course over the last 4 weeks while on manohar but overall does not feel that she has had any improvement. Today the patient had 12 bowel movements since arriving in the emergency department. Rare blood in BM, and thenm tends to be small amounts. Reports loss of appetite, only managed to eat and ensure shake this morning. She denies nausea or vomiting, but endorses fever, chills, diaphoresis and abdominal bloating with cramps and pain as well as lightheadedness. No joint pains. Patient lives at home with her , independent with ADLs. Patient is a former smoker, smoking one half packs a day for about 10 years over 20 years ago. She denies alcohol use or illicit drug use. Allergies/Medications Allergies: Coded Allergies: erythromycin base (GI UPSET 06/28/18) Home Med List: Cyanocobalamin (Vitamin B-12) 1,000 MCG TABLET 1 TAB PO DAILY SUPPLEMENT ( Reported) Diphenoxylate HCl/Atropine (Lomotil 2.5-0.025 MG Tablet) 2.5 MG-0.025 MG TABLET 1 TAB PO TID PRN DIARRHEA (Reported) Hyoscyamine Sulfate (Levsin-Sl) 0.125 MG TAB.SUBL 1 TAB SL TID PRN ABD CRAMPING (Reported) Mesalamine (Apriso) 0.375 GRAM CAP.ER.24H 4 CAP PO DAILY GI (Reported) Mesalamine (Canasa) 1,000 MG SUPP.RECT 1 SUP [place] BID ulcerative colitis . 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 , Age 79; Cause: ASHD (arteriosclerotic heart disease). FATHER ("Primary" Liver Ca (*no hx cirrhosis); +RA). , Age 80; Cause: Liver cancer. Psychosocial History Who Do You Live With? spouse (Philip) Services at Home: None Primary Language: Tamaz[place] Living Will? no Power of Low Vision Therapist/HCP? no Functional Ability ADLs Independent: dressing, eating, toileting, bathing. Ambulation: independent IADLs Independent: shopping, housework, finances, food prep, telephone, transportation , medication admin. Review of Systems Review of Systems: Constitutional: Reports: chills, diaphoresis, fever. EENTM: Denies: throat pain. Cardiovascular: Denies: chest pain, orthopena. Respiratory: Denies: cough, short of breath. GI: Reports: abdominal pain, bloating, diarrhea, bloody stool. Denies: distention, nausea, vomiting. Neurological/Psychological: Denies: headache. Exam & Diagnostic Data Vital Signs and I&O Vital Signs Date Time Temp Pulse Resp B/P B/P Pulse O2 O2 Flow FiO2 Mean Ox Delivery Rate 06/29 1745 115/59 06/29 1621 60 98/58 06/29 1451 98.1 66 18 92/51 99 Room Air Room Air 06/29 0840 98.0 75 18 113/65 98 Room Air 06/29 0638 97.8 78 18 109/57 98 Room Air 06/28 2307 98.0 74 16 116/68 96 Room Air 06/28 2012 98.9 86 18 112/70 97 06/28 1826 98.7 75 16 118/68 99 Room Air Intake & Output 06/29 1600 06/29 0400 06/28 1600 06/28 0400 06/27 1600 06/27 0400 Intake Total 0 Output Total Balance 0 Intake, Oral 0 Patient 79 lb 15.99 oz Weight Weight Reported by Patient Measurement Method Physical Exam General Appearance Alert, Oriented X3, Cooperative, No Acute Distress HEENT Atraumatic, PERRLA, EOMI, Mucous Membr. moist/pink Cardiovascular Regular Rate, Normal S1, Normal S2 Lungs Clear to Auscultation, Normal Air Movement Abdomen Normal Bowel Sounds, Tenderness to deep palpation in LLQ, No rebound. Neurological Normal Speech, Strength at 5/5 X4 Ext, Normal Tone Extremities No Clubbing, No Cyanosis, No Edema Assessment/Plan Assessment/Recommendations: Colonscopy Jun 14. Moderately active ulcerative colitis to the splenic flexure post biopsies. Summary: 57-year-old female with past history of ulcerative colitis who has been on huimera for 5 weeks, presents with 2 days of worsening watery diarrhea and abdominal cramping pain. Little blood loss despite high bowel frequency. Little drop in Hct. Manohar has a number of side-effects but diarrhea is not a common one. 1. Stool for ova/parasites, yersinia and C. Diff. 2. Solu-Cortef 100 mg IV every 8 hour 3. Oral mesalamine 1600 mg po tid and rowasa enemas as a retention enema qhs 4. Clear liquids 5. Next dose of manohar in 48hrs. 6. Possible flexible sigmoidoscopy. Will decide tomorrow. Consult Acknowledgment - Thank you for your consult request.
[2018-06-29 21:20] VITALS: BP 110/68
[2018-06-30 06:01] VITALS: BP 106/60
--- NOTE | 2018-06-30 09:35 | PN- Housestaff ---
Baron Keys 06/30/18 0933: Subjective Follow-up For: ulcerative colitis flare Subjective: Patient was seen and examined today. Her diet was advanced to full liquids yesterday and she hasnt been able to keep it . C/o diarrhea , and non absorption of pills. that is seen in her stools. but denies any dizziness/ light headedness, fatigues, nausea, vomitting, fevers, chills. Review of Systems Constitutional: Reports: see HPI, unexplained weight loss. Denies: chills, diaphoresis, fever, malaise, weakness. Objective Last 24 Hrs of Vital Signs/I&O Vital Signs Date Time Temp Pulse Resp B/P B/P Pulse O2 O2 Flow FiO2 Mean Ox Delivery Rate 06/30 0601 98.2 66 20 106/60 99 Room Air 06/29 2306 Room Air 06/29 2120 98.2 56 20 110/68 98 06/29 2020 98.1 58 16 94/58 97 Room Air 06/29 1841 98.6 62 17 106/65 99 Room Air 06/29 1745 115/59 06/29 1621 60 98/58 06/29 1451 98.1 66 18 92/51 99 Room Air Room Air Intake & Output 06/30 1600 06/30 0800 06/30 0000 Intake Total 1600 1000 Output Total Balance 1600 1000 Intake, IV 1400 1000 Intake, Oral 200 Number 1 8 Bowel Movements Patient 86 lb 1 oz 86 lb 0.99 oz Weight Weight Bed scale Bed scale Measurement Method Physical Exam General Appearance: Alert, Oriented X3, Cooperative, No Acute Distress Cardiovascular: Regular Rate, No Murmurs Lungs: Clear to Auscultation, Normal Air Movement Abdomen: Normal Bowel Sounds, Soft, No Tenderness, No Hepatospenomegaly, No Masses, crampy abdominal Neurological: Normal Speech, Strength at 5/5 X4 Ext, Normal Tone, Sensation Intact Current Medications: Current Medications Sig/Jayde Start time Last Medication Dose Route Stop Time Status Admin Acetaminophen 650 MG Q6P PRN 06/29 0145 AC PO Acetaminophen 1,000 MG Q6P PRN 06/29 0145 AC 06/30 IV 0518 Dextrose/Sodium 1,000 ML Q6H 06/29 0030 AC 06/30 Chloride IV 0515 Dicyclomine HCl 20 MG 4 TIMES/DAY 09/20 1004 AC PO Hydrocortisone 100 MG Q8 06/29 0200 AC 06/30 Sodium Succinate IV 0515 Hyoscyamine 0.125 MG ONCE ONE 06/30 0200 DC 06/30 PO 06/30 0201 0355 Hyoscyamine 0 .STK-MED ONE 06/29 1744 DC .ROUTE Hyoscyamine 0.125 MG TIDAC PRN 06/29 0830 AC 06/29 PO 1745 Lidocaine 1 PAT Q24H PRN 06/29 0145 AC EXT Mesalamine 1,600 MG TID 06/29 1400 AC 06/30 PO 0942 Mesalamine 1,000 MG BID 06/29 0900 AC 06/29 MD 0850 Ondansetron HCl 4 MG Q6P PRN 06/29 0145 AC IV Pantoprazole Sodium 40 MG DAILY 06/29 1045 AC 06/30 IV 0949 Sodium Chloride 500 ML BOLUS ONE 06/29 1700 DC 06/29 IV 06/29 1759 1718 Last 24 Hrs of Lab/Sumanth Results Last 24 Hrs of Labs/Mics: Laboratory Tests 06/30/18 0645: Sodium Pending, Potassium Pending, Chloride Pending, Carbon Dioxide Pending, Anion Gap Pending, BUN Pending, Creatinine Pending, BUN/Creatinine Ratio Pending , CBC w Diff Pending, WBC Pending, RBC Pending, Hgb Pending, Hct Pending, MCV Pending, MCH Pending, MCHC Pending, RDW Pending, Plt Count Pending, MPV Pending 06/29/18 1619: Anion Gap 6, Estimated GFR > 60, BUN/Creatinine Ratio 7.5, CBC w Diff NO MAN DIFF REQ, RBC 3.45 L, MCV 97.3, MCH 34.4 H, MCHC 35.3, RDW 14.5, MPV 6.3 L, Gran % 86.6 H, Lymphocytes % 5.2 L, Monocytes % 8.1, Eosinophils % 0, Basophils % 0.1, Absolute Granulocytes 4.1, Absolute Lymphocytes 0.2 L, Absolute Monocytes 0.4, Absolute Eosinophils 0, Absolute Basophils 0, ESR Westergren 35 H Assessment/Plan Assessment: Patient is a 57 y old f with PMH ulcerative colitis with 3 fares in the last year. She was here for another flare last week and was discharged after Dr Irizarry recommended on PO Mesalamine 1600mg TID and suppository Mesalamine bid for regular use and was given a prednisolone taper of 10 days as she has difficulty swallowing predinsone pill. She is also forgetful ,although orietend to time place and person. Conitnuies to have loose BM. Her diet was advanced yesterday from clear liquids to full liquids and her diarrhea worsened . My assessment of this patient is a recurrence of flare due to non compliance to taking mesalamine tid and took it only od. SHe continues having cramps and diarrhea with some vlood. 1) Ulcerative colitis flare 2) generalised weakness due to dehydration 3) hypotension 4) difficulty swallowing- Plan - Ulcerative colitis- Hydrocortisone 100 mg IV every 8 for flare -Continue Zofran for nausea -Continue Canasa and mesalamine per oral 1600 mg 3 times daily -Continue pantoprazole IV continue Bentyl for pain -IV fluids , clear liquid diet Follow-up with GI -We discussed with Dr. Avila regarding possible sigmoidoscopy -PT recommended -Monitor blood pressures every shift Problem List: 1. Dehydration 2. Ulcerative colitis 3. Diarrhea 4. Abdominal pain Pain Ratin Pain Location: abdomen Pain Goal: Remain pain free Pain Plan: bentyl Tomorrow's Labs & Rationales: bryn Hairston MD,Gt 06/30/18 1152: Attending MD Review Statement Attending Statement Attending MD Statement: examined this patient, discuss w/resident/PA/LEARNING CONSULTANT, agreed w/resident/PA/LEARNING CONSULTANT, reviewed EMR data (avail), discussed with nursing, discussed with case mgmt, amended to note Attending Assessment/Plan: Patient seen and examined. Complained of nausea vomiting yesterday. This morning complains of some nausea. Continues complain of abdominal cramping and frequent stools. She is afebrile. She is not tachycardic. Blood pressure is borderline. On examination she does not appear to be in acute distress. Abdomen is soft and nontender. We will continue IV hydration. Advance diet again to clear liquids. Mobilize patient as tolerated. Follow-up stool workup. Once the diarrhea starts to improve and she is tolerating oral intake will begin discharge planning.
[2018-06-30 12:56] LABS: ABSOLUTE BASOPHIL COUNT 0 /CUMM (0.0-0.2); ABSOLUTE EOSINOPHIL COUNT 0 /CUMM (0.0-0.7); ABSOLUTE LYMPH COUNT 0.4 /CUMM (1.2-3.4); ABSOLUTE MONOCYTE COUNT 0.5 /CUMM (0.10-0.60); BASOPHIL % 0 % (0.0-2.0); EOSINOPHIL % 0 % (0-5); GRANULOCYTE % 77.2 % (42.2-75.2); HEMATOCRIT 31.4 % (37-47); MEAN CORPUSCULAR HGB 34.4 PG (27.0-31.0); MEAN CORPUSCULAR HGB CONC 35.4 G/DL (33.0-37.0); MEAN CORPUSCULAR VOLUME 97.3 FL (81.0-99.0); MEAN PLATELET VOLUME 6.9 FL (7.4-10.4); PLATELET COUNT 193 /CUMM (130-400); RBC DISTRIBUTION WIDTH 14.3 % (11.5-14.5); RED BLOOD CELL CT 3.23 /CUMM (4.20-5.40); WHITE BLOOD CELL COUNT 3.9 /CUMM (4.8-10.8)
[2018-06-30 14:23] VITALS: BP 122/80
--- NOTE | 2018-06-30 16:56 | PN- Gastroenterology ---
Assessment/Plan GI Assessment/Recommendations: Ulcerative colitis, active, despite Humira and oral steroids. Currently on intravenous hydrocortisone. Stool tests negative so far. Leukocytosis resolved , normal CRP, although with persistently elevated ESR. Abdominal examination benign Recommendations * Continue hydrocortisone, mesalamine, hyoscyamine * Continue clear liquid diet; nothing by mouth after midnight * Flexible sigmoidoscopy tomorrow. Please order 1 tap water enema spinning bath person to procedure * Decision regarding changing biologic agent will be determined after the above. Subjective Subjective: Continues to have watery diarrhea, frequent, now with some blood. Has crampy pain only prior to bowel movements. No nausea or vomiting. No fever although is having sweats. Tolerating liquid diet. Objective Vital Signs and I&Os Vital Signs Date Time Temp Pulse Resp B/P B/P Pulse O2 O2 Flow FiO2 Mean Ox Delivery Rate 06/30 1423 97.0 87 20 122/80 99 Room Air 06/30 0601 98.2 66 20 106/60 99 Room Air 06/29 2306 Room Air 06/29 2120 98.2 56 20 110/68 98 06/29 2020 98.1 58 16 94/58 97 Room Air 06/29 1841 98.6 62 17 106/65 99 Room Air 06/29 1745 115/59 Intake & Output 06/30 1600 06/30 0400 06/29 1600 06/29 0400 06/28 1600 06/28 0400 Intake Total 2950 1000 0 Output Total Balance 2950 1000 0 Intake, IV 2450 1000 Intake, Oral 500 0 Number 7 8 Bowel Movements Patient 86 lb 1 oz 86 lb 0.99 oz 79 lb 15.99 oz Weight Weight Bed scale Bed scale Reported by Patient Measurement Method Physical Exam: Alert and oriented. Sclera anicteric. No adenopathy. No edema. Abdomen soft, nondistended, nontender. Current Medications: Current Medications Sig/Jayde Start time Last Medication Dose Route Stop Time Status Admin Acetaminophen 650 MG Q6P PRN 06/29 0145 AC PO Acetaminophen 1,000 MG Q6P PRN 06/29 0145 AC 06/30 IV 1514 Alprazolam 0.25 MG ONCE ONE 06/30 1630 DC PO 06/30 1631 Dextrose/Sodium 1,000 ML Q13H 06/30 1545 AC Chloride IV Dextrose/Sodium 1,000 ML Q6H 06/29 0030 DC 06/30 Chloride IV 1511 Dicyclomine HCl 20 MG 4 TIMES/DAY 06/30 1004 AC 06/30 PO 1222 Hydrocortisone 100 MG Q8 06/29 0200 AC 06/30 Sodium Succinate IV 1415 Hyoscyamine 0.125 MG ONCE ONE 06/30 0200 DC 06/30 PO 06/30 0201 0355 Hyoscyamine 0 .STK-MED ONE 06/29 1744 DC .ROUTE Hyoscyamine 0.125 MG TIDAC PRN 06/29 0830 AC 06/29 PO 1745 Lidocaine 1 PAT Q24H PRN 06/29 0145 AC EXT Mesalamine 1,600 MG TID 06/29 1400 AC 06/30 PO 1415 Mesalamine 1,000 MG BID 06/29 0900 AC 06/29 HI 0850 Ondansetron HCl 4 MG Q6P PRN 06/29 0145 AC IV Pantoprazole Sodium 40 MG DAILY 06/29 1045 AC 06/30 IV 0949 Sodium Chloride 500 ML BOLUS ONE 06/29 1700 DC 06/29 IV 06/29 1759 1718 Results Pertinent Lab Results: Laboratory Tests 06/30 06/29 0645 1619 Chemistry Sodium (137 - 145 mmol/L) 135 L 135 L Potassium (3.5 - 5.1 mmol/L) 3.7 3.8 Chloride (98 - 107 mmol/L) 104 104 Carbon Dioxide (22 - 30 mmol/L) 26 25 Anion Gap (5 - 16) 4 L 6 BUN (7 - 17 mg/dL) 4 L 3 L Creatinine (0.5 - 1.0 mg/dL) 0.5 0.4 L Estimated GFR (>60 ml/min) > 60 > 60 BUN/Creatinine Ratio (7 - 25 %) 8.0 7.5 Hematology CBC w Diff NO MAN DIFF REQ NO MAN DIFF REQ WBC (4.8 - 10.8 /CUMM) 3.9 L 4.8 RBC (4.20 - 5.40 /CUMM) 3.23 L 3.45 L Hgb (12.0 - 16.0 G/DL) 11.1 L 11.9 L Hct (37 - 47 %) 31.4 L 33.5 L MCV (81.0 - 99.0 FL) 97.3 97.3 MCH (27.0 - 31.0 PG) 34.4 H 34.4 H MCHC (33.0 - 37.0 G/DL) 35.4 35.3 RDW (11.5 - 14.5 %) 14.3 14.5 Plt Count (130 - 400 /CUMM) 193 198 MPV (7.4 - 10.4 FL) 6.9 L 6.3 L Gran % (42.2 - 75.2 %) 77.2 H 86.6 H Lymphocytes % (20.5 - 51.1 %) 9.3 L 5.2 L Monocytes % (1.7 - 9.3 %) 13.5 H 8.1 Eosinophils % (0 - 5 %) 0 0 Basophils % (0.0 - 2.0 %) 0 0.1 Absolute Granulocytes (1.4 - 6.5 /CUMM) 3.0 4.1 Absolute Lymphocytes (1.2 - 3.4 /CUMM) 0.4 L 0.2 L Absolute Monocytes (0.10 - 0.60 /CUMM) 0.5 0.4 Absolute Eosinophils (0.0 - 0.7 /CUMM) 0 0 Absolute Basophils (0.0 - 0.2 /CUMM) 0 0 ESR Westergren (0 - 20 MM) 35 H 06/2918 06/28 0251 1818 1534 Chemistry Sodium (137 - 145 mmol/L) 135 L Potassium (3.5 - 5.1 mmol/L) 3.8 Chloride (98 - 107 mmol/L) 101 Carbon Dioxide (22 - 30 mmol/L) 27 Anion Gap (5 - 16) 7 BUN (7 - 17 mg/dL) 14 Creatinine (0.5 - 1.0 mg/dL) 0.5 Estimated GFR (>60 ml/min) > 60 BUN/Creatinine Ratio (7 - 25 %) 28.0 H Glucose (65 - 99 mg/dL) 88 Lactic Acid (0.7 - 2.1 mmol/L) Cancelled 0.8 Calcium (8.4 - 10.2 mg/dL) 8.9 Magnesium (1.6 - 2.3 mg/dL) 2.0 Total Bilirubin (0.2 - 1.3 mg/dL) 0.9 AST (14 - 36 U/L) 17 ALT (9 - 52 U/L) 30 Alkaline Phosphatase (<127 U/L) 68 Troponin I (< 0.11 ng/ml) < 0.01 C-Reactive Prot, Quant (<1.0 mg/dL) 0.5 Total Protein (6.3 - 8.2 g/dL) 6.1 L Albumin (3.5 - 5.0 g/dL) 3.6 Globulin (1.9 - 4.2 gm/dL) 2.5 Albumin/Globulin Ratio (1.1 - 2.2 %) 1.4 Lipase (23 - 300 U/L) 555 H Hematology CBC w Diff MAN DIFF ORDERED WBC (4.8 - 10.8 /CUMM) 13.8 H RBC (4.20 - 5.40 /CUMM) 3.75 L Hgb (12.0 - 16.0 G/DL) 12.9 Hct (37 - 47 %) 36.9 L MCV (81.0 - 99.0 FL) 98.2 MCH (27.0 - 31.0 PG) 34.4 H MCHC (33.0 - 37.0 G/DL) 35.0 RDW (11.5 - 14.5 %) 14.9 H Plt Count (130 - 400 /CUMM) 235 MPV (7.4 - 10.4 FL) 6.4 L Gran % (42.2 - 75.2 %) 75.1 Lymphocytes % (20.5 - 51.1 %) 14.7 L Monocytes % (1.7 - 9.3 %) 10.0 H Eosinophils % (0 - 5 %) 0.1 Basophils % (0.0 - 2.0 %) 0.1 Absolute Granulocytes (1.4 - 6.5 /CUMM) 10.4 H Segmented Neutrophils (42.2 - 75.2 %) 70 Band Neutrophils (0.0 - 5.0 %) 3 Absolute Lymphocytes (1.2 - 3.4 /CUMM) 2.0 Lymphocytes (20.5 - 51.1 %) 16 L Monocytes (1.7 - 9.3 %) 11 H Absolute Monocytes (0.10 - 0.60 /CUMM) 1.4 H Absolute Eosinophils (0.0 - 0.7 /CUMM) 0 Absolute Basophils (0.0 - 0.2 /CUMM) 0 Platelet Estimate (ADEQUATE) ADEQUATE Anisocytosis 1+ Other Body Source Stool Lactoferrin Pending 06/28 1520 Chemistry Troponin I Cancelled
[2018-06-30 22:33] VITALS: BP 112/64
[2018-07-01 06:57] VITALS: BP 114/80
[2018-07-01 08:30] LABS: ABSOLUTE BASOPHIL COUNT 0 /CUMM (0.0-0.2); ABSOLUTE EOSINOPHIL COUNT 0 /CUMM (0.0-0.7); ABSOLUTE LYMPH COUNT 0.6 /CUMM (1.2-3.4); ABSOLUTE MONOCYTE COUNT 0.6 /CUMM (0.10-0.60); BASOPHIL % 0.1 % (0.0-2.0); EOSINOPHIL % 0 % (0-5); GRANULOCYTE % 77.2 % (42.2-75.2); HEMATOCRIT 31.8 % (37-47); MEAN CORPUSCULAR HGB 34.3 PG (27.0-31.0); MEAN CORPUSCULAR VOLUME 97.8 FL (81.0-99.0); MEAN PLATELET VOLUME 7.1 FL (7.4-10.4); PLATELET COUNT 186 /CUMM (130-400); RBC DISTRIBUTION WIDTH 14.8 % (11.5-14.5); RED BLOOD CELL CT 3.25 /CUMM (4.20-5.40); WHITE BLOOD CELL COUNT 5.2 /CUMM (4.8-10.8)
--- NOTE | 2018-07-01 09:19 | PN- Housestaff ---
See Addendum Baron Keys 07/01/18 0914: Subjective Follow-up For: ulcerative colitis Subjective: Patient was seen and examined this morning. SHe continues to have diarrhea. SHe is due for humira today and for sigmoidoscopy whioch makes her anxious. Review of Systems Constitutional: Reports: see HPI. Objective Last 24 Hrs of Vital Signs/I&O Vital Signs Date Time Temp Pulse Resp B/P B/P Pulse O2 O2 Flow FiO2 Mean Ox Delivery Rate 07/01 0657 98.1 70 20 114/80 98 Room Air 06/30 2233 97.8 52 20 112/64 98 Room Air 06/30 1423 97.0 87 20 122/80 99 Room Air Intake & Output 07/01 1600 07/01 0800 07/01 0000 Intake Total 700 1000 Output Total 800 Balance 700 200 Intake, IV 700 600 Intake, Oral 400 Number 4 3 Bowel Movements Output, Urine 800 Patient 89 lb 8 oz Weight Weight Bed scale Measurement Method Physical Exam General Appearance: Alert, Oriented X3, Cooperative, No Acute Distress Cardiovascular: Regular Rate, No Murmurs Lungs: Clear to Auscultation, Normal Air Movement Abdomen: Normal Bowel Sounds, Soft, No Tenderness, No Hepatospenomegaly, No Masses Neurological: Normal Speech, Strength at 5/5 X4 Ext, Normal Tone, Sensation Intact Current Medications: Current Medications Sig/Jayde Start time Last Medication Dose Route Stop Time Status Admin Acetaminophen 650 MG Q6P PRN 06/29 0145 AC 07/01 PO 0827 Acetaminophen 1,000 MG Q6P PRN 06/29 0145 AC 07/01 IV 0521 Alprazolam 0.25 MG ONCE ONE 06/30 2130 DC 06/30 PO 06/30 2131 2129 Alprazolam 0.25 MG ONCE ONE 06/30 1630 DC 06/30 PO 06/30 1631 1716 Bismuth Subsalicylate 30 ML ONCE ONE 07/01 0245 DC 07/01 PO 07/01 0246 0503 Dextrose/Sodium 1,000 ML Q13H 06/30 1545 AC 07/01 Chloride IV 0436 Dextrose/Sodium 1,000 ML Q6H 06/29 0030 DC 06/30 Chloride IV 1511 Dicyclomine HCl 20 MG 4 TIMES/DAY 06/30 1004 07/01 PO 0825 Hydrocortisone 100 MG Q8 06/29 0200 AC 07/01 Sodium Succinate IV 0504 Hyoscyamine 0.125 MG TIDAC PRN 06/29 0830 AC 06/29 PO 1745 Lidocaine 1 PAT Q24H PRN 06/29 0145 AC EXT Mesalamine 1,600 MG TID 06/29 1400 AC 07/01 PO 0826 Mesalamine 1,000 MG BID 06/29 0900 AC 07/01 MS 0825 Ondansetron HCl 4 MG Q6P PRN 06/29 0145 AC IV Pantoprazole Sodium 40 MG DAILY 06/29 1045 AC 07/01 IV 0826 Last 24 Hrs of Lab/Sumanth Results Last 24 Hrs of Labs/Mics: Laboratory Tests 07/01/18718: CBC w Diff NO MAN DIFF REQ, RBC 3.25 L, MCV 97.8, MCH 34.3 H, MCHC 35.0, RDW 14.8 H, MPV 7.1 L, Gran % 77.2 H, Lymphocytes % 11.0 L, Monocytes % 11.7 H, Eosinophils % 0, Basophils % 0.1, Absolute Granulocytes 4.0, Absolute Lymphocytes 0.6 L, Absolute Monocytes 0.6, Absolute Eosinophils 0, Absolute Basophils 0 Assessment/Plan Assessment: Patient is a 57 y old f with PMH ulcerative colitis with 3 fares in the last year. She was here for another flare last week and was discharged after Dr Irizarry recommended on PO Mesalamine 1600mg TID and suppository Mesalamine bid for regular use and was given a prednisolone taper of 10 days as she has difficulty swallowing predinsone pill. She is also forgetful ,although orietend to time place and person. Conitnuies to have loose BM. Her diet was advanced yesterday from clear liquids to full liquids and her diarrhea worsened . My assessment of this patient is a recurrence of flare due to non compliance to taking mesalamine tid and took it only od. SHe continues having cramps and diarrhea with some vlood. 1) Ulcerative colitis flare 2) generalised weakness due to dehydration 3) hypotension 4) difficulty swallowing- Plan - Ulcerative colitis- Hydrocortisone 100 mg IV every 8 for flare -Continue Zofran for nausea -Continue Canasa and mesalamine per oral 1600 mg 3 times daily -Continue pantoprazole IV continue Bentyl for pain -IV fluids ,full liquid diet -PT recommended -Monitor blood pressures every shift -h and ZH stable - will undergo sigmoidoscopy tpoday, following which we will advance her diet - Due for Humira, will discuss and f/u with GI regarding change in the plan. Problem List: 1. Ulcerative colitis Pain Ratin Pain Location: abdomnebn Pain Goal: Remain pain free Pain Plan: bentyl Tomorrow's Labs & Rationales: ?cbc Yovanny MARTINEZ,Gt 07/01/18 1038: Attending MD Review Statement Attending Statement Attending MD Statement: examined this patient, discuss w/resident/PA/BOX PULLER, agreed w/resident/PA/BOX PULLER, discussed with family, reviewed EMR data (avail), discussed with nursing, discussed with case mgmt, amended to note Attending Assessment/Plan: Patient seen and examined. present at the bedside. She is in good spirits today. Reports mild abdominal cramping. Denies any bowel movement so far today but did have several bowel movements yesterday. Nursing staff documented that she had about 10 bowel movements yesterday. Denies presence of blood in stools. Hemoglobin level is stable. She is also hemodynamically stable, blood pressure is no longer borderline. She was evaluated by the gastroenterology service exam plans are to undergo a flexible sigmoidoscopy today. Decision about type of biologic agent she will use will be made by the gastroenterology service after the procedure today. In the meanwhile we will continue hydrocortisone and mesalamine
--- NOTE | 2018-07-01 11:06 | PN- Student ---
[facility] 07/01/18 1043: Subjective Subjective: The patient is seen and evaluated this morning. She reports persistent diarrhea and estimates that she had more than twelve bowel movements last night. She also reports that she was unable to make it to the toilet on time for some of the bowel movements because the urge to defecate hit her very suddenly. She did see blood in the stool occasionally. She has been NPO since midnight for her flexible sigmoidoscopy today. She denies fevers, chills, nausea, or vomiting. She has been ambulating around the floor. Objective Objective: Vitals: temperature 98.1F, pulse 70, respiratory rate 20, blood pressure 114/80 General: thin female lying in bed in no acute distress CV: RRR, no murmurs, rubs, or gallops appreciated Pulmonary: CTA bilaterally Abdomen: diffuse tenderness to palpation, abdomen is scaphoid, soft, nondistended Extremities: no lower extremity edema Neuro: A&O x 3, CN II-XII grossly intact Results Results: Laboratory Tests 07/01/18 0719: CBC w Diff NO MAN DIFF REQ, RBC 3.25 L, MCV 97.8, MCH 34.3 H, MCHC 35.0, RDW 14.8 H, MPV 7.1 L, Gran % 77.2 H, Lymphocytes % 11.0 L, Monocytes % 11.7 H, Eosinophils % 0, Basophils % 0.1, Absolute Granulocytes 4.0, Absolute Lymphocytes 0.6 L, Absolute Monocytes 0.6, Absolute Eosinophils 0, Absolute Basophils 0 06/30/18 0645: Anion Gap 4 L, Estimated GFR > 60, BUN/Creatinine Ratio 8.0, CBC w Diff NO MAN DIFF REQ, RBC 3.23 L, MCV 97.3, MCH 34.4 H, MCHC 35.4, RDW 14.3, MPV 6.9 L, Gran % 77.2 H, Lymphocytes % 9.3 L, Monocytes % 13.5 H, Eosinophils % 0, Basophils % 0, Absolute Granulocytes 3.0, Absolute Lymphocytes 0.4 L, Absolute Monocytes 0.5, Absolute Eosinophils 0, Absolute Basophils 0 06/29/18 1619: Anion Gap 6, Estimated GFR > 60, BUN/Creatinine Ratio 7.5, CBC w Diff NO MAN DIFF REQ, RBC 3.45 L, MCV 97.3, MCH 34.4 H, MCHC 35.3, RDW 14.5, MPV 6.3 L, Gran % 86.6 H, Lymphocytes % 5.2 L, Monocytes % 8.1, Eosinophils % 0, Basophils % 0.1, Absolute Granulocytes 4.1, Absolute Lymphocytes 0.2 L, Absolute Monocytes 0.4, Absolute Eosinophils 0, Absolute Basophils 0, ESR Westergren 35 H 06/29/18 0251: Stool Lactoferrin Pending 06/28/18 1818: Lactic Acid Cancelled 06/28/18 1534: Anion Gap 7, Estimated GFR > 60, BUN/Creatinine Ratio 28.0 H, Glucose 88, Lactic Acid 0.8, Calcium 8.9, Magnesium 2.0, Total Bilirubin 0.9, AST 17, ALT 30 , Alkaline Phosphatase 68, Troponin I < 0.01, C-Reactive Prot, Quant 0.5, Total Protein 6.1 L, Albumin 3.6, Globulin 2.5, Albumin/Globulin Ratio 1.4, Lipase 555 H, CBC w Diff MAN DIFF ORDERED, RBC 3.75 L, MCV 98.2, MCH 34.4 H, MCHC 35.0, RDW 14.9 H, MPV 6.4 L, Gran % 75.1, Lymphocytes % 14.7 L, Monocytes % 10.0 H, Eosinophils % 0.1, Basophils % 0.1, Absolute Granulocytes 10.4 H, Segmented Neutrophils 70, Band Neutrophils 3, Absolute Lymphocytes 2.0, Lymphocytes 16 L, Monocytes 11 H, Absolute Monocytes 1.4 H, Absolute Eosinophils 0, Absolute Basophils 0, Platelet Estimate ADEQUATE, Anisocytosis 1+ 06/28/18 1520: Troponin I Cancelled Microbiology 06/29 615 STOOL: Cryptosporidium Antigen - COMP 06/29 615 STOOL: Giardia Antigen (RODNEY) - COMP 06/29 251 STOOL: Yersinia Culture - RES 06/29 251 STOOL: Clostridium difficile Toxin A & B - RES 06/29 251 STOOL: Stool Culture - RES Assessment/Plan Assessment: 57 y/o female with PMH of ulcerative colitis recently admitted last week for a flare up who returned to the hospital on 06/28/2018 for persistent diffuse crampy abdominal pain and frequent diarrhea. She was seen by Dr. Irizarry, GI, during her last hospitalization and was supposed to take 1600 mg PO mesalamine TID after discharge. Due to confusion, she had only been taking mesalamine 1500 mg PO once per day which likely contributed to her recurrent flare up. WBC, H&H, and electrolytes are within normal limits. She is afebrile and hemodynamically stable. Plan: #Ulcerative colitis: patient has had ulcerative colitis for several years and has had three flare-ups in the past year. She was recently started on Humira and sees Dr. Irizarry, GI. It appears as though her recurrent flare-up was due to inadvertent medication non-compliance, and she has been started on the appropriate dose of medication. -Flexible sigmoidoscopy today, GI will determine adjustment of medications after procedure -Solucortef 100 mg Q8 IV -Mesalamine 1600 mg PO TID -Mesalamine suppositories (Canasa) 1000 mg BID -Maintenance fluids with D5-NS 75 mL/hour -Dicyclomine 20 mg QID PRN for cramping -Hycoscyamine 0.125 mg TID AC PRN for cramping #GI prophylaxis -Pantoprazole 40 mg IV daily #Diet -NPO for flexible sigmoidoscopy today -Diet can be advanced after procedure #Activity -As tolerated by patient #DVT prophylaxis -Patient unable to wear ALPs due to frequency of getting up for diarrhea #Code status -Full code #Disposition -Pending results of flexible sigmoidoscopy
[2018-07-01 13:45] VITALS: BP 110/68
--- NOTE | 2018-07-01 13:58 | Proc Note Colonoscopy ---
Colonoscopy Procedure Medical History: unchanged (see meditech) Mental Status: alert/oriented Heart/Lung Eval Prior to Sedation: within normal limits Candidate for Sedation? Yes Date of Last Colonoscopy: Flexible sigmoidocsopy Procedure Date: 07/01/18 Procedure Type: flexible sigmoidoscopy with biopsy Grease Press Helper: Sandro Irizarry MD ASA Classification: III Indications: Reevaluation of ulcerative colitis after patient was readmitted with a recurrent flare. Instrument (Colonoscope): single channel Meds Received: MAC Patient's Tolerance: good Complications: none Extent Reached: 50 cm from the anus Prep: good Procedure: The risks of a colonoscopy was explained to the patient including, but not limited to, the risks of perforation, bleeding and/or a missed lesion and then written informed consent was obtained. After getting written informed consent the patient was placed in the left lateral decubitus position with pulse oximetry, cardiac monitoring, and supplemental oxygen was given. IV sedation was given until the desired effect was achieved. A rectal exam was performed which [was normal]. A high definition variable stiffness Olympus colonoscope was then inserted into the anus and advanced to 50 cm from the anus with little difficulty. Photodocumentation was obtained, but due to inflamed mucosa retroflexed views were obtained. Close inspection of the colonic mucosa was performed on insertion and withdrawal of the colonoscope with a withdrawal time that was adequate in length to closely inspect all folds and connolly of the colon. Findings: The colonic mucosa starting in the rectum and extending up to 50 cm from the anus was erythematous and friable with a cobblestone appearance, but there were no deep ulcers appreciated. The inflammation was more significant more proximally with relative rectal sparing, but no normal mucosa was appreciated. Overall the endoscopic appearance was similar to the flexible sigmoidoscopy performed 3 weeks ago. Random biopsies were obtained from the colon at 40 cm and 25 cm from the anus and from the rectum with cold biopsy forceps and were sent to pathology for further evaluation. Impression: 1. Active ulcerative colitis with mild distal sparing likely secondary to the Canasa suppositories and without deep ulcerations status post biopsies. Recommendations: 1. Continue IV hydrocortisone 100 mg every 8 hours. 2. Continue mesalamine 1600 mg by mouth 3 times a day and Canasa or Rowasa suppositories as tolerated. 3. Use Lomotil as needed for diarrhea. 4. Use antispasmodics as needed for pain. 5. Will make arrangements to change her Humira to Remicade hopefully as an outpatient. CC: Shalini MARTINEZ,Domenico Roy
[2018-07-01] MEDS ORDERED: APRISO0.375 G1 PO (15:17)
--- NOTE | 2018-07-01 15:21 | Patient Discharge Instructions ---
Discharge Instructions General Discharge Information You were seen/treated for: ulcerative colitis flare You had these procedures: sigmoidoscopy Special Instructions: Please take Mesalamine as prescribed Please follow low fibre diet Please follow up with GI within 1 week of discharge for follow up on Humira treatment. Please follow up with PCP within 1 week of discharge Please retuyrn to the ER in case of worsening of symtpoms Diet Continue normal diet: No Recommended Diet: Low Residue Acute Coronary Syndrome Inclusion Criteria At DC or during hospital stay patient has or had the following: Discharge Core Measures Meds if any: Prescribed or Continued at Discharge Meds if any: NOT Prescribed or Continued at Discharge Congestive Heart Failure Inclusion Criteria At DC or during hospital stay patient has or had the following: Discharge Core Measures Meds if any: Prescribed or Continued at Discharge Meds if any: NOT Prescribed or Continued at Discharge Cerebrovascular accident Inclusion Criteria At DC or during hospital stay patient has or had the following: CVA/TIA Diagnosis No Discharge Core Measures Meds if any: Prescribed or Continued at Discharge Meds if any: NOT Prescribed or Continued at Discharge Venous thromboembolism Discharge Core Measures - Per Current guidelines, there needs to be overlap - treatment for the first 5 days of Warfarin therapy. - If discharged on Warfarin prior to 5 days of - overlap therapy, the patient will need to be - assessed for post discharge needs including - *Post discharge parental anticoagulation - *Warfarin and/or parental anticoagulation education - *Follow up date to check INR post discharge Meds if any: Prescribed or Continued at Discharge Note: Overlap Therapy is Warfarin and Anticoagulant Meds if any: NOT Prescribed or Continued at Discharge
[2018-07-01 22:02] VITALS: BP 128/80
[2018-07-02 06:00] VITALS: BP 130/62
--- NOTE | 2018-07-02 09:52 | PN- Housestaff ---
Rudy MARTINEZ,Jack 07/02/18 0952: Subjective Follow-up For: Ulcerative colitis Subjective: Patient seen and examined. She is seen sitting upright in her bed resting comfortably. She appears to be in no acute distress. She reports feeling "about the same" since she was admitted. She reports persistent loose watery brown stools without any obvious evidence of blood. She does admit to some minor abdominal pain. She otherwise denies any fever, chills, chest pain, shortness of breath, nausea, vomiting. Review of Systems Constitutional: Reports: see HPI. Objective Last 24 Hrs of Vital Signs/I&O Vital Signs Date Time Temp Pulse Resp B/P B/P Pulse O2 O2 Flow FiO2 Mean Ox Delivery Rate 07/02 0600 97.9 56 18 130/62 98 Room Air 07/01 2202 98.0 56 20 128/80 99 Room Air 07/01 1345 52 12 110/68 99 Room Air Intake & Output 07/02 1600 07/02 0800 07/02 0000 Intake Total 580 450 Output Total Balance 580 450 Intake, IV 400 200 Intake, Oral 180 250 Number 1 1 Bowel Movements Patient 40.823 kg Weight Physical Exam General Appearance: Alert, Oriented X3, Cooperative, No Acute Distress Other Physical Findings: General - well developed, thin middle-aged woman in no acute distress HEENT - NCAT, PERRL, EOMI, anicteric sclera Neck- Supple, no JVD/HJR, no bruits, trachea midline, thyroid normal Cardio - S1, S2 w/o murmurs/gallops/rubs; regular rate and rhythm Resp - Clear to auscultation bilaterally GI - Soft, nontender, nondistended, bowel sounds present Neuro - Awake and alert, CN II - XII grossly intact Extremities - No edema, pulses intact Current Medications: Current Medications Sig/Jayde Start time Last Medication Dose Route Stop Time Status Admin Acetaminophen 650 MG Q6P PRN 06/29 0145 AC 07/01 PO 0827 Acetaminophen 1,000 MG Q6P PRN 06/29 0145 DC 07/01 IV 0521 Chlorhexidine 0 .STK-MED ONE 07/01 1422 DC Gluconate TOP Dextrose/Sodium 1,000 ML Q13H 06/30 1545 DC 07/02 Chloride IV 0303 Dicyclomine HCl 20 MG 4 TIMES/DAY 06/30 1004 AC 07/02 PO 0847 Diphenoxylate HCl/ 5 MG BIDPRN PRN 07/02 1013 AC Atropine PO Diphenoxylate HCl/ 2.5 MG BID PRN 07/01 1415 DC 07/02 Atropine PO 0546 Heparin Sodium 5,000 UNIT Q8 07/02 1400 AC (Porcine) SC Hydrocortisone 100 MG Q8 06/29 0200 AC 07/02 Sodium Succinate IV 0546 Hyoscyamine 0.125 MG TIDAC PRN 06/29 0830 AC 06/29 PO 1745 Lidocaine 1 PAT Q24H PRN 06/29 0145 AC EXT Mesalamine 1,600 MG TID 06/29 1400 AC 07/02 PO 0847 Mesalamine 1,000 MG BID 06/29 0900 AC 07/01 [place] 0825 Omeprazole 40 MG DAILY AC 07/03 0700 AC PO Omeprazole 40 MG DAILY AC 07/02 1012 CAN PO Ondansetron HCl 4 MG Q6P PRN 06/29 0145 AC IV Pantoprazole Sodium 40 MG DAILY 06/29 1045 DC 07/02 IV 0848 Assessment/Plan Assessment: 57 year old woman with significant history of ulcerative colitis recently admitted for a ulcerative colitis flare and subsequently discharged to home but readmitted due to mediation non-compliance. Patient reports feeling unchanged today. Patient appears confused/delirious today likely secondary to her continued high dose steroid infusion. Her vital signs remain within normal limits. Physical examination is unremarkable. Labs were not checked today. Lomotil is increased to 5 mg. Hydrocortisone is reduced to 50 mg. patient will likely require Remicade infusions as a biologic agent given her severity of her ulcerative colitis. Psychiatry consult is placed for further evaluation of her probable steroid induced/hospital-acquired delirium. Problem List -Ulcerative colitis flare -Generalized weakness -Delirium, likely steroid-induced/hospital-acquired -Hypotension -Dysphagia Plan -Continue gen med admission -Protonix 40 mg IV Daily -Mesalamine 1600 mg PO TID -Mesalamine 1g [place] BID -Zofran PRN for nausea -Lomotil increased to 5 mg PO BID PRN -Bentyl 20 mg PO 4x daily -Hyoscyamine 0.125mg PO TID -Hydrocortisone decreased to 50 mg IV 3 times daily -GI following for UC flare -Pain control with acetaminophen -Full liquid diet -DVT PPx -FULL CODE Problem List: 1. Ulcerative colitis Pain Ratin Pain Location: Abdomen Pain Goal: Remain pain free Pain Plan: See assessment Tomorrow's Labs & Rationales: None Yovanny MARTINEZ,Baironmanuelito 07/02/18 1026: Attending MD Review Statement Attending Statement Attending MD Statement: examined this patient, discuss w/resident/PA/GRASSROOTS ORGANIZER, agreed w/resident/PA/GRASSROOTS ORGANIZER, reviewed EMR data (avail), discussed with nursing, discussed with case mgmt, amended to note Attending Assessment/Plan: Addendum Patient seen and examined this morning. Resting comfortably unless in any acute distress. She reports that she is still having frequent loose stools. Nursing staff documented that she has had 5 bowel movements yesterday and 1 so far today. She however states that she has had several more that she did not reports nursing staff. She denies abdominal pain all cramping. On examination abdomen is soft and nontender with normal bowel sounds. Flex sigmoidoscopy done yesterday showed evidence of active ulcerative colitis with mild distal sparing. Recommendations are to continue patient on IV hydrocortisone as well as mesalamine. Lomotil was also recommended for her diarrhea. Currently patient is very hesitant about being discharged home over the weekend due to ongoing diarrhea. Recommendations: -We will continue the regimen as recommended by the gastroenterology service. -Increase Lomotil to 5 mg orally 4 times a day. -Change Protonix to oral route. -Discontinue IV fluids and encourage oral intake. -Discontinue IV Tylenol. -DVT prophylaxis subcu heparin as there is no evidence of significant gastrointestinal bleeding. due to ongoing diarrhea. Recommendations: -We will continue the regimen as recommended by the gastroenterology service. -Increase Lomotil to 5 mg orally 4 times a day. -Change Protonix to oral route. -Discontinue IV fluids and encourage oral intake. -Discontinue IV Tylenol. -DVT prophylaxis subcu heparin as there is no evidence of significant gastrointestinal bleeding.
--- NOTE | 2018-07-02 13:26 | PN- Gastroenterology ---
Assessment/Plan GI Assessment/Recommendations: Assessment: Ms. Aguirre is a 57 year old female with steroid dependent UC who was started on humira in early May, but after noting some symptomatic improvement with the initial 2 loading doses her symptoms have been flaring ever since and she is now re-admitted for the second time in the past 3 weeks for IV steroids. A repeat flex sig done yesterday again showed active disease with mild sparring of the rectum, which was still abnormal, and I feel it is now safe to say that she has failed humira. Based on reports from the housestaff she likely has also failed outpatient managment becuase of difficulty tolerating PO mesalamine and PO prednisone at home as she was doing relatively well on these medications prior to her discharge. 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 If she fails remicade, entyvio or xeljanx can be tried as well, but this would also be pursued as an outpatient. Recommendations: 1. Decrease hydrocortione to 50mg po tid and would call psychiatry for any other treatment recommendastions to address steroid induced psychosis (ie. haldol or risperidol) 2. Continue lomotil as needed 3. Continue mesalamine 1600mg po tid and canasa 1000 mg pr qhs 4. With steroid induced psychosis would consider a 1:1 sitter if family is not around. 5. Low residue diet as tolerated. 6. If pts symptoms continue or worsen when she is transitoned to oral meds would consider [facility] the hospital to get her first infusion of remicade as an inpatient, but will tentatively plan to get it to her as an outpatient. I will continue to follow this patient and make further recommendation based on he clinical course and results of repeat blood work. Problem List: 1. Ulcerative colitis 2. Diarrhea 3. Rectal bleeding Subjective Subjective: pt continues to have diarrhea, but no significant bleeding. only minimal pain with her BMs which are about 5 a day. No vomiting. According to her she has been acting oddly, 'out of sorts' and house staff has noted some confusion. According to housestaff she also did not take the prednisone or the asacol as prescribed on discharge. Objective Vital Signs and I&Os Vital Signs Date Time Temp Pulse Resp B/P B/P Pulse O2 O2 Flow FiO2 Mean Ox Delivery Rate 07/02 0600 97.9 56 18 130/62 98 Room Air 07/01 2202 98.0 56 20 128/80 99 Room Air 07/01 1345 52 12 110/68 99 Room Air Intake & Output 07/02 1600 07/02 0400 07/01 1600 07/01 0400 06/30 1600 06/30 0400 Intake Total 325 138 0494 1000 2950 1000 Output Total 800 Balance 016 840 3639 200 2950 1000 Intake, IV 400 200 284 022 9049 1000 Intake, Oral 180 250 360 400 500 Number 1 1 7 7 8 Bowel Movements Output, Urine 800 Patient 90 lb 90 lb 8 oz 86 lb 1 oz 86 lb 0.99 oz Weight Weight Bed scale Bed scale Bed scale Measurement Method Physical Exam General Appearance: well developed/nourished, no apparent distress, anxious Head: atraumatic Neck: supple Respiratory: normal breath sounds, chest non-tender, no respiratory distress Cardiovascular: regular rate/rhythm Abdomen: normal bowel sounds, soft, non-tender Rectal: deferred Extremities: no edema Neurologic/Psychiatric: awake, alert Current Medications: Current Medications Sig/Jayde Start time Last Medication Dose Route Stop Time Status Admin Acetaminophen 650 MG Q6P PRN 06/29 0145 AC 07/01 PO 0827 Acetaminophen 1,000 MG Q6P PRN 06/29 0145 DC 07/01 IV 0521 Chlorhexidine 0 .STK-MED ONE 07/01 1422 DC Gluconate TOP Dextrose/Sodium 1,000 ML Q13H 06/30 1545 DC 07/02 Chloride IV 0303 Dicyclomine HCl 20 MG 4 TIMES/DAY 06/30 1004 AC 07/02 PO 0847 Diphenoxylate HCl/ 5 MG BIDPRN PRN 07/02 1013 AC Atropine PO Diphenoxylate HCl/ 2.5 MG BID PRN 07/01 1415 DC 07/02 Atropine PO 0546 Heparin Sodium 5,000 UNIT Q8 07/02 1400 AC (Porcine) SC Hydrocortisone 100 MG Q8 06/29 0200 AC 07/02 Sodium Succinate IV 07/02 1500 0546 Hyoscyamine 0.125 MG TIDAC PRN 06/29 0830 AC 06/29 PO 1745 Lidocaine 1 PAT Q24H PRN 06/29 0145 AC EXT Mesalamine 1,600 MG TID 06/29 1400 AC 07/02 PO 0847 Mesalamine 1,000 MG BID 06/29 0900 AC 07/01 CO 0825 Omeprazole 40 MG DAILY AC 07/03 0700 AC PO Omeprazole 40 MG DAILY AC 07/02 1012 CAN PO Ondansetron HCl 4 MG Q6P PRN 06/29 0145 AC IV Pantoprazole Sodium 40 MG DAILY 06/29 1045 DC 07/02 IV 0848 Prednisone 30 MG BID 07/02 2100 AC PO Results Pertinent Lab Results: Laboratory Tests 07/01 06/30 0719 0645 Chemistry Sodium (137 - 145 mmol/L) 135 L Potassium (3.5 - 5.1 mmol/L) 3.7 Chloride (98 - 107 mmol/L) 104 Carbon Dioxide (22 - 30 mmol/L) 26 Anion Gap (5 - 16) 4 L BUN (7 - 17 mg/dL) 4 L Creatinine (0.5 - 1.0 mg/dL) 0.5 Estimated GFR (>60 ml/min) > 60 BUN/Creatinine Ratio (7 - 25 %) 8.0 Hematology CBC w Diff NO MAN DIFF REQ NO MAN DIFF REQ WBC (4.8 - 10.8 /CUMM) 5.2 3.9 L RBC (4.20 - 5.40 /CUMM) 3.25 L 3.23 L Hgb (12.0 - 16.0 G/DL) 11.1 L 11.1 L Hct (37 - 47 %) 31.8 L 31.4 L MCV (81.0 - 99.0 FL) 97.8 97.3 MCH (27.0 - 31.0 PG) 34.3 H 34.4 H MCHC (33.0 - 37.0 G/DL) 35.0 35.4 RDW (11.5 - 14.5 %) 14.8 H 14.3 Plt Count (130 - 400 /CUMM) 186 193 MPV (7.4 - 10.4 FL) 7.1 L 6.9 L Gran % (42.2 - 75.2 %) 77.2 H 77.2 H Lymphocytes % (20.5 - 51.1 %) 11.0 L 9.3 L Monocytes % (1.7 - 9.3 %) 11.7 H 13.5 H Eosinophils % (0 - 5 %) 0 0 Basophils % (0.0 - 2.0 %) 0.1 0 Absolute Granulocytes (1.4 - 6.5 /CUMM) 4.0 3.0 Absolute Lymphocytes (1.2 - 3.4 /CUMM) 0.6 L 0.4 L Absolute Monocytes (0.10 - 0.60 /CUMM) 0.6 0.5 Absolute Eosinophils (0.0 - 0.7 /CUMM) 0 0 Absolute Basophils (0.0 - 0.2 /CUMM) 0 0 06/29 1619 Chemistry Sodium (137 - 145 mmol/L) 135 L Potassium (3.5 - 5.1 mmol/L) 3.8 Chloride (98 - 107 mmol/L) 104 Carbon Dioxide (22 - 30 mmol/L) 25 Anion Gap (5 - 16) 6 BUN (7 - 17 mg/dL) 3 L Creatinine (0.5 - 1.0 mg/dL) 0.4 L Estimated GFR (>60 ml/min) > 60 BUN/Creatinine Ratio (7 - 25 %) 7.5 Hematology CBC w Diff NO MAN DIFF REQ WBC (4.8 - 10.8 /CUMM) 4.8 RBC (4.20 - 5.40 /CUMM) 3.45 L Hgb (12.0 - 16.0 G/DL) 11.9 L Hct (37 - 47 %) 33.5 L MCV (81.0 - 99.0 FL) 97.3 MCH (27.0 - 31.0 PG) 34.4 H MCHC (33.0 - 37.0 G/DL) 35.3 RDW (11.5 - 14.5 %) 14.5 Plt Count (130 - 400 /CUMM) 198 MPV (7.4 - 10.4 FL) 6.3 L Gran % (42.2 - 75.2 %) 86.6 H Lymphocytes % (20.5 - 51.1 %) 5.2 L Monocytes % (1.7 - 9.3 %) 8.1 Eosinophils % (0 - 5 %) 0 Basophils % (0.0 - 2.0 %) 0.1 Absolute Granulocytes (1.4 - 6.5 /CUMM) 4.1 Absolute Lymphocytes (1.2 - 3.4 /CUMM) 0.2 L Absolute Monocytes (0.10 - 0.60 /CUMM) 0.4 Absolute Eosinophils (0.0 - 0.7 /CUMM) 0 Absolute Basophils (0.0 - 0.2 /CUMM) 0 ESR Westergren (0 - 20 MM) 35 H
[2018-07-02 14:52] VITALS: BP 110/65
--- NOTE | 2018-07-02 18:51 | Discharge Summary ---
Visit Information Visit Dates Admission Date: 06/29/18 Discharge Date: 07/05/2018 Hospital Course Course Attending Physician: José Miguel Ribeiro MD Primary Care Physician: Shalini MARTINEZ,Domenico Roy Hospital Course: Patient is a 57 y old f with PMH ulcerative colitis with 3 fares in the last year. She was here for another flare last week and was discharged after Dr Irizarry recommended on PO Mesalamine 1600mg TID and suppository Mesalamine bid for regular use and was given a prednisolone taper of 10 days as she has difficulty swallowing predinsone pill. She is also forgetful ,although orietend to time place and person. Conitnuies to have loose BM. Her diet was advanced yesterday from clear liquids to full liquids and her diarrhea worsened . My assessment of this patient is a recurrence of flare due to non compliance to taking mesalamine tid and took it only od. SHe continued having cramps and diarrhea with some blood. 1) Ulcerative colitis flare 2) generalised weakness due to dehydration 3) hypotension 4) difficulty swallowing- 5) prednisone induced psychosis Plan - #1)Ulcerative colitis- -IV steroids 100mg bid, decreased to 50mg for psychosis during hospital stay converted to oral prednisolone 30mg bid during discharge -Continue Zofran for nausea, lomotil before meals -Continue Canasa bid and mesalamine per oral 1600 mg 3 times daily -Continue pantoprazole IV continue Bentyl for pain - will dc iv fluids. tolerating low fiber diet. -PT recommended -H and H stable -Sigmoidoscopy showed no changes from the sigmoidoscopy 3 weeks ago -GI will discuss about starting the patient on Remicade instead of Humira, will be done Outpatient tomorrow. - WIll discharge the patient today. #2)Prednisone-induced psychosis Patient is doing better on the reduced dose Steroid dose was reduced from 100 mg to 50 mg will dischsarge on prednisolone syrup 30mg bid #3) Hypokalemia Potassium level is back to normal Hypokalemia is resolved Allergies: Coded Allergies: erythromycin base (GI UPSET 06/28/18) Disposition Summary Disposition Principal Diagnosis: Ulcerative colitis flare Additional Diagnosis: hypotension Discharge Disposition: home or self care Discharge Instructions General Discharge Information Code Status: Full Code Patient's Diet: low fibre Patient's Activity: as tolerated Follow-Up Instructions/Appts: Please f/u with GI tomorrow on 07/06 to start Remicade instead of Humira Please f/u with PCP within 1 week of discharge Medications at Discharge Discharge Medications: Continue taking these medications: Metoprolol Succ XL (Toprol XL) 25 MG TAB 1 Tablet ORAL DAILY Comments: NOT TAKEN IN HOSPITAL Hyoscyamine Sulfate (Levsin-Sl) 0.125 MG TAB.SUBL 1 Tablet SUBLINGUAL THREE TIMES DAILY as needed for ABD CRAMPING Qty = 45 Comments: NOT GIVEN IN HOSPITAL Cyanocobalamin (Vitamin B-12) 1,000 MCG TABLET 1 Tablet ORAL DAILY Comments: NOT GIVEN IN HOSPITAL Start taking the following new medications: Prednisolone (Prednisolone) 15 MG/5 ML SOLUTION 10 Milliliters ORAL TWICE DAILY Qty = 50 Refills = 4 Instructions: . Comments: Last Taken:07/05/18 Time:9AM GIVEN IN TABLET FORM NOT LIQUID The following medications have been changed: Old: Diphenoxylate HCl/Atropine (Lomotil 2.5-0.025 MG Tablet) 2.5 MG-0.025 MG TABLET 1 Tablet ORAL THREE TIMES DAILY as needed for DIARRHEA Qty = 60 New: Diphenoxylate HCl/Atropine (Lomotil 2.5-0.025 MG Tablet) 2.5 MG-0.025 MG TABLET 1 Tablet ORAL THREE TIMES DAILY as needed for DIARRHEA Qty = 60 Instructions: . Comments: NOT GIVEN IN HOSPITAL Old: Mesalamine (Canasa) 1,000 MG SUPP.RECT 1 Suppository RECTALLY TWICE DAILY Qty = 60 New: Mesalamine (Canasa) 1,000 MG SUPP.RECT 1 Suppository RECTALLY TWICE DAILY Qty = 60 Instructions: .. Comments: LAST TAKEN: 07/05/18 9 AM Old: Mesalamine (Apriso) 0.375 GRAM CAP.ER.24H 4 Capsule ORAL THREE TIMES DAILY Qty = 360 New: Mesalamine (Apriso) 0.375 GRAM CAP.ER.24H 4 Capsule ORAL THREE TIMES DAILY Qty = 360 Instructions: . Comments: Last Taken: 07/05/18 Time: 9 AM Copies To: Juan C MARTINEZ,Jason Loya MD,Domenico Roy Attending MD Review Statement Documenting Attending: Gt Hairston MD Other Findings: Discharged in stable condition. Seen on the day of discharge- Dr. Ribeiro- Will follow-up with Dr. Irizarry for 1st dose of Remicade on 07/07/18.
[2018-07-02 22:07] VITALS: BP 138/70
[2018-07-03 06:20] VITALS: BP 128/70
--- NOTE | 2018-07-03 07:12 | PN- Housestaff ---
Baron Keys 07/03/18 0711: Subjective Follow-up For: Ulcerative colitis flare Subjective: The patient was seen and examined this morning. She is improving today, apparently her prednisone related mental symptoms have reduced. Her diarrhea continues to be the same. But her appetite is improving and wanted to go on low fiber diet. Review of Systems Constitutional: Reports: see HPI. Objective Last 24 Hrs of Vital Signs/I&O Vital Signs Date Time Temp Pulse Resp B/P B/P Pulse O2 O2 Flow FiO2 Mean Ox Delivery Rate 07/03 0620 97.7 58 18 128/70 99 Room Air 07/02 2207 98.5 55 20 138/70 99 Room Air 07/02 1452 98.2 74 20 110/65 100 Room Air Intake & Output 07/03 0800 07/03 0000 07/02 1600 Intake Total 240 360 420 Output Total Balance 240 360 420 Intake, IV 120 Intake, Oral 240 360 300 Number 1 Bowel Movements Physical Exam General Appearance: Alert, Oriented X3, Cooperative, No Acute Distress Cardiovascular: Regular Rate, No Murmurs Lungs: Clear to Auscultation, Normal Air Movement Abdomen: Normal Bowel Sounds, Soft, No Tenderness, No Hepatospenomegaly, No Masses Neurological: Normal Speech, Strength at 5/5 X4 Ext, Normal Tone, Sensation Intact Extremities: No Clubbing, No Cyanosis, No Edema, Normal Pulses, No Tenderness/ Swelling Current Medications: Current Medications Sig/Jayde Start time Last Medication Dose Route Stop Time Status Admin Acetaminophen 650 MG Q6P PRN 06/29 0145 AC 07/01 PO 0827 Acetaminophen 1,000 MG Q6P PRN 06/29 0145 DC 07/01 IV 0521 Dextrose/Sodium 1,000 ML Q13H 06/30 1545 DC 07/02 Chloride IV 0303 Dicyclomine HCl 20 MG 4 TIMES/DAY 06/30 1004 AC 07/02 PO 2008 Diphenoxylate HCl/ 5 MG BIDPRN PRN 07/02 1013 AC 07/02 Atropine PO 2009 Diphenoxylate HCl/ 2.5 MG BID PRN 07/01 1415 DC 07/02 Atropine PO 0546 Heparin Sodium 5,000 UNIT Q8 07/02 1400 AC 07/03 (Porcine) SC 0557 Hydrocortisone 50 MG Q8 07/02 1400 AC 07/03 Sodium Succinate IV 0557 Hydrocortisone 100 MG Q8 06/29 0200 DC 07/02 Sodium Succinate IV 07/02 1500 0546 Hyoscyamine 0.125 MG TIDAC PRN 06/29 0830 DC 06/29 PO 1745 Lidocaine 1 PAT Q24H PRN 06/29 0145 AC EXT Mesalamine 1,600 MG TID 06/29 1400 AC 07/02 PO 2009 Mesalamine 1,000 MG BID 06/29 0900 AC 07/02 [place] 2008 Omeprazole 40 MG DAILY AC 07/03 0700 AC 07/03 PO 0557 Omeprazole 40 MG DAILY AC 07/02 1012 CAN PO Ondansetron HCl 4 MG Q6P PRN 06/29 0145 AC IV Pantoprazole Sodium 40 MG DAILY 06/29 1045 DC 07/02 IV 0848 Prednisone 30 MG BID 07/02 2100 CAN PO Last 24 Hrs of Lab/Sumanth Results Last 24 Hrs of Labs/Mics: Laboratory Tests 07/03/18 1645: Anion Gap 3 L, Estimated GFR > 60, BUN/Creatinine Ratio 18.6 07/03/18 0634: Anion Gap 5, Estimated GFR > 60, BUN/Creatinine Ratio 12.0, Magnesium 1.9, Total Bilirubin 0.7, Direct Bilirubin 0.2, AST 11 L, ALT 31, Alkaline Phosphatase 50, Total Protein 5.0 L, Albumin 2.7 L, CBC w Diff NO MAN DIFF REQ, RBC 3.27 L, MCV 98.4, MCH 34.8 H, MCHC 35.4, RDW 14.9 H, MPV 7.0 L, Gran % 57.2, Lymphocytes % 24.8, Monocytes % 17.5 H, Eosinophils % 0.2, Basophils % 0.3, Absolute Granulocytes 3.1, Absolute Lymphocytes 1.3, Absolute Monocytes 0.9 H, Absolute Eosinophils 0, Absolute Basophils 0 Assessment/Plan Assessment: 57 year old woman with significant history of ulcerative colitis recently admitted for a ulcerative colitis flare and subsequently discharged to home but readmitted due to mediation non-compliance. Patient reports feeling unchanged today. Patient appears confused/delirious today likely secondary to her continued high dose steroid infusion. Her vital signs remain within normal limits. Physical examination is unremarkable. Labs were not checked today. Lomotil is increased to 5 mg. Hydrocortisone is reduced to 50 mg. patient will likely require Remicade infusions as a biologic agent given her severity of her ulcerative colitis. Psychiatry consult is placed for further evaluation of her probable steroid induced/hospital-acquired delirium. Problem List -Ulcerative colitis flare -Generalized weakness -Delirium, likely steroid-induced/hospital-acquired -Hypotension -Dysphagia Plan -Continue gen med admission -Protonix 40 mg IV Daily -Mesalamine 1600 mg PO TID -Mesalamine 1g WA BID -Zofran PRN for nausea -Lomotil increased to 5 mg PO BID PRN -Bentyl 20 mg PO 4x daily -Hyoscyamine 0.125mg PO TID -Hydrocortisone decreased to 50 mg IV 3 times daily -GI following for UC flare, Suggests remicade infusion inpatient if symtpoms worsen, otherwise do it outpatient -Pain control with acetaminophen -Full liquid diet -DVT PPx -FULL CODE Problem List: 1. Ulcerative colitis 2. Diarrhea 3. Weight loss 4. Dehydration Pain Ratin Pain Location: none Pain Goal: Remain pain free Pain Plan: bentyl Tomorrow's Labs & Rationales: none Gt Hairston MD 07/03/18 1109: Attending MD Review Statement Attending Statement Attending MD Statement: examined this patient, discuss w/resident/PA/OWNER, agreed w/resident/PA/OWNER, reviewed EMR data (avail), discussed with nursing, discussed with case mgmt, amended to note Attending Assessment/Plan: Patient seen and examined. Resting comfortably and not in acute distress. No issues overnight reported by nursing staff. Yesterday she got very agitated presumably due to the systemic steroid therapy she has been receiving. She is a much better state this morning. She is calm. She is oriented. She appears relaxed. She is tolerating her meals. She however continues to complain of frequent loose stools. She reports no improvement since hospitalization. I did discuss the case in detail with the gastroenterology service. Attempts will be made to switch patient to Remicade while she is here in the inpatient setting she does not appear to be responding to her regular biologic agent. Recommendations: -Continue patient on reduced dose of steroid therapy. May need to consider decreasing this medication further as she did not respond to even higher doses. We will not experiencing the improvement on lower doses of the regimen. -Continue Bentyl for anti-spasmodic therapy. -Continue Lomotil for antidiarrheal therapy. -Continue patient on mesalamine both orally and rectally. -Await recommendations from the GI service regarding beginning patient on Remicade.
[2018-07-03 11:05] LABS: ABSOLUTE BASOPHIL COUNT 0 /CUMM (0.0-0.2); ABSOLUTE EOSINOPHIL COUNT 0 /CUMM (0.0-0.7); ABSOLUTE GRANULOCYTE CT 3.1 /CUMM (1.4-6.5); ABSOLUTE LYMPH COUNT 1.3 /CUMM (1.2-3.4); ABSOLUTE MONOCYTE COUNT 0.9 /CUMM (0.10-0.60); BASOPHIL % 0.3 % (0.0-2.0); EOSINOPHIL % 0.2 % (0-5); GRANULOCYTE % 57.2 % (42.2-75.2); HEMATOCRIT 32.2 % (37-47); MEAN CORPUSCULAR HGB 34.8 PG (27.0-31.0); MEAN CORPUSCULAR HGB CONC 35.4 G/DL (33.0-37.0); MEAN CORPUSCULAR VOLUME 98.4 FL (81.0-99.0); PLATELET COUNT 193 /CUMM (130-400); RBC DISTRIBUTION WIDTH 14.9 % (11.5-14.5); RED BLOOD CELL CT 3.27 /CUMM (4.20-5.40); WHITE BLOOD CELL COUNT 5.3 /CUMM (4.8-10.8)
--- NOTE | 2018-07-03 12:10 | PN- Gastroenterology ---
Assessment/Plan GI Assessment/Recommendations: Assessment: Ms. Aguirre is a 57 year old female with UC which to date has been refractory to medical management. She was started on humira about 2 months ago, but has not had a significnat clinical response to this now has she had any evidence of endoscopic improvement in her colitis. While some of her persistent symptoms may be secondary to medical non-compliance at home, she is getting all of her medications here and has been on high dose steroids without any noticable improvement in her diarrhea which is also not being helped by lomotil and is to the point that she is hypokalemic. Furthermore, her steroid dose needed to be decreased yesterday due to steroid induced psychosis and while that has helped her mental status it is only going to be less effective for her colitis. While there are currently efforts to get her approved for remicade as an outpatient I feel it would likely be in her best interests to get the first dose of remicade (or a biosimilar) while she is an inpatient prior to discharge otherwise I feel there is very high likelihood of her being readmitted before it can be done as an outpatient. Recommendations: 1. Continue IV steroids, PO and OK mesalamine at current dose for now. 2. Advance to low residue diet as tolerated. 3. Replete potassium and follow lytes closely 4. Continue bentyl, but would change it to as needed 5. Continue lomotil, but would change it to a standing order prior to meals tid 6. If diarrhea persists in spite of continued medical regimen to the point that it is leading to persistent hypokalemia will then attempt to get the first dose of remicade (or a biosimilar) as an inpatient. 7. If symptoms remain refractory to medical management will ultimately consider surgical intervention, but I don't feel that is necessary at this time. I will continue to follow this patient and make further recommendations based on her clinical course and results of repeat blood work. Problem List: 1. Ulcerative colitis 2. Rectal bleeding 3. Diarrhea 4. Abdominal pain Subjective Subjective: pt s/p decrease in hydrocortisone dose with improvement in mental status today. She continues to have a sinificant amount of diarrhea without much bleeding. She also only has mild abdominal cramping. She notes that the mesalamine seems to be going right through her. Objective Vital Signs and I&Os Vital Signs Date Time Temp Pulse Resp B/P B/P Pulse O2 O2 Flow FiO2 Mean Ox Delivery Rate 07/03 0620 97.7 58 18 128/70 99 Room Air 07/02 2207 98.5 55 20 138/70 99 Room Air 07/02 1452 98.2 74 20 110/65 100 Room Air Intake & Output 07/03 1600 07/03 0400 07/02 1600 07/02 0400 07/01 1600 07/01 0400 Intake Total 255 005 9265 450 1060 1000 Output Total 800 Balance 644 997 9273 450 1060 200 Intake, IV 520 200 700 600 Intake, Oral 240 360 480 250 360 400 Number 1 1 1 7 Bowel Movements Output, Urine 800 Patient 81 lb 5 oz 90 lb 90 lb 8 oz Weight Weight Standing Scale Bed scale Measurement Method Physical Exam General Appearance: well developed/nourished, no apparent distress, alert, comfortable Head: atraumatic, normal appearance Ears, Nose, Throat: normal pharynx, normal ENT inspection Neck: normal inspection, supple Respiratory: normal breath sounds, chest non-tender, no respiratory distress Cardiovascular: regular rate/rhythm Abdomen: normal bowel sounds, soft, non-tender, no organomegaly Rectal: deferred Extremities: normal inspection, no edema Neurologic/Psychiatric: no motor/sensory deficits, awake, alert, oriented x 3 Current Medications: Current Medications Sig/Jayde Start time Last Medication Dose Route Stop Time Status Admin Acetaminophen 650 MG Q6P PRN 06/29 0145 AC 07/01 PO 0827 Dicyclomine HCl 20 MG 4 TIMES/DAY 06/30 1004 AC 07/03 PO 0808 Diphenoxylate HCl/ 5 MG BIDPRN PRN 07/02 1013 AC 07/02 Atropine PO 2009 Heparin Sodium 5,000 UNIT Q8 07/02 1400 AC 07/03 (Porcine) SC 0557 Hydrocortisone 50 MG Q8 07/02 1400 AC 07/03 Sodium Succinate IV 0557 Hydrocortisone 100 MG Q8 06/29 0200 DC 07/02 Sodium Succinate IV 07/02 1500 0546 Hyoscyamine 0.125 MG TIDAC PRN 06/29 0830 DC 06/29 PO 1745 Lidocaine 1 PAT Q24H PRN 06/29 0145 AC EXT Mesalamine 1,600 MG TID 06/29 1400 AC 07/03 PO 0808 Mesalamine 1,000 MG BID 06/29 0900 AC 07/03 [place] 1013 Omeprazole 40 MG DAILY AC 07/03 0700 AC 07/03 PO 0557 Ondansetron HCl 4 MG Q6P PRN 06/29 0145 AC IV Prednisone 30 MG BID 07/02 2100 CAN PO Results Pertinent Lab Results: Laboratory Tests 07/03 07/01 0634 0719 Chemistry Sodium (137 - 145 mmol/L) 136 L Potassium (3.5 - 5.1 mmol/L) 2.5 *L Chloride (98 - 107 mmol/L) 98 Carbon Dioxide (22 - 30 mmol/L) 33 H Anion Gap (5 - 16) 5 BUN (7 - 17 mg/dL) 6 L Creatinine (0.5 - 1.0 mg/dL) 0.5 Estimated GFR (>60 ml/min) > 60 BUN/Creatinine Ratio (7 - 25 %) 12.0 Magnesium (1.6 - 2.3 mg/dL) 1.9 Total Bilirubin (0.2 - 1.3 mg/dL) 0.7 Direct Bilirubin (< 0.4 mg/dL) 0.2 AST (14 - 36 U/L) 11 L ALT (9 - 52 U/L) 31 Alkaline Phosphatase (<127 U/L) 50 Total Protein (6.3 - 8.2 g/dL) 5.0 L Albumin (3.5 - 5.0 g/dL) 2.7 L Hematology CBC w Diff NO MAN DIFF REQ NO MAN DIFF REQ WBC (4.8 - 10.8 /CUMM) 5.3 5.2 RBC (4.20 - 5.40 /CUMM) 3.27 L 3.25 L Hgb (12.0 - 16.0 G/DL) 11.4 L 11.1 L Hct (37 - 47 %) 32.2 L 31.8 L MCV (81.0 - 99.0 FL) 98.4 97.8 MCH (27.0 - 31.0 PG) 34.8 H 34.3 H MCHC (33.0 - 37.0 G/DL) 35.4 35.0 RDW (11.5 - 14.5 %) 14.9 H 14.8 H Plt Count (130 - 400 /CUMM) 193 186 MPV (7.4 - 10.4 FL) 7.0 L 7.1 L Gran % (42.2 - 75.2 %) 57.2 77.2 H Lymphocytes % (20.5 - 51.1 %) 24.8 11.0 L Monocytes % (1.7 - 9.3 %) 17.5 H 11.7 H Eosinophils % (0 - 5 %) 0.2 0 Basophils % (0.0 - 2.0 %) 0.3 0.1 Absolute Granulocytes (1.4 - 6.5 /CUMM) 3.1 4.0 Absolute Lymphocytes (1.2 - 3.4 /CUMM) 1.3 0.6 L Absolute Monocytes (0.10 - 0.60 /CUMM) 0.9 H 0.6 Absolute Eosinophils (0.0 - 0.7 /CUMM) 0 0 Absolute Basophils (0.0 - 0.2 /CUMM) 0 0
[2018-07-03 14:48] VITALS: BP 96/56
--- NOTE | 2018-07-03 17:11 | ED PSYCHIATRIST/APRN CONSULT ---
Psychiatrist/IMPORT EXPORT CLERK ED Consult Assessment and Plan: The 57 years old white female patient was seen on [place] unit for a psychiatric consultation requested by her attending physician today she has been admitted for exacerbation of ulcerative colitis with generalized weakness and has had 100 mg of cortisone IV injection reduce inflammation which had resulted in her acting bizarrely in the room stating that she was at home and was trying to reorient her unit and this apparently had subsided after the dose was cut back to 50 mg and has had a colonoscopy to assess her current bowel status During my assessment the patient was calm was able to have good eye contact but was sitting on her bed and her was next and knew the date today but had difficulty with other General knowledge relating to the governor [facility] etc. but was able to have a good eye contact and was able to maintain meaningful communication and appears to have subsided the altered perceptions precipitated by higher dose of corticosteroids injections given yesterday Patient currently stable she understands the medical issues and some side effects known with the medications given for one condition could have a deleterious of on mental health resulting in that brief episode she has no thoughts to hurt herself or events and denies of any intrusive thoughts and hallucinatory experiences at present Diagnostic impression brief reactive psychosis secondary to high dose of steroids Recommendations concur with the current treatment recommendations to reduce the dose and manage the patient with the judicious administration of steroids to ameliorate her gastrointestinal pathology Recommendations no other interventions needed behaviorally Thanks for the consult dictated by Dr. Powell.
[2018-07-03 22:24] VITALS: BP 102/70
[2018-07-04 06:30] VITALS: BP 114/68
--- NOTE | 2018-07-04 07:36 | PN- Student ---
Subjective Subjective: Patient seen and examined this morning. She reports persistent diarrhea and urgency but states that the frequency of her diarrhea has decreased, and she only had about 4-5 episodes over night. She believes the lomotil is helping her symptoms. She has not noticed any blood in the stool. She does have intermittent abdominal cramping which is worse with eating and just prior to having a bowel movement. She is tolerating her diet. The patient is not ambulating much because she is concerned that she will not be able to make it to the toilet if she is far from her room. She denies any fevers, chills, nausea, or vomiting. She also denies any confusion. Objective Objective: Vitals: temperature - 98.7F, pulse - 68, respiratory rate - 12, blood pressure - 102/70, oxygen saturation - 98% on RA General: frail female lying in bed in no acute distress HEENT: mucous membranes tacky CV: RRR, no murmurs, rubs, or gallops Pulmonary: CTA bilaterally Abdomen: bowel sounds present, abdomen is scaphoid and is soft, nontender, nondistended Extremities: 2+ pulses radial, DP/PT bilaterally, no lower extremity edema Neuro: awake and alert to person, place, time, and situation, normal affect and concentration, cranial nerves II-XII grossly intact Results Results: Laboratory Tests 07/04/18 0001: Anion Gap 6, Estimated GFR > 60, BUN/Creatinine Ratio 20.0 07/03/18 1645: Anion Gap 3 L, Estimated GFR > 60, BUN/Creatinine Ratio 18.6 07/03/18 0634: Anion Gap 5, Estimated GFR > 60, BUN/Creatinine Ratio 12.0, Magnesium 1.9, Total Bilirubin 0.7, Direct Bilirubin 0.2, AST 11 L, ALT 31, Alkaline Phosphatase 50, Total Protein 5.0 L, Albumin 2.7 L, CBC w Diff NO MAN DIFF REQ, RBC 3.27 L, MCV 98.4, MCH 34.8 H, MCHC 35.4, RDW 14.9 H, MPV 7.0 L, Gran % 57.2, Lymphocytes % 24.8, Monocytes % 17.5 H, Eosinophils % 0.2, Basophils % 0.3, Absolute Granulocytes 3.1, Absolute Lymphocytes 1.3, Absolute Monocytes 0.9 H, Absolute Eosinophils 0, Absolute Basophils 0 Assessment/Plan Assessment: 56 y/o female with past medical history of ulcerative colitis recently admitted to the hospital for flare up and subsequently re-admitted after medication non- compliance at home. Flexible sigmoidoscopy on 07/01/2018 demonstrated no significant improvement in colitis from previous admission. Diarrhea has improved, her physical exam is benign, and the patient is afebrile/ hemodynamically stable. Plan: #Ulcerative colitis: patient's flexibile sigmoidoscopy on 07/01/2018 demonstrated no significant improvement in colitis, possibly due to medication non- compliance. -Hydrocortisone decreased to 50 mg Q8 IV due to steroid-induced psychosis -Mesalamine 1600 mg PO TID -Mesalamine 1000 mg NC BID -Bentyl 20 mg PO 4x daily PRN -Lomotil 5 mg prior to meals TID -Switch Humira to Remicade per GI recommendation #Steroid-induced psychosis: patient became acutely confused and disoriented over the weekend. This has happened to her in the past with systemic steroid treatment. Hydrocortisone was decreased to 50 mg Q8 IV. Confusion has since resolved and the patient is completely alert and oriented. No evidence of psychosis on exam. -Steroid-induced psychosis resolved -Patient has been cleared by psychiatry #Hypokalemia: due to persistent diarrhea -Potassium repleted with potassium chloride and now 3.9 -Replete as needed #Diet -Full diet #Activity -OOB as tolerated #DVT prophylaxis -Heparin 5,000 units Q8 SC #Code status -Full code #Disposition -Patient is stable for discharge home pending GI recommendations regarding starting Remicade inpatient vs. outpatient
--- NOTE | 2018-07-04 11:53 | PN- Housestaff ---
Baron Keys 07/04/18 1153: Subjective Follow-up For: Ulcerative colitis flare Subjective: Patient was seen and examined this morning. No acute overnight events. She continues to have 6-7 episodes of diarrhea. No fever chills, abdominal pain, abdominal distention, blood in stools, nausea or vomiting noticed. Her appetite is back and she is able to eat better. She has been walking around the unit and did not complain of any problems. Review of Systems Constitutional: Reports: see HPI. Objective Last 24 Hrs of Vital Signs/I&O Vital Signs Date Time Temp Pulse Resp B/P B/P Pulse O2 O2 Flow FiO2 Mean Ox Delivery Rate 07/04 0630 97.9 51 18 114/68 97 Room Air 07/03 2224 98.7 68 12 102/70 98 Room Air 07/03 1448 98.5 72 18 96/56 96 Intake & Output 07/04 1600 07/04 0800 07/04 0000 Intake Total 240 510 Output Total 500 500 Balance -260 10 Intake, IV 150 Intake, Oral 240 360 Number 2 2 Bowel Movements Output, Urine 500 500 Physical Exam General Appearance: Alert, Oriented X3, Cooperative, No Acute Distress Cardiovascular: Regular Rate, No Murmurs Lungs: Clear to Auscultation, Normal Air Movement Abdomen: Normal Bowel Sounds, Soft, No Tenderness, No Hepatospenomegaly, No Masses Neurological: Normal Speech, Strength at 5/5 X4 Ext, Normal Tone, Sensation Intact Extremities: No Clubbing, No Cyanosis, No Edema, Normal Pulses, No Tenderness/ Swelling Current Medications: Current Medications Sig/Jayde Start time Last Medication Dose Route Stop Time Status Admin Acetaminophen 650 MG Q6P PRN 06/29 0145 AC 07/01 PO 0827 Dicyclomine HCl 20 MG 4 TIMES/DAY 06/30 1004 AC 07/04 PO 1321 Diphenoxylate HCl/ 5 MG BIDPRN PRN 07/02 1013 AC 07/03 Atropine PO 2133 Heparin Sodium 5,000 UNIT Q8 07/02 1400 AC 07/04 (Porcine) SC 1319 Hydrocortisone 50 MG Q8 07/02 1400 07/04 Sodium Succinate IV 1323 Lidocaine 1 PAT Q24H PRN 06/29 0145 AC EXT Mesalamine 1,600 MG TID 06/29 1400 07/04 PO 1320 Mesalamine 1,000 MG BID 06/29 0900 AC 07/04 [place] 0837 Omeprazole 40 MG DAILY AC 07/03 0700 AC 07/04 PO 0633 Ondansetron HCl 4 MG Q6P PRN 06/29 0145 AC IV Patient Medication 1 ED ONE ONE 07/04 1045 DC 07/04 Teaching ED 07/04 1046 1322 Potassium Chloride 10 MEQ ONCE ONE 07/03 1845 CAN IV 07/03 184 Potassium Chloride 10 MEQ ONCE ONE 07/03 1845 DC 07/03 IV 07/03 Last 24 Hrs of Lab/Suamnth Results Last 24 Hrs of Labs/Mics: Laboratory Tests 07/04/18 0001: Anion Gap 6, Estimated GFR > 60, BUN/Creatinine Ratio 20.0 07/03/18 1645: Anion Gap 3 L, Estimated GFR > 60, BUN/Creatinine Ratio 18.6 Assessment/Plan Assessment: Patient is a 57 y old f with PMH ulcerative colitis with 3 fares in the last year. She was here for another flare last week and was discharged after Dr Irizarry recommended on PO Mesalamine 1600mg TID and suppository Mesalamine bid for regular use and was given a prednisolone taper of 10 days as she has difficulty swallowing predinsone pill. She is also forgetful ,although orietend to time place and person. Conitnuies to have loose BM. Her diet was advanced yesterday from clear liquids to full liquids and her diarrhea worsened . My assessment of this patient is a recurrence of flare due to non compliance to taking mesalamine tid and took it only od. SHe continues having cramps and diarrhea with some vlood. 1) Ulcerative colitis flare 2) generalised weakness due to dehydration 3) hypotension 4) difficulty swallowing- 5) prednisone induced psychosis Plan - #1)Ulcerative colitis- Hydrocortisone 50 mg IV every 8 for flare -Continue Zofran for nausea -Continue Canasa and mesalamine per oral 1600 mg 3 times daily -Continue pantoprazole IV continue Bentyl for pain -IV fluids , advance diet to low fiber, patient is tolerating feeds well -PT recommended -Monitor blood pressures every shift -h and ZH stable -Sigmoidoscopy showed no changes from the sigmoidoscopy 3 weeks ago -GI will discuss about starting the patient on Remicade instead of Humira #2)Prednisone-induced psychosis Patient is doing better on the reduced dose Steroid dose was reduced from 100 mg to 50 mg Continue the same #3) Hypokalemia Potassium level is back to normal Hypokalemia is resolved Problem List: 1. Ulcerative colitis 2. 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 Mental status improved today. Bowel movements are less. Appreciate GI input. Will try conversion to oral medication tomorrow morning and discharge later in the day if stable with plan to have IV Remicade as outpatient.
[2018-07-04 15:10] VITALS: BP 96/58
--- NOTE | 2018-07-04 15:24 | PN- Gastroenterology ---
Assessment/Plan GI Assessment/Recommendations: Assessment: Ms. Aguirre is a 57 year old female with steroid dependent UC who has had 2 hospitalizations over the past month for persistent diarrhea with electrolyte abnormalities. She has been on humira without much benefit and she previously developed pancytopenia on 6-mp, albeit that did improve her fecal calprotectin. She has currently had some improvement with IV steroids and resuming oral mesalamine and I have recently learned from my office that she doesn't require any additional authorization to start remicade so if she continues to do well would recommend transitioning her to oral medications tomorrow and will have her get her first infusion of remicade as an outpatient on Wednesday or . Recommedaions: 1. Continue IV hydrocortisone through today at 50mg TID and will plan to change her to oral prednisone 30mg po bid tomorrow. 2. Continue current doses of oral and OK meslamine 3. Continue bentyl as needed. 4. Low residue diet as tolerated. 5. Follow lytes and replete as needed. 6. If she continues to do well will plan to discharge home tomorrow or wednesday with plans to get her first shot of remicade at an infusion center the following day. I will continue to follow this patient and make further recommendations based on her clinical course and results of repeat blood work. Problem List: 1. Ulcerative colitis 2. Diarrhea 3. Rectal bleeding Subjective Subjective: pt still with some diarrhea, but it is mildly improved with scant amounts of formed stool and no blood. minimal pain with BMs. Objective Vital Signs and I&Os Vital Signs Date Time Temp Pulse Resp B/P B/P Pulse O2 O2 Flow FiO2 Mean Ox Delivery Rate 07/04 1510 97.9 68 18 96/58 98 07/04 0630 97.9 51 18 114/68 97 Room Air 07/03 2224 98.7 68 12 102/70 98 Room Air Intake & Output 07/04 1600 07/04 0400 07/03 1600 07/03 0400 07/02 1600 07/02 0400 Intake Total 740 510 413 254 6413 450 Output Total 500 500 Balance 240 10 927 541 7879 450 Intake, IV 150 110 520 200 Intake, Oral 740 360 740 360 480 250 Number 2 2 4 1 1 1 Bowel Movements Output, Urine 500 500 Patient 81 lb 5 oz 90 lb Weight Weight Standing Scale Measurement Method Physical Exam General Appearance: well developed/nourished, no apparent distress, comfortable Head: atraumatic, normal appearance Respiratory: normal breath sounds, chest non-tender, no respiratory distress Cardiovascular: regular rate/rhythm Abdomen: normal bowel sounds, soft, non-tender Extremities: normal inspection, no edema Neurologic/Psychiatric: no motor/sensory deficits, awake, alert, oriented x 3 Skin: intact, normal color, warm/dry Current Medications: Current Medications Sig/Jayde Start time Last Medication Dose Route Stop Time Status Admin Acetaminophen 650 MG Q6P PRN 06/29 0145 AC 07/01 PO 0827 Dicyclomine HCl 20 MG 4 TIMES/DAY 06/30 1004 AC 07/04 PO 1321 Diphenoxylate HCl/ 5 MG BIDPRN PRN 07/02 1013 AC 07/03 Atropine PO 2133 Heparin Sodium 5,000 UNIT Q8 07/02 1400 AC 07/04 (Porcine) SC 1319 Hydrocortisone 50 MG Q8 07/02 1400 AC 07/04 Sodium Succinate IV 1323 Lidocaine 1 PAT Q24H PRN 06/29 0145 AC EXT Mesalamine 1,600 MG TID 06/29 1400 AC 07/04 PO 1320 Mesalamine 1,000 MG BID 06/29 0900 AC 07/04 OK 0837 Omeprazole 40 MG DAILY AC 07/03 0700 AC 07/04 PO 0633 Ondansetron HCl 4 MG Q6P PRN 06/29 0145 AC IV Patient Medication 1 ED ONE ONE 07/04 1045 DC 07/04 Teaching ED 07/04 1046 1322 Potassium Chloride 10 MEQ ONCE ONE 07/03 184 CAN IV 07/03 184 Potassium Chloride 10 MEQ ONCE ONE 07/03 184 DC 07/03 IV 07/03 Results Pertinent Lab Results: Laboratory Tests 07/04 07/03 07/03 0001 1645 0634 Chemistry Sodium (137 - 145 mmol/L) 135 L 135 L 136 L Potassium (3.5 - 5.1 mmol/L) 3.9 3.4 L 2.5 *L Chloride (98 - 107 mmol/L) 99 98 98 Carbon Dioxide (22 - 30 mmol/L) 31 H 34 H 33 H Anion Gap (5 - 16) 6 3 L 5 BUN (7 - 17 mg/dL) 14 13 6 L Creatinine (0.5 - 1.0 mg/dL) 0.7 0.7 0.5 Estimated GFR (>60 ml/min) > 60 > 60 > 60 BUN/Creatinine Ratio (7 - 25 %) 20.0 18.6 12.0 Magnesium (1.6 - 2.3 mg/dL) 1.9 Total Bilirubin (0.2 - 1.3 mg/dL) 0.7 Direct Bilirubin (< 0.4 mg/dL) 0.2 AST (14 - 36 U/L) 11 L ALT (9 - 52 U/L) 31 Alkaline Phosphatase (<127 U/L) 50 Total Protein (6.3 - 8.2 g/dL) 5.0 L Albumin (3.5 - 5.0 g/dL) 2.7 L Hematology CBC w Diff NO MAN DIFF REQ WBC (4.8 - 10.8 /CUMM) 5.3 RBC (4.20 - 5.40 /CUMM) 3.27 L Hgb (12.0 - 16.0 G/DL) 11.4 L Hct (37 - 47 %) 32.2 L MCV (81.0 - 99.0 FL) 98.4 MCH (27.0 - 31.0 PG) 34.8 H MCHC (33.0 - 37.0 G/DL) 35.4 RDW (11.5 - 14.5 %) 14.9 H Plt Count (130 - 400 /CUMM) 193 MPV (7.4 - 10.4 FL) 7.0 L Gran % (42.2 - 75.2 %) 57.2 Lymphocytes % (20.5 - 51.1 %) 24.8 Monocytes % (1.7 - 9.3 %) 17.5 H Eosinophils % (0 - 5 %) 0.2 Basophils % (0.0 - 2.0 %) 0.3 Absolute Granulocytes (1.4 - 6.5 /CUMM) 3.1 Absolute Lymphocytes (1.2 - 3.4 /CUMM) 1.3 Absolute Monocytes (0.10 - 0.60 /CUMM) 0.9 H Absolute Eosinophils (0.0 - 0.7 /CUMM) 0 Absolute Basophils (0.0 - 0.2 /CUMM) 0
[2018-07-04 22:07] VITALS: BP 106/60
[2018-07-05 06:43] VITALS: BP 110/68
[2018-07-05] MEDS ORDERED: PREDNISONE10 M2 PO (07:45)
--- NOTE | 2018-07-05 07:46 | PN- Housestaff ---
See Addendum Subjective Follow-up For: Ulcerative colitis flare Subjective: Patient was seen and examined this morning. SHe is doing better and has been having lesser episodes of diarrhea. No psychotic episodes. No acute overnight events. She is scheduled for OP remicadse appointment tomorrow and feels ready for discharge Review of Systems Constitutional: Reports: see HPI. Objective Last 24 Hrs of Vital Signs/I&O Vital Signs Date Time Temp Pulse Resp B/P B/P Pulse O2 O2 Flow FiO2 Mean Ox Delivery Rate 07/05 08 99 07/05 0643 98.2 53 20 110/68 99 Room Air 07/04 2207 97.9 59 16 106/60 97 07/04 1510 97.9 68 18 96/58 98 Intake & Output 07/05 1600 07/05 0800 07/05 0000 Intake Total 120 120 Output Total Balance 120 120 Intake, Oral 120 120 Number 6 1 Bowel Movements Physical Exam General Appearance: Alert, Oriented X3, Cooperative, No Acute Distress Cardiovascular: Regular Rate, No Murmurs Lungs: Clear to Auscultation, Normal Air Movement Abdomen: Normal Bowel Sounds, Soft, No Tenderness, No Hepatospenomegaly, No Masses Neurological: Normal Speech, Strength at 5/5 X4 Ext, Normal Tone, Sensation Intact Extremities: No Clubbing, No Cyanosis, No Edema, Normal Pulses, No Tenderness/ Swelling Assessment/Plan Assessment: Patient is a 57 y old f with PMH ulcerative colitis with 3 fares in the last year. She was here for another flare last week and was discharged after Dr Irizarry recommended on PO Mesalamine 1600mg TID and suppository Mesalamine bid for regular use and was given a prednisolone taper of 10 days as she has difficulty swallowing predinsone pill. She is also forgetful ,although orietend to time place and person. Conitnuies to have loose BM. Her diet was advanced yesterday from clear liquids to full liquids and her diarrhea worsened . My assessment of this patient is a recurrence of flare due to non compliance to taking mesalamine tid and took it only od. SHe continues having cramps and diarrhea with some vlood. 1) Ulcerative colitis flare 2) generalised weakness due to dehydration 3) hypotension 4) difficulty swallowing- 5) prednisone induced psychosis Plan - #1)Ulcerative colitis- IV steroids converted to oral prednisolone 30mg bid -Continue Zofran for nausea -Continue Canasa bid and mesalamine per oral 1600 mg 3 times daily -Continue pantoprazole IV continue Bentyl for pain - will dc iv fluids. tolerating low fiber diet. -PT recommended -H and H stable -Sigmoidoscopy showed no changes from the sigmoidoscopy 3 weeks ago -GI will discuss about starting the patient on Remicade instead of Humira, will be done Outpatient tomorrow. - WIll discharge the patient today. 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 Ulcerative colitis Pain Ratin Pain Location: none Alt Method for Pain Treatment: Other(free text) Pain Goal: Remain pain free Pain Plan: none Tomorrow's Labs & Rationales: none
[2018-07-05] MEDS ORDERED: PREDNISOLO15 MG/5 M4 PO ×3 (09:55→11:50)
[2018-07-05] MEDS ORDERED: CANASA1000 M1 PR (11:50)
[2018-07-05] MEDS ORDERED: APRISO0.375 G1 PO (11:50)
[2018-07-05] MEDS ORDERED: LOMOTIL 2.5-0.1 EACH PO (11:50)
[2018-07-05 16:05] VITALS: BP 118/70
== END 2018-07-05 16:28 | DRG 386 ==
LOC: ERH 14:52 → ERHI 06-29 00:19 → 2NA 06-29 00:19 → ERHI 06-29 07:43 → ENRESERV 06-29 18:19 → ENTRNSPT 06-29 20:09 → EDTRNSPTSTS 06-29 20:20 → 2NA 06-29 20:28 → CMPTRNSPT 06-29 20:42 → 2NA 07-04 07:58 → ENPENDDIS 07-05 10:58 → ENTRNSPT 07-05 16:12 → EDTRNSPT 07-05 16:15 → EDTRNSPTSTS 07-05 16:15 → 2NA 07-05 16:28 → CMPTRNSPT 07-05 16:46
PROVIDERS: Internal Medicine Interventional Cardiology; Physician Assistant Medical; Student in an Organized Health Care Education/Training Program
PROC: 0DBE8ZX Excision of Large Intestine, Via Natural or Artificial Opening Endoscopic, Diagnostic (ICD-10-PCS; principal; 2018-07-01)
PROC: 0DBQ8ZX Excision of Anus, Via Natural or Artificial Opening Endoscopic, Diagnostic (ICD-10-PCS; principal; 2018-07-01)
DX: K51.90 Ulcerative colitis, unspecified, without complications (principal); E87.1 Hypo-osmolality and hyponatremia; F19.921 Other psychoactive substance use, unspecified with intoxication with delirium; Z79.899 Other long term (current) drug therapy; F17.210 Nicotine dependence, cigarettes, uncomplicated; Z88.1 Allergy status to other antibiotic agents; I10 Essential (primary) hypertension; Z90.710 Acquired absence of both cervix and uterus; Z90.79 Acquired absence of other genital organ(s); Z90.722 Acquired absence of ovaries, bilateral; E87.8 Other disorders of electrolyte and fluid balance, not elsewhere classified; E86.0 Dehydration; I95.9 Hypotension, unspecified; T38.0X5A Adverse effect of glucocorticoids and synthetic analogues, initial encounter
CPT/HCPCS: 2NAP; 36415; 36592; 74177; 82436; 83630; 87015; 87045; 87328; 87329; 87899; 87899-59; 93005; 93010; 96360; J0131; J1644; J1720; J7040; J7042; J7512

== ENCOUNTER 2018-07-08 18:07 | Emergency (ER) | payer OTHER ==
[~2018-07-08] VITALS: Ht 149.9 cm; Wt 36.3 kg
[~2018-07-08 18:07] MED LIST changes: +PREDNISOLO15 MG/5 M3 PO; +PREDNISOLO15 MG/5 M4 PO
[2018-07-08 20:01] LABS: ABSOLUTE BASOPHIL COUNT 0 /CUMM (0.0-0.2); ABSOLUTE EOSINOPHIL COUNT 0 /CUMM (0.0-0.7); ABSOLUTE GRANULOCYTE CT 3.6 /CUMM (1.4-6.5); ABSOLUTE MONOCYTE COUNT 0.6 /CUMM (0.10-0.60); BASOPHIL % 0.2 % (0.0-2.0); EOSINOPHIL % 0.1 % (0-5); GRANULOCYTE % 69.4 % (42.2-75.2); HEMATOCRIT 33.9 % (37-47); MEAN CORPUSCULAR HGB 34.2 PG (27.0-31.0); MEAN CORPUSCULAR HGB CONC 34.9 G/DL (33.0-37.0); MEAN CORPUSCULAR VOLUME 98.2 FL (81.0-99.0); MEAN PLATELET VOLUME 6.8 FL (7.4-10.4); PLATELET COUNT 175 /CUMM (130-400); RBC DISTRIBUTION WIDTH 15.1 % (11.5-14.5); RED BLOOD CELL CT 3.46 /CUMM (4.20-5.40); WHITE BLOOD CELL COUNT 5.1 /CUMM (4.8-10.8)
--- NOTE | 2018-07-08 20:23 | ED GENERAL ADULT ---
History of Present Illness General Chief Complaint: Psychiatric Related Complaint Stated Complaint: ALTERNED MENTAL STATUS PER FAMILY ?PYSCH Source: patient Exam Limitations: no limitations Vital Signs & Intake/Output Vital Signs & Intake/Output Vital Signs Date Time Temp Pulse Resp B/P B/P Pulse O2 O2 Flow FiO2 Mean Ox Delivery Rate 07/09 0943 66 20 128/78 97 Room Air 07/09 0635 98.1 67 18 116/67 98 Room Air 07/08 2248 97.8 53 14 143/77 07/08 2100 66 16 132/70 89 Room Air 07/08 1859 97 Room Air 07/08 1817 65 18 98/61 97 Room Air ED Intake and Output 07/09 0000 07/08 1200 Intake Total Output Total Balance Patient 79 lb 15.99 oz Weight Allergies Coded Allergies: erythromycin base (GI UPSET 06/28/18) Reconcile Medications Cyanocobalamin (Vitamin B-12) 1,000 MCG TABLET 1 TAB PO DAILY SUPPLEMENT ( Reported) Diphenoxylate HCl/Atropine (Lomotil 2.5-0.025 MG Tablet) 2.5 MG-0.025 MG TABLET 1 TAB PO TID PRN DIARRHEA . Hyoscyamine Sulfate (Levsin-Sl) 0.125 MG TAB.SUBL 1 TAB SL TID PRN ABD CRAMPING (Reported) Mesalamine (Apriso) 0.375 GRAM CAP.ER.24H 4 CAP PO TID ulcerative colitis . Mesalamine (Canasa) 1,000 MG SUPP.RECT 1 SUP PA BID ulcerative colitis .. Metoprolol Succ XL (Toprol XL) 25 MG TAB 1 TAB PO DAILY HEART/BP (Reported) Prednisolone 15 MG/5 ML SOLUTION 10 ML PO BID UC . Triage Note: 57F TO ED FOR AMS SINCE TODAY, FAMILY REPORTS SHE HAS BEEN TAKING PREDNISONE FOR UC (FOLLOWED BY DR BAPTISTE). HAS RECENTLY BEEN DEMONSTRATING MORE BIZARRE SYMPTOMS AND WAS SEEN AT [facility] LAST WEEK FOR AMS AND BIZARRE BEHAVIOR AND HAD CT DONE, REQUIRED INJECTIONS OF HALDOL. PT IN TRIAGE WITH EYES CLOSED, APPEARS CATATONIC. NO DISTRESSED RESPIRATORY EFFORT. FAMILY REPORTS EARLIER TODAY THEY FOUND HER NAKED IN HER LIVING ROOM, WITH LIMITED FLAT AFFECT. Triage Nurses Notes Reviewed? yes Onset: Abrupt Duration: week(s):, changing over time, continues in ED, getting worse Timing: recent history Injury Environment: home Severity: moderate, severe No Modifying Factors: none LMP (ages 10-50): unknown : No Patient currently breastfeeds: No HPI: 57-year-old female past medical history of ulcerative colitiS presents for evaluation of altered mental status and persistent colitis symptoms. Family reports that patient has been evaluated at this hospital in [facility] multiple times in the past several weeks. She was discharged discharged today from [facility] after an admission. Family reports the patient has been displaying increasingly odd behavior ever since starting steroids. During the last admission here she became delirious after taking high doses of steroids. Her steroids were eventually decreased and her behavior improved. Her ulcerative colitis symptoms have persisted and she has continued to lose weight despite the steroids and also mesalamine. Family reports she has multiple episodes of diarrhea daily sometimes bloody. They reports she does not eat or drink anything because it goes right through her. Family reports they just were discharged from [facility] today. During the admission there she required Haldol for her behavior the Haldol to work. They were discharged patient went home and again has been displaying bizarre behavior after getting a shower was walking around naked and confused and disoriented. Patient did have a recent head CT while[place] was negative. Currently patient denies any new or different abdominal pain fever chest pain or shortness of breath no nausea or vomiting. No drug or alcohol use. (Terry Fung) Past History Travel History Traveled to [place] past 21 day No Medical History Any Pertinent Medical History? 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 , Age 79; Cause: ASHD (arteriosclerotic heart disease). FATHER ("Primary" Liver Ca (*no hx cirrhosis); +RA). , Age 80; Cause: Liver cancer. Hx Contributory? No (Terry Fung) Review of Systems Review of Systems Constitutional: Reports: malaise, weakness, unexplained weight loss. EENTM: Reports: no symptoms. Respiratory: Reports: no symptoms. Cardiovascular: Reports: no symptoms. GI: Reports: see HPI, abdominal pain, diarrhea. Genitourinary: Reports: no symptoms. Musculoskeletal: Reports: no symptoms. Skin: Reports: no symptoms. Neurological/Psychological: Reports: confusion, emotional problems. Hematologic/Endocrine: Reports: no symptoms. Immunologic/Allergic: Reports: no symptoms. All Other Systems: Reviewed and Negative (Terry Fung) Physical Exam Physical Exam General Appearance: no apparent distress, alert, awake, cachetic, lethargic, thin Head: atraumatic, normal appearance Eyes: Bilateral: normal appearance, PERRL, EOMI. Ears, Nose, Throat: normal pharynx, normal ENT inspection, hearing grossly normal Neck: normal inspection, supple, full range of motion Respiratory: normal breath sounds, chest non-tender, no respiratory distress, lungs clear Cardiovascular: regular rate/rhythm, normal peripheral pulses Peripheral Pulses: 2+ radial (R), 2+ radial (L) Gastrointestinal: normal bowel sounds, soft, non-tender, no organomegaly Back: normal inspection, normal range of motion, no vertebral tenderness, NO CVAT Extremities: normal inspection, normal range of motion, no edema Neurologic/Psych: no motor/sensory deficits, awake, alert, oriented x 3, normal gait (SLOW shuffling gait), bottom steep tender II-XII nml as tested, flat affect Skin: intact, warm/dry, pallor Lymphatic: no anterior cervical cata Core Measures ACS in differential dx? No CVA/TIA Diagnosis: No Sepsis Present: No Sepsis Focused Exam Completed? No (Terry Fung) Progress Differential Diagnoses I considered the following diagnoses in my evaluation of the patient: [ Electrolyte abnormalities sepsis inflammatory bowel disease medication side effect, dehydration, vitamin deficiency, psychiatric issue] Plan of Care: Orders Procedure Date/time Status Regular Diet 07/09 B Active ED CRISIS PSYCH CONSULT 07/08 2153 Active PT Evaluate & Treat 07/08 2151 Active CASE MANAGEMENT CONSULT 07/08 2151 Active Add-on Test (ER Only) 07/08 190 Active URINE DRUGS OF ABUSE 07/08 1816 Complete URINALYSIS 07/08 1816 Complete TROPONIN LEVEL 07/08 1816 Complete PHOSPHORUS 07/08 1816 Complete MAGNESIUM 07/08 1816 Complete LIPASE 07/08 1816 Complete LACTIC ACID 07/08 1816 Complete ETHANOL 07/08 1816 Complete COMPREHENSIVE METABOLIC PANEL 07/08 1816 Complete CBC WITHOUT DIFFERENTIAL 07/08 1816 Complete EKG 07/08 1816 Active Current Medications Sig/Jayde Start time Last Medication Dose Stop Time Status Admin Mesalamine 1,000 MG BID 07/09 900 UNVr 07/09 (Canasa 1000 MG SUP) 955 Mesalamine 1,500 MG TID 07/09 900 UNVr 07/09 (Pentasa) 0956 Multivitamins 1 TAB DAILY 07/09 900 UNVr 07/09 Therapeutic 0956 (Theragran-M Vitamins Tabs) Diphenoxylate HCl/ 2.5 MG TID PRN 07/08 2300 AC Atropine (Lomotil) Laboratory Tests 07/08/186: Lactic Acid Cancelled 07/08/18 2100: Urine Opiates Screen < 100, Methadone Screen < 40, Barbiturate Screen < 60, Ur Phencyclidine Scrn < 6.00, Amphetamines Screen < 100, U Benzodiazepines Scrn < 85, Urine Cocaine Screen < 50, Urine Cannabis Screen < 5.00, Urine Color YEL, Urine Clarity CLEAR, Urine pH 7.0, Ur Specific [place] 1.010, Urine Protein NEG, Urine Ketones NEG, Urine Nitrite NEG, Urine Bilirubin NEG, Urine Urobilinogen 0.2, Ur Leukocyte Esterase NEG, Ur Microscopic EXAM NOT REQUIRED, Urine Hemoglobin NEG, Urine Glucose NEG 07/08/18 1948: Anion Gap 3 L, Estimated GFR > 60, BUN/Creatinine Ratio 32.5 H, Glucose 103 H , Lactic Acid 0.7, Calcium 8.9, Phosphorus 3.8, Magnesium 1.9, Total Bilirubin 0.8, AST 12 L, ALT 28, Alkaline Phosphatase 58, Troponin I < 0.01, Total Protein 5.4 L, Albumin 3.0 L, Globulin 2.4, Albumin/Globulin Ratio 1.3, Lipase 106, CBC w Diff NO MAN DIFF REQ, RBC 3.46 L, MCV 98.2, MCH 34.2 H, MCHC 34.9, RDW 15.1 H, MPV 6.8 L, Gran % 69.4, Lymphocytes % 18.5 L, Monocytes % 11.8 H , Eosinophils % 0.1, Basophils % 0.2, Absolute Granulocytes 3.6, Absolute Lymphocytes 1.0 L, Absolute Monocytes 0.6, Absolute Eosinophils 0, Absolute Basophils 0, Serum Alcohol < 10.0 She is here for evaluation of ongoing issues related to inflammatory bowel disease and its treatment. Family reports that ever since she has been taking steroids she has had increasingly odd behavior. Her behavior improved while [place] when she was treated with Haldol however she was discharged today she began to have strange behavior again. Patient has a flat affect but is answering questions appropriately. She is neurologically intact. Her abdomen currently is soft and nontender. Labs are ordered. IV fluids started. Family reports they feel like they cannot care for her at home because she refuses to eat or drink. Patient is due to start Remicade on Wednesday. Lab work is unremarkable and unchanged. Spoke with Dr. Bacon who does not feel a significant change in her inflammatory bowel disease treatment is currently needed as she is due to start Remicade on Wednesday and taper off steroids then. She is found reports they cannot take her home she will likely require short-term rehabilitation. Patient will be held over in the emergency department for a crisis consult case management consult. She will will be given IV fluids overnight. CASE discussed with Dr. Baer he agrees. Patient was signed out to Dr. Baer pending crisis consult case management consult. Initial ED EKG: normal sinus rhythm, no ST T wave changes Hand-Off Endorsed To: Dank Baer MD Endorsed Time: 2246 Pending: consult (CASE MANAGEMENT CRISIS) (Terry Fung) Comments: Patient has been seen and evaluated by both physical therapy as well as crisis. Patient is stable for discharge at this time. (Wilfredo MARTINEZ,Philip Sanderson) Departure Departure Condition: Stable Clinical Impression Primary Impression: Ulcerative colitis Qualifiers: Ulcerative colitis location: unspecified ulcerative colitis location Digestive disease complication type: unspecified complication Qualified Code: K51.919 - Ulcerative colitis, unspecified with unspecified complications Secondary Impressions: Altered mental status Qualifiers: Altered mental status type: unspecified Qualified Code: R41.82 - Altered mental status, unspecified Referrals: Shalini MARTINEZ,Domenico Roy (PCP/Family) Departure Forms: Customer Survey General Discharge Information (Terry Fung) Departure Comments pt to be signed out to dr. mayer 07/09/18, 7am. PA/EMPLOYEE BENEFITS ATTORNEY Co-Sign Statement Statement: ED Attending supervision documentation- [x] I saw and evaluated the patient. I have also reviewed all the pertinent lab results and diagnostic results. I agree with the findings and the plan of care as documented in the PA's/EMPLOYEE BENEFITS ATTORNEY's documentation. 07/08/18, 22:15... discussed at length with family... pt merits case management for possible placement in short term rehab due to weakness from recurrent hospitalizations. Pt also merits crises consult to evaluate psychosis, likely due to meds. [] I have reviewed the ED Record and agree with the PA's/EMPLOYEE BENEFITS ATTORNEY's documentation. [] Additions or exceptions (if any) to the PAs/EMPLOYEE BENEFITS ATTORNEY's note and plan are summarized below: [] (Buffy MARTINEZ,Dank Noyola) Departure Disposition: HOME OR SELF CARE Additional Instructions: Start Remeron 1 pill at night. Follow-up with your primary care physician. Return if symptoms worsen or for any concerns. Prescriptions: Current Visit Scripts Mirtazapine (Remeron) 1 TAB PO QPM #14 TAB (Wilfredo MARTINEZ,Philip Sanderson) Critical Care Note Critical Care Note Critical Care Time: non-applicable (Terry Fung)
[2018-07-09] MEDS ORDERED: REMERON15 M2 PO (12:31)
[2018-07-09 12:54] VITALS: BP 132/74
--- NOTE | 2018-07-09 13:39 | ED PSYCH CRISIS CONSULTATION ---
Crisis Consult Basic Assessment Date of Consult: 07/09/18 Responsible Person/Accompanied By: Self/ Calvin Aguirre Insurance Authorization: Insurance #1: Insurance name: CASSANDRA Phone number: Policy number: [id number] Group number: [id number] Authorization number: ED Provider: Patient's ED Provider: Terry Fung Primary Care Physician: Patient's PCP: Domenico Loya MD, V. PCP's Current Psychiatrist: Roya Zhu MD Chief Complaint: Psychiatric Related Complaint Patient's Quote: "I go in and out" Present Illness: Pt is a 57 yo female. Pt was brought to the Emergency Department by her with the presentation of an altered mental status. Pt 's contacted Dr. Irizarry on 07/08/18 to report his concern about the change in the pt's behavior recently. He reports pt was not reponding to his prompts, she seemed "out of it" and the pt said she was going in and out. Dr. Irizarry is the pt's medical provider for the treatment of Ulcerative Colitis. Pt states she was taking a high dose of Prednisone 100mgs. Dr. Irizarry told the pt's huband to refrain from giving the pt the second dose of Prednisone as she might be having an adverse reaction to the Prednisone. Pt was alert and oriented x2. Pt knew day, but couldn't remember the month and date. Pt deneis suicidal and homicidal thoughts and she denies currently having visual or auditory hallucinations. However, both the pt and her mentioned that she has had some lapse in memory. Pt reports "it's hard to remember things sometimes". Pt's said he notice there are periods when there is a change in the pt's voice, tone as well and she would have a blank stare on her face. Pt states she lost approximately 50 lbs, because of her chronic symptom of diarrhea. Pt looks malnurished and weak. Pt said she is in distress because she was a reasonably health person before September, when she experienced woorsening symptoms of diarrhea. She use to go walking with friends and she enjoyed jogging, but at this time she is unable to do any of the things she enjoyed since she often has to go to the bathroom. Pt denies a psychiatric history, no psychotropic medications. Utox was completed the results were negative. Pt denies ETOH and substance use. Consultation with Dr. Zhu who states the pt could possible have experiened a change in mental staus due to Mild Encephalopathy. Patient's Address: [address] [place] [address] Other Who Do You Live With? Spouse Family/Informants Interviewed: Face to face with pt's Calvin Aguirre. States the pt was just here at [facility] on 07/05 with symptoms of Colitis , then she was admitted to [facility] on 07/06 with the same symptoms. He reports pt has been in the hospital for 20 days out of the month so far. Allergies - Coded Allergies: erythromycin base (GI UPSET 06/28/18) Current Medications - Scheduled Medications Cyanocobalamin (Vitamin B-12) 1,000 MCG TABLET 1 TAB PO DAILY SUPPLEMENT ( Reported) Entered as Reported by Mer Aguilera on 04/06/182147 Mesalamine (Apriso) 0.375 GRAM CAP.ER.24H 4 CAP PO TID ulcerative colitis #360 CAP Prescribed by Baron Keys on 07/05/18 Mesalamine (Canasa) 1,000 MG SUPP.RECT 1 SUP VT BID ulcerative colitis #60 SUP Prescribed by Baron Keys on 07/05/18 Metoprolol Succ XL (Toprol XL) 25 MG TAB 1 TAB PO DAILY HEART/BP (Reported) Entered as Reported by Mer Aguilera on 04/06/182126 Mirtazapine (Remeron) 15 MG TABLET 1 TAB PO QPM DEPRESSION #14 TAB Prescribed by Philip Villalobos MD on 07/09/18 Prednisolone 15 MG/5 ML SOLUTION 10 ML PO BID UC #50 SILVIO Prescribed by Baron Keys on 07/05/18 Scheduled PRN Medications Diphenoxylate HCl/Atropine (Lomotil 2.5-0.025 MG Tablet) 2.5 MG-0.025 MG TABLET 1 TAB PO TID PRN DIARRHEA #60 TAB Prescribed by Baron Keys on 07/05/18 Hyoscyamine Sulfate (Levsin-Sl) 0.125 MG TAB.SUBL 1 TAB SL TID PRN ABD CRAMPING #45 (Reported) Entered as Reported by Mer Aguilera on 04/06/182126 Laboratory Results: Laboratory Tests 07/08/182115: Lactic Acid Cancelled 07/08/18 2100: Urine Opiates Screen < 100, Methadone Screen < 40, Barbiturate Screen < 60, Ur Phencyclidine Scrn < 6.00, Amphetamines Screen < 100, U Benzodiazepines Scrn < 85, Urine Cocaine Screen < 50, Urine Cannabis Screen < 5.00, Urine Color YEL, Urine Clarity CLEAR, Urine pH 7.0, Ur Specific [place] 1.010, Urine Protein NEG, Urine Ketones NEG, Urine Nitrite NEG, Urine Bilirubin NEG, Urine Urobilinogen 0.2, Ur Leukocyte Esterase NEG, Ur Microscopic EXAM NOT REQUIRED, Urine Hemoglobin NEG, Urine Glucose NEG 07/08/181947: Anion Gap 3 L, Estimated GFR > 60, BUN/Creatinine Ratio 32.5 H, Glucose 103 H , Lactic Acid 0.7, Calcium 8.9, Phosphorus 3.8, Magnesium 1.9, Total Bilirubin 0.8, AST 12 L, ALT 28, Alkaline Phosphatase 58, Troponin I < 0.01, Total Protein 5.4 L, Albumin 3.0 L, Globulin 2.4, Albumin/Globulin Ratio 1.3, Lipase 106, CBC w Diff NO MAN DIFF REQ, RBC 3.46 L, MCV 98.2, MCH 34.2 H, MCHC 34.9, RDW 15.1 H, MPV 6.8 L, Gran % 69.4, Lymphocytes % 18.5 L, Monocytes % 11.8 H , Eosinophils % 0.1, Basophils % 0.2, Absolute Granulocytes 3.6, Absolute Lymphocytes 1.0 L, Absolute Monocytes 0.6, Absolute Eosinophils 0, Absolute Basophils 0, Serum Alcohol < 10.0 Past History Past Medical History Neurological: NONE EENT: NONE Cardiovascular: hypertension Respiratory: bronchitis Gastrointestinal: ulcerative colitis Hepatic: NONE Renal: NONE Musculoskeletal: degen joint disease, osteoarthritis Psychiatric: NONE Endocrine: vitamin D deficiency Blood Disorders: resolved pancyopenia, 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 Cancer(s): NONE 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/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: NONE (GILBERT-unilat oophrectomy), endometriosis Past Surgical History Surgical History: hysterectomy (GILBERT-unilat ooph for endomet), T&A Psychosocial History Strengths/Capabilities: Supportive Currently in treatment for medical condition Physical Limitations (Interventions): None Reported Psychiatric Treatment History Psych Treatment Psychiatric Treatment No Inpatient Treatment No Outpatient Treatment No Location of Treatment N/A Reason for Treatment N/A Dates of Treatment N/A Response to Treatment N/A Diagnosis by History: NO psychiatric history Substance Use/Abuse History Drug Use/Abuse Substances Used/Abused No First Use N/A Last Used N/A How much used/taken N/A How often N/A For how long N/A Route of use N/A Substance Abuse Treatment Substance Abuse Treatment Past Substance Abuse [place] No Inpatient Treatment No Outpatient Treatment No Location of Treatment N/A Reason for Treatment N/A Dates of Treatment N/A Response to Treatment N/A Current Mental Status Mental Status Orientation: Person, Place, Situation Affect: WNL Speech: WNL Neuro-vegetative: Anhedonia, Appetite Decreased, Concentration Poor, Energy Decreased, Helpless, Loss of Interest, Sleep Disturbance, WNL Appearance Appearance- Dress/Hygiene: Malnurished, very thin and weak. Behaviors Thought Process: WNL Thought Content: Somatic Memory: Short term memory Insight: WNL SI/HI Risk Assessment Past Suicidal Ideation/Attempts No Current Suicidal Ideation/Att No Past Homicidal Ideation/Att: No Current Homicidal Ideation/Attempts No Degree of Intent: N/A Danger To: N/A Gravely Disabled: N/A Risk Factors: high anxiety/distress Lethality Rating: N/A PTSD Checklist PTSD Done? 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 Sam/ [facility] Telephone: [phone] Rationale for Disposition: Pt presents to the ED with altered mental state due to high dose of Prednisone. Consultation with psychiatrist Dr. Zhu suggested that the pt might have experienced Mild Encephalopathy and recommends treatment with the medication Mirtazapine. Referrals Shalini MARTINEZ,Domenico Roy (PCP/Family)
== END 2018-07-09 12:54 ==
LOC: ERH 18:07
PROVIDERS: Physician Assistant Medical
DX: K51.919 Ulcerative colitis, unspecified with unspecified complications (principal); R41.82 Altered mental status, unspecified; I10 Essential (primary) hypertension
CPT/HCPCS: 80307; 81003; 93005; 93010; 96360; 96361; 97116-GP; 97161-GP; G0463; G0480